=== PATIENT | female | born 1985 | race Caucasian/White ===

== ENCOUNTER 2017-08-25 08:27 | Inpatient (IN) | payer OTHER ==
[~2017-08-25] VITALS: Ht 165.1 cm; Wt 70.8 kg
[2017-08-25] MEDS ORDERED: FOLI1TAB7 PO (10:14)
[2017-08-25] MEDS ORDERED: PREN-63 (10:14)
[2017-08-25] MEDS ORDERED: BUPR8SUB19 SL (10:15)
[2017-08-25] MEDS ORDERED: LACTATED RINGER'S 1000ML 1,000 ML IV PRN (10:16)
[2017-08-25 10:18] VITALS: Ht 165.1 cm; Wt 70.8 kg
[2017-08-25 10:41] LABS: HEMATOCRIT 35.2 % (37-47); MEAN CELL VOLUME 90.7 fL (80-100); MEAN CORPUSCULAR HEMOGLOBIN 30.9 pg (25-34); MEAN CORPUSCULAR HGB CONC 34.1 g/dl (32-36); MEAN PLATELET VOLUME 10.7 fL (7.4-10.4); PLATELET COUNT 281 K/uL (130-400); RED BLOOD COUNT 3.88 M/uL (4.2-5.4); WHITE BLOOD COUNT 11.04 K/uL (4.8-10.8)
[2017-08-25] MEDS ORDERED: PENICILLIN G POTASSIUM IV 6 MU in DEXTROSE 5% 250ML 250 ML IV ONE (11:00)
[2017-08-25] MEDS ORDERED: MISOPROSTOLTAB 50 MCG TAB PO ONE ×2 (11:00→16:42)
[2017-08-25] MEDS ORDERED: TERBUTALINE SULFATE 1 MG/ML VIAL ONE (11:20)
[2017-08-25] MEDS ORDERED: TERBUTALINE SULFATE 1 MG/ML VIAL SQ SCH (11:45)
[2017-08-25] MEDS: LACTATED RINGER'S 1000ML 1,000 ML IV SCH ×2 (12:23→21:10)
--- NOTE | 2017-08-25 12:25 | HISTORY & PHYSICAL EXAMINATION ---
DATE OF ADMISSION: 08/25/2017 HISTORY OF PRESENT ILLNESS: The patient is a 31-year-old G1, P0, due date 08/20/2017, making her 40 weeks and 2 days today. The patient was originally scheduled for induction of labor on 08/26/2017 but came in this morning with irregular contractions. On arrival to labor and delivery, she had no shortness of breath, no chills, no fever, no rupture of membranes. No bloody show. heart rate strip is category 2. Decision is therefore made to keep the patient for induction of labor today. The patient's is complicated by history of drug use. The patient is on Subutex 8 mg 3 times a day. pt has declined MFM consult during her .her last scn was 4 weeks ago and EFW at that time was over 6lbs PAST MEDICAL HISTORY: 1. History of drug abuse. The patient is presently on Subutex. 2. History of bipolar disorder. 3. Attention deficit hyperactivity disorder. 4. Depression. 5. Anxiety. PAST SURGICAL HISTORY: None. ALLERGIES: THE PATIENT IS ALLERGIC TO NALOXONE. SOCIAL HISTORY: The patient denies alcohol. She however is a smoker and has history of drug use, presently on Subutex through . FAMILY HISTORY: Noncontributory. PHYSICAL EXAMINATION: GENERAL: Well-developed, well-nourished white female in no acute distress. HEART: S1, S2, regular rhythm and rate. LUNGS: Clear to auscultation bilaterally. ABDOMEN: Gravid. Bedside ultrasound shows cephalic presentation. PELVIC: Fingertip, thick and posterior. EXTREMITIES: No cyanosis, clubbing or edema. ASSESSMENT AND PLAN: A 31-year-old G1, P0 at 40 weeks and 2, complicated by history of drug use. The patient is presently on Subutex 8 mg 3 times a day. Positive GBS, patient will be receiving antibiotic prophylaxis. The patient was originally scheduled for induction tomorrow. She however presented to labor and delivery for rule out labor evaluation. Decision was therefore made to admit patient and start induction today instead. [facility]
[2017-08-25] MEDS: BUPRENORPHINE HCL 8 MG SUBL SL SCH ×2 (14:07→20:25)
[2017-08-25 14:49] LABS: BENZODIAZEPINE, URINE NEG (NEG); COCAINE,URINE NEG (NEG); PHENCYCLIDINE, URINE NEG (NEG)
[2017-08-25] MEDS ORDERED: OXYTOCIN 30 UNITS/500ML NSS IV PRN (22:00)
[2017-08-25] MEDS ORDERED: LACTATED RINGER'S 1000ML 500 ML IV PRN (22:00)
[2017-08-25] MEDS: PENICILLIN G POTASSIUM IV 3 MU in DEXTROSE 5% 100ML 100 ML IV PRN (23:06)
[2017-08-25] MEDS ORDERED: FENTANYL 2MCG/ML ROPIV 1.25MG/ML 100ML BAG EPI ONE (23:11)
[2017-08-25] MEDS ORDERED: BUPIVACAINE 0.25% 30 ML VIAL ONE (23:11)
[2017-08-25] MEDS ORDERED: EpHEDrine SULFATE INJ 50 MG/ML AMP ONE (23:11)
[2017-08-25] MEDS ORDERED: FENTANYL CITRATE INJ 50 MCG/1 ML 2 ML VIAL ONE (23:12)
[2017-08-26] VITALS (18 sets, daily range): BP systolic 102–121; BP diastolic 62–74; PULSE 78–97; TEMP 36.5–37.3; O2SAT 96–98
[2017-08-26] MEDS ORDERED: LACTATED RINGER'S 1000ML 500 ML IV PRN (00:08)
[2017-08-26] MEDS ORDERED: DiphenhydrAMINE HCL 50 MG/ML VIAL IV PRN (00:15)
[2017-08-26] MEDS ORDERED: ONDANSETRON INJ 2 MG/ML 2 ML VIAL IV PRN (00:15)
[2017-08-26] MEDS ORDERED: EpHEDrine SULFATE INJ 50 MG/ML AMP IV PRN (00:15)
[2017-08-26] MEDS ORDERED: FENTANYL 2MCG/ML ROPIV 1.25MG/ML 100ML BAG EPI PRN (00:15)
[2017-08-26] MEDS: PENICILLIN G POTASSIUM IV 3 MU in DEXTROSE 5% 100ML 100 ML IV PRN (03:26)
[2017-08-26] MEDS: LACTATED RINGER'S 1000ML 1,000 ML IV SCH (04:32)
[2017-08-26] MEDS ORDERED: LACTATED RINGER'S 1000ML 1,000 ML IV SCH ×2 (05:26→07:31)
[2017-08-26] MEDS ORDERED: CITRIC ACID/SODIUM CITRATE 15 ML UDC PO STA (05:29)
[2017-08-26] MEDS ORDERED: CEFOXITIN IV 2,000 MG in DEXTROSE 5% 50ML 50 ML IV SCH (06:00)
[2017-08-26] MEDS ORDERED: MIDAZOLAM HCL 1 MG/ML 2ML VIAL ONE ×2 (06:15→06:22)
[2017-08-26] MEDS ORDERED: MORPHINE SULFATE PF 2MG/2ML SYR ONE ×2 (06:17→07:02)
[2017-08-26] MEDS ORDERED: LIDOCAINE/EPINEPHRINE 2% 1:200,000 20 ML SDV ONE (06:37)
[2017-08-26] MEDS ORDERED: PHENYLEPHRINE HCL INJ 10 MG/ML VIAL ONE (06:37)
[2017-08-26] MEDS ORDERED: METHYLERGONOVINE MALEATE 0.2 MG/ML AMP ONE (06:38)
[2017-08-26] MEDS ORDERED: OXYTOCIN INJ 10 UNITS/ML VIAL ONE (06:42)
[2017-08-26] MEDS ORDERED: KETOROLAC TROMETHAMINE 30 MG/ML VIAL ONE (06:57)
[2017-08-26] MEDS ORDERED: ONDANSETRON INJ 2 MG/ML 2 ML VIAL ONE (07:07)
[2017-08-26] MEDS ORDERED: TERBUTALINE SULFATE 1 MG/ML VIAL ONE (07:18)
[2017-08-26] MEDS ORDERED: NO NARCOTICS OR SEDATIVES SCH (07:30)
[2017-08-26] MEDS ORDERED: CONTINUE MEDICATION ONE (07:30)
[2017-08-26] MEDS ORDERED: ACETAMINOPHEN 1000 MG/100 ML IV IV PRN (07:30)
[2017-08-26] MEDS ORDERED: MoRPHine SULFATE PF 1 MG/ML 10 ML AMP/VIAL EPI PRN (07:30)
[2017-08-26] MEDS ORDERED: OXYTOCIN INJ 20 UNITS in LACTATED RINGER'S 1000ML 1,000 ML IV SCH (07:31)
--- NOTE | 2017-08-26 07:31 | Anesthesia Procedure Note ---
Anesthesia Epidural Removal Nt Date & Time Aug 26, 2017 at 07:31 Notes Mental Status: alert / awake / arousable, participated in evaluation Nausea / Vomiting: adequately controlled Pain: adequately controlled Airway Patency, RR, SpO2: stable & adequate BP & HR: stable & adequate Hydration State: stable & adequate Neuraxial Anesthesia: was administered Anesthetic Complications: no major complications apparent, pt satisfied with anesthetic care Epidural: removed without complications, with tip intact
--- NOTE | 2017-08-26 07:34 | Anesthesiology Progress Note ---
Anesthesia Post Op Note Date & Time Aug 26, 2017 at 07:34 Notes Mental Status: alert / awake / arousable, participated in evaluation Pt Amnestic to Procedure: Yes Nausea / Vomiting: adequately controlled Pain: adequately controlled Airway Patency, RR, SpO2: stable & adequate BP & HR: stable & adequate Hydration State: stable & adequate Neuraxial Anesthesia: was administered, sensory block is resolving Anesthetic Complications: no major complications apparent
[2017-08-26] MEDS ORDERED: BENZOCAINE 20% AER SPR 82.5 GM CAN EXT PRN (07:45)
[2017-08-26] MEDS ORDERED: MAGNESIUM HYDROXIDE SUSP 30 ML UDC PO PRN (07:45)
[2017-08-26] MEDS ORDERED: SENNA 8.6 MG TAB PO PRN (07:45)
[2017-08-26] MEDS ORDERED: SUPERCREAM 0.870 % 15GM JAR EXT PRN (07:45)
[2017-08-26] MEDS ORDERED: HYDROCORTISONE ACETATE 25 MG SUPP PR PRN (07:45)
[2017-08-26] MEDS ORDERED: LANOLIN OINT EXT PRN ×2 (07:45)
[2017-08-26] MEDS: BUPRENORPHINE HCL 8 MG SUBL SL SCH (07:46)
[2017-08-26] MEDS: PRENATAL VITAMIN TAB PO SCH (08:00)
[2017-08-26] MEDS: DOCUSATE SODIUM 100 MG CAP PO SCH ×2 (08:00→19:36)
[2017-08-26] MEDS: FERROUS SULFATE 325 MG TAB PO SCH (08:00)
--- NOTE | 2017-08-26 08:27 | OPERATIVE REPORT ---
DATE OF OPERATION: 08/25/2017 INDICATION FOR SURGERY: This is a 31-year-old who presented to [facility] on 08/25/2017 for labor induction at 40 weeks and 5 days. The patient's is complicated by use of Subutex. Induction involved 2 doses of Cytotec and Pitocin. The patient progressed to 3 cm, 100% effaced and -2 station. The patient continued to experience deep variable decelerations. Amnioinfusion was performed with no success. Decision was, therefore, made to perform section. PREOPERATIVE DIAGNOSES: 1. Induction for postdates. 2. complicated by drug use, the patient is on Subutex. 3. intolerance to labor. 4. Recurrent variable decelerations. 5. Oligohydramnios. POSTOPERATIVE DIAGNOSES: Same. PROCEDURE: Primary section. SURGEON: Dr. Pollard. SECURITY OPERATIONS C[facility] OPERATOR: Martha Liriano RN. ANESTHESIA: Epidural. COMPLICATIONS: None. DRAINS: Stuart catheter. ESTIMATED BLOOD LOSS: 700 mL IV FLUIDS: 1600 mL URINE OUTPUT: 200 mL clear urine at end of the procedure. SPECIMEN: Cord gas and placenta. FINDINGS: Live infant female in occiput posterior presentation, thick particulate meconium. Uterus is grossly normal except for 2 cm anterior fibroid. Both adnexa appear grossly normal. Rest of the abdominal and pelvic exam is unremarkable. DESCRIPTION OF PROCEDURE: The patient was sent to the operating room where she was prepped and draped in normal sterile fashion. Timeout was called. A Pfannenstiel incision was made with a scalpel and carried down to the fascia. Fascia was incised in the midline and extended laterally on both sides. The rectus abdominus muscle was sharply dissected off the fascia superiorly and inferiorly. Peritoneum was identified and entered, grabbed and cut with Saldivar scissors. Once inside the abdomen, an Cheng retractor was placed for retraction. The vesicouterine peritoneum was sharply dissected off the lower uterine segment. A transverse incision was made and extended laterally on both sides. Infant was in occiput posterior presentation and was delivered using Victus retractor. Infant was delivered. There was no nuchal cord. Particulate meconium was identified. Cord was clamped and cut and handed over to the pediatric team. 's weight and details are in the pediatric record. Cord gases obtained. Placenta was manually removed. Uterus exteriorized and cleared of all clots and debris. Uterus was closed in 2 layers using 0 Vicryl. Fascial layer closure done in locking fashion. There was good hemostasis at the end of the closure. Copious amount of irrigation was used to irrigate the abdomen. The bladder flap was reapproximated using plain suture. Uterus was returned into the abdominal cavity where more irrigation was used to irrigate the abdomen. There was good hemostasis at this point. The Cheng retractor was removed and the peritoneum closed in a running fashion using plain suture. The rectus abdominis muscle was reapproximated in a [id number] fashion using plain suture. The fascia was closed in a running fashion using Vicryl stitch. Subcu space was reapproximated using plain suture and skin was closed with 4-0 Monocryl. All instruments were removed from the abdomen and accounted for x2 including retractors, needles and sponges. Mother is stable and sent to recovery in stable condition. I attest to the content of the Intraoperative Record and any orders documented therein. Any exception s are noted below.
[2017-08-26] MEDS: MoRPHine SULFATE 2 MG/ML CARP IV PRN ×2 (08:45→18:50)
[2017-08-26] MEDS ORDERED: OXYCODONE HCL IR 5 MG TAB (IMMEDIATE RELEASE) PO PRN ×2 (09:15→13:00)
[2017-08-26] MEDS: SIMETHICONE 80 MG CHEW PO SCH ×4 (10:15→19:36)
--- NOTE | 2017-08-26 12:56 | OB/GYN Progress Note ---
GUARD RANGE Progress Note Date of Service: Aug 26, 2017. Postop check Patient is seen and examined Feels well, no complaints other than being sore She desires her Subutex Pain is 7/10 No CP/ SOB/ Dizziness/ N&V/ VB/ Leg pain Not OOB yet Tolerating clears Flatus+ Breast feeding without problems Date Time Temp Pulse Resp B/P (MAP) Pulse Ox O2 Delivery O2 Flow Rate FiO2 08/26/17 10:20 37.3 97 16 121/71 (88) 96 Room Air Urine: 900 ml in bag, clear PE: General: Alert, orientedx3, NAD CVS: S1S2 RRR Lungs: CTAB Abd: soft, NT, ND, BS+, Dressing C/D/I, fundus firm below U Lochia minimal Ext: NT, no edema, SCD's on AP: 31 yo female s/p Primary Csection , pod#0 VSS Afebrile doing well Pain management per anesthesiology: start Subutex, stop other narcotics IV Toradol and Tylenol per plan Continue to routine postop care Encourage PO intake, dangle in the evening D/C vee in am
[2017-08-26] MEDS: KETOROLAC TROMETHAMINE 30 MG/ML VIAL IV. PRN ×2 (13:37→19:36)
[2017-08-26] MEDS ORDERED: BUPRENORPHINE HCL 2 MG SUBL SL SCH ×2 (14:00→16:00)
[2017-08-26] MEDS ORDERED: BUPRENORPHINE SL SCH ×2 (20:00)
[2017-08-27] VITALS (10 sets, daily range): BP systolic 96–117; BP diastolic 57–75; PULSE 70–76; TEMP 36.8–36.9; O2SAT 96–98
[2017-08-27] MEDS: KETOROLAC TROMETHAMINE 30 MG/ML VIAL IV. PRN (01:43)
[2017-08-27] MEDS: IBUPROFEN 600 MG TAB PO PRN ×4 (05:36→21:47)
[2017-08-27] MEDS ORDERED: DC INTRASPINAL MORPHINE SCH (06:00)
[2017-08-27] MEDS ORDERED: PROMETHAZINE HCL INJ 25 MG in SODIUM CHLORIDE 0.9% 50ML 50 ML IV PRN (06:01)
[2017-08-27] MEDS ORDERED: OXYCODONE/ACETAMINOPHEN 5-325 TAB PO PRN (06:01)
[2017-08-27] MEDS ORDERED: DiphenhydrAMINE HCL 50 MG/ML VIAL IV PRN (06:01)
[2017-08-27] MEDS ORDERED: ONDANSETRON INJ 2 MG/ML 2 ML VIAL IV PRN (06:01)
[2017-08-27 07:27] LABS: BASO % 0.2 %; BASO ABS # 0.03 K/uL (0-0.2); COMPLETE YES; HEMATOCRIT 31.9 % (37-47); IG% 0.5 %; LYMPH % 10.8 %; LYMPH ABS # 1.39 K/uL (1.2-3.4); MEAN CELL VOLUME 91.7 fL (80-100); MEAN CORPUSCULAR HEMOGLOBIN 30.2 pg (25-34); MEAN CORPUSCULAR HGB CONC 32.9 g/dl (32-36); MEAN PLATELET VOLUME 10.6 fL (7.4-10.4); MONO % 6.1 %; NEUT % 81.4 %; PLATELET COUNT 268 K/uL (130-400); RED BLOOD COUNT 3.48 M/uL (4.2-5.4); WHITE BLOOD COUNT 12.91 K/uL (4.8-10.8)
[2017-08-27] MEDS: DOCUSATE SODIUM 100 MG CAP PO SCH ×2 (08:45→20:27)
[2017-08-27] MEDS: SIMETHICONE 80 MG CHEW PO SCH ×4 (08:45→20:27)
[2017-08-27] MEDS: FERROUS SULFATE 325 MG TAB PO SCH (08:45)
[2017-08-27] MEDS: PRENATAL VITAMIN TAB PO SCH (08:46)
[2017-08-27] MEDS: BUPRENORPHINE HCL 2 MG SUBL SL SCH ×3 (08:46→20:27)
[2017-08-27] MEDS: BUPRENORPHINE HCL 8 MG SUBL SL SCH ×3 (08:46→20:27)
--- NOTE | 2017-08-27 10:48 | Surgery Progress Note ---
Surgery Progress Note Date of Service Aug 27, 2017. Subjective Post OP Day: 1 + feeling well, + ambulating, + flatus, + pain controlled, + diet Objective Vital Signs: Date Time Temp Pulse Resp B/P (MAP) Pulse Ox O2 Delivery O2 Flow Rate FiO2 08/27/17 08:00 36.8 71 16 105/65 (78) Room Air 08/27/17 05:30 18 98 08/27/17 04:30 16 98 08/27/17 03:30 16 98 08/27/17 03:15 36.8 76 18 103/60 (74) 96 Room Air 08/27/17 02:30 16 98 08/27/17 01:30 18 98 08/27/17 00:30 18 96 08/26/17 23:45 96 Room Air 08/26/17 23:45 37.2 80 18 102/74 (83) 96 Room Air 08/26/17 23:30 18 98 08/26/17 22:30 16 98 08/26/17 21:30 16 97 08/26/17 20:30 16 98 08/26/17 20:06 98 Room Air 08/26/17 20:02 36.5 86 16 119/71 (87) 98 Room Air 08/26/17 19:30 16 98 08/26/17 18:30 16 98 08/26/17 17:30 15 97 08/26/17 16:30 16 98 08/26/17 15:30 16 96 08/26/17 15:30 Room Air 08/26/17 15:30 36.8 78 16 110/62 (78) 96 Room Air 08/26/17 14:30 20 97 08/26/17 13:30 18 97 08/26/17 12:30 18 96 08/26/17 12:30 37.2 84 20 112/64 (80) 96 Room Air 08/26/17 11:30 20 98 General Appearance: no apparent distress Abdomen: non tender, non distended, soft Incision(s): clean, dry, intact Extremities: non-tender, normal inspection, no pedal edema, no calf tenderness Laboratory Results: Results Past 24 Hours Test 08/27/17 06:50 Range/Units White Blood Count 12.91 4.8-10.8 K/uL Red Blood Count 3.48 4.2-5.4 M/uL Hemoglobin 10.5 12.0-16.0 g/dL Hematocrit 31.9 37-47 % Mean Corpuscular Volume 91.7 80-100 fL Mean Corpuscular Hemoglobin 30.2 25-34 pg Mean Corpuscular Hemoglobin Concent 32.9 32-36 g/dl Platelet Count 268 130-400 K/uL Mean Platelet Volume 10.6 7.4-10.4 fL Neutrophils (%) (Auto) 81.4 % Lymphocytes (%) (Auto) 10.8 % Monocytes (%) (Auto) 6.1 % Eosinophils (%) (Auto) 1.0 % Basophils (%) (Auto) 0.2 % Neutrophils # (Auto) 10.51 1.4-6.5 K/uL Lymphocytes # (Auto) 1.39 1.2-3.4 K/uL Monocytes # (Auto) 0.79 0.11-0.59 K/uL Eosinophils # (Auto) 0.13 0-0.5 K/uL Basophils # (Auto) 0.03 0-0.2 K/uL RDW Standard Deviation 45.5 36.4-46.3 fL RDW Coefficient of Variation 13.7 11.5-14.5 % Immature Granulocyte % (Auto) 0.5 % Immature Granulocyte # (Auto) 0.06 0.00-0.02 K/uL Assessment & Plan regular diet POD#1 advance care and diet
[2017-08-27] MEDS: OXYCODONE/ACETAMINOPHEN 5-325 TAB PO PRN ×3 (12:46→21:48)
[2017-08-27] MEDS ORDERED: BISACODYL 5 MG TABEC PO ONE (22:00)
[2017-08-28] MEDS: IBUPROFEN 600 MG TAB PO PRN ×4 (01:35→13:28)
[2017-08-28] MEDS: OXYCODONE/ACETAMINOPHEN 5-325 TAB PO PRN ×4 (01:36→13:29)
[2017-08-28] MEDS ORDERED: BISACODYL 10 MG SUPP PR PRN (07:00)
--- NOTE | 2017-08-28 07:48 | OB/GYN Progress Note ---
EQUAL OPPORTUNITY ASSISTANT Progress Note Date of Service: Aug 28, 2017. Patient is seen and examined. She feels well, no complaints. Likes to go home Pain is under control with oral meds. Ambulating without dizziness Voiding without difficulty Tolerating regular diet with out N&V Flatus + BM + Bleeding is minimal No fever/ chills/ CP/ SOB/ N&V/ Leg pain Breast and bottle feeding without problems Date Time Temp Pulse Resp B/P (MAP) Pulse Ox O2 Delivery O2 Flow Rate FiO2 08/27/17 23:55 97 Room Air 08/27/17 23:55 36.9 70 18 117/75 (89) 97 Room Air 08/27/17 16:50 36.9 76 18 96/57 (70) 97 Room Air 08/27/17 16:50 Room Air 08/27/17 08:00 36.8 71 16 105/65 (78) Room Air Test 08/25/17 10:25 08/25/17 12:05 08/27/17 06:50 White Blood Count 11.04 H 12.91 H Red Blood Count 3.88 L 3.48 L Hemoglobin 12.0 10.5 L Hematocrit 35.2 L 31.9 L Mean Corpuscular Volume 90.7 91.7 Mean Corpuscular Hemoglobin 30.9 30.2 Mean Corpuscular Hemoglobin Concent 34.1 32.9 RDW Standard Deviation 43.5 45.5 RDW Coefficient of Variation 13.3 13.7 Platelet Count 281 268 Mean Platelet Volume 10.7 H 10.6 H Urine Opiates Screen NEG Urine Methadone, Qualitative NEG Urine Barbiturates NEG Urine Phencyclidine (PCP) Level NEG Ur Amphetamine/Methamphetamine NEG MDMA (Ecstasy) Screen NEG Urine Benzodiazepines Screen NEG Urine Cocaine Metabolite NEG Urine Marijuana (THC) NEG Neutrophils (%) (Auto) 81.4 Lymphocytes (%) (Auto) 10.8 Monocytes (%) (Auto) 6.1 Eosinophils (%) (Auto) 1.0 Basophils (%) (Auto) 0.2 Neutrophils # (Auto) 10.51 H Lymphocytes # (Auto) 1.39 Monocytes # (Auto) 0.79 H Eosinophils # (Auto) 0.13 Basophils # (Auto) 0.03 Immature Granulocyte % (Auto) 0.5 Immature Granulocyte # (Auto) 0.06 H PE: General: Alert, orientedx3, NAD CVS: S1S2 RRR Lungs; CTAB Abd: soft, NT, fundus firm, below Umbilicus Incision: Clean, dry, intact Perineum intact, Lochia rubra minimal Ext; NT, no edema AP: 31 yo s/p C Section, pod# 2 VSS Afebrile doing well Continue routine postop care Encourage ambulation, PO intake All questions were answered Desires to be discharged Instructions were given when to call D/C home if baby will be discharged
[2017-08-28] MEDS ORDERED: MTR600X PO (07:49)
[2017-08-28] MEDS ORDERED: OXYC-57 PO (07:49)
--- NOTE | 2017-08-28 07:50 | Discharge Instructions ---
Discharge Instructions Date of Service Aug 28, 2017. Admission Reason for Admission: Labor Check Discharge Discharge Diagnosis / Problem: Primary Csection Discharge Goals Goal(s): Routine recovery after Activity Recommendations Activity Limitations: as noted below Lifting Limitations: no more than 10 pounds Exercise/Sports Limitations: until after follow-up appointment May Resume Sexual Activity: after follow-up appointment Shower/Bathe: keep incision dry Driving or Machine Use: ACTIVITY RECOMMENDATIONS: * Gradual return to full activity over the next 2-3 weeks. * No lifting - nothing heavier than baby over the next 2-3 weeks. * Do not engage in vigorous exercise, sexual activity or sports until cleared by your physician. * Do not drive or operate any motorized equipment until cleared by your physician. * You may shower/bathe daily. BREAST CARE: If you are not breast feeding: * Wear a supportive bra 24 hours a day for one to two weeks. * Avoid stimulating your breasts and nipples as much as possible during the first few weeks after delivery. * When taking a shower, have the warm water hit your back, not breasts. * When your breasts feel full, apply ice packs. Usually three to four times a day helps ease the discomfort. * Take a mild pain medication (Tylenol/Motrin) when you are uncomfortable. If breast feeding: * Use breast milk to lubricate nipples. Lansinoh cream may be used for sore nipples. You do not need to remove cream prior to breast feeding. If using a different brand of cream, check the label for directions regarding removal of cream prior to nursing. * Wear a supportive bra. * If having problems with breasts or breast feeding, call a weight loss sales consultant or your health care provider. OVER THE COUNTER MEDICATION: * For discomfort or pain, you may use Acetaminophen (Tylenol), Ibuprofen (Advil ), or Naproxen (Aleve) following the package directions. * For constipation you may use Colace following the package directions. SPECIAL CARE INSTRUCTIONS: When you are discharged from the hospital, it is important for you to follow the instructions listed below: * During the first week at home, you should be able to care for yourself and your baby. In addition, the usual light household activities are encouraged. * Limit your activities to the way you feel. Do not try to clean the house or move furniture. Be sensible. * If you actively engage in sports and have done so up until the time of your delivery, you may resume these activities as soon as you feel able. This may take up to one month or even longer. Use good judgment. * Continue to take your vitamins for at least six weeks after the of your baby. * Your diet need not be limited unless you were on a special diet before your delivery. Breast-feeding mothers need around 2500 calories per day and at least 64-80 ounces of fluid per day (8 to 10 glasses). * You should eat foods from the four major food groups. Crash diets or fad diets are to be avoided. Eating lean meats, fresh fruits and vegetables, low-fat dairy products, high fiber foods and a regular exercise program, will help you get back to your pre- weight without putting your health at risk. * Constipation is sometimes a problem after delivery. Take a mild laxative as needed. If breast feeding, Milk of Magnesia is acceptable to use. You may use a suppository or Fleets enema if no episiotomy. * A daily shower or tub bath is suggested. Be sure to thoroughly and gently dry the perineum. * A bloody vaginal discharge will usually continue until around four weeks post . A small amount of bleeding may continue for as long as six weeks. Vaginal discharge changes from the bright red bleeding after delivery to pink then brownish and finally yellowish-pink before becoming white and disappearing. * Bleeding may increase with activity. Your first period may come in 4-8 weeks. If you are breast feeding, your period may be delayed even longer. * Longfellow (sex) can begin whenever both you and your partner feel comfortable and do not have any form of genital infection. It is recommended that you wait at least six weeks for internal and external healing to occur. If you have questions, please talk to your health care practitioner. A condom should be used to prevent infection and . * Foreplay, gentle intercourse and lubrication is very important the first several times to prevent pain. A water-based lubricant such as K-Y jelly or Astroglide may be used. * Tampons and/or Douching should be avoided until after six weeks check-up. * If you have RH negative blood and your baby is RH positive, you will receive RHOGAM by injection prior to discharge. The nurse will give you a card to keep with you that has the date and place that you received RHOGAM after delivery. * During your care, you had a Rubella screen done to check for the presence of rubella antibodies in your blood. If your test was negative, you will receive a Rubella vaccine prior to discharge. This vaccine may cause a fever, soreness at the injection site and flu-like symptoms. If these symptoms persist, notify your health care practitioner. is not advised for three months after a Rubella vaccine. * Verbalizes understanding of car seat law as reviewed with patient nursing. * Car Seat hand-out given and reviewed with patient by nursing. * Shaken baby information reviewed with patient by nursing. Call you doctor if: * Heavy bleeding (saturating several pads an hour) or passing clots the size of your fist. * A fever >101 degrees F (38.3 degrees C) on two occasions four hours apart and /or chills. * Unusual pain in the pelvic or vaginal areas. Pain should improve each day . * Call the doctor for any increased redness, drainage or swelling around the incision and any pain unrelieved by prescribed pain medication. * Any signs or symptoms of phlebitis (possible blood clots forming in the veins ): leg pain, warm, red or swollen area on leg. * "Baby Blues" lasting longer than two weeks. If you have any questions or concerns, call your health care practitioner at . FOLLOW-UP VISIT: * Incision check (staple removal) in 1 week. Please call doctor's office at to set up appointment. * Please call the office at to schedule a 6 week examination. It is important you keep this appointment. * It is important for you to make arrangements for either yearly or twice yearly check-ups thereafter. . Current Hospital Diet Patient's current hospital diet: Regular OB Diet Discharge Diet Recommended Diet: Regular Diet Procedures Procedures Performed: Primary Caesarean Section for the of a viable female child at [id number]. Pending Studies Studies pending at discharge: no Medical Emergencies . Who to Call and When: Medical Emergencies: If at any time you feel your situation is an emergency, please call 911 immediately. . Non-Emergent Contact Non-Emergency issues call your: Surgeon Call Non-Emergent contact if: temperature is above 100.5, your pain is not controlled, your pain is worsening, wound has increased drainage, wound has increased redness, wound has increased pain . . "Provider Documentation" section prepared by Nancy Saldivar. . VTE Core Measure Inpt VTE Proph given/why not?: Treatment not indicated
[2017-08-28] MEDS: FERROUS SULFATE 325 MG TAB PO SCH (08:21)
[2017-08-28] MEDS: DOCUSATE SODIUM 100 MG CAP PO SCH (08:21)
[2017-08-28] MEDS: PRENATAL VITAMIN TAB PO SCH (08:21)
[2017-08-28] MEDS: BUPRENORPHINE HCL 8 MG SUBL SL SCH ×2 (08:22→14:28)
[2017-08-28] MEDS: BUPRENORPHINE HCL 2 MG SUBL SL SCH ×2 (08:22→14:28)
[2017-08-28] MEDS: SIMETHICONE 80 MG CHEW PO SCH ×2 (08:22→12:17)
[2017-08-28 12:30] VITALS: BP 97/60; PULSE 78; TEMP 36.9
[2017-08-28 15:25] VITALS: BP 99/61; PULSE 77; TEMP 36.9
[2017-08-28 15:43] VITALS: BP_DIAS 61; PULSE 77; TEMP 36.9
== END 2017-08-28 15:47 | disposition home or self-care (01) | DRG 765 ==
LOC: C.OPB 08:27 → C.LD 08:27 → C.OPB 10:20 → C.LD 10:20 → C.OBG 08-26 10:16
PROVIDERS: ADMIT Obstetrics & Gynecology; ATTEND Obstetrics & Gynecology
PROC: 3E0P7GC Introduction of Other Therapeutic Substance into Female Reproductive, Via Natural or Artificial Opening (ICD-10-PCS; 2017-08-25)
PROC: 3E033VJ Introduction of Other Hormone into Peripheral Vein, Percutaneous Approach (ICD-10-PCS; 2017-08-25)
PROC: 10D00Z0 Extraction of Products of Conception, High, Open Approach (ICD-10-PCS; principal; 2017-08-26 05:33)
DX: O48.0 Post-term pregnancy (principal); O41.03X0 Oligohydramnios, third trimester, not applicable or unspecified; O99.324 Drug use complicating childbirth; O76 Abnormality in fetal heart rate and rhythm complicating labor and delivery; O99.334 Smoking (tobacco) complicating childbirth; F17.200 Nicotine dependence, unspecified, uncomplicated; Z22.330 Carrier of Group B streptococcus; Z87.898 Personal history of other specified conditions; Z79.899 Other long term (current) drug therapy; Z3A.40 40 weeks gestation of pregnancy; Z37.0 Single live birth

== ENCOUNTER 2024-12-13 12:40 | Inpatient (IN) ==
[2024-12-13 13:14] LABS: Basophils # (auto) 0.04 K/uL (0.00-0.20); Basophils % (auto) 0.2 %; Hematocrit (blood only) 36.9 % (37.0-47.0); Hemoglobin 12.4 g/dl (12.0-16.0); Immature Granulocytes # (auto) 0.31 K/uL (0.01-0.20); Immature Granulocytes % (auto) 1.5 %; Lymphocytes # (auto) 1.23 K/uL (1.20-3.40); Lymphocytes % (auto) 6.1 %; Mean Corpuscular Hemoglobin 28.8 pg (25.0-34.0); Mean Corpuscular Hgb Conc 33.6 g/dL (32.0-36.0); Mean Corpuscular Volume 85.6 fL (80.0-100.0); Mean Platelet Volume 10.6 fL (9.4-12.4); Monocytes # (auto) 1.12 K/uL (0.11-0.59); Monocytes % (auto) 5.5 %; Neutrophils # (auto) 17.57 K/uL (1.40-6.50); Neutrophils % (auto) 86.7 %; Platelet Count 382 K/uL (130-400); RDW Coefficient of Variation 11.9 % (11.5-14.5); RDW Standard Deviation 36.8 fL (36.4-46.3); Red Blood Count 4.31 M/uL (4.20-5.40); White Blood Count 20.27 K/ul (4.8-10.8)
[2024-12-13 13:39] LABS: Alanine Aminotransferase 9 U/L (7-52); Albumin Globulin Ratio 1.4 (0.9-2); Albumin Level 4.4 gm/dl (3.4-5.0); Alkaline Phosphatase 104 U/L (34-104); Anion Gap 7 (3-11); Aspartate Aminotransferase 24 U/L (13-39); BUN Creatinine Ratio 12.6 (10-20); Bilirubin,Total 0.6 mg/dl (0.2-1.0); Blood Urea Nitrogen 30 mg/dl (6-23); Calcium > 18.0 mg/dl (8.6-10.3); Carbon Dioxide 33 mmol/L (21-32); Chloride 96 mmol/L (98-107); Globulin 3.1 gm/dl (2.5-4.0); Glucose 109 mg/dl (70-99(Fasting)); Potassium 3.9 mmol/L (3.5-5.1); Sodium 136 mmol/L (136-145); Total Protein 7.5 gm/dl (6.0-8.3)
[2024-12-13] MEDS: ONDANSETRON INJ 2 MG/ML 2 ML VIAL IV STA (13:51)
[2024-12-13] MEDS: SODIUM CHLORIDE 0.9% 1,000 ML IV ONE ×2 (13:51→15:06)
[2024-12-13 14:02] LABS: Magnesium 1.8 mg/dl (1.7-2.4)
--- NOTE | 2024-12-13 14:06 | Emergency Department Note ---
Impression & Plan Hypercalcemia, MELISSA (acute kidney injury), Dehydration, Nausea & vomiting, Acute dehydration ED Provider Note NAME: MILADYS PENALOZA AGE: 39 SEX: F : 1985 ARRIVES VIA: Walk-In INFORMANT: Patient, relative at bedside ED PROVIDER(S): Gurinder Armstrong MD CHIEF COMPLAINT: Nausea vomiting, outpatient referral, abnormal outpatient blood work MEDICAL DECISION MAKING: Patient presents due to concern for abnormal outpatient blood work. IV was established and blood work was obtained. Patient was ordered IV fluids and antiemetics. Initial blood work shows a white count of 20,000. Empiric Zosyn initiated as a precaution although the patient does complain of nausea and vomiting. Hemoglobin normal with normal platelet count. Kidney function with MELISSA creatinine of 2.38 and calcium greater than 18. Given these concerns I did inform the patient the patient's relative at bedside. Patient does have crampy abdominal pain and the patient's pain certainly may be secondary to the patient's significant hypercalcemia. Patient also had complained of having blurry vision or changes unsure as whether the patient has been having hallucinations given the hypercalcemia. No monocular blindness. It is with the on-call hospital service Chelsey Wallace PA-C and the patient was admitted by Dr. Campos. Calcitonin deferred to the inpatient service after discussion. Discussion w/ other healthcare providers: Chelsey Wallace PA-C and Dr. Weston inpatient medicine service Prior /Outside records reviewed: None Differential diagnosis: Gastroenteritis, food borne illness, infection, appendicitis, diverticulitis, inflammatory bowel disease, obstruction among others were considered. Diagnostics, as interpreted by me: ECG: None Cardiac monitoring: An order was placed for continuous cardiac monitoring. The monitor shows a rate of 65 with sinus rhythm. Patient was placed on pulse oximetry Medical decision rules: None Imaging studies: I informally interpreted the patient's Chest x-ray does not show obvious pneumonia or pneumothorax with formal report to follow. HPI: Patient presents with aunt at bedside due to concerns for abnormal outpatient blood work. Patient reportedly is feeling generally unwell for the last several days not eating or drinking much with associated nausea and vomiting. Patient denies any chest pains or shortness of breath. Patient with a known history of breast cancer with bony metastases. Patient has been feeling generally unwell for the last 3 days. Patient not been able to tolerate her medications at home and still has nausea and vomiting. Reportedly the patient did have an elevated white blood cell count as well as an elevated calcium completed in the outpatient clinic. The patient does follow with Dr. Munoz with oncology. Patient reports that she has been having occasional almost blurry vision spells. Patient denies any blindness. PAST MEDICAL HISTORY: See Below PAST SURGICAL HISTORY: See Below SOCIAL HISTORY: See Below HOME MEDICATIONS: See Below ALLERGIES: See Below VITALS: See Below PHYSICAL EXAMINATION: GENERAL: Fatigable but nontoxic in appearance. EYE EXAM: Normal conjunctiva. PERRL, no anisocoria and EOM's grossly intact w/o pain. OROPHARYNX: Moist mucus membranes, grossly normal dentition. NECK: Trachea midline, no stridor. Supple, no nuchal rigidity, no adenopathy, non-tender. No signs of meningismus. FROM of the neck with good chin to chest and neck extension. LUNGS: Clear to auscultation. Normal chest wall mechanics. HEART: NSR, no MRG. ABDOMEN: Abdomen soft, mild diffuse discomfort, no specific focality, not peritonitic,, no masses, no rebound or guarding. BACK: No CVA TTP. SKIN: No rashes and no bruising. UPPER EXTREMITIES: Upper extremities are grossly normal. LOWER EXTREMITIES: Grossly normal, no edema. NEURO EXAM: A&O x3, cranial nerves II-XII grossly intact, normal speech, moves all 4 extremities. Past Med/Surg History Problem List (Updated 12/17/24 @ 17:44 by Gurinder Armstrong MD) Acute dehydration (Acute) Nausea & vomiting (Acute) Hyponatremia Intractable nausea Nephrocalcinosis Hypercalcemia of malignancy Hypercalcemia (Acute) Dehydration (Acute) MELISSA (acute kidney injury) (Acute) Medical History ADHD Hx of drug abuse Depression with anxiety Malignant neoplasm of right breast, stage 4 Surgical History Hx of breast biopsy Family History Mother Breast cancer Father Cancer Social History Smoking Status: Former smoker Tobacco Type: E-cigarettes / Vaping Cigarettes Per Day: used to smoke tobacco cigarettes, was vaping until the last few days; Second Hand Exposure: No; Do You Dip or Chew Tobacco: No; Hx Alcohol Use: No Hx Substance Use: Yes Last Used Substance Other:: 12 years Substance Use Type Other:: heroin Preferred Language: Salvadorean Communication Ability: Effective Screed Person Required: No Beliefs That Will Affect Care: Cultural Current Living Situation: Family Current Living Situation Comment: lives at home with boyfriend and children Feels Safe at Home: Yes Assistive Devices: None Allergies Allergies Allergy/AdvReac Type Severity Reaction Status Date / Time naloxone Allergy Severe ANAPHYLAXIS Verified 08/25/17 10:11 Home Meds Home Medications Medication Instructions Recorded Confirmed abemaciclib 150 mg tablet 150 mg PO AMHS 12/13/24 12/13/24 (Verzenio) alprazolam 0.25 mg tablet 0.25 mg PO TID PRN Anxiety 12/13/24 12/13/24 buprenorphine HCl 8 mg sublingual 1 mg sublingual TID 12/13/24 12/13/24 tablet bupropion HCl 300 mg 24 hr tablet, 300 mg PO DAILY 12/13/24 12/13/24 extended release gabapentin 300 mg capsule 300 mg PO TID 12/13/24 12/13/24 hydromorphone 4 mg tablet 4 mg PO Q4H PRN Severe Pain (Scale 12/13/24 12/13/24 Score 7-10) letrozole 2.5 mg tablet 2.5 mg PO DAILY 12/13/24 12/13/24 ondansetron HCl 8 mg tablet 8 mg PO Q8H PRN Nausea 12/13/24 12/13/24 prochlorperazine maleate 10 mg 10 mg PO Q6H PRN Nausea 12/13/24 12/13/24 tablet Results & Data (ED) Vital Signs Vital Signs - 24 hr 12/13/24 12:47 12/13/24 13:29 Temperature 36.7 C Temperature Source Temporal Artery Scan Pulse Rate 71 60 Respiratory Rate 17 Blood Pressure 129/80 Blood Pressure Mean 96 Pulse Oximetry 96 Oxygen Delivery Method Room Air Sepsis Recent Fever Within 48 Hours No Sepsis New/Unexplained Change in Mental Status N/A Sepsis Action Taken by Nursing No Action Required Home Medications Current Medication List: was personally reviewed by me Laboratory Data Attestation: I reviewed the patient's lab results. 12/17/24 03:55 12/17/24 03:55 Lab Results 12/13/24 Range/Units 12:59 WBC 20.27 H (4.8-10.8) K/ul RBC 4.31 (4.20-5.40) M/uL Hgb 12.4 (12.0-16.0) g/dl Hct 36.9 L (37.0-47.0) % MCV 85.6 (80.0-100.0) fL MCH 28.8 (25.0-34.0) pg MCHC 33.6 (32.0-36.0) g/dL RDW Std Deviation 36.8 (36.4-46.3) fL RDW Coeff of Real 11.9 (11.5-14.5) % Plt Count 382 (130-400) K/uL MPV 10.6 (9.4-12.4) fL Immature Gran % (Auto) 1.5 % Neut % (Auto) 86.7 % Lymph % (Auto) 6.1 % Fallon % (Auto) 5.5 % Eos % (Auto) 0.0 % Baso % (Auto) 0.2 % Neut # (Auto) 17.57 H (1.40-6.50) K/uL Lymph # (Auto) 1.23 (1.20-3.40) K/uL Fallon # (Auto) 1.12 H (0.11-0.59) K/uL Eos # (Auto) 0.00 (0.00-0.50) K/uL Baso # (Auto) 0.04 (0.00-0.20) K/uL Immature Gran # (Auto) 0.31 H (0.01-0.20) K/uL Sodium 136 (136-145) mmol/L Potassium 3.9 (3.5-5.1) mmol/L Chloride 96 L (98-107) mmol/L Carbon Dioxide 33 H (21-32) mmol/L Anion Gap 7 (3-11) BUN 30 H (6-23) mg/dl Creatinine 2.38 H (0.6-1.2) mg/dl Est Cr Clr Drug Dosing 30.0 ml/min eGFR 26.12 BUN/Creatinine Ratio 12.6 (10-20) Glucose 109 H (70-99(Fasting)) mg/dl Calcium > 18.0 H* (8.6-10.3) mg/dl Magnesium 1.8 (1.7-2.4) mg/dl Total Bilirubin 0.6 (0.2-1.0) mg/dl AST 24 (13-39) U/L ALT 9 (7-52) U/L Alkaline Phosphatase 104 (34-104) U/L Total Protein 7.5 (6.0-8.3) gm/dl Albumin 4.4 (3.4-5.0) gm/dl Globulin 3.1 (2.5-4.0) gm/dl Albumin/Globulin Ratio 1.4 (0.9-2) Administered Medications Alprazolam (Alprazolam 0.25 Mg Tablet) 0.25 mg PO TID PRN PRN Reason: Anxiety Stop: 01/12/25 17:49 Last Admin: 12/17/24 10:02 Dose: 0.25 mg Documented By: Admin: 12/16/24 18:12 Dose: 0.25 mg Documented By: Admin: 12/14/24 21:40 Dose: 0.25 mg Documented By: Admin: 12/14/24 08:27 Dose: 0.25 mg Documented By: Admin: 12/13/24 22:25 Dose: 0.25 mg Documented By: MATTY Buprenorphine HCl (Buprenorphine Hcl 2 Mg Subl) 4 mg SL TID [facility] Stop: 01/15/25 14:29 Last Admin: 12/17/24 15:56 Dose: 4 mg Documented By: Admin: 12/17/24 15:48 Dose: Not Given Documented By: [facility] [place] Admin: 12/16/24 21:38 Dose: Not Given Documented By: Admin: 12/16/24 14:52 Dose: 4 mg Documented By: FREDA Bupropion HCl (Bupropion Xl 300 Mg Tabcr) 300 mg PO DAILY [facility]ON Stop: 01/13/25 08:59 Last Admin: 12/17/24 09:52 Dose: 300 mg Documented By: Admin: 12/16/24 09:34 Dose: 300 mg Documented By: Admin: 12/15/24 08:14 Dose: 300 mg Documented By: Admin: 12/14/24 08:17 Dose: 300 mg Documented By: GOVIND Gabapentin (Gabapentin 300 Mg Cap) 300 mg PO TID [facility]ON Stop: 01/12/25 20:59 Last Admin: 12/17/24 15:48 Dose: 300 mg Documented By: Admin: 12/17/24 09:52 Dose: 300 mg Documented By: Admin: 12/16/24 21:34 Dose: 300 mg Documented By: Admin: 12/16/24 14:59 Dose: Not Given Documented By: Admin: 12/16/24 09:34 Dose: 300 mg Documented By: Admin: 12/15/24 21:25 Dose: 300 mg Documented By: Admin: 12/15/24 14:21 Dose: 300 mg Documented By: Admin: 12/15/24 08:14 Dose: 300 mg Documented By: Admin: 12/14/24 20:25 Dose: 300 mg Documented By: Admin: 12/14/24 14:30 Dose: 300 mg Documented By: Admin: 12/14/24 08:17 Dose: 300 mg Documented By: Admin: 12/13/24 20:54 Dose: 300 mg Documented By: ABELARDO Heparin Sodium (Porcine) (Heparin Sod 5,000 Unit/0.5 Ml Vial) 5,000 units SQ Q8 [facility] Stop: 01/12/25 21:59 Last Admin: 12/17/24 15:56 Dose: Not Given Documented By: Admin: 12/17/24 06:07 Dose: 5,000 units Documented By: Admin: 12/16/24 21:35 Dose: 5,000 units Documented By: Admin: 12/16/24 14:51 Dose: 5,000 units Documented By: Admin: 12/16/24 05:58 Dose: 5,000 units Documented By: Admin: 12/15/24 21:40 Dose: 5,000 units Documented By: Admin: 12/15/24 16:31 Dose: 5,000 units Documented By: Admin: 12/15/24 06:17 Dose: 5,000 units Documented By: Admin: 12/14/24 21:41 Dose: 5,000 units Documented By: Admin: 12/14/24 14:30 Dose: 5,000 units Documented By: Admin: 12/14/24 05:53 Dose: 5,000 units Documented By: Admin: 12/13/24 22:26 Dose: 5,000 units Documented By: MATTY Hydromorphone HCl (Hydromorphone Hcl 4 Mg Tab) 4 mg PO Q3H PRN PRN Reason: Pain Stop: 12/28/24 09:22 Last Admin: 12/17/24 13:15 Dose: 4 mg Documented By: ETHAN Hydromorphone HCl (Hydromorphone Inj 1 Mg/Ml Syringe) 1 mg IV Q6H PRN PRN Reason: Pain Stop: 12/28/24 11:53 Last Admin: 12/17/24 15:56 Dose: 1 mg Documented By: ETHAN Prochlorperazine 10 mg/ (Syringe) 10 mls @ 5 mls/min IV Q6H PRN PRN Reason: Nausea And Vomiting Stop: 01/13/25 11:55 Last Admin: 12/15/24 09:22 Dose: 5 mls/min Documented By: Admin: 12/14/24 21:40 Dose: 5 mls/min Documented By: Admin: 12/14/24 14:26 Dose: 5 mls/min Documented By: GOVIND Sodium Chloride (Nss) 1,000 mls @ 100 mls/hr IV .Q10H [facility]ON Stop: 12/18/24 00:59 Last Infusion: 12/17/24 11:24 Dose: 0 mls/hr Documented By: Admin: 12/17/24 11:19 Dose: 100 mls/hr Documented By: ETHAN Letrozole (Letrozole 2.5 Mg Tab) 2.5 mg PO DAILY [facility]ON Stop: 01/13/25 08:59 Last Admin: 12/17/24 09:52 Dose: 2.5 mg Documented By: ETHAN Co-signed By: Admin: 12/16/24 10:46 Dose: Not Given Documented By: Admin: 12/15/24 08:15 Dose: Not Given Documented By: Admin: 12/14/24 09:09 Dose: Not Given Documented By: GOVIND Senna/Docusate Sodium (Docusate Sodium/Senna 50/8.6mg Tab) 1 tab PO QAM ASTON Stop: 01/16/25 08:59 Last Admin: 12/17/24 10:45 Dose: Not Given Documented By: MES Discontinued Medications Buprenorphine HCl (Buprenorphine Hcl 8 Mg Subl) 1 mg SL TID [facility] Stop: 01/12/25 20:59 Last Admin: 12/13/24 21:41 Dose: Not Given Documented By: ABELARDO Buprenorphine HCl (Buprenorphine Hcl 8 Mg Subl) 8 mg SL TID [facility] Stop: 01/12/25 21:29 Last Admin: 12/14/24 08:50 Dose: 8 mg Documented By: Admin: 12/14/24 00:58 Dose: Not Given Documented By: MATTY Buprenorphine HCl (Buprenorphine Hcl 8 Mg Subl) 12 mg SL TID [facility] Stop: 01/13/25 13:59 Last Admin: 12/16/24 19:32 Dose: Not Given Documented By: Admin: 12/16/24 10:46 Dose: Not Given Documented By: Admin: 12/15/24 21:25 Dose: 4 mg Documented By: Admin: 12/15/24 16:25 Dose: Not Given Documented By: Admin: 12/15/24 08:16 Dose: Not Given Documented By: Admin: 12/14/24 22:07 Dose: Not Given Documented By: Admin: 12/14/24 14:31 Dose: Not Given Documented By: GOVIND Calcitonin Hooper (Calcitonin Hooper 400 Units/2 Ml) 250 units SQ ONE ONE Stop: 12/13/24 14:51 Last Admin: 12/13/24 15:48 Dose: 250 units Documented By: ABELARDO Calcitonin Hooper (Calcitonin Hooper 400 Units/2 Ml) 250 units SQ Q12 [facility] Stop: 12/15/24 09:01 Last Admin: 12/15/24 09:22 Dose: 250 units Documented By: Admin: 12/14/24 21:41 Dose: 250 units Documented By: Admin: 12/14/24 09:08 Dose: 250 units Documented By: GOVIND Furosemide (Furosemide 40 Mg/4 Ml Vial) 40 mg IV ONE ONE Stop: 12/13/24 19:48 Last Admin: 12/13/24 20:53 Dose: 40 mg Documented By: ABELARDO Furosemide (Furosemide 40 Mg/4 Ml Vial) 40 mg IV Q8H [facility] Stop: 12/15/24 12:00 Last Admin: 12/15/24 10:54 Dose: 40 mg Documented By: Admin: 12/15/24 01:48 Dose: 40 mg Documented By: Admin: 12/14/24 20:24 Dose: 40 mg Documented By: RAMÓN Furosemide (Furosemide 40 Mg/4 Ml Vial) 40 mg IV BID [facility]ON Stop: 01/15/25 08:59 Last Admin: 12/17/24 10:16 Dose: Not Given Documented By: Admin: 12/16/24 21:35 Dose: 40 mg Documented By: Admin: 12/16/24 10:17 Dose: 40 mg Documented By: FREDA Hydromorphone HCl (Hydromorphone Inj 0.5 Mg/0.5 Ml Syr) 0.5 mg IV Q4H PRN PRN Reason: Severe Pain (Scale 7, 8, 9,10) Stop: 12/27/24 15:03 Last Admin: 12/14/24 05:53 Dose: 0.5 mg Documented By: Admin: 12/13/24 22:26 Dose: 0.5 mg Documented By: MATTY Hydromorphone HCl (Hydromorphone Inj 1 Mg/Ml Syringe) 1 mg IV Q3H PRN PRN Reason: Pain Stop: 12/28/24 11:53 Last Admin: 12/17/24 09:59 Dose: 1 mg Documented By: Admin: 12/17/24 06:19 Dose: 1 mg Documented By: Admin: 12/16/24 21:56 Dose: 1 mg Documented By: Admin: 12/16/24 18:13 Dose: 1 mg Documented By: Admin: 12/16/24 06:05 Dose: 1 mg Documented By: Admin: 12/15/24 22:44 Dose: 1 mg Documented By: Admin: 12/15/24 19:35 Dose: 1 mg Documented By: [facility] Admin: 12/15/24 09:27 Dose: 1 mg Documented By: Admin: 12/14/24 21:40 Dose: 1 mg Documented By: [facility] Admin: 12/14/24 17:31 Dose: 1 mg Documented By: Admin: 12/14/24 13:54 Dose: 1 mg Documented By: GOVIND Sodium Chloride (Nss) 1,000 mls @ 999 mls/hr IV .Q1H1M ONE Stop: 12/13/24 14:43 Last Infusion: 12/13/24 16:40 Dose: Infused Documented By: Admin: 12/13/24 13:51 Dose: 999 mls/hr Documented By: SRLynette Sodium Chloride (Nss) 1,000 mls @ 999 mls/hr IV .Q1H1M ONE Stop: 12/13/24 14:43 Last Infusion: 12/13/24 16:40 Dose: Infused Documented By: Admin: 12/13/24 15:06 Dose: 999 mls/hr Documented By: ABELARDO Piperacillin Sod/Tazobactam Sod (Zosyn) 4.5 gm in 100 mls @ 200 mls/hr IV NOW ONE; Protocol Stop: 12/13/24 14:23 Last Infusion: 12/13/24 16:40 Dose: Infused Documented By: Admin: 12/13/24 15:47 Dose: 200 mls/hr Documented By: ABELARDO Sodium Chloride (Nss) 1,000 mls @ 150 mls/hr IV .Q6H40M [facility] Stop: 12/14/24 15:14 Last Infusion: 12/14/24 23:26 Dose: Infused Documented By: [facility] Admin: 12/14/24 14:25 Dose: 150 mls/hr Documented By: Infusion: 12/14/24 14:25 Dose: Infused Documented By: [facility] Admin: 12/14/24 08:50 Dose: Not Given Documented By: [facility] Admin: 12/14/24 08:15 Dose: 150 mls/hr Documented By: K Infusion: 12/14/24 07:06 Dose: Infused Documented By: K Admin: 12/14/24 00:25 Dose: 150 mls/hr Documented By: MMJenelle Infusion: 12/13/24 23:19 Dose: Infused Documented By: Admin: 12/13/24 16:38 Dose: 150 mls/hr Documented By: ABELARDO Promethazine HCl (Phenergan) 12.5 mg in 50.5 mls @ 202 mls/hr IV NOW STA Stop: 12/13/24 16:57 Last Infusion: 12/13/24 22:00 Dose: Infused Documented By: Admin: 12/13/24 16:50 Dose: 202 mls/hr Documented By: ABELARDO Promethazine HCl (Phenergan) 12.5 mg in 50.5 mls @ 202 mls/hr IV Q6H PRN PRN Reason: Nausea And Vomiting Stop: 01/12/25 17:22 Last Infusion: 12/14/24 17:38 Dose: Infused Documented By: Erendira Admin: 12/14/24 17:23 Dose: 202 mls/hr Documented By: Infusion: 12/14/24 08:31 Dose: Infused Documented By: Admin: 12/14/24 08:16 Dose: 202 mls/hr Documented By: Infusion: 12/14/24 00:40 Dose: Infused Documented By: Admin: 12/14/24 00:25 Dose: 202 mls/hr Documented By: MATTY Magnesium Sulfate/Dextrose (Magnesium Sulfate / D5w) 1 gm in 100 mls @ 50 mls/hr IV Q2H [facility] Stop: 12/14/24 10:44 Last Infusion: 12/14/24 10:31 Dose: Infused Documented By: Admin: 12/14/24 08:31 Dose: 50 mls/hr Documented By: Infusion: 12/14/24 08:31 Dose: Infused Documented By: Admin: 12/14/24 06:42 Dose: 50 mls/hr Documented By: MATTY Zoledronic Acid 3 mg/ Sodium (Chloride) 103.75 mls @ 410 mls/hr IV ONE ONE; Protocol Stop: 12/14/24 07:30 Last Infusion: 12/14/24 08:32 Dose: Infused Documented By: Admin: 12/14/24 08:16 Dose: 410 mls/hr Documented By: GOVIND Potassium Chloride (K Han / Wtr) 10 meq in 100 mls @ 100 mls/hr IV Q1H [facility] Stop: 12/14/24 22:29 Last Infusion: 12/15/24 01:43 Dose: Infused Documented By: [facility] Admin: 12/15/24 00:23 Dose: 100 mls/hr Documented By: Infusion: 12/15/24 00:18 Dose: Infused Documented By: Admin: 12/14/24 23:18 Dose: 100 mls/hr Documented By: Infusion: 12/14/24 22:40 Dose: Infused Documented By: Admin: 12/14/24 21:40 Dose: 100 mls/hr Documented By: Infusion: 12/14/24 21:25 Dose: Infused Documented By: Admin: 12/14/24 20:25 Dose: 100 mls/hr Documented By: RAMÓN Piperacillin Sod/Tazobactam Sod (Zosyn) 4.5 gm in 100 mls @ 25 mls/hr IV Q8H [facility]ON; Protocol Stop: 12/17/24 14:59 Last Infusion: 12/17/24 10:19 Dose: Infused Documented By: [facility] Admin: 12/17/24 06:07 Dose: 25 mls/hr Documented By: Infusion: 12/17/24 03:55 Dose: Infused Documented By: Admin: 12/16/24 23:51 Dose: 25 mls/hr Documented By: Infusion: 12/16/24 19:32 Dose: Infused Documented By: Admin: 12/16/24 14:46 Dose: 25 mls/hr Documented By: Infusion: 12/16/24 10:33 Dose: Infused Documented By: Admin: 12/16/24 06:04 Dose: 25 mls/hr Documented By: Infusion: 12/16/24 02:39 Dose: Infused Documented By: Admin: 12/15/24 22:30 Dose: 25 mls/hr Documented By: Infusion: 12/15/24 20:42 Dose: Infused Documented By: [facility] Admin: 12/15/24 16:32 Dose: 25 mls/hr Documented By: BT Piperacillin Sod/Tazobactam Sod (Zosyn) 4.5 gm in 100 mls @ 200 mls/hr IV NOW STA; Protocol Stop: 12/15/24 09:24 Last Infusion: 12/15/24 11:30 Dose: Infused Documented By: Infusion: 12/15/24 10:45 Dose: 200 mls/hr Documented By: Infusion: 12/15/24 10:11 Dose: 0 mls/hr Documented By: Admin: 12/15/24 10:03 Dose: 200 mls/hr Documented By: BT Magnesium Sulfate/Dextrose (Magnesium Sulfate / D5w) 1 gm in 100 mls @ 50 mls/hr IV Q2H [facility] Stop: 12/15/24 13:14 Last Infusion: 12/15/24 16:00 Dose: Infused Documented By: Admin: 12/15/24 13:48 Dose: 50 mls/hr Documented By: Infusion: 12/15/24 13:42 Dose: Infused Documented By: Infusion: 12/15/24 12:18 Dose: 50 mls/hr Documented By: Infusion: 12/15/24 11:50 Dose: 0 mls/hr Documented By: Infusion: 12/15/24 11:21 Dose: 50 mls/hr Documented By: Infusion: 12/15/24 10:10 Dose: 0 mls/hr Documented By: Admin: 12/15/24 10:03 Dose: 50 mls/hr Documented By: BT Sodium Chloride (Nss) 1,000 mls @ 150 mls/hr IV .Q6H40M [facility] Stop: 12/16/24 13:54 Last Infusion: 12/16/24 14:45 Dose: Infused Documented By: Admin: 12/16/24 08:01 Dose: 150 mls/hr Documented By: Infusion: 12/16/24 07:52 Dose: Infused Documented By: Admin: 12/16/24 01:11 Dose: 150 mls/hr Documented By: Infusion: 12/16/24 01:11 Dose: Infused Documented By: Admin: 12/15/24 18:35 Dose: 150 mls/hr Documented By: Infusion: 12/15/24 18:35 Dose: Infused Documented By: Infusion: 12/15/24 16:00 Dose: 150 mls/hr Documented By: Infusion: 12/15/24 14:30 Dose: 0 mls/hr Documented By: Admin: 12/15/24 11:26 Dose: 150 mls/hr Documented By: BT Promethazine HCl (Phenergan) 12.5 mg in 50.5 mls @ 202 mls/hr IV Q6H [facility] Stop: 01/14/25 16:59 Last Infusion: 12/17/24 06:22 Dose: Infused Documented By: Admin: 12/17/24 06:05 Dose: 202 mls/hr Documented By: Infusion: 12/17/24 00:37 Dose: Infused Documented By: Admin: 12/16/24 23:51 Dose: 202 mls/hr Documented By: Infusion: 12/16/24 17:20 Dose: Infused Documented By: Admin: 12/16/24 16:46 Dose: 202 mls/hr Documented By: Infusion: 12/16/24 12:30 Dose: Infused Documented By: Admin: 12/16/24 12:01 Dose: 202 mls/hr Documented By: Infusion: 12/16/24 06:14 Dose: Infused Documented By: Admin: 12/16/24 05:58 Dose: 202 mls/hr Documented By: Infusion: 12/15/24 22:47 Dose: Infused Documented By: Admin: 12/15/24 22:30 Dose: 202 mls/hr Documented By: [facility] Admin: 12/15/24 17:36 Dose: Not Given Documented By: FREDA Magnesium Sulfate/Dextrose (Magnesium Sulfate / D5w) 1 gm in 100 mls @ 50 mls/hr IV Q2H [facility] Stop: 12/16/24 12:44 Last Infusion: 12/16/24 14:45 Dose: Infused Documented By: Admin: 12/16/24 12:12 Dose: 50 mls/hr Documented By: Infusion: 12/16/24 11:40 Dose: Infused Documented By: Admin: 12/16/24 09:40 Dose: 50 mls/hr Documented By: FREDA Metoclopramide HCl (Metoclopramide Hcl Inj 5 Mg/Ml 2 Ml Vial) 10 mg IV NOW STA Stop: 12/13/24 14:19 Last Admin: 12/13/24 15:06 Dose: 10 mg Documented By: ABELARDO Ondansetron HCl (Ondansetron Inj 2 Mg/Ml 2 Ml Vial) 4 mg IV NOW STA Stop: 12/13/24 13:46 Last Admin: 12/13/24 13:51 Dose: 4 mg Documented By: SRL Ondansetron HCl (Ondansetron Inj 2 Mg/Ml 2 Ml Vial) 4 mg IV Q6H PRN PRN Reason: Nausea Stop: 01/12/25 17:49 Last Admin: 12/13/24 22:11 Dose: 4 mg Documented By: MMG Potassium Chloride (Potassium Chloride Crtab 20 Meq Tabcr) 20 meq PO TID [facility] Stop: 01/13/25 20:59 Last Admin: 12/17/24 10:19 Dose: Not Given Documented By: Admin: 12/16/24 21:34 Dose: 20 meq Documented By: Admin: 12/16/24 14:52 Dose: 20 meq Documented By: Admin: 12/16/24 09:44 Dose: 20 meq Documented By: Admin: 12/15/24 21:40 Dose: 20 meq Documented By: Admin: 12/15/24 16:30 Dose: 20 meq Documented By: Admin: 12/15/24 08:18 Dose: 20 meq Documented By: Admin: 12/14/24 20:25 Dose: 20 meq Documented By: RAMÓN Potassium Chloride (Potassium Chloride Crtab 20 Meq Tabcr) 20 meq PO NOW STA Stop: 12/17/24 07:48 Last Admin: 12/17/24 10:51 Dose: Not Given Documented By: ETHAN Potassium Chloride (Potassium Chloride Crtab 20 Meq Tabcr) 40 meq PO NOW STA Stop: 12/17/24 10:42 Last Admin: 12/17/24 10:48 Dose: 40 meq Documented By: ETHAN Imaging Data Radiologist's Impression: Chest X-Ray 12/13/24 13:54 XR chest 1V portable CLINICAL HISTORY: Hypercalcemia, high WBC COMPARISON STUDY: PET/CT November 30, 2024. FINDINGS: Lung volumes are normal. Lungs are clear. There is no pneumothorax or pleural effusion. Cardiac size is normal. Mediastinal contours are normal. There is no evidence for pulmonary edema. Lytic skeletal lesions within the thoracic spine and ribs on PET/CT of November 30, 2024 are not well-visualized by radiography. IMPRESSION: 1. No acute cardiopulmonary findings. 2. Lytic skeletal lesions on PET/CT of November 30, 2024 not well-visualized by radiography. ACT 112: Negative or not required by law. Electronically signed by: Cristian Camara M.D. 12/13/2024 3:26 PM Discharge Plan Visit Data Chief Complaint: Abnormal Labs/Diagnostic Testing Stated Complaint: VOMITING, CALCIUM LEVELS HIGH ED Provider: Gurinder Armstrong Discharge Problem: Hypercalcemia, MELISSA (acute kidney injury), Dehydration, Nausea & vomiting, Acute dehydration Patient Disposition: Admitted As Inpatient Discharge Instructions Interventions: ED Discharge Assessment Last Done: 12/13/24 21:50 Discharge Problem: Nausea & vomiting Qualifiers: Vomiting type: unspecified Qualified Code(s): R11.2 - Nausea with vomiting, unspecified
--- NOTE | 2024-12-13 14:29 | History & Physical Report ---
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 MELISSA Dehydration in setting of feeling ill for 3 days and no oral intake admit to PCU, monitor on tele given the hypercalcemia 2L of IVF in ED, will continue NSS 150ml/hr repeat bmp at 20:00 consult nephrology Hypercalcemia in setting of bone mets Hydration, 250units of SQ Calcitonin discussed with nephrology - holding on zolendronic acid until renal fxn improves Leucocytosis pt recently completed steroid course x 1 week will do infectious work up, she received IV zosyn in ED blood and urine cultures order, CXR, resp biofire no evidence of infection noted Stage 4 metastatic breast adenoca with mets to bone Cancer related pain she is following Dr Valdivia of palliative, Dr. Munoz with heme/onc per heme/onc and palliative a rad/onc consult was recommended so will consult Plan was for Letrozole, Abemacilcib and lupron and starting zometa pending dental clearance and insurance approval. Currently she has only started Lupron and letrozole she is on subutex and oral dilaudid but has been unable to take due to no intake will start prn IV dilaudid and resume oral meds as able continue gabapentin DVT ppx: SQ heparin FULL CODE PCP: Dr. Lange Dispo: admit to PCU Pt was seen and examined in collaboration with Dr. Campos, please see addendum I spent a total of 76 minutes coordinating, documenting and providing care for this patient excluding time spent in the performance of separately billed services or time spent by another provider/QHP. History of Present Illness Chief Complaint: Referred by oncology due to abnormal labs. 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 She reports feeling ill over the last 3 days. She has severe pain of shoulder, hip and back. She hasn't been able to tolerate any of her meds starting friday. She started with vomiting, headache and nausea. She denies any diarrhea or sick contacts. She denies chest pain. Patient follows with Dr. Contreras Munoz for oncology. Pt underwent Breast Mammogram in October that revealed a large R breast mass. She underwent biopsy which confirmed high grade her2/ER positive adenocarcinoma. She established with Dr. Munoz. Plan was for Letrozole, Abemacilcib and lupron and starting zometa pending dental clearance and insurance approval. She underwent a PET scan on 11/30 which revealed Diffuse FDG avid osteolytic disease is present. A quality assurance representative lesion in the right ilium has a max SUV of 12.02. Small lesion in the intertrochanteric region of the right femur has a max SUV of 5.28. Areas of cortical breakthrough are present within several of the lesions. This is most prominent along the T9 vertebral body 4 there is probable encroachment/invasion into the right neural foramen. She established with Palliative care through [facility] to assist with pain management and she is on chronic subutex due to prior addiction. She recently completed a steroid course for 1 week and was started on oral hydromorphone at the recommendation of [facility] medicine. Pt was seen at Heme/Onc today for IVF. She was found to have an MELISSA and a calcium > 20 and was referred to the ED. In ED pt remained hemodynamically stable. She had a leukcocytosis of 20k, bun 30, cr 2.38, Ca > 18. She was started on 2L of IVF. Pt reports she had 2 daughters ages 7 and 4. Her Mom was first diagnosed with breast Ca at 43 and thus far has beat it 3 times. She has several aunts with it as well. She reports none as advanced as hers. She was genetically tested. She reports vaping daily, but hasn't in several days due to ill feeling. She denies any alcohol use. Allergies Allergy/AdvReac Type Severity Reaction Status Date / Time naloxone Allergy Severe ANAPHYLAXIS Verified 08/25/17 10:11 Home Medications Medication Instructions Recorded Confirmed Type abemaciclib 150 mg tablet 150 mg PO AMHS 12/13/24 12/13/24 History (Jian) alprazolam 0.25 mg tablet 0.25 mg PO TID PRN Anxiety 12/13/24 12/13/24 History buprenorphine HCl 8 mg sublingual 1 mg sublingual TID 12/13/24 12/13/24 History tablet bupropion HCl 300 mg 24 hr tablet, 300 mg PO DAILY 12/13/24 12/13/24 History extended release gabapentin 300 mg capsule 300 mg PO TID 12/13/24 12/13/24 History hydromorphone 4 mg tablet 4 mg PO Q4H PRN Severe Pain (Scale 12/13/24 12/13/24 History Score 7-10) letrozole 2.5 mg tablet 2.5 mg PO DAILY 12/13/24 12/13/24 History ondansetron HCl 8 mg tablet 8 mg PO Q8H PRN Nausea 12/13/24 12/13/24 History prochlorperazine maleate 10 mg 10 mg PO Q6H PRN Nausea 12/13/24 12/13/24 History tablet Past Med/Surg History Problem List (Updated 12/13/24 @ 15:15 by Chelsey Wallace PA-C) Hypercalcemia Dehydration MELISSA (acute kidney injury) Medical History ADHD Hx of drug abuse Depression with anxiety Malignant neoplasm of right breast, stage 4 Surgical History Hx of breast biopsy Family History Mother Breast cancer Father Cancer Social History Smoking Status: Current every day smoker Tobacco Type: E-cigarettes / Vaping Hx Substance Use: Yes Preferred Language: Serbian Feels Safe at Home: Yes Review of Systems Review of Systems: All systems reviewed & are unremarkable except as noted in HPI & below Physical Exam Physical Exam: Constitutional: acute ill, vitals as above, NAD, sitting up in bed, pleasant, conversing easily Head: Normocephalic, Atraumatic Eyes: PERRL, conjunctivae normal, anicteric sclerae ENMT: external ear and nose normal, oropharynx normal Neck: trachea midline, no thyromegaly normal visual inspection Respiratory: normal respiratory effort, lungs clear to auscultation, no wheeze, rales, rhonchi. Normal insp/exp effort, no accessory muscle use Cardiovascular: RRR, no murmur, no edema Vessels: no JVD or carotid bruit Chest: Large R breast mass, normal inspection of chest Abdomen: normal bowel sounds, soft, nontender, no hepatosplenomegaly Musculoskeletal: no cyanosis or clubbing, arom x 4 Skin: no rashes, warm and dry normal turgor Neurologic: no face palsy, no dysarthria CN's II-XI intact bilaterally and moves all extremities Psychiatric: A+Ox3, euthymic affect Results & Data Results & Data Vital Signs (Past 12 Hours) Vital Signs Temp Pulse Resp BP Pulse Ox O2 Del Method 12/13/24 13:29 60 12/13/24 12:47 36.7 C 71 17 129/80 96 Room Air Laboratory Results I have independently reviewed and interpreted patient's admitting labs including CBC, CMP, mag. Medications Administered Medication List Sodium Chloride (Nss) 1,000 mls @ 999 mls/hr IV .Q1H1M ONE Stop: 12/13/24 14:43 Last Admin: 12/13/24 13:51 Dose: 999 mls/hr Documented By: SRL Discontinued Medications Ondansetron HCl (Ondansetron Inj 2 Mg/Ml 2 Ml Vial) 4 mg IV NOW STA Stop: 12/13/24 13:46 Last Admin: 12/13/24 13:51 Dose: 4 mg Documented By: SRL ECG Additional Comments: ordered and pending COVID-19 Results Results COVID-19 Adm Lab Results: RBC 4.31 M/uL (4.20-5.40) 12/13/24 WBC 20.27 K/ul (4.8-10.8) H 12/13/24 Hgb 12.4 g/dl (12.0-16.0) 12/13/24 Plt Count 382 K/uL (130-400) 12/13/24 Neutrophils (%) (Auto) 86.7 % 12/13/24 Lymphocytes (%) (Auto) 6.1 % 12/13/24 Monocytes # (Auto) 1.12 K/uL (0.11-0.59) H 12/13/24 Eosinophils # (Auto) 0.00 K/uL (0.00-0.50) 12/13/24 Immature Granulocyte % (Auto) 1.5 % 12/13/24 Neutrophils # (Auto) 17.57 K/uL (1.40-6.50) H 12/13/24 Lymphocytes # (Auto) 1.23 K/uL (1.20-3.40) 12/13/24 Monocytes # (Auto) 1.12 K/uL (0.11-0.59) H 12/13/24 Eosinophils # (Auto) 0.00 K/uL (0.00-0.50) 12/13/24 Basophils # (Auto) 0.04 K/uL (0.00-0.20) 12/13/24 Immature Granulocyte # (Auto) 0.31 K/uL (0.01-0.20) H 12/13 Na 136 mmol/L (136-145) 12/13/24 K 3.9 mmol/L (3.5-5.1) 12/13/24 Cl 96 mmol/L (98-107) L 12/13/24 CO2 33 mmol/L (21-32) H 12/13/24 Anion Gap 7 (3-11) 12/13/24 BUN 30 mg/dl (6-23) H 12/13/24 Creatinine 2.38 mg/dl (0.6-1.2) H 12/13/24 BUN/Creatinine Ratio 12.6 (10-20) 12/13/24 Glucose Level 109 mg/dl (70-99(Fasting)) H 12/13/24 Ca > 18.0 mg/dl (8.6-10.3) H* 12/13/24 Total Bilirubin 0.6 mg/dl (0.2-1.0) 12/13/24 AST/SGOT 24 U/L (13-39) 12/13/24 ALT/SGPT 9 U/L (7-52) 12/13/24 Alkaline Phosphatase 104 U/L (34-104) 12/13/24 Total Protein 7.5 gm/dl (6.0-8.3) 12/13/24 Albumin 4.4 gm/dl (3.4-5.0) 12/13/24 Globulin 3.1 gm/dl (2.5-4.0) 12/13/24 Albumin/Globulin Ratio 1.4 (0.9-2) 12/13/24 Adenovirus (PCR) Pending 12/13/24 B. parapertussis DNA (PCR) Pending 12/13/24 B. pertussis DNA (PCR) Pending 12/13/24 C. pneumoniae DNA (PCR) Pending 12/13/24 Coronavirus Type OC43 (PCR) Pending 12/13/24 Coronavirus Type HKU1 (PCR) Pending 12/13/24 Coronavirus Type 229E (PCR) Pending 12/13/24 COVID-19 PCR Pending 12/13/24 Coronavirus Type NL63 (PCR) Pending 12/13/24 Human Metapneumovirus (PCR) Pending 12/13/24 Influenza Virus Type B (PCR) Pending 12/13/24 M. pneumoniae (PCR) Pending 12/13/24 Parainfluenza Type 1 (PCR) Pending 12/13/24 Parainfluenza Type 2 (PCR) Pending 12/13/24 Parainfluenza Type 3 (PCR) Pending 12/13/24 Parainfluenza Type 4 (PCR) Pending 12/13/24 RSV (PCR) Pending 12/13/24 Enterovirus/Rhinovirus (PCR) Pending 12/13/24 Chest X-Ray 12/13/24 Code Status & VTE Plan Code Status FULL CODE Supervising Physician Co-Signing Physician Notes Pt seen and examined by me, care coordinated w/ Citlaly Wallace PA-C, pls refer to her note above for further detail. 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 Pt reports nausea/vomiting/feeling ill over the last 3 days. Pt was seen at Heme/Onc today for IVF. She was found to have an MELISSA and a calcium > 20 and was referred to the ED. In ED pt remained hemodynamically stable. She had a leukcocytosis of 20k, bun 30, cr 2.38, Ca > 18. She was started on 2L of IVF. Currently pt is laying in bed in NAD, awake, alert, able to answer appropriately. Lungs are CTAB. Heart sounds regular. Abdomen soft, nontender. No LE edema. Moves extremities. Skin is warm and dry. Will cont. w/ IVF, antiemetics. Give calcitonin. Discussed w/ nephrology. Will also consult w/ rad onc given her recent ca dg. MD Beth
[2024-12-13] MEDS: METOCLOPRAMIDE HCL INJ 5 MG/ML 2 ML VIAL IV STA (15:06)
--- NOTE | 2024-12-13 15:27 | XRay Report ---
XR chest 1V portable CLINICAL HISTORY: Hypercalcemia, high WBC COMPARISON STUDY: PET/CT November 30, 2024. FINDINGS: Lung volumes are normal. Lungs are clear. There is no pneumothorax or pleural effusion. Car diac size is normal. Mediastinal contours are normal. There is no evidence for pulmonary edema. Lytic skeletal lesions within the thoracic spine and ribs on PET/CT of November 30, 2024 are not well-visual ized by radiography. IMPRESSION: 1. No acute cardiopulmonary findings. 2. Lytic skeletal lesions on PET/CT of November 30, 2024 not well-visualized by radiography. ACT 112: Negative or not required by law. Electronically signed by: Cristian Camara M.D. 12/13/2024 3:26 PM
--- NOTE | 2024-12-13 15:42 | Radiation OncologyConsultation ---
Date of Consultation December 13, 2024 Assessment & Plan (1) Malignant neoplasm of right breast, stage 4: Plan ATTENDING ADDENDUM Assessment: Ms. Carr is a 39-year-old female with a history of drug abuse who was recently diagnosed with metastatic breast cancer. The patient recently presented with hypercalcemia and was told to come to the emergency room for further workup and evaluation. The patient has been plan to be admitted to the hospital. The patient was scheduled to be seen in the outpatient setting regarding palliative radiation therapy however she is being admitted to the hospital and we have been asked to evaluate her in the inpatient setting. Of no te, the patient is having some nausea and vomiting and a significant headache. Plan: 1. No plan for radiation therapy today. We will reevaluate the patient tomorrow to further discuss and consider palliative radiation therapy to painful areas. 2. Recommend MRI brain with contrast due to headaches and nausea and vomiting. 3. Recommend MRI thoracic spine to better characterize disease involvement in thoracic spine. 4. Continue pain management as per primary medical team. 5. The patient has been seen by palliative care in the outpatient setting. Inpatient palliative care could be warranted if patient needs help with pain control. 6. Medical team encouraged to call us with any questions or concerns. History of Present Illness Reason for Consultation: Breast cancer with bone metastasis. Requesting Physician: Chelsey Wallace PA-C Attending Physician: Dr. Armstrong History of Present Illness 05/12/2019. 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 02/05/2022. Surgical consultation (Dr. Scruggs). Positive family history of breast cancer. Mother with history of breast cancer x 3. Patient has LEONEL and CHEK2 mutations. Patient will start breast cancer screening now with mammography. Consider chemo preventative once completed with childbearing. 02/22/2022. Bilateral screening mammogram. No mammographic evidence of malignancy. BI-RADS Category 1. 04/01/2023. Surgical follow-up. Continue screening mammography. Supplemental breast MRI will be ordered. Continue yearly follow-up. 04/11/2023. Bilateral screening mammogram. No mammographic evidence of malignancy. BI-RADS Category 1. 12/08/2023. Genetic counseling follow-up. No additional orders at this visit. 11/04/2024. Surgical follow-up. Patient has discomfort of the right upper outer breast. She noticed a lump. She was a unable to do the MRI due to severe phobia of needles. MRI ordered. Stat bilateral mammogram and right breast ultrasound as well as axillary ultrasound were ordered. 11/05/2024. Bilateral diagnostic mammogram and right breast ultrasound. Impression Suspicious index mass right breast 10 o'clock with multiple adjacent possible satellite nodules andan additional posterior depth 10/11 o'clock 4 x 5 mm nodule. Findings are worrisome for multifocal disease. MRI suggested to further evaluate and help exclude multicentric disease if biopsy resultsare positive. 11/05/2024. Ultrasound-guided core needle biopsy of the right breast 10:00. Upper outer quadrant. Pathology report reveals: A. 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 Lymph Node, Right Axillary, Right AXILLA US guided core biopsy, core biopsy: High grade carcinoma. Estrogen Receptor (ER) protein expression is STRONGLY POSITIVE 100% nuclear positivity 3+ average intensity score (range 0 to 3+) Progesterone Receptor (MO) protein expression is STRONGLY POSITIVE 70% nuclear positivity 2+ average intensity score (range 0 to 3+) HER2 oncoprotein expression is NEGATIVE ( 0 average membranous intensity) 11/09/2024. Bilateral breast MRI. Biopsy-proven right breast invasive carcinoma en compensating the majority of the right upper outer quadrant. This mass extends into the right upper inner quadrant, constituting multi centric disease. Biopsy-proven carcinoma within right axillary lymph node. Additional right axillary lymphadenopathy noted, suspicious for additional sites of malignancy. BI-RADS Category: 6 - Known Biopsy-Proven Malignancy. Recommendation Resume annual screening mammography is recommended for the left breast. Screening breast MRI in 1 year is recommended for the left breast. Biopsy-proven right breast carcinoma with biopsy-proven carcinoma within a right axillary lymph node. Appropriate action is recommended. The patient is under the care of the [facility] breast surgical team with follow-up appointment scheduled for November 12, 2024. 11/12/2024. Surgical consultation (Dr. Mulugeta To). Stage IIIa locally advanced carcinoma of the right breast. Options of treatment were discussed. MRI demonstrated an 8 x 6 x 4 cm mass in the upper outer quadrant. Multiple enlarged lymph nodes on the MRI. Multiple options of treatment were discussed. Patient will meet with medical oncology to discuss possible neoadjuvant treatment. 11/23/2024. Medical oncology consultation (Dr. Lamar Munoz). Neoadjuvant chemotherapy was discussed. Hormonal therapy was discussed. She will undergo a PET/CT. She will return afterward for review. 11/30/2024. PET/CT. 1. FDG avid right breast mass consistent with the history of breast carcinoma. 2. FDG avid right axillary lymph nodes consistent with neoplasm. 3. Diffuse FDG avid osteolytic disease consistent with neoplasm. 12/01/2024. Medical oncology follow-up. Review of PET/CT. Planning to start letrozole. Plan to start abemaciclib 100 mg twice daily. Plan to start Lupron every 4 weeks. She will then be on Zometa every 4 weeks after dental clearance. Was seen at the palliative clinic and started on hydromorphone, Decadron and Xanax. She is on buprenorphine. 12/03/2024. Palliative care consultation (Dr. Kong). She has a lot of pain in her back, shoulder and hip. Will consider radiation oncology referral. She is on Dilaudid. She is on Xanax for anxiety. She has a history of drug abuse. She will have to sign a record release. 12/13/2024. Patient presents to the emergency room at the request of the medical oncologist. Laboratory studies today revealed an elevated calcium level. She had been scheduled to be seen in our office this week due to shoulder, back and hip pain. She did see Dr. Kong on 12/03/2024. She was prescribed Dilaudid. She does state that this medication is helpful. She unfortunately has been very nauseated. And has been vomiting. She has been unable to keep medication down. The shoulder and back pain began approximately 2 months before the diagnosis. Pain is in the left shoulder. The pain of her back is in the mid back. The pain of the hip is on the left. Currently while lying in the bed her pain is controlled. She is particularly complaining of a headache. She has associated nausea and vomiting. Allergies Allergy/AdvReac Type Severity Reaction Status Date / Time naloxone Allergy Severe ANAPHYLAXIS Verified 08/25/17 10:11 Home Medications Medication Instructions Recorded Confirmed Type abemaciclib 150 mg tablet 150 mg PO AMHS 12/13/24 12/13/24 History (Verzenio) alprazolam 0.25 mg tablet 0.25 mg PO TID PRN Anxiety 12/13/24 12/13/24 History buprenorphine HCl 8 mg sublingual 1 mg sublingual TID 12/13/24 12/13/24 History tablet bupropion HCl 300 mg 24 hr tablet, 300 mg PO DAILY 12/13/24 12/13/24 History extended release gabapentin 300 mg capsule 300 mg PO TID 12/13/24 12/13/24 History hydromorphone 4 mg tablet 4 mg PO Q4H PRN Severe Pain (Scale 12/13/24 12/13/24 History Score 7-10) letrozole 2.5 mg tablet 2.5 mg PO DAILY 12/13/24 12/13/24 History ondansetron HCl 8 mg tablet 8 mg PO Q8H PRN Nausea 12/13/24 12/13/24 History prochlorperazine maleate 10 mg 10 mg PO Q6H PRN Nausea 12/13/24 12/13/24 History tablet Patient History Medical History ADHD Hx of drug abuse Depression with anxiety Malignant neoplasm of right breast, stage 4 Surgical History Hx of breast biopsy Family History Mother Breast cancer Father Cancer Social History Smoking Status: Current every day smoker Tobacco Type: E-cigarettes / Vaping Hx Substance Use: Yes Preferred Language: Malay Feels Safe at Home: Yes Radiation History Diagnosis: Metastatic breast cancer. Treatment: None so far. Review of Systems Review of Systems: 13 point review of system completed. Ma in complaint being headache and nausea. Physical Exam Physical Exam: Appears uncomfortable due to headache. Has complaint of nausea. Constitutional: WD/WN, vitals as above Eyes: PERRL, conjunctivae normal, anicteric sclerae ENMT: Ears: no hearing impairment Neck: trachea midline, no thyromegaly Respiratory: normal respiratory effort, lungs clear to auscultation Cardiovascular: RRR, no murmur, no edema Chest (Breasts): Additional Comments: There is a palpable 6 cm mass in the right central lateral breast. This is firm. Gastrointestinal (Abdomen): normal bowel sounds, soft, nontender, no hepatosplenomegaly Musculoskeletal: Appears comfortable with movement of the shoulder. Complaint of pain of the mid back and left hip. Skin: no rashes, warm and dry Psychiatric: A+Ox3, euthymic affect Time Spent Midlevel I spent [20] minutes in preparation for this follow up evaluation including reviewing all the clinical records, reviewing laboratory studies, pathology reports and imaging results. I spent [20] minutes with direct face to face interaction with the patient and/or family including performing a physical exam and answering all questions. I spent [10] minutes documenting this patient's visit. PG Care Time/CCT Total # of Minutes Spent Total Time Spent with Patient: Total time spent is greater than 50% in coordination of care (as documented) at patient's floor/unit and/or counseling patient: [place] [address] IN/OBS CONSULT LVL 5,80M Patient Type New History Expanded Problem Focused Exam Expanded Problem Focused Medical Decision Making Moderate Complexity Diagnoses Malignant neoplasm of right breast, stage 4 C50.911
[2024-12-13] MEDS: PIPERACILLIN/TAZOBACTAM 4.5 GM/100 ML BAG IV ONE (15:47)
[2024-12-13] MEDS: CALCITONIN SALMON 400 UNITS/2 ML SQ ONE (15:48)
[2024-12-13 16:27] LABS: Appearance Urine Clear (Clear); Bilirubin Urine Negative (Negative); Blood Urine Negative (Negative); Color Urine Yellow; Glucose Urine UA Negative (Negative); Ketones Urine Negative (Negative); Leukocyte Esterase Urine Negative (Negative); Nitrite Urine Negative (Negative); Protein Urine Negative (Negative); Specific Gravity Urine 1.009 (1.000-1.030); Urobilinogen Urine Negative (Negative)
[2024-12-13] MEDS: SODIUM CHLORIDE 0.9% 1,000 ML IV SCH (16:38)
--- OUTSIDE RECORDS SUMMARY | 2024-12-13 16:38 | External Medical Summary | Summary of Care ---
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) Nausea and vomiting, unspecified vomiting type Dehydration Nonintractable headache, unspecified chronicity pattern, unspecified headache type Procedures MRI BRAIN W WO CONTRAST Contreras Munoz MD [address] [facility] [place] [address] Phone: tel: fax: Referral ID Status Reason Start Date Expiration Date V isits Requested Visits Authorized [id number] Pending Review 12/13/2024 999 999 Reason for Visit * Reason Onset Date Comments Vomiting 12/13/2024 Encounter Details Date Type Department Care Team (Late st Contact Info) Description 12/13/2024 Telephone Hematology/Oncology [facility] Fang [address] [place] [phone] Contreras Munoz MD [address] [place] [address] [address] Vomiting Allergies Active Allergy Reactions Criticality Noted Date Comments Naloxone Edema face/lips/tongue High 01/15/2017 documented as of this encounter (statuses as of 12/13/2024) Medications Acetaminophen (TYLENOL) 325 MG CAPS Take by mouth. Activ e folic acid 1 MG TabletIndicatio ns:Family history of spina bifida Take one tablet by mouth daily 90 Tab 1 7 Active Additional Information Patient not taking.Reported on 11/04/2024 ibuprofen (MOTRIN) 600 MG Tablet Take 1 Tab by mouth every 6 hours as needed for Pain. With food. 30 Tab 7 Active Additional Information Patient not taking.Reported on 11/04/2024 buPROPion HCl ER (XL) 300 MG Oral Tablet Extended Release 24 Hour (Wellbutrin XL) Take 1 Tablet by mouth in the morning. In the morning.. 4 Active Letrozole 2.5 MG Oral Tablet (Femara)Indicat ions:Malignant neoplasm of upper-outer quadrant of right breast in female, estrogen receptor positive (HCC),Metastasi s to bone (HCC) Take 1 Tablet by mouth in the morning. 30 Tablet 11 5 Active Ondansetron HCl 4 MG Oral TabletIndicatio ns:Nausea Use as needed for nausea 30 Tablet 1 5 Active Lidocaine-Prilo harrison 2.5-2.5 % External Cream (Emla)Indicatio ns:Malignant neoplasm of upper-outer quadrant of right breast in female, estrogen receptor positive (HCC) APPLY TO SKIN 1HR PRIOR TO INJECTION. 30 g 5 Active Abemaciclib 150 MG Oral Tablet (Verzenio)Indic ations:Malignan t neoplasm of upper-outer quadrant of right breast in female, estrogen receptor positive (HCC) Take 1 tablet by mouth in the morning and 1 tablet by mouth before bedtime. 60 Tablet 5 12/07/2024 1:47 PM EST 5 Active Ondansetron HCl 8 MG Oral Tablet (Zofran)Indicat ions:Malignant neoplasm of upper-outer quadrant of right breast in female, estrogen receptor positive (HCC),Metastasi s to bone (HCC) Take 1 Tablet by mouth every 8 hours as needed for Nausea. 30 Tablet 2 5 Active Prochlorperazin e Maleate 10 MG Oral Tablet (Compazine)Susan cations:Maligna nt neoplasm of upper-outer quadrant of right breast in female, estrogen receptor positive (HCC),Metastasi s to bone (HCC) Take 1 Tablet by mouth every 6 hours as needed for Nausea. 30 Tablet 2 5 Active Gabapentin 300 MG Oral Capsule (Neurontin)Susan cations:Cancer related pain Take 1 Capsule by mouth in the morning and 1 Capsule at noon and 1 Capsule before bedtime. 90 Capsule 5 Active Buprenorphine HCl 8 MG Sublingual Tablet Sublingual (Subutex)Indica tions:Cancer related pain Place 1 Tablet under the tongue in the morning and 1 Tablet at noon and 1 Tablet in the evening. 5 Active HYDROmorphone HCl 4 MG Oral Tablet (Dilaudid)Indic ations:Cancer related pain Take 1 Tablet by mouth every 4 hours as needed for Pain, Severe. 42 Tablet 5 Active ALPRAZolam 0.25 MG Oral Tablet (Xanax)Indicati ons:Cancer related pain Take 1 Tablet by mouth 3 times a day as needed for Anxiety. 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 Increased risk for breast cancer and pancreatic cancer. 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 Increased risk for breast cancer, colon cancer and thyroid cancer. Attention deficit hyperactiv ity disorder (ADHD), combined type 07/10/2016 Anxiety state 12/12/2011 Depression 12/12/2011 Rosacea 04/30/2006 RHINITIS DUE TO POLLEN documented as of this encounter (statuses as of 12/13/2024) Resolved Problems Problem Noted Date Diagnosed Date Resolved Date Carrier of group B Streptococcus 07/25/2017 08/26/2017 Overview (07/25/2017): + RV culture , normal first 01/15/2017 100 01/2017 Overview (08/20/2017): Problem Action Taken Date entered Entered by Date resolved Educational classes Encouraged pt attend [employer] classes 03/20/2017 Kadi Gold RN 03/20/2017 Problem Action Taken Date entered Entered by Date resolved Home nursing Lorene had been attempting to reach pt but no active phone #. Spoke with pt. Pt aware and tried to call her today. States that the number is now active again. 03/20/2017 Kadi Gold RN 03/20/2017 Problem Action Taken Date entered Entered by Date resolved First Seeing Home Nurse, enjoying the education. 04/16/2017 Shoshana Sharpe RN 04/16/17 Problem Action Taken Date entered Entered by Date resolved Baby supplies Getting things arranged. Has crib Baby shower planned 05/14/2017 Kadi Gold RN 05/14/2017 Problem Action Taken Date entered Entered by Date resolved education Enrolled in May [facility] 05/14/2017 Kadi Gold RN 05/14/2017 Problem Action Taken Date entered Entered by Date resolved Breast pump Form completed. 05/14/2017 Kadi Gold RN 05/14/2017 Problem Action Taken Date entered Entered by Date resolved Current needs or questions Patient denies having any current needs or questions 05/28/2017 Kadi Gold RN 05/28/2017 Problem Action Taken Date entered Entered by Date resolved Current needs or questions Patient denies having any current needs or questions 06/12/2017 Iona Cuevas RN 06/12/17 Problem Action Taken Date entered Entered by Date resolved education Attended [facility]. 06/21/2017 06/23/2017 Kadi Gold RN 06/23/2017 Problem Action Taken Date entered Entered by Date resolved Current needs or questions Patient denies having any current needs or questions 06/25/2017 Iona Cuevas RN 06/25/17 Problem Action Taken Date entered Entered by Date resolved Current needs or questions Patient denies having any current needs or questions 07/11/2017 Shoshana Sharpe RN 07/11/17 Problem Action Taken Date entered Entered by Date resolved Current needs or questions Patient denies having any current needs or questions 07/23/2017 Iona Cuevas RN 07/23/17 Problem Action Taken Date entered Entered by Date resolved gbs + Rationale discussed 07/30/2017 Kadi Gold RN 07/30/2017 06/25/2017 Tdap Vaccine administered per clinic protocol. Pt given VIS(vaccine information sheet) Iona Cuevas RN Problem Action Taken Date entered Entered by Date resolved Current needs or questions Patient denies having any current needs or questions 08/06/2017 Iona Cuevas RN 08/06/17 Problem Action Taken Date entered Entered by Date resolved Current needs or questions Patient denies having any current needs or questions 08/13/2017 Iona Cuevas RN 08/13/17 Problem Action Taken Date entered Entered by Date resolved Current needs or questions Patient denies having any current needs or questions 08/20/2017 Iona Cuevas RN 08/20/17 Patient received flu vaccine. 08/13/2017 Inge Ortega, AGUSTÍN Drug use affecting 01/15/2017 08/26/2017 Overview (01/15/2017): Taking Subutex, followed monthly in [place] @ [facility] 16mg daily Mental disorder in 01/15/2017 08/26/2017 Overview (02/12/2017): @ [facility] taking Klonopin - ADHD, depression, bipolar -going to counseling in [place] As of 13wks no longer taking Klonopin Family history of spina bifida 01/15/2017 08/26/2017 Overview (02/12/2017): Sister with spina bifida Took folic acid 4mg daily during first trimester Tobacco smoking complicating 01/15/2017 08/26/2017 Overview (05/14/2017): @ [facility] smoking 1ppd @26weeks has decreased to 1-2per day ADVANCE DIRECTIVE INFORMATION 07/03/2007 09/27/2024 Overview (07/03/2007): No, Advance Directive brochure offered , patient declined. General counseling for pres ription of oral contraceptives 01/15/2017 documented as of this encounter (statuses as of 12/13/2024) Immunizations Name Administration Dates Next Due DTP Vaccine 05/03/1992, 8,06/06/1987,02/22,1986 Hepatitis B, 0-19 yrs 01/17/1999,08/16/1998,06/25 MMR - Measles/Mumps/Rubella Vaccine 07/18/1998,0 01/09/1988 Meningococcal Polysaccharide Vaccine ([place]) 06/12/2005 OPV - Polio Virus Vaccine (Oral) 998,05/03/1992,03/07/1987,01/1987 Seasonal Influenza Vac., MDV , IM, 0.5 mL (Fluzone) 09/24/2013,12/12/2011,10/28/2003 10/28/2004 Seasonal Influenza, PF, 6 M & above, IM , (FluLaval or Fluzone) 11/01/2019,10/07/2018 Seasonal Influenza, Quadriva lent, No Preserve, IM 08/13/2017 Seasonal Influenza, Trivalen t, (IIV3), PF, (Fluzone) 12/01/2024 TB Mary Test 01/09/1988 TD - Tetanus/Diptheria (ADULT) 07/01/2003 TDAP (age 10 and older)(Boostrix) 06/25/2017, Varicella Vaccine (Chicken Pox) 12/05/1995 documented as of this encounter Social History Tobacco Use Types Packs/Day Years Used Date Smoking Tobacco: Every Day Cigarettes 0.2 12 Smokeless Tobacco: Never Alcohol Use Standard Drinks/Week Comments No 0 (1 standard drink = 0.6 oz pur e alcohol) PHQ-2 Answer Date Recorded PHQ Adult Total Score 11 12/08/2024 Hunger Vital Sign Answer Date Recorded Within the past 12 months, y ou worried that your food would run out before you got the money to buy more. Patient declined Within the past 12 months, t he food you bought just didn't last and you didn't have money to get more. Patient declined Childcare Answer Date Recorded Do you feel overwhelmed with taking care of a child, family member or friend? Yes 12/08/2024 Does your family need help f inding childcare? (Household - for ages 0-17 years) Not on file 12/08/2024 Clothing Answer Date Recorded Have you been unable to get clothing when it was really needed? No 12/08/2024 Is your family able to get c lothes or diapers when needed? (Household - for ages 0-17 years) Not on file 12/08/2024 Personal Safety Answer Date Recorded Do you feel unsafe or have concerns for your saf ety? No 12/08/2024 Do you have concerns for you r family's safety? (Household - for ages 0-17 years) Not on file 12/08/2024 Utilities Answer Date Recorded Do you have trouble paying y our heating, water, or electric bill? Yes 12/08/2024 Is your family able to pay t he heat, water, or electric bill? (Household - for ages 0-17 years) Not on file 12/08/2024 Does your family have access to good internet? (Household - for ages 0-17 years) Not on file 12/08/2024 Employment Status Answer Date Recorded Are you unemployed or without regular income? Ye s 12/08/2024 Does the household have a re gular source of income? (Household - for ages 0-17 years) Not on file 12/08/2024 Social Connections Answer Date Recorded How often do you feel lonely or isolated from th ose around you? Never 12/08/2024 Financial Resource Strain Answer Date R ecorded Do you have any trouble payi ng for your medications, or do you think you might in the future? No 12/08/2024 Does your family have troubl e paying for medicine? (Household - for ages 0-17 years) Not on file 12/08/2024 Transportation Needs Answer Date Record ed Do you have trouble getting a ride to medical visits or work? (Adult - for ages 18 years and over) Not on file 12/08/2024 Does your family have a hard time getting a ride to doctors visits? (Household - for ages 0-17 years) Not on file 12/08/2024 Has lack of transportation k ept you from medical appointments, meetings, work, or from getting things needed for daily living? Check all that apply. No 12/08/2024 Do you (or your family) have trouble finding or paying for a ride (transportation)? (Household - for ages 0-17 years) Not on file 12/08/2024 Housing Stability Answer Date Recorded Do you currently live in a s helter or have no steady place to sleep at night? Yes 12/08/2024 Do you think you are at risk of becoming homeless? (Adult - for ages 18 years and over) Not on file 12/08/2024 Does your family worry about paying for your home or becoming homeless? (Household - for ages 0-17 years) Not on file 0 12/08/2024 Are you homeless or worried that you might be in the future? No 12/08/2024 Are you (or your family) brian eless or worried that you might be in the future? (Household - for ages 0-17 years) Not on file Food Insecurity Answer Date Recorded Do you need food for this week? No 12/08/2024 Are you able to get enough f ood for your family? (Household - for ages 0-17 years) Not on file 12/08/2024 Does your family need food t his week? (Household - for ages 0-17 years) Not on file 12/08/2024 Do you always have enough fo od for your family? 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 [place] plan built. Called patient- she will come around 10:45. * Telephone Encounter - Contreras Munoz MD - 12/13/2024 6:46 AM EST She called service around 6:30 AM, she says that for the last 24 hours she is having increasing nausea and vomiting, no diarrhea, her previous bone pain is under control, she had a headache earlier but it has improved, no fever. She has not started taking Verzenio. She does something that she is significantly elevated and need to go to the ER. I would like to bring her to the clinic, have CBC, comprehensive metabolic panel, magnesium level checkup, IV hydration with 1 L of normal saline over 2 hours, IV Zofran 8 mg. Would like to proceed with brain MRI, documented in this encounter Plan of Treatment Upcoming Encounters Date Type Department Care Team (Late st Contact Info) Description 12/15/2024 8:30 AM EST Telemedicine Palliative Medicine [facility] [address] [facility] [place] [address] Amie Kong MD [address] [place] [phone] 12/16/2024 9:45 AM EST Pharmacy Pharmacy Hematology Oncology [facility] [place] [address] [place] [address] [facility] [place] Hem/Onc [address] [place] [address] 12/30/2024 9:30 AM EST Telemedicine Psychology, [facility] [address] [facility] [address] [place] [address] Irving Aguila MA [address] [place] [address] 01/03/2025 11:00 AM EST Office Visit Hematology/Oncology [facility] [address] [facility] [place] [id number] Deepa Roberts, MUSICAL ENGINEER [address] [place] [address] 01/03/2025 11:45 AM EST Immunization/Injection Hematology/Oncology Treatment, [place] [address] [place] [address] Alla, Chair 2 Hem Onc [address] [place] [address] Scheduled Orders Name Type Priority Associated Diagnoses Orde r Schedule MRI BRAIN W WO CONTRAST Medical Imaging Routine Malignant neoplasm of upper-outer quadrant of right breast in female, estrogen receptor positive (HCC) 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) Nausea and vomiting, unspecified vomiting type Dehydration Nonintractable headache, unspecified chronicity pattern, unspecified headache type Ordered: 12/13/2024 CBC WITH WBC DIFFERENTIAL Lab STAT Malignant neoplasm of upper-outer quadrant of right breast in female, estrogen receptor positive (HCC) 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) Nausea and vomiting, unspecified vomiting type Dehydration Nonintractable headache, unspecified chronicity pattern, unspecified headache type Expected: 12/13/2024 (Approximate), Expires: 12/13/2025 COMPREHENSIVE METABOLIC PANEL Lab STAT Malignant neoplasm of upper-outer quadrant of right breast in female, estrogen receptor positive (HCC) 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) Nausea and vomiting, unspecified vomiting type Dehydration Nonintractable headache, unspecified chronicity pattern, unspecified headache type Expected: 12/13/2024 (Approximate), Expires: 12/13/2025 MAGNESIUM Lab STAT Malignant neoplasm of upper-outer quadrant of right breast in female, estrogen receptor positive (HCC) 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) Nausea and vomiting, unspecified vomiting type Dehydration Nonintractable headache, unspecified chronicity pattern, unspecified headache type Expected: 12/13/2024 (Approximate), Expires: 12/13/2025 Health Maintenance Due Date Last Done Comments COVID-19 Vaccine (#1) 1991 Hepatitis C Screening 2004 Pneumococcal Vaccine: Pediatrics (0 to 5 Years) and At-Risk Patients (6 to 18 Years and 19+ Years) (1 of 2 - PCV) 2005 HPV/Co-Test 2016 Cervical Cancer Screening 01/15/2020 Pap Smear 01/15/2020 01/15/2017, 04/24 (Done elsewhere) Depression Monitoring 12/08/2025 12/08/2024 DTap/Tdap Vaccines (8 - Td or Tdap) 06/25/2027 06/25/2017, 12/08/2013, 07/01/2003, Additional history exists Hepatitis B Vaccine Completed 01/17/1999, 08/16/1998, 07/18/1998 MENINGOCOCCAL (MENACTRA/MENVEO) Aged Out 06/12/2005 No longer eligible based on patient's age to complete this topic Influenza Vaccine (FLU shot) Completed 06/2025, 11/01/2019, 10/07/2018, Additional history exists HPV (Gardasil) Vaccine Aged Out No lo nger eligible based on patient's age to complete this topic documented as of this encounter Medical Devices Not on filedocumented as of this encounter Visit Diagnoses Diagnosis Malignant neoplasm of upper-outer quadrant of right breast in female, estrogen receptor positive (HCC)- Primary 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
--- OUTSIDE RECORDS SUMMARY | 2024-12-13 16:38 | External Medical Summary ---
Author Name Unknown Address Unknown Organization [id number] [place] [address] Laboratory Report Ordering Provider Test Date Status STAN MCCORD 12/13/2024 11:30:00 Final Observation Date Value Abnormality Reference (Units ) Status BUN 12/13/2024 11:30:00 31 Above high normal 6-20 (mg/dL) Final Creatinine 12/13/2024 11:30:00 2.5 Above high normal 0.5-1.0 (mg/dL) Final Glomerular filtration rate/1.73 sq M.predicted [Volume Rate/Area] in Serum, Plasma or Blood by Creatinine-based formula (CKD-EPI) 12/13/2024 11:30:00 25 Below low normal >=60 (mL/min) Final eGFR is calculated based on the CKD-EPI 2020 equation. Sodium 12/13/2024 11:30:00 137 135-146 (m mol/L) Final Potassium 12/13/2024 11:30:00 4.6 3.5-5.1 (m mol/L) Final Cl 12/13/2024 11:30:00 96 Below low normal 98- 107 (mmol/L) Final CO2 12/13/2024 11:30:00 29 22-32 (mmo l/L) Final Anion gap 12/13/2024 11:30:00 12 7-15 (mmol /L) Final Glucose 12/13/2024 11:30:00 122 Above hi gh normal 70-120 (mg/dL) Final Albumin 12/13/2024 11:30:00 4.1 3.8-5.0 (g /dL) Final AST (Aspartate aminotransferase) 12/13/2024 11:30:00 42 Above high normal 10-35 (U/L) Final Alk Phos 12/13/2024 11:30:00 123 35-130 (U/ L) Final Bilirubin, Total 12/13/2024 11:30:00 0.5 <=1 .2 (mg/dL) Final Calcium 12/13/2024 11:30:00 >20.1 Above up per panic limits 8.4-10.2 (mg/dL) Final Results rechecked.

New sample drawn to confirm. Protein 12/13/2024 11:30:00 7.6 6.0-8.3 (g /dL) Final ALT (Alanine aminotransferase) 12/13/2024 11:30:00 <5 Below low normal 10-35 (U/L) Final Performing Location [facility] [address] [place] [address]
--- OUTSIDE RECORDS SUMMARY | 2024-12-13 16:38 | External Medical Summary | Summary of Care ---
Author Name Unknown Organization [facility] Address [address] [place] [address] Phone [phone] Care Team Providers Care Hand Embroiderer Name Role Phone Unavailable Primary Care Provider [...] W WO CONTRAST Contreras Munoz MD 200 [facility] [place] [address] Phone: tel: fax: Referral ID Status Reason Start Date Expiration Date V isits Requested Visits Authorized [id number] Pending Review 12/13/2024 999 999 Reason for Visit * Reason Onset Date Comments Vomiting 12/13/2024 Encounter Details Date Type Department Care Team (Late st Contact Info) Description 12/13/2024 Telephone Hematology/Oncology [facility] Fang [address] [place] [address] Contreras Munoz MD [address] [place] [address] Vomiting Allergies Active Allergy Reactions Criticality Noted [...] Active Problems Problem Noted Date Diagnosed Date Malignant neoplasm of upper- outer quadrant of right breast in female, estrogen receptor positive 12/01/2024 Metastasis to bone 12/01/2024 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 Increased risk for breast cancer and pancreatic cancer. Monoallelic mutation of CHEK2 gene in female pat ient 05/13/2019 Overview (05/13/2019): pathogenic CHEK2 gene variant (c.1100del, p.[id number]*15). Increased risk for breast cancer, colon cancer and thyroid cancer. Attention deficit hyperactiv ity disorder (ADHD), combined type 07/10/2016 Anxiety state 12/12/2011 Depression 12/12/2011 Rosacea 04/30/2006 RHINITIS DUE TO POLLEN documented as of this encounter (statuses as of 12/13/2024) Resolved Problems Problem Noted Date Diagnosed Date Resolved Date Carrier of group B Streptococcus 07/25/2017 08/26/2017 Overview (07/25/2017): + RV culture , normal first 01/15/20170 01/2017 Overview (08/20/2017): Problem Action Taken Date entered Entered by Date resolved Educational classes Encouraged pt attend [employer] classes 03/20/2017 Kadi Gold RN 03/20/2017 Problem [...] by Date resolved education Enrolled in May [place] 05/14/2017 Kadi Gold RN 05/14/2017 Problem Action [...] entered Entered by Date resolved education Attended [facility]. 06/21/2017 06/23/2017 Kadi Gold RN 06/23/2017 Problem [...] 08/20/17 Patient received flu vaccine. 08/13/2017 Inge Ortega RN Drug use affecting 01/15/2017 08/26/2017 Overview (01/15/2017): Taking Subutex, followed monthly in [place] [facility] 16mg daily Mental disorder in 01/15/2017 08/26/2017 Overview (02/12/2017): [facility] taking Klonopin - ADHD, depression, bipolar -going to counseling in [place] As of 13wks no longer taking Klonopin [...] 12/13/2024) Immunizations Name Administration Dates Next Due Seasonal Influenza Vac., MDV, IM, 0.5 mL (Fluzon e) 09/24/2013,12/12/2011 Seasonal Influenza, PF, 6 M & above, IM , (FluLaval or Fluzone) 11/01/2019,10/07/2018 Seasonal Influenza, Quadrivalent, No Preserve, I M 08/13/2017 Seasonal Influenza, Trivalent, (IIV3), PF, (Fluz one) 12/01/2024 TDAP (age 10 and older)(Boostrix) 06/25/2017, documented as of this encounter Social History [...] as of this encounter Miscellaneous Notes * Telephone Encounter - Contreras Munoz MD [...] 12/15/2024 8:30 AM EST Telemedicine Palliative Medicine [facility] [address] [place] [address] Amie Kong MD [address] [place] [address] [place] [address] 12/16/2024 9:45 AM EST Pharmacy Pharmacy Hematology Oncology [facility] [address] [place] [address] [facility], [facility] Hem/Onc [address] [place] [address] 12/30/2024 9:30 AM EST Telemedicine Psychology, Cancer Center [facility] [address] [place] [address] Irving Aguila MA [address] [place] [address] 01/03/2025 11:00 AM EST Office Visit Hematology/Oncology [facility] [address] [place] [address] Deepa Roberts CRNP [address] [facility] [place] [address] 01/03/2025 11:45 AM EST Immunization/Injection Hematology/Oncology [facility], [place] [address] [facility] [address] Alla, Chair 2 Hem Onc [address] [place] [address] Scheduled Orders Name Type Priority Associated Diagnoses Orde r Schedule MRI BRAIN W WO CONTRAST Medical Imaging Routine Malignant neoplasm of upper-outer quadrant of right breast in female, estrogen receptor positive (HCC) 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) Nausea and vomiting, unspecified vomiting type Dehydration Nonintractable headache, unspecified chronicity pattern, unspecified headache type Ordered: 12/13/2024 Health Maintenance Due Date Last Done Comments [...]
--- OUTSIDE RECORDS SUMMARY | 2024-12-13 16:38 | External Medical Summary ---
Author Name Unknown Address Unknown Organization K09:[facility] [place] [address] Laboratory Report Ordering Provider Test Date Status STAN MCCORD 12/13/2024 10:37:21 Final Observation Date Value Abnormality Reference (Units ) Status WBC, Total 12/13/2024 10:37:21 23.44 Above high normal 4 .00-10.80 (K/uL) Final RBC 12/13/2024 10:37:21 4.62 3.85-5.15 (M/uL) Final Hemoglobin 12/13/2024 10:37:21 13.5 12.0-15.3 (g/dL) Final HCT 12/13/2024 10:37:21 41.5 36.0-45.2 (%) Final MCV 12/13/2024 10:37:21 89.8 81.5-97.5 (fL) Final MCH 12/13/2024 10:37:21 29.2 27.0-34.0 (pg) Final MCHC 12/13/2024 10:37:21 32.5 32.0-36.0 (g/dL) Final RDW 12/13/2024 10:37:21 12.4 11.5-15.5 (%) Final Platelets 12/13/2024 10:37:21 458 Above high normal 14 0-400 (K/uL) Final MPV 12/13/2024 10:37:21 10.5 6.6-11.1 ( fL) Final Performing Location [facility] [place] [address]
--- OUTSIDE RECORDS SUMMARY | 2024-12-13 16:38 | External Medical Summary | Summary of Care ---
Author Name Unknown Organization [facility] Address [address] [place] [address] Phone [phone] Care Team Providers Care Sap Integration Architect Name Role Phone Unavailable Primary Care Provider Unavailabl e Reason for Visit * Reason Onset Date Comments Palliative Care Follow-up 12/10/2024 Encounter Details Date Type Department Care Team (Late st Contact Info) Description 12/10/2024 9:00 AM EST Scheduled Telephone Palliative Medicine, [address]th [place] [address] [place], Nurse Palliative Medicine [address] [address] Arrived Allergies Active Allergy Reactions Criticality Noted Date Comments Naloxone Edema face/lips/tongue High 01/15/2017 documented as of this encounter (statuses as of 12/10/2024) Medications Acetaminophen (TYLENOL) 325 MG CAPS Take [...] the morning. 30 Tablet 11 5 Active ALPRAZolam 0.25 MG Oral Tablet (Xanax)Indicati ons:Cancer related pain Take 1 Tablet by mouth 2 times a day as needed for Anxiety. 30 Tablet 5 Active Ondansetron HCl 4 MG Oral [...] for Pain, Severe. 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 Increased risk for breast cancer and pancreatic cancer. 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 Increased risk for breast cancer, colon cancer and thyroid cancer. Attention deficit hyperactiv ity disorder (ADHD), combined type 07/10/2016 Anxiety state 12/12/2011 Depression 12/12/2011 Rosacea 04/30/2006 RHINITIS DUE TO POLLEN documented as of this encounter (statuses as of 12/10/2024) Resolved Problems Problem Noted Date Diagnosed Date Resolved Date Carrier of group B Streptococcus 07/25/2017 08/26/2017 Overview (07/25/2017): + RV culture , normal first 01/15/20170 01/2017 Overview (08/20/2017): Problem Action Taken Date entered Entered by Date resolved Educational classes Encouraged pt attend [employer] classes 03/20/2017 Kadi Gold RN 03/20/2017 Problem [...] entered Entered by Date resolved education Attended [facility]. 06/21/2017 06/23/2017 Kadi Gold RN 06/23/2017 Problem [...] Overview (01/15/2017): Taking Subutex, followed monthly in [place] @ [facility] 16mg daily Mental disorder in 01/15/2017 08/26/2017 Overview (02/12/2017): @ [facility] taking Klonopin - ADHD, depression, bipolar -going to counseling in [place] As of 13wks no longer taking Klonopin Family history of spina bifida 01/15/2017 08/26/2017 Overview (02/12/2017): Sister with spina bifida Took folic acid 4mg daily during first trimester Tobacco smoking complicating 01/15/2017 08/26/2017 Overview (05/14/2017): @ [facility] smoking 1ppd @26weeks has decreased to 1-2per day ADVANCE DIRECTIVE INFORMATION 07/03/2007 09/27/2024 Overview (07/03/2007): No, Advance Directive brochure offered , patient declined. General counseling for presc ription of oral contraceptives 01/15/2017 documented as of this encounter (statuses as of 12/10/2024) Immunizations Name Administration Dates Next Due Seasonal [...] encounter Miscellaneous Notes * Telephone Encounter - Concha Pacheco LPN - 12/10/2024 8:03 AM EST See myg from today documented in this encounter Plan of Treatment Upcoming Encounters Date Type Department Care Team (Late st Contact Info) Description 12/15/2024 8:30 AM EST Telemedicine Palliative Medicine [address] [phone] Amie Kong MD 400 [facility] [place] [address] 12/16/2024 9:45 AM EST Pharmacy Pharmacy Hematology Oncology [facility] [address] [place] [address] [facility] Hem/Onc [address] [place] [address] 12/30/2024 9:30 AM EST Telemedicine Psychology, Cancer Center Khoi BARBER [address] [facility] [place] [address] Irving Aguila MA [address] [place] [address] 01/03/2025 11:00 AM EST Office Visit Hematology/Oncology [address] [address] Deepa Roberts CRNP 400 [place] [address] 01/03/2025 11:45 AM EST Immunization/Injection Hematology/Oncology [address], [address] [address] Alla, Chair 2 Hem Onc Scenery [address] [place] [address] Health Maintenance Due Date Last Done Comments [...]
--- OUTSIDE RECORDS SUMMARY | 2024-12-13 16:38 | External Medical Summary ---
Author Name Unknown Address Unknown Organization K09[facility] [place] [address] Laboratory Report Ordering Provider Test Date Status STAN MCCORD 12/13/2024 11:30:00 Final Observation Date Value Abnormality Reference (Units ) Status Magnesium 12/13/2024 11:30:00 2.4 1.5-2.6 (m g/dL) Final Performing Location [facility] [place] [place] [address]
--- OUTSIDE RECORDS SUMMARY | 2024-12-13 16:38 | External Medical Summary ---
Author Name Unknown Address Unknown Organization [facility] [place] [address] Laboratory Report Ordering Provider Test Date Status STAN MCCORD 12/13/2024 10:37:21 Final Observation Date Value Abnormality Reference (Units ) Status SYNC LEUKOCYTES IN BLOOD BY AUTOMATED COUNT 12/13/2024 10:37:21 23.44 Above high normal 4.00-10.80 (K/uL) Final Neutrophils/100 leukocytes in Blood by Manual count 12/13/2024 10:37:21 85.0 Above high normal 40.0-75.0 (%) Final Lymphocytes/100 leukocytes in Blood by Manual count 12/13/2024 10:37:21 6.0 Below low normal 18.0-42.0 (%) Final Monocytes/100 leukocytes in Blood by Manual count 12/13/2024 10:37:21 6.0 1.0-11.0 (%) Final Metamyelocytes/100 leukocytes in Blood by Manual count 12/13/2024 10:37:21 3.0 Above high normal <=0.0 (%) Final Neutrophils [#/volume] in Blood by Manual count 12/13/2024 10:37:21 19.92 Above high normal 1.80-7.70 (K/uL) Final Lymphocytes [#/volume] in Blood by Manual count 12/13/2024 10:37:21 1.41 1.00-4.80 (K/uL) Final Monocytes [#/volume] in Blood by Manual count 12/13/2024 10:37:21 1.41 Above high normal 0.00-1.10 (K/uL) Final Metamyelocytes [#/volume] in Blood by Manual count 12/13/2024 10:37:21 0.70 Above high normal <=0.00 (K/uL) Final Nucleated erythrocytes/100 leukocytes [Ratio] in Blood by Automated count 12/13/2024 10:37:21 Final Performing Location [facility] [place] [address]
--- OUTSIDE RECORDS SUMMARY | 2024-12-13 16:38 | External Medical Summary | Summary of Care ---
Author Name Unknown Organization [facility] Address [address] [place] [address] Phone [phone] Care Team Providers Care Environmental Air Specialist Name Role Phone Unavailable Primary Care Provider [...] W WO CONTRAST Contreras Munoz MD 200 [facility] [place] [address] Phone: tel: fax: Referral ID Status Reason Start Date Expiration Date V isits Requested Visits Authorized [id number] Pending Review 12/13/[phone] Reason for Visit * Reason Onset Date Comments Vomiting 12/13/2024 Encounter Details Date Type Department Care Team (Late st Contact Info) Description 12/13/2024 Telephone Hematology/Oncology State Akilah Fang [address] [place] [address] [address] Contreras Munoz MD [address] [place] [address] [address] Vomiting Allergies Active Allergy Reactions Criticality Noted [...] Overview (05/13/2019): pathogenic LEONEL gene variant (c.8482C>T, p.[id number]*). Increased risk for breast cancer and pancreatic cancer. 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 Increased risk for breast cancer, colon cancer [...] Date resolved Educational classes Encouraged pt attend [employer] classes 03/20/2017 Kadi Gold RN 03/20/2017 Problem [...] by Date resolved education Enrolled in May [facility] 05/14/2017 Kadi Gold RN 05/14/2017 [...] entered Entered by Date resolved education Attended [facility]. 06/21/2017 06/23/2017 Kadi Gold RN [...] Overview (01/15/2017): Taking Subutex, followed monthly in [place] [facility] 16mg daily Mental disorder in 01/15/2017 08/26/2017 Overview (02/12/2017): @ [facility] taking Klonopin - ADHD, depression, bipolar -going to counseling in [place] As of 13wks no longer taking Klonopin [...] encounter Miscellaneous Notes * Telephone Encounter - Darryl Rogers RN - 12/13/2024 9:16 AM EST MRI scheduled 12/20. * Addendum Note - Popeye Schaffer RN - 12/13/2024 7:36 AM ESTAddended by: POPEYE SCHAFFER on: 12/13/2024 07:36 AM Modules accepted: Orders * Telephone Encounter - Popeye Schaffer RN - 12/13/2024 7:30 AM EST Order received for hydration. [place] plan built. Called patient- she will come [...] Team (Late st Contact Info) Description 12/13/2024 10:40 AM EST Laboratory Laboratory [facility] [place] [address] [place] [phone] Alla, Lab Scenery [address] [facility] [place] [address] 12/13/2024 11:15 AM EST Hem/Onc Treatment Hematology/Oncology Treatment, [place] [address] [place] [phone] Alla, Chair 4 Hem Onc Scenery [address] [place] [address] 12/15/2024 8:30 AM EST Telemedicine Palliative Medicine [facility] [place] [facility] [address] Amie Kong MD [address] [facility] [place] [address] 12/16/2024 9:45 AM EST Pharmacy Pharmacy Hematology Oncology [facility] [address] [place] [address] [facility], [facility] Hem/Onc [address] [place] [address] 12/20/2024 3:15 PM EST Imaging Radiology [address] [place] [address] 12/30/2024 9:30 AM EST Telemedicine Psychology, Cancer Center Khoi BARBER [address] [facility] [place] [address] Irving AguilaROUSSEAU, [place] [address] [place] [address] 01/03/2025 11:00 AM EST Office Visit Hematology/Oncology [address] [place] [phone] Deepa Roberts CRNP [address] [facility] [place] [address] 01/03/2025 11:45 AM EST Immunization/Injection Hematology/Oncology Treatment, [address] [phone] Alla, Chair 2 Hem Onc [address] [place] [address] Scheduled Orders Name Type Priority Associated Diagnoses [...]
--- OUTSIDE RECORDS SUMMARY | 2024-12-13 16:39 | External Medical Summary | Summary of Care ---
Author Name Unknown Organization [facility] Address [address] [place] [address] Phone [phone] Care Team Providers Care Produce Sorter Name Role Phone Unavailable Primary Care Provider Unavailabl e Reason for Visit * Reason Comments Psychological Evaluation * - Authorized Specialty Diagnoses / Procedures Referred By Contlizzette t Referred To Contact Referral ID Status Reason Start Date Expiration Date V isits Requested Visits Authorized [id number] Authorized 11/24/2024 11/23/[phone] Encounter Details Date Type Department Care Team (Late st Contact Info) Description 12/08/2024 1:00 PM EST Telemedicine Psychology, Cancer Center Khoi BARBER [address] [facility] [place] [phone] Irving Aguila MA [address] [facility] [place] [phone] MOHSEN (generalized anxiety disorder)*; Adjustment disorder with depressed mood Allergies Active Allergy Reactions Criticality Noted Date Comments Naloxone Edema face/lips/tongue High 01/15/2017 documented as of this encounter (statuses as of 12/08/2024) Medications Acetaminophen (TYLENOL) 325 MG CAPS Take [...] as of this encounter (statuses as of 12/08/2024) Active Problems Problem Noted Date Diagnosed Date Malignant neoplasm of upper- outer quadrant of right breast in female, estrogen receptor positive 12/01/2024 Metastasis to bone 12/01/2024 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 Increased risk for breast cancer and pancreatic cancer. 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 Increased risk for breast cancer, colon cancer and thyroid cancer. Attention deficit hyperactiv ity disorder (ADHD), combined type 07/10/2016 Anxiety state 12/12/2011 Depression 12/12/2011 Rosacea 04/30/2006 RHINITIS DUE TO POLLEN documented as of this encounter (statuses as of 12/08/2024) Resolved Problems Problem Noted Date Diagnosed Date Resolved Date Carrier of group B Streptococcus 07/25/2017 08/26/2017 Overview (07/25/2017): + RV culture , normal first 01/15/201701/2017 Overview (08/20/2017): Problem Action Taken Date entered [...] by Date resolved education Enrolled in May [employer] 05/14/2017 Kadi Gold RN 05/14/2017 Problem Action [...] entered Entered by Date resolved education Attended [facility]. 06/21/2017 06/23/2017 Kadi Gold RN 06/23/2017 Problem [...] Overview (01/15/2017): Taking Subutex, followed monthly in [place] [facility] 16mg daily Mental disorder in 01/15/2017 08/26/2017 Overview (02/12/2017): [facility] taking Klonopin - ADHD, depression, bipolar -going to counseling in [place] As of 13wks no longer taking Klonopin [...] as of this encounter (statuses as of 12/08/2024) Immunizations Name Administration Dates Next Due Seasonal [...] on file documented as of this encounter Progress Notes * Irving Aguila MA - 12/08/2024 1:16 PM EST ONCOLOGY BEHAVIORAL HEALTH INITIAL EVALUATION This provider spent a total of 21 minutes with the patient. Services and confidentiality rights were introduced, and the evaluation began with the patient's consent. The patient reported feeling unwell and expressed that she was not ready to answer questions today. She also disclosed that the diagnosis and related experiences felt "all new" to her. The provider acknowledged and commended the patient for advocating for her well-being and validated her feelings about the overwhelming nature of the diagnosis and prognosis The provider provided psychoeducation on psycho-oncology and introduced additional services, including EMDR and hypnosis led by payroll supervisor Velma Espinoza Psy.D., as potential options to assist with chronic pain management that the patient disclosed during the session. A follow-up appointment was scheduled for 12/30/2024. documented in this encounter Plan of Treatment Upcoming Encounters Date Type Department Care Team (Late st Contact Info) Description 12/09/2024 9:45 AM EST Pharmacy Pharmacy Hematology Oncology [facility] [address] [place] [address] [facility], [facility] Hem/Onc [address] [place] [address] 12/10/2024 9:00 AM EST Scheduled Telephone Palliative Medicine, [address] 5th Floor [place] [address] [place], Nurse Palliative Medicine [facility] [address] [place], [place] [address] [address] 12/15/2024 8:30 AM EST Telemedicine Palliative Medicine [facility] [address] [place] [address] Amie Kong MD 400 [place], [place] [phone] 12/30/2024 9:30 AM EST Telemedicine Psychology, Cancer Center Khoi BARBER [address] [place] [address] Irving Aguila MA [address] [place] [phone] 01/03/2025 11:00 AM EST Office Visit Hematology/Oncology [address] [place] [address] Deepa Roberts CRNP 400 [place], [place] [phone] 01/03/2025 11:45 AM EST Immunization/Injectio n Hematology/Oncology Treatment, [address] [place] [address] Alla, Chair 2 Hem On[address] [place] [address] Scheduled Referrals Name Type Priority Associated Diagnoses Orde r Schedule ONCOLOGY BEHAVIORAL HEALTH REFERRAL OP Referral Within 10 days (routine) Secondary malignant neoplasm of bone (HCC) Ordered: 12/01/2024 Health Maintenance Due Date Last Done Comments [...] as of this encounter Visit Diagnoses Diagnosis MOHSEN (generalized anxiety disorder)- Primary Generalized anxiety disorder Adjustment disorder with depressed mood documented in this encounter
--- OUTSIDE RECORDS SUMMARY | 2024-12-13 16:39 | External Medical Summary | Summary of Care ---
Author Name Unknown Organization [facility] Address [address] [place] [address] Phone [phone] Care Team Providers Care Field Clerk Name Role Phone Unavailable Primary Care Provider Unavailabl e Encounter Details Date Type Department Care Team (Late st Contact Info) Description 12/08/2024 10:00 AM EST Telemedicine Palliative Medicine [facility] [address] [place] [address] Catrachita Kong MD [address] [place] [id number] Cancer related pain*; Palliative care encounter; Malignant neoplasm of upper-outer quadrant of right breast in female, estrogen receptor positive (HCC); Depression, unspecified depression type Allergies Active Allergy Reactions Criticality Noted Date Comments Naloxone Edema face/lips/tongue High 01/15/2017 documented as of this encounter (statuses as of 12/08/2024) Medications Acetaminophen (TYLENOL) 325 MG CAPS Take by mouth. Activ e folic acid 1 MG TabletIndicat ions:Family history of spina bifida Take one tablet by mouth daily 90 Tab 1 08/15/20 17 Active Additional Information Patient not taking.Reported on 11/04/2024 ibuprofen (MOTRIN) 600 MG Tablet Take 1 Tab by mouth every 6 hours as needed for Pain. With food. 30 Tab 09/04/20 17 Active Additional Information Patient not taking.Reported on 11/04/2024 buPROPion HCl ER (XL) 300 MG Oral Tablet Extended Release 24 Hour (Wellbutrin XL) Take 1 Tablet by mouth in the morning. In the morning.. 10/14/20 24 Active Letrozole 2.5 MG Oral Tablet (Femara)Indic ations:Malign ant neoplasm of upper-outer quadrant of right breast in female, estrogen receptor positive (HCC),Metasta sis to bone (HCC) Take 1 Tablet by mouth in the morning. 30 Tablet 11 12/01/19 25 Active ALPRAZolam 0.25 MG Oral Tablet (Xanax)Indica tions:Cancer related pain Take 1 Tablet by mouth 2 times a day as needed for Anxiety. 30 Tablet 12/01/19 25 Active Ondansetron HCl 4 MG Oral TabletIndicat ions:Nausea Use as needed for nausea 30 Tablet 1 12/01/19 25 Active Lidocaine-Cammy locaine 2.5-2.5 % External Cream (Emla)Indicat ions:Malignan t neoplasm of upper-outer quadrant of right breast in female, estrogen receptor positive (HCC) APPLY TO SKIN 1HR PRIOR TO INJECTION. 30 g 12/01/19 25 Active Abemaciclib 150 MG Oral Tablet (Verzenio)Ind ications:Antionette gnant neoplasm of upper-outer quadrant of right breast in female, estrogen receptor positive (HCC) Take 1 tablet by mouth in the morning and 1 tablet by mouth before bedtime. 60 Tablet 5 5 1:47 PM EST 12/06/19 25 Active Ondansetron HCl 8 MG Oral Tablet (Zofran)Indic ations:Malign ant neoplasm of upper-outer quadrant of right breast in female, estrogen receptor positive (HCC),Metasta sis to bone (HCC) Take 1 Tablet by mouth every 8 hours as needed for Nausea. 30 Tablet 2 12/06/19 25 Active Prochlorperaz ine Maleate 10 MG Oral Tablet (Compazine)In dications:Mal ignant neoplasm of upper-outer quadrant of right breast in female, estrogen receptor positive (HCC),Metasta sis to bone (HCC) Take 1 Tablet by mouth every 6 hours as needed for Nausea. 30 Tablet 2 12/06/19 25 Active Gabapentin 300 MG Oral Capsule (Neurontin)In dications:Can cer related pain Take 1 Capsule by mouth in the morning and 1 Capsule at noon and 1 Capsule before bedtime. 90 Capsule 12/08/19 25 Active Buprenorphine HCl 8 MG Sublingual Tablet Sublingual (Subutex)Susan cations:Cance r related pain Place 1 Tablet under the tongue in the morning and 1 Tablet at noon and 1 Tablet in the evening. 12/08/19 25 Active HYDROmorphone HCl 4 MG Oral Tablet (Dilaudid)Ind ications:Canc er related pain Take 1 Tablet by mouth every 4 hours as needed for Pain, Severe. 42 Tablet 12/08/19 25 Active buprenorphine HCl (SUBUTEX) [address] 1 Tablet under the tongue in the morning. 025 Discontinued(Re fill) LORazepam 1 MG Oral Tablet (Ativan)Indic ations:Needle phobia Take 1 tablet by mouth 30 minutes prior to breast imaging/biopsy appointment as needed for anxiety and phobia of needles. 1 Tablet 11/05/20 24 025 Discontinued LORazepam 1 MG Oral Tablet (Ativan)Indic ations:Needle phobia Take 1 tablet by mouth as needed for anxiety and needle phobia 30 minutes prior to breast imaging/biopsy . 1 Tablet 11/05/20 24 025 Discontinued dexAMETHasone 4 MG Oral Tablet (Decadron)Ind ications:Canc er related pain Take 1 Tablet by mouth daily with breakfast. 20 Tablet 12/01/19 25 025 Discontinued HYDROmorphone HCl 2 MG Oral Tablet (Dilaudid)Ind ications:Canc er related pain Take 1 Tablet by mouth every 3 hours as needed for Pain, Severe. 56 Tablet 12/06/19 25 025 Discontinued oxyCODONE HCl 10 MG Oral Tablet (Roxicodone)I ndications:Ca ncer related pain Take 1 Tablet by mouth every 4 hours as needed for Pain, Severe. 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 Increased risk for breast cancer and pancreatic cancer. 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 Increased risk for breast cancer, colon cancer [...] Encouraged pt attend [employer] classes 03/20/2017 Kadi Godl RN 03/20/2017 Problem Action Taken Date entered [...] by Date resolved education Enrolled in May [facility] 05/14/2017 Kadi Gold RN 05/14/2017 Problem Action [...] entered Entered by Date resolved education Attended [facility]. 06/21/2017 06/23/2017 Kadi Gold RN 06/23/2017 [...] Overview (01/15/2017): Taking Subutex, followed monthly in [place] [facility] 16mg daily Mental disorder in 01/15/2017 08/26/2017 Overview (02/12/2017): @ [facility] taking Klonopin - ADHD, depression, bipolar -going to counseling in [place] As of 13wks no longer taking Klonopin [...] 12/08/2024) Immunizations Name Administration Dates Next Due DTP [...] drink = 0.6 oz pur e alcohol) Comments Unknown Sex and Gender Information Value Date Recorded Sex Assigned at Not on file Legal Sex Female 5:53 AM EST Gender Identity Not on file Sexual Orientation Not on file 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 After connecting through televideo, patient was verified with two unique identifiers. Patient (or authorized legal international representative) was then informed that this was a Telemedicine visit and being conducted confidentially over secure lines. Methods to assure confidentiality were taken. Patient acknowledged consent and understanding of privacy and security of the Telemedicine visit. The patient agreed to participate. HPI: Velma Carr is a 39 year old female with primary diagnosis of stage IV breast CA, mets to bone seen in follow-up for goals of care and symptom management. She has completed steroids x 1 week but has found she has not been able to sleep. She got her firstLupron injection, started Femara, will be getting Verzenio in the mail. Future appts: - Will meet with [facility] Rad On[facility] next - is on cancellation list as well - Will schedule at [facility], they need to have records first Palliative symptoms: Pain: Located at: Shoulder / back Currently taking: Subutex 8mg TID, as well as Dilaudid 2mg q3h, does not find it is helping Quality:Deep / throbbing Severity: Severe in bones Associated sx: Anxiety Nausea/Vomiting: no Appetite: OK Constipation: no Confusion: no Sleep issues: Yes - goes to bed around 8pm, unsure when she actually sleeps, but then is having a lot of pain when cannot sleep Dyspnea: no Mood issues: Yes - stopped her Wellbutrin 300mg XL Falls: no Other: Examination: No vital signs as this is a telemedicine encounter Constitutional: no acute distress, chronically ill HENT: normocephalic, atraumatic. Eyes: anicteric, sclera and conjunctiva normal. Neck: no stridor Chest: normal respiratory effort Abdominal: nondistended Extremities: no edema Data Review: Lab / Imaging Results: Cr 0.8, normal Discussion with other team members: I discussed patient with [facility] recovery team, her PA Lelia not available until tomorrow ASSESSMENT/PLAN: Velma Carr is a 39 year old female seen in follow-up for goals of care and pain and symptom management. Stage IV Breast Ca, mets to bone Started Lupron, Zometa and plan is to start oral Verzenio Planning for a second opinion at [facility] Cancer related pain Finish steroids x 1 week total, so stop today She is on Subutex 8mg TID which I imagine is filling her opioid receptors entirely, unclear what else will be the best PRN agent for her Will talk to her addiction PA tomorrow Will rotate to Oxycodone 10mg q4h PRN and see if that helps ADDENDUM: Spoke to my colleagues at [facility] for advice, they explained Hydromorphone is usually most effective PRN with Subutex. Will try Dilaudid 4mg q4h PRN, if needed can try 8mg q4h PRN. Will have nursing call Fri to f/u Will add gabapentin 300mg TID to see if neuropathic component can help Needs a sense of prognosis from oncology Anxiety Booked therapy appt which will be 12/08 Increase Xanax to 0.25mg TID from BID will send in refill She asked for a sleeping pill which I am not comfortable prescribing or even clear about what she want, she says she is unsure I hope with stopping dexamethasone she can sleep better Continue Wellbutrin and advised to not stop meds on her own Hx of heroin abuse x 10+ years ago, hx of meth abuse 1 year ago Signed record release Goals of care Wants full tx Code status if admitted: FULL Follow up in 1 weeks They are able to do video visits. Next visit with me. I spent a total of 41 minutes on the date of service in preparation, delivery, and documentation ofthe care provided to Velma Carr excluding any time spent in the performance of separately billed services. MD Joss Hammer Palliative Medicine [phone] documented in this encounter Miscellaneous Notes * Addendum Note - Catrachita Kong MD - 12/08/2024 11:28 AM ESTAddended by: CATRACHITA KONG on: 12/08/2024 11:28 AM Modules accepted: Orders documented in this encounter Plan of Treatment Upcoming Encounters Date Type Department Care Team (Late st Contact Info) Description 12/08/2024 1:00 PM EST Telemedicine Psychology, Cancer Center Khoi BARBER [address] [facility] [place] [address] Irving Aguila MA [address] [facility] [place] [address] 12/09/2024 9:45 AM EST Pharmacy Pharmacy Hematology Oncology [facility] [address] [place] [address] [facility], [facility] Hem/Onc [address] [place] [address] 12/15/2024 8:30 AM EST Telemedicine Palliative Medicine [facility] [address] [place] [address] Catrachita Kong MD [address] [place], [place] [address] [address] 01/03/2025 11:00 AM EST Office Visit [facility]ematology/Oncology [facility] [address] [facility] [address] Deepa Roberts CRNP [address] [place] [address] 01/03/2025 11:45 AM EST Immunization/Injection Hematology/Oncology Treatment, [place] [address] [place] [address] Alla, Chair 2 Hem Onc Scenery [address] [place] [address] Health Maintenance Due Date Last Done Comments COVID-19 Vaccine (#1) 1991 Hepatitis C Screening 2004 Pneumococcal Vaccine: Pediatrics (0 to 5 Years) and At-Risk Patients (6 to 18 Years and 19+ Years) (1 of 2 - PCV) 2005 HPV/Co-Test 2016 Depression Monitoring 01/15/2018 01/15/2017 Cervical Cancer Screening 01/15/2020 Pap Smear 01/15/2020 01/15/2017, 04/24 (Done elsewhere) DTap/Tdap Vaccines (8 - Td or Tdap) [...] as of this encounter Visit Diagnoses Diagnosis Cancer related pain- Primary Neoplasm related pain (acute) (chronic) Palliative care encounter Encounter for palliative care Malignant neoplasm of upper-outer quadrant of right breast in female, estrogen receptor positive (HCC) Depression, unspecified depression type documented in this encounter
--- OUTSIDE RECORDS SUMMARY | 2024-12-13 16:39 | External Medical Summary | Summary of Care ---
Author Name Unknown Organization [facility] Address [address] [place] [address] Phone [phone] Care Team Providers Care Help Desk Consultant Name Role Phone Unavailable Primary Care Provider Unavailabl e Reason for Visit * Reason Comments Medication Management Encounter Details Date Type Department Care Team (Late st Contact Info) Description 12/09/2024 9:45 AM [facility] Pharmacy Pharmacy Hematology Oncology [facility] [address] [place] [address] [facility] Hem/Onc [address] [place] [address] Malignant neoplasm of upper-outer quadrant of right breast in female, estrogen receptor positive (HCC)* Allergies Active Allergy Reactions Criticality Noted Date [...] Overview (05/13/2019): pathogenic LEONEL gene variant (c.8482C>T, p.[id number]*). Increased risk for breast cancer and pancreatic cancer. 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 Increased risk for breast cancer, colon cancer [...] entered Entered by Date resolved education Attended [facility]. 06/21/2017 06/23/2017 Kadi Gold RN [...] Overview (01/15/2017): Taking Subutex, followed monthly in [place] @ [facility] 16mg daily Mental disorder in 01/15/2017 08/26/2017 Overview (02/12/2017): @ [facility] taking Klonopin - ADHD, depression, bipolar -going to counseling in [place] As of 13wks no longer taking Klonopin [...] as of this encounter Progress Notes * Genny Whitley, [facility] - 12/08/2024 2:00 PM EST MEDICATION THERAPY MANAGEMENT ABEMACICLIB TREATMENT EDUCATION NOTE Velma Carr [phone] Patient Phone Numbers Preferred Lab: [facility] Pharm[facility]: [facility] ([facility] copy below into specialty comments) Treatment consent complete: yes Date: 12/01/24 Precertification complete: yes Date: 12/02/24 Communication: Spoke to: Patient Treatment: Medication: Abemaciclib (Verzenio) Indication/Staging/Diagnosis Code: ER+/WY+/HER2- breast cancer / C50.411 Dose: 150mg BID Administration: +/- food Start Date: 12/13/24 (anticipated) Primary Statistical Engineer/Oncologist: Dr. Deion Munoz Supportive Care Meds: Xgeva Fulvestrant Letrozole 2.5mg daily Ondansetron Prophylactic Meds: None Treatment History: None Medication education: Confirmed pt has received information regarding goals and duration of therapy: yes Reviewed dosing and administration: yes Reviewed importance of medication compliance (document recommendations if barriers identified): yes Reviewed appropriate storage conditions: yes Reviewed handling precautions: yes Reviewed handling body fluids and waste: yes Reviewed side effects, monitoring, and supportive care measures: yes Nausea/Vomiting This medication may cause nausea or vomiting Low/Minimal emetic risk: Zofran/Compazine PRN, but if consistently nauseated, can administer [id number] minutes prior to chemotherapy Dietary modifications: avoid spicy, greasy, fatty foods If vomiting, increase water intake to avoid dehydration When to call clinic: N/V refractory to antiemetics or if unable to keep up with oral intake Diarrhea/Dehydration This medication can cause loose stools You can purchase OTC loperamide (Imodium A-D) to help manage this side effect (4 mg x 1, followed by 2 mg Q4H or after every loose stool, not to exceed 16 mg/day) Drink plenty of fluids to prevent dehydration, ideally 8-10 glasses per day (unless a healthcare provider has instructed you to limit your fluid intake due to other health conditions) Dietary modifications: eat bland, low fiber foods such as bananas, rice, applesauce, and toast (BRAT diet), avoid dairy, avoid spicy, greasy or fatty foods When to call clinic: If approaching maximum dose of loperamide and still having diarrhea or if you have any s/sx of dehydration; if there is a concern for infectious diarrhea (especially in setting of neutropenia) Fatigue You may be more tired than usual or have less energy Stay as active as possible, but know it is okay to rest as needed Try to do some activity every day Plan activities at a time of day when you feel more energetic Symptoms of DVT/PE This medication may increase your risk of developing a blood clot Contact clinic or seek emergency help immediately if you develop pain, swelling, or warmth in your calf or leg or new onset or worsening shortness of breath ILD/Pneumonitis This medication can rarely cause inflammation of the lung tissue. Monitor for and report any of the following symptoms: Shortness of breath Dry cough Fevers Chest pain that worsens with breathing Confirmed pt has received written information about drug therapy: yes Changes to medication list since last visit: yes, gabapentin and hydromorphone - no DDI with abemaciclib Drug interaction assessment: Treatment plan and current medication list evaluated for drug-drug interactions. No clinically significant drug interaction identified Does patient rely on caregiver for medication management? no Assessment and plan: Pt verbalized understanding to information provided. All questions answered to the patient's satisfaction Pt was educated about role of Oral Chemotherapy Clinic and pharmacist in medication management, andplan for follow up. Per OV 12/01/24, pt has h/o IV substance misuse and currently taking buprenorphine Per [facility] encounter 12/07/24, abemaciclib to ship 12/08/24. Advised pt to delay treatment start until office reopens 12/13/24 MTM to follow up in 1 week to confirm start date and assess tolerability Follow up: 1 week Genny Whitley, PharmD, BCOP Clinical Pharmacist, [facility] Oral Chemotherapy [facility] 12/08/2024, 2:18 PM Monitoring Parameters: Estimated CrCl Serum creatinine: 0.8 mg/dL 11/23/24 1308 Estimated creatinine clearance: 89.3 mL/min Hepatitis panel Latest Reference Range & Units 11/23/24 13:08 Hepatitis B Surface Antigen Negative Negative Hepatitis B Surface Antibody, Quantitative mIU/mL >1,000.0 HEPATITIS B SURFACE ANTIBODY Rpt Hepatitis B Surface Antibody, Interpretation Immune to Hepatitis B Virus Hepatitis B Surface Antibody, Qualitative Positive Hepatitis B Core Antibodies IgG and IgM Negative Negative test Latest Reference Range & Units 12/06/24 12:15 HCG Qualitative, Urine Negative Negative Suggested lab monitoring Suggested labs: CBC with differential and platelets (at baseline, every 2 weeks for the first 2 months, monthly for the next 2 months, then as clinically indicated); ALT, AST, and serum bilirubin (at baseline, every 2 weeks for the first 2 months, monthly for the next 2 months, then as clinically indicated); testing (prior to treatment in females of reproductivepotential). Treatment Parameters Per PI Pertinent labs: N/A Time Spent on Encounter: 16 - 20 minutes Encounter Group: Oncology Encounter Interventions Item Category: Oral Chemotherapy Abemaciclib Problem/Rationale: Indication: Needs additional medication therapy - Untreated condition Education: Initial education Pharmacist Intervention(s): Education provided Magnitude of Intervention: Monitoring with direction (Level 1) documented in this encounter Plan of Treatment Upcoming Encounters Date Type Department Care Team (Late st Contact Info) Description 12/10/2024 9:00 AM EST Scheduled Telephone Palliative Medicine, [address] [place] [address] Sc, Nurse Palliative Medicine [address] [address] 12/15/2024 8:30 AM EST Telemedicine Palliative Medicine [facility] [address] [place] [address] Amie Kong MD [address] [place] [address] 12/16/2024 9:45 AM EST Pharmacy Pharmacy Hematology Oncology [address] [address] [facility], [facility] Hem/Onc [address] [place] [address] 12/30/2024 9:30 AM EST Telemedicine Psychology, Cancer Center Khoi BARBER [address] [place] [address] Irving Aguila MA [address] [place] [phone] 01/03/2025 11:00 AM EST Office Visit Hematology/Oncology [facility] [place] [address] [facility] [place] [address] Deepa Roberts CRNP [address] [place] [address] 01/03/2025 11:45 AM EST Immunization/Injectio n Hematology/Oncology Treatment, [place] [address] [place] [id number] Alla, Chair 2 Hem Onc [facility] [address] [facility], [place] [address] Health Maintenance Due Date Last Done Comments [...] in female, estrogen receptor positive (HCC)- Primary documented in this encounter
--- OUTSIDE RECORDS SUMMARY | 2024-12-13 16:39 | External Medical Summary | Summary of Care ---
Author Name Unknown Organization [facility] Address [address] [place] [address] Phone [phone] Care Team Providers Care Glass Glazier Name Role Phone Unavailable Primary Care Provider Unavailabl e Reason for Visit * Reason Onset Date Comments Precert Future 12/01/2024 Verzenio/Lupron/ Zometa Encounter Details Date Type Department Care Team (Late st Contact Info) Description 12/01/2024 Telephone Hematology/Oncology [facility] [place] [address] [place] [address] Suri Munoz MD [address] [place] [address] Precert Future (Verzenio/Lupron/Zometa ) Allergies Active Allergy Reactions Criticality Noted Date Comments Naloxone Edema face/lips/tongue High 01/15/2017 documented as of this encounter (statuses as of 12/09/2024) Medications Acetaminophen (TYLENOL) 325 MG CAPS Take [...] nausea 30 Tablet 1 12/01/19 25 Active buprenorphine HCl (SUBUTEX) 8 MG [...] . 1 Tablet 11/05/20 24 025 Discontinued HYDROmorphone HCl 2 MG Oral Tablet (Dilaudid)Ind ications:Canc er related pain Take 1 Tablet by mouth every 3 hours as needed for Pain, Severe. 40 Tablet 12/01/19 25 025 Discontinued(Re fill) dexAMETHasone 4 MG Oral Tablet (Decadron)Ind ications:Canc er related pain Take 1 Tablet by mouth daily with breakfast. 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 Increased risk for breast cancer and pancreatic cancer. 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 Increased risk for breast cancer, colon cancer and thyroid cancer. Attention deficit hyperactiv ity disorder (ADHD), combined type 07/10/2016 Anxiety state 12/12/2011 Depression 12/12/2011 Rosacea 04/30/2006 RHINITIS DUE TO POLLEN documented as of this encounter (statuses as of 12/09/2024) Resolved Problems Problem Noted Date Diagnosed Date [...] by Date resolved education Enrolled in May [facility] 05/14/2017 Kadi Gold RN 05/14/2017 [...] entered Entered by Date resolved education Attended [facility]. 06/21/2017 06/23/2017 Kadi Gold RN [...] Overview (01/15/2017): Taking Subutex, followed monthly in [place] [facility] 16mg daily Mental disorder in 01/15/2017 08/26/2017 Overview (02/12/2017): [facility] Kl[facility] - ADHD, depression, bipolar -going to counseling in [place] As of 13wks no longer taking Klonopin [...] as of this encounter (statuses as of 12/09/2024) Immunizations Name Administration Dates Next Due DTP [...] encounter Miscellaneous Notes * Telephone Encounter - Najma Schaffer RN - 12/09/2024 7:22 AM EST Patient starting verzenio 12/13. Waiting for dental clearance. * Telephone Encounter - Najma Schaffer RN - 12/06/2024 1:34 PM EST Education complete - lupron today - patient still needs to schedule appt with dentist to start zometa - rx for verzenio sent to [facility] Patient will let us know when 2nd opinion appt at [facility] has been scheduled. * Telephone Encounter - Isabel Elder OSA - 12/03/2024 2:38 PM EST Amy from [facility] health plan called in asking to speak with Darryl regarding a prior auth. Wrm tsfr * Telephone Encounter - Najma Schaffer RN - 12/03/2024 10:34 AM EST Called patient- since she has questions for Dr Munoz, offered to move appts to Thursday 12/[address] Munoz will not be here on Friday. Patient declined, would like to keep appts Friday. * Telephone Encounter - Darryl Rogers RN - 12/03/2024 9:39 AM EST Auth form received from [facility] for outside consultation request. Completed form and faxed back to [phone] Melvin OV note. * Telephone Encounter - Darryl Rogers RN - 12/03/2024 9:03 AM EST Called patient back, answered all questions to the best of my ability. She recorded the conversation and made this RN aware of the recording. Discussed what her new medications are, how they are similar to the previously prescribed medications, talked about insurance preferring these medications over the others that were ordered. Discussed Verzenio and the process with specialty pharmacy/team. Advised we typically don't release this medication to the pharmacy until after education is completed which is scheduled on 12/06. Reassured patient that the medications she is receiving are very similarto each other they just work in different ways with the same end goal. Pt is requesting 2nd opinion through [facility] and advised that our office will need to sign aform for insurance regarding this. Dr. Munoz- patient would like to know "what are the percentages in how effective the treatment is and overall prognosis." Joao- Please advise when form is received from [facility], have Dr. Munoz sign, and fax back. Ptwould like to be notified when this is completed. * Telephone Encounter - Darryl Rogers RN - 12/02/2024 3:57 PM EST Referral entered for Zometa/Verzenio/Lupron Education scheduled 12/06 with first injection. MyG sent to patient informing her of treatment change. MTM- fyi, Verzenio can come from [facility]. * Telephone Encounter - Darryl Rogers RN - 12/01/2024 4:44 PM EST Referral entered for Zometa, no auth required. N:S- we will need to update the patient regarding change in medication and route it is given as shewas previously under the impression should would be receiving two injections (1 stomach, 1 arm) butwill now have IV placed for Zometa and receive injection in the dorsogluteal area. * Telephone Encounter - Darryl Rogers RN - 12/01/2024 1:26 PM EST New orders received, plan built and updated. Awaiting auth. Pt to receive Lupron when she comes for education. Scheduling- please change "Faslodex" in treatment note to "Lupron" thank you. * Addendum Note - Suri Munoz MD - 12/01/2024 12:53 PM ESTAddended by: SURI MUNOZ on: 12/01/2024 12:53 PM Modules accepted: Orders * Telephone Encounter - Suri Munoz MD - 12/01/2024 12:52 PM EST Ordered Lupron 3.75 mg intramuscularly every 4 weekly and Zometa 4 mg every 4 weekly. * Telephone Encounter - Darryl Rogers RN - 12/01/2024 12:[address] Munoz- per auth team: - Zoladex is non-preferred from Medicaid, is there an alternative to this medication you wish to proceed with. Preferred is Lupron,Firmagon, and Eligard. - Xgeva is also non-preferred, they prefer Zometa, if ok with changing please place alteration. Thank you. * Telephone Encounter - Darryl Rogers RN - 12/01/2024 11:25 AM EST Received orders, plans built and routed to provider. [facility] - fyi regarding Verzenio orders. Awaiting auth. Per Dr. Munoz- would like patient to receive Faslodex ALEXUS, Xgeva to be placed on hold after auth in regards to dental work (need to confirm with patient when she is seeing a dentist). -Chemo Consent: 12/01/24 -Chemo Education: 12/06/24 with Faslodex injection same day -Port Placement: N/A -Standing Lab orders placed: CBCD,CMP, Phos, Urine Preg -Medications Pended: EMLA Cream -Hep B Labs: Completed 11/23/24 Scheduling- please schedule patient for 15 min injection after chemo education on 12/06 "Faslodex" (Alexander). documented in this encounter Plan of Treatment Upcoming Encounters Date Type Department Care Team (Late st Contact Info) Description 12/09/2024 9:45 AM EST Pharmacy Pharmacy Hematology Oncology [facility] [address] [place] [address] [facility] Hem/Onc [address] [place] [address] Malignant neoplasm of upper-outer quadrant of right breast in female, estrogen receptor positive (HCC)* 12/10/2024 9:00 AM EST Scheduled Telephone Palliative Medicine, [address] 5th Floor [place], [place] [id number] [place], Nurse Palliative Medicine [address] [place] [address] 12/15/2024 8:30 AM EST Telemedicine Palliative Medicine [facility] [address] [place] [address] Amie Kong MD [address] [place], [place] [phone] 12/16/2024 9:45 AM EST Pharmacy Pharmacy Hematology Oncology [facility] [place] [address] [place] [address] [facility] Hem/Onc [address] [place] [address] 12/30/2024 9:30 AM EST Telemedicine Psychology, Cancer Center [facility] [address] [place] [address] Irving Aguila MA [address] [place] [address] 01/03/2025 11:00 AM EST Office Visit Hematology[facility]Oncolog [facility] [place] [address] [place] [address] Deepa Roberts CRNP [address] [place] [address] 01/03/2025 11:45 AM EST Immunization/Injecti on Hematology/Oncolog y Treatment, [place] [address] [place] [address] Alla, Chair 2 Hem Onc [facility] [address] [facility] [place], [place] [address] Scheduled Orders Name Type Priority Associated Diagnoses Orde r Schedule CBC WITH WBC DIFFERENTIAL Lab STAT Malignant neoplasm of upper-outer quadrant of right breast in female, estrogen receptor positive (HCC) 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) Every Month for 12 Occurrences starting 12/01/2024 until 12/01/2025 COMPREHENSIVE METABOLIC PANEL Lab STAT Malignant neoplasm of upper-outer quadrant of right breast in female, estrogen receptor positive (HCC) 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) Every Month for 12 Occurrences starting 12/01/2024 until 12/01/2025 PHOSPHORUS Lab STAT Malignant neoplasm of upper-outer quadrant of right breast in female, estrogen receptor positive (HCC) 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) Every Month for 12 Occurrences starting 12/01/2024 until 12/01/2025 HCG QUALITATIVE, URINE Lab STAT Malignant neoplasm of upper-outer quadrant of right breast in female, estrogen receptor positive (HCC) 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) Every Month for 12 Occurrences starting 12/01/2024 until 12/01/2025, 1 completed Health Maintenance Due Date Last Done Comments [...] Not on filedocumented as of this encounter Results * HCG QUALITATIVE, URINE (12/06/2024 12:15 PM EST) HCG Qualitative, Urine Negative Negative 12/06/2024 12:36 PM EST [facility] 56-02 Urine Urine specimen obtained by clean catch procedure / Unknown Non-blood Collection / Unknown 12/06/2024 12:15 PM EST 12/06/2024 12:15 PM EST us Suri Munoz MD LAB URINE ORDERABLES Final Res ult [facility] 56-[address] [place] [address] documented in this encounter Visit Diagnoses Diagnosis Malignant neoplasm of upper-outer quadrant of right breast in female, estrogen receptor positive (HCC)- Primary 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) Secondary malignant neoplasm of bone and bone marrow Malignant neoplasm of upper-outer quadrant of right breast in female, estrogen receptor positive (HCC)- Primary documented in this encounter
--- OUTSIDE RECORDS SUMMARY | 2024-12-13 16:39 | External Medical Summary | Summary of Care ---
Author Name Unknown Organization [facility] Address [address] [place] [address] Phone [phone] Care Team Providers Care Software Systems Engineer Name Role Phone Unavailable Primary Care Provider Unavailabl e Reason for Visit * Reason Comments Psychological Evaluation * - Authorized Specialty Diagnoses / Procedures Referred By Contlizzette t Referred To Contact Referral ID Status Reason Start Date Expiration Date V isits Requested Visits Authorized [id number] Authorized 11/24/2024 11/23/2025 [id number] Encounter Details Date Type Department Care Team (Late st Contact Info) Description 12/08/2024 1:00 PM EST Telemedicine Psychology, Cancer Center [facility] [address] [facility] [place] [phone] Irving Aguila MA [address] [facility] [place] [phone] MOHSEN (generalized anxiety disorder)*; Adjustment disorder with [...] Overview (05/13/2019): pathogenic LEONEL gene variant (c.8482C>T, p.[id number]*). Increased risk for breast cancer and pancreatic cancer. 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 Increased risk for breast cancer, colon cancer [...] entered Entered by Date resolved education Attended [facility]. 06/21/2017 06/23/2017 Kadi Gold RN [...] Overview (01/15/2017): Taking Subutex, followed monthly in [place] [facility] 16mg daily Mental disorder in 01/15/2017 08/26/2017 Overview (02/12/2017): [facility] taking Klonopin - ADHD, depression, bipolar -going to counseling in [place] As of 13wks no longer taking Klonopin [...] as of this encounter Progress Notes * Velma Espinoza PsyD - 12/09/2024 9:44 AM EST I have discussed the patient's management with the psychology trainee and agree with the note. I have reviewed the relevant history, assessment, diagnosis, and plan. Please refer to the documented findings and plan of care. This patient's visit today consisted of a service. I was readily available for immediate consultation and assistance. Velma Espinoza Psy.D. Licensed Clinical Psychologist #[id number] Behavioral Medicine Cancer [facility] * Irving Aguila MA - 12/08/2024 1:16 [...] services, including EMDR and hypnosis led by visual supervisor Velma Espinoza Psy.D., as potential options to assist with chronic pain management that the patient disclosed during the session. A follow-up appointment was scheduled for 12/30/2024. documented in this encounter Plan of Treatment Upcoming Encounters Date Type Department Care Team (Late st Contact Info) Description 12/09/2024 9:45 AM EST Pharmacy Pharmacy Hematology Oncology [address] [address] [facility] Hem/Onc [address] [place] [address] Malignant neoplasm of upper-outer quadrant of right breast in female, estrogen receptor positive (HCC)* 12/10/2024 9:00 AM EST Scheduled Telephone Palliative Medicine, [address] 5th [place] [address] [place], Nurse Palliative Medicine [address] [phone] 12/15/2024 8:30 AM EST Telemedicine Palliative Medicine [facility] [address] [place] [address] Amie Kong MD [address] [place] [phone] 12/16/2024 9:45 AM EST Pharmacy Pharmacy Hematology Oncology [address] [address] [facility] Hem/Onc [address] [place] [address] 12/30/2024 9:30 AM EST Telemedicine Psychology, Cancer Center [facility] BAR[facility] [address] [place] [address] [place] IrvingROSE [address] [place] [address] 01/03/2025 11:00 AM EST Office Visit Hematology/Oncolog y [facility] [address] [place] [address] Deepa Roberts CRNP [address] [facility] [place] [address] 01/03/2025 11:45 AM EST Immunization/Injecti on Hematology[facility]olog [facility] [place] [address] [facility] [address] Alla, Chair 2 Hem Onc [facility] [address] [facility], [place] [address] Scheduled Referrals Name Type Priority Associated Diagnoses [...] anxiety disorder Adjustment disorder with depressed mood Malignant neoplasm of upper-outer quadrant of right breast in female, estrogen receptor positive (HCC)- Primary documented in this encounter
--- OUTSIDE RECORDS SUMMARY | 2024-12-13 16:40 | External Medical Summary | Summary of Care ---
Author Name Unknown Organization [facility] Address [address] [place] [address] Phone [phone] Care Team Providers Care Nurse Licensed Practical Name Role Phone Unavailable Primary Care Provider Unavailabl e Reason for Visit * Reason Comments Outpatient Testing Encounter Details Date Type Department Care Team (Late st Contact Info) Description 12/06/2024 12:20 PM EST Laboratory Laboratory [facility] [address] [place] [phone] [facility] [address] [place] [address] Malignant neoplasm of upper-outer quadrant of right breast in female, estrogen receptor positive (HCC); 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) Allergies Active Allergy Reactions Criticality Noted Date Comments Naloxone Edema face/lips/tongue High 01/15/2017 documented as of this encounter (statuses as of 12/06/2024) Medications buprenorphine HCl (SUBUTEX) [address] 1 Tablet under the tongue in the morning. Active Acetaminophen (TYLENOL) 325 MG CAPS Take by [...] Additional Information Patient not taking.Reported on 11/04/2024 LORazepam 1 MG Oral Tablet (Ativan)Indicat ions:Needle phobia Take 1 tablet by mouth 30 minutes prior to breast imaging/biopsy appointment as needed for anxiety and phobia of needles. 1 Tablet 4 Active LORazepam 1 MG Oral Tablet (Ativan)Indicat ions:Needle phobia Take 1 tablet by mouth as needed for anxiety and needle phobia 30 minutes prior to breast imaging/biopsy. 1 Tablet 4 Active buPROPion HCl ER (XL) 300 MG Oral [...] for nausea 30 Tablet 1 5 Active dexAMETHasone 4 MG Oral Tablet (Decadron)Indic ations:Cancer related pain Take 1 Tablet by mouth daily with breakfast. 20 Tablet 5 Active Lidocaine-Prilo harrison 2.5-2.5 % External Cream (Emla)Indicatio ns:Malignant neoplasm of upper-outer quadrant of right breast in female, estrogen receptor positive (HCC) APPLY TO SKIN 1HR PRIOR TO INJECTION. 30 g 5 Active HYDROmorphone HCl 2 MG Oral Tablet (Dilaudid)Indic ations:Cancer related pain Take 1 Tablet by mouth every 3 hours as needed for Pain, Severe. 56 Tablet 5 Active Abemaciclib 150 MG Oral Tablet (Verzenio)Indic ations:Malignan t neoplasm of upper-outer quadrant of right breast in female, estrogen receptor positive (HCC) Take 1 tablet by mouth in the morning and 1 tablet by mouth before bedtime. 60 Tablet 5 5 Active Ondansetron HCl 8 MG Oral [...] for Nausea. 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 Increased risk for breast cancer and pancreatic cancer. 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 Increased risk for breast cancer, colon cancer and thyroid cancer. Attention deficit hyperactiv ity disorder (ADHD), combined type 07/10/2016 Anxiety state 12/12/2011 Depression 12/12/2011 Rosacea 04/30/2006 RHINITIS DUE TO POLLEN documented as of this encounter (statuses as of 12/06/2024) Resolved Problems Problem Noted Date Diagnosed Date [...] entered Entered by Date resolved education Attended [facility]. 06/21/2017 06/23/2017 Kadi Gold [...] Overview (01/15/2017): Taking Subutex, followed monthly in [place] [facility] 16mg daily Mental disorder in 01/15/2017 08/26/2017 Overview (02/12/2017): [facility] taking Klonopin - ADHD, depression, bipolar -going to counseling in [place] As of 13wks no longer taking Klonopin [...] as of this encounter (statuses as of 12/06/2024) Immunizations Name Administration Dates Next Due Seasonal [...] on file documented as of this encounter Plan of Treatment Upcoming Encounters Date Type Department Care Team (Latest Contact Info) Description 12/06/2024 1:30 PM EST Pharmacy Pharmacy Hematology Oncology [address] [address] [facility] Hem/Onc [address] [place] [address] Malignant neoplasm of upper-outer quadrant of right breast in female, estrogen receptor positive (HCC)* 12/08/2024 10:00 AM EST Telemedicine Palliative Medicine [facility] [address] [place] [address] Amie Kong MD [address] [place] [address] 12/08/2024 1:00 PM EST Telemedicine Psychology, Cancer Center [facility] BAR[facility] [address] [place] [phone] Irving Aguila MA [address] [place] [phone] 12/09/2024 9:45 AM EST Pharmacy Pharmacy Hematology Oncology [address] [address] [facility] Hem/Onc [address] [place] [address] 01/03/2025 11:00 AM EST Office Visit Hematology/Oncolog y [place] [place] [address] [place] [address] Deepa Roberts CRNP [address] [facility] [place] [address] 01/03/2025 11:45 AM EST Immunization/Injecti on Hematology/Oncolog y Treatment, [place] [address] [place], [place] [address] Alla, Chair 2 Hem Onc [place] [address] [place] [address] Pending Results Name Type Priority Associated Diagnoses Date /Time HCG QUALITATIVE, URINE Lab STAT Malignant neoplasm of upper-outer quadrant of right breast in female, estrogen receptor positive (HCC) 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) 12/06/2024 12:15 PM EST Health Maintenance Due Date Last Done Comments [...] in female, estrogen receptor positive (HCC)- Primary Malignant neoplasm of upper-outer quadrant of right breast in female, estrogen receptor positive (HCC) 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) Secondary malignant neoplasm of bone and bone marrow documented in this encounter
--- OUTSIDE RECORDS SUMMARY | 2024-12-13 16:40 | External Medical Summary | Summary of Care ---
Author Name Unknown Organization [facility] Address [address] [place] [address] Phone [phone] Care Team Providers Care Director Of Accounts Receivable Name Role Phone Unavailable Primary Care Provider Unavailabl e Reason for Visit * Reason Onset Date Comments Precert Future 12/01/2024 Verzenio/Lupron/ Zometa Encounter Details Date Type Department Care Team (Late st Contact Info) Description 12/01/2024 Telephone Hematology/Oncology Shelley Gold [place] [address] [place] [address] Suri Munoz MD [address] [place] [address] Precert Future (Verzenio/Lupron/Zometa ) Allergies Active Allergy Reactions Criticality Noted Date Comments Naloxone Edema face/lips/tongue High 01/15/2017 documented as of this encounter (statuses as of 12/06/2024) Medications buprenorphine HCl (SUBUTEX) [address] 1 Tablet under the tongue in the morning. Active Acetaminophen (TYLENOL) 325 MG CAPS Take by mouth. Activ e folic acid 1 MG TabletIndicati ons:Family history of spina bifida Take one tablet by mouth daily 90 Tab 1 7 Active Additional Information Patient not taking.Reported on 11/04/2024 ibuprofen (MOTRIN) 600 MG Tablet Take 1 Tab by mouth every 6 hours as needed for Pain. With food. 30 Tab 7 Active Additional Information Patient not taking.Reported on 11/04/2024 LORazepam 1 MG Oral Tablet (Ativan)Indica tions:Needle phobia Take 1 tablet by mouth 30 minutes prior to breast imaging/biopsy appointment as needed for anxiety and phobia of needles. 1 Tablet 4 Active LORazepam 1 MG Oral Tablet (Ativan)Indica tions:Needle phobia Take 1 tablet by mouth as needed for anxiety and needle phobia 30 minutes prior to breast imaging/biopsy. 1 Tablet 4 Active buPROPion HCl ER (XL) 300 MG Oral Tablet Extended Release 24 Hour (Wellbutrin XL) Take 1 Tablet by mouth in the morning. In the morning.. 4 Active Letrozole 2.5 MG Oral Tablet (Femara)Indica tions:Malignan t neoplasm of upper-outer quadrant of right breast in female, estrogen receptor positive (HCC),Metastas is to bone (HCC) Take 1 Tablet by mouth in the morning. 30 Tablet 11 5 Active ALPRAZolam 0.25 MG Oral Tablet (Xanax)Indicat ions:Cancer related pain Take 1 Tablet by mouth 2 times a day as needed for Anxiety. 30 Tablet 5 Active Ondansetron HCl 4 MG Oral TabletIndicati ons:Nausea Use as needed for nausea 30 Tablet 1 5 Active dexAMETHasone 4 MG Oral Tablet (Decadron)Susan cations:Cancer related pain Take 1 Tablet by mouth daily with breakfast. 20 Tablet 5 Active HYDROmorphone HCl 2 MG Oral Tablet (Dilaudid)Susan cations:Cancer related pain Take 1 Tablet by mouth every 3 hours as needed for Pain, Severe. 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 Increased risk for breast cancer and pancreatic cancer. 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 Increased risk for breast cancer, colon cancer [...] by Date resolved education Enrolled in May [facility] 05/14/2017 Kadi Gold RN 05/14/2017 Problem [...] entered Entered by Date resolved education Attended [facility]. 06/21/2017 06/23/2017 Kadi Gold RN 06/23/2017 [...] any current needs or questions 07/23/2017 Iona uCevas RN 07/23/17 Problem Action Taken Date entered [...] Overview (01/15/2017): Taking Subutex, followed monthly in [place] [facility] 16mg daily Mental disorder in 01/15/2017 08/26/2017 Overview (02/12/2017): [facility] Kl[facility] - ADHD, depression, bipolar -going to counseling in [place] As of 13wks no longer taking Klonopin [...] 12/06/2024) Immunizations Name Administration Dates Next Due DTP [...] zometa - rx for verzenio sent to [facility] Patient will let us know when 2nd opinion appt at [facility] has been scheduled. * Telephone Encounter - Isabel Elder OSA - 12/03/2024 2:38 PM EST Amy from [facility] health plan called in asking to speak [...] 9:39 AM EST Auth form received from [facility] for outside consultation request. Completed form and faxed back to [phone] Melvin OV note. * Telephone [...] goal. Pt is requesting 2nd opinion through [facility] and advised that our office will need to sign aform for insurance regarding this. Dr. Munoz- patient would like to know "what are the percentages in how effective the treatment is and overall prognosis." Joao- Please advise when form is received from [facility], have Dr. Munoz sign, and fax back. Ptwould like to be notified when this is completed. * Telephone Encounter - Darryl Rogers RN - 12/02/2024 3:57 PM EST Referral entered for Zometa/Verzenio/Lupron Education scheduled 12/06 with first injection. MyG sent to patient informing her of treatment change. MTM- fyi, Verzenio can come from [facility]. * Telephone Encounter - Darryl Rogers RN [...] orders, plans built and routed to provider. MTM - fyi regarding Verzenio orders. Awaiting auth. [...] 12/08/2024 10:00 AM EST Telemedicine Palliative Medicine [facility] [address] [place] [address] Amie Kong MD [address] [place] [address] 12/08/2024 1:00 PM EST Telemedicine Psychology, Cancer Center Khoi BARBER [address] [facility] [place] [address] Irving Aguila MS [address] [facility] [place] [address] 12/09/2024 9:45 AM EST Pharmacy Pharmacy Hematology Oncology [place] [address] [place] [address] [facility], [facility] Hem/Onc [address] [place] [address] 01/03/2025 11:00 AM EST Office Visit Hematology/Oncology [facility] [address] [facility] [place] [address] Deepa Roberts CRNP [address] [place] [address] 01/03/2025 11:45 AM EST Immunization/Injection Hematology/Oncology Treatment, [place] [address] [place] [address] Alla, Chair 2 Hem Onc [place] [address] [facility], [place] [address] Scheduled Orders Name Type Priority Associated Diagnoses [...] Urine Negative Negative 12/06/2024 12:36 PM EST [facility] 56-02 Urine Urine specimen obtained by clean catch procedure / Unknown Non-blood Collection / Unknown 12/06/2024 12:15 PM EST 12/06/2024 12:15 PM EST us Suri Munoz MD LAB URINE ORDERABLES Final Res ult [facility] 56-[address] [place], [place] [id number] documented in this encounter Visit Diagnoses Diagnosis Malignant neoplasm of upper-outer quadrant of right breast in female, estrogen receptor positive (HCC)- Primary 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) Secondary malignant neoplasm of bone and bone marrow documented in this encounter
--- OUTSIDE RECORDS SUMMARY | 2024-12-13 16:40 | External Medical Summary | Summary of Care ---
Author Name Unknown Organization [facility] Address [address] [place] [address] Phone [phone] Care Team Providers Care Activities Aide Name Role Phone Unavailable Primary Care Provider Unavailabl e Encounter Details Date Type Department Care Team (Late st Contact Info) Description 12/08/2024 10:00 AM EST Telemedicine Palliative Medicine [facility] [address] [place] [address] Catrachita Kong MD [address] [place] [address] Cancer related pain*; Palliative care encounter; [...] Overview (05/13/2019): pathogenic LEONEL gene variant (c.8482C>T, p.[id number]*). Increased risk for breast cancer and pancreatic cancer. 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 Increased risk for breast cancer, colon cancer [...] by Date resolved education Enrolled in May [facility] 05/14/2017 Kadi Gold RN 05/14/2017 [...] entered Entered by Date resolved education Attended [facility]. 06/21/2017 06/23/2017 Kadi Gold RN [...] Overview (01/15/2017): Taking Subutex, followed monthly in [place] [facility] 16mg daily Mental disorder in 01/15/2017 08/26/2017 Overview (02/12/2017): [facility] taking Klonopin - ADHD, depression, bipolar -going to counseling in [place] As of 13wks no longer taking Klonopin [...] Outpatient Progress Note IN HOME TELEMEDICINE VISIT [facility], [facility] [address] [place] [address] Name: Velma Carr Date: 12/08/2024 I was in a hospital or clinic location. After connecting through televideo, patient was verified with two unique identifiers. Patient (or authorized legal independent sales representative) was then informed that this was [...] mail. Future appts: - Will meet with [facility] Rad Onc next - is on cancellation list as well - Will schedule at [facility], they need to have records first [...] other team members: I discussed patient with [place] recovery team, her PA Lelia not available until tomorrow ASSESSMENT/PLAN: Velma Carr is a 39 year old female seen in follow-up for goals of care and pain and symptom management. Stage IV Breast Ca, mets to bone Started Lupron, Zometa and plan is to start oral Verzenio Planning for a second opinion at [facility] Cancer related pain Finish steroids x [...] helps ADDENDUM: Spoke to my colleagues at [facility] for advice, they explained Hydromorphone is usually most effective PRN with Subutex. Will try Dilaudid 4mg q4h PRN, if needed can try 8mg q4h PRN. Will have nursing call Fri to f/u and to call pharmacy to cancel oxycodone. Called Velma as well to explain this to her and she agrees Will add gabapentin 300mg TID to see [...] of separately billed services. MD Joss Hammer [place] Palliative [facility] [phone] documented in this encounter Miscellaneous Notes * Addendum Note - Catrachita Kong MD - 12/08/2024 11:28 AM ESTAddended by: CATRACHITA KONG on: 12/08/2024 11:28 AM Modules accepted: Orders documented in this encounter Plan of Treatment Upcoming Encounters Date Type Department Care Team (Late st Contact Info) Description 12/08/2024 1:00 PM EST Telemedicine Psychology, Cancer Center Khoi BARBER [address] [facility] [place] [address] Irving Aguila MA [address] [facility] [place] [address] 12/09/2024 9:45 AM EST Pharmacy Pharmacy Hematology Oncology [facility] [address] [place] [address] [facility] Hem/Onc [address] [place] [address] 12/15/2024 8:30 AM EST Telemedicine Palliative Medicine [facility] [address] [place] [address] Catrachita Kong MD [address] [place] [address] [place] [address] 01/03/2025 11:00 AM EST Office Visit Hematology/Oncology [facility] [place] [address] [place], [place] [address] Deepa Roberts CRNP [address] [place] [address] 01/03/2025 11:45 AM EST Immunization/Injection Hematology/Oncology Treatment, [place] [address] [place], [place] [id number] Alla, Chair 2 Hem Onc [facility] [address] [facility] [place], [place] [address] Health Maintenance Due Date Last Done Comments [...]
--- OUTSIDE RECORDS SUMMARY | 2024-12-13 16:40 | External Medical Summary | Summary of Care ---
Author Name Unknown Organization [facility] Address [address] [place] [address] Phone [phone] Care Team Providers Care Planer Setup Operator Name Role Phone Unavailable Primary Care Provider Unavailabl e Reason for Referral * Evaluate & Treat - Unlimited Visits (Within 10 days (routine)) - Pending Review Specialty Diagnoses / Procedures Referred By Rhonda metzger Referred To Contact Radiation Oncology Diagnoses Malignant neoplasm of upper-outer quadrant of right breast in female, estrogen receptor positive (HCC) 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) Contreras Munoz MD [address] [place] [address] [address] Phone: tel: fax: Referral ID Status Reason Start Date Expiration Date Visits Requested Visits Authorized [id number] Pending Review Specialty Services Required 12/07/2024 1 1 Question Answer Referral Priority Within 10 days (routine) Where should this appointment be scheduled? External - [facility] What is the preferred location to have this test performed? Non-S Site - [facility] Comments 39-year-old female, a case of hormonal positive metastatic breast cancer, multiple bone metastatic disease, complains of shoulder pain and back pain. Would like to Radiation Oncology consult, to consider for palliative radiation treatment. Thanks. Dr. Contreras Munoz Hem/Onc Encounter Details Date Type Department Care Team (Late st Contact Info) Description 12/07/2024 Orders Only Hematology/[place] [address] [address] Contreras Munoz MD [address] [place] [address] [address] Malignant neoplasm of upper-outer quadrant of right breast in female, estrogen receptor positive (HCC)*; 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) Allergies Active Allergy Reactions Criticality Noted Date Comments Naloxone Edema face/lips/tongue High 01/15/2017 documented as of this encounter (statuses as of 12/07/2024) Medications buprenorphine HCl (SUBUTEX) 8 MG Sublingual [...] as of this encounter (statuses as of 12/07/2024) Active Problems Problem Noted Date Diagnosed Date Malignant neoplasm of upper- outer quadrant of right breast in female, estrogen receptor positive 12/01/2024 Metastasis to bone 12/01/2024 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 Increased risk for breast cancer and pancreatic cancer. 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 Increased risk for breast cancer, colon cancer and thyroid cancer. Attention deficit hyperactiv ity disorder (ADHD), combined type 07/10/2016 Anxiety state 12/12/2011 Depression 12/12/2011 Rosacea 04/30/2006 RHINITIS DUE TO POLLEN documented as of this encounter (statuses as of 12/07/2024) Resolved Problems Problem Noted Date Diagnosed Date [...] by Date resolved education Enrolled in May [facility] 05/14/2017 Kadi Gold RN 05/14/2017 [...] entered Entered by Date resolved education Attended [facility]. 06/21/2017 06/23/2017 Kadi Gold RN [...] Overview (01/15/2017): Taking Subutex, followed monthly in [place] [facility] 16mg daily Mental disorder in 01/15/2017 08/26/2017 Overview (02/12/2017): [facility] taking Klonopin - ADHD, depression, bipolar -going to counseling in [place] As of 13wks no longer taking Klonopin [...] as of this encounter (statuses as of 12/07/2024) Immunizations Name Administration Dates Next Due Seasonal [...] as of this encounter Progress Notes * Contreras Munoz MD - 12/07/2024 7:38 AM EST She complains of increasing shoulder pain and back pain, she has a case of metastatic breast cancerwith the multiple bone metastatic disease Would like to have Radiation Oncology consultation at [facility]. documented in this encounter Plan of Treatment Upcoming Encounters Date Type Department Care Team (Late st Contact Info) Description 12/08/2024 10:00 AM EST Telemedicine Palliative Medicine [address] [place] [address] Amie Kong MD [address] [facility] [place] [address] 12/08/2024 1:00 PM EST [facility]medicine [facility] [place] [address] [place] [id number] Irving Aguila [place] [address] [place] [id number] 12/09/2024 9:45 AM EST Pharmacy Pharmacy Hematology Oncology [place] [address] [place] [address] [facility], [facility] Hem/Onc [facility] [place] [address] 01/03/2025 11:00 AM EST Office Visit Hematology/Oncology [address] [place] [address] Deepa Roberts CRNP [address] [facility] [place] [address] 01/03/2025 11:45 AM EST Immunization/Injection Hematology/Oncology [address], [address] [address] Alla, Chair 2 Hem Onc [address] [place] [address] Scheduled Referrals Name Type Priority Associated Diagnoses Orde r Schedule RADIATION/ONCOLOGY REFERRAL OP Referral Within 10 days (routine) Malignant neoplasm of upper-outer quadrant of right breast in female, estrogen receptor positive (HCC) 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) Ordered: 12/07/2024 Health Maintenance Due Date Last Done Comments [...]
--- OUTSIDE RECORDS SUMMARY | 2024-12-13 16:40 | External Medical Summary | Summary of Care ---
Author Name Unknown Organization [facility] Address [address] [place] [address] Phone [phone] Care Team Providers Care Basic Combatant Swimmer Name Role Phone Unavailable Primary Care Provider Unavailabl e Reason for Visit * Reason Onset Date Comments Advice 12/03/2024 2nd opinion Encounter Details Date Type Department Care Team (Late st Contact Info) Description 12/03/2024 Telephone Hematology/Oncology [facility] [place] [address] [place] [address] Contreras Munoz MD [address] [place] [address] Advice (2nd opinion) Allergies Active Allergy Reactions Criticality Noted Date Comments Naloxone Edema face/lips/tongue High 01/15/2017 documented as of this encounter (statuses as of 12/08/2024) Medications buprenorphine HCl (SUBUTEX) 8 MG Sublingual [...] daily with breakfast. 20 Tablet 5 Active Lidocaine-Pril ocaine 2.5-2.5 % External Cream (Emla)Indicati ons:Malignant neoplasm of upper-outer quadrant of right breast [...] Overview (05/13/2019): pathogenic LEONEL gene variant (c.8482C>T, p.[id number]*). Increased risk for breast cancer and pancreatic cancer. 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 Increased risk for breast cancer, colon cancer [...] by Date resolved education Enrolled in May [facility] 05/14/2017 Kadi Gold RN 05/14/2017 Problem [...] entered Entered by Date resolved education Attended [facility]. 06/21/2017 06/23/2017 Kadi Gold RN 06/23/2017 [...] Overview (01/15/2017): Taking Subutex, followed monthly in [place] [facility] 16mg daily Mental disorder in 01/15/2017 08/26/2017 Overview (02/12/2017): [facility] taking Kl[facility]opin - ADHD, depression, bipolar -going to counseling in [place] As of 13wks no longer taking Klonopin [...] Telephone Encounter - Darryl Rogers RN - 12/08/2024 9:53 AM EST Scheduling- please fax records to # provided by patient as well as the referral. Please notify patient via MyG once sent. Thank you! * Telephone Encounter - Darryl Rogers RN - 12/03/2024 3:01 PM EST Spoke with [facility] who denied request for coverage of 2nd opinion through [facility]. This can be appealed by calling Tracking #: [id number] Pt can choose covered 2nd opinion through the following: - [facility] documented in this encounter Plan of Treatment Upcoming Encounters Date Type Department Care Team (Late st Contact Info) Description 12/08/2024 10:00 AM EST Telemedicine Palliative Medicine [facility] [address] [facility], [place] [address] Amie Kong MD [address] [place] [address] [place] [address] Arrived 12/08/2024 1:00 PM EST Telemedicine Psychology, Cancer Center Khoi BARBER [address] [place] [address] Irving Aguila MA [address] [place] [address] 12/09/2024 9:45 AM EST Pharmacy Pharmacy Hematology Oncology [facility] [address] [place] [address] [facility], [facility] Hem/Onc [address] [place] [address] 01/03/2025 11:00 AM EST Office Visit Hematology/Oncology [facility] 200 [facility] [place] [address] Deepa Roberts CRNP [address] [place] [address] 01/03/2025 11:45 AM EST Immunization/Injection Hematology/Oncology Treatment, [place] 200 [place] [address] Alla, Chair 2 Hem Onc [address] [address] Health Maintenance Due Date Last Done Comments [...]
--- OUTSIDE RECORDS SUMMARY | 2024-12-13 16:40 | External Medical Summary | Summary of Care ---
Author Name Unknown Organization [facility] Address [address] [place] [address] Phone [phone] Care Team Providers Care Inspector Welded Parts Name Role Phone Unavailable Primary Care Provider Unavailabl e Reason for Visit * Reason Comments Medication Administration Lupron 3.75mg * Episode Based Medications (Routine) - Authorized Specialty Diagnoses / Procedures Referred By Contac t Referred To Contact Diagnoses Malignant neoplasm of upper-outer quadrant of right breast in female, estrogen receptor positive (HCC) Procedures OR LEUPROLIDE ACETATE /3.75 MG Contreras Munoz MD [address] [place], [place] [address] [address] Phone: tel: fax: Hematology/Oncology Treatment, [address] [address] Phone: tel: fax: Referral ID Status Reason Start Date Expiration Date V isits Requested Visits Authorized [id number] Authorized 12/02/2024 12/02/[phone] Encounter Details Date Type Department Care Team (Late st Contact Info) Description 12/06/2024 12:00 PM EST Immunization/I njection Hematology/Oncology Treatment, [address] [address] Alla, Chair 2 Hem Onc [address] [place] [address] Malignant neoplasm of upper-outer quadrant of right [...] Overview (05/13/2019): pathogenic LEONEL gene variant (c.8482C>T, p.[id number]*). Increased risk for breast cancer and pancreatic cancer. 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 Increased risk for breast cancer, colon cancer [...] Date resolved Educational classes Encouraged pt attend [employer] classes 03/20/2017 Kadi Gold RN 03/20/2017 Problem Action Taken Date entered Entered by Date resolved Home nursing Lroene had been attempting to reach pt but [...] Date resolved education Enrolled in May [facility] 05/14/2017 Kadi Gold RN 05/14/2017 Problem [...] Entered by Date resolved education Attended [facility]. 06/21/2017 06/23/2017 Kadi Gold RN 06/23/2017 [...] Overview (01/15/2017): Taking Subutex, followed monthly in [place] [facility] 16mg daily Mental disorder in 01/15/2017 08/26/2017 Overview (02/12/2017): [facility] taking Kl[facility]opin - ADHD, depression, bipolar -going to counseling in [place] As of 13wks no longer taking Klonopin [...] on file documented as of this encounter Nursing Notes * Kadi Dillard LPN - 12/06/2024 1:38 PM EST 1230: Pt arrived for Lupron 3.75mg injection. Administered in R dorsogluteal. Pt tolerated well. Toreturn in 4 weeks. Discharged in stable condition. documented in this encounter Plan of Treatment Upcoming Encounters Date Type Department Care Team (Late st Contact Info) Description 12/08/2024 10:00 AM EST Telemedicine Palliative Medicine [place], [place] [address] [place] [address] Amie Kong MD 400 [facility] [place], [place] [id number] 12/08/2024 1:00 PM EST Telemedicine Psychology, Cancer Center Khoi BARBER [address] [facility] [place] [address] Irving Aguila MA [address] [place] [address] 12/09/2024 9:45 AM EST Pharmacy Pharmacy Hematology Oncology [facility] [address] [place] [address] [facility], [facility] Hem/Onc [address] [place] [address] 01/03/2025 11:00 AM EST Office Visit Hematology/Oncology [address] [place], [place] [phone] Deepa Roberts CRNP [address] [place] [address] 01/03/2025 11:45 AM EST Immunization/Injection Hematology/Oncology Treatment, [address], [place] [address] Alla, Chair 2 Hem On[address] [place], [place] [address] Health Maintenance Due Date Last Done Comments [...] positive (HCC)- Primary documented in this encounter Administered Medications Inactive Administered Medications - up to 3 most recent administrations Medication Order MAR Action Action Date Dose Rate Site Leuprolide Acetate (Lupron) inj 3.75 mg 3.75 mg, Intramuscular, ONCE, On 12/06/24 at 1230, For 1 doseIndications:Maligna nt neoplasm of upper-outer quadrant of right breast in female, estrogen receptor positive (HCC) Given 12/06/2024 12:38 PM EST 3.75 mg Dorsogluteal Right documented in this encounter
--- OUTSIDE RECORDS SUMMARY | 2024-12-13 16:40 | External Medical Summary | Summary of Care ---
Author Name Unknown Organization [facility] Address [address] [place] [address] Phone [phone] Care Team Providers Care Retort Setter Name Role Phone Unavailable Primary Care Provider Unavailabl e Reason for Referral * Social Care (Within 10 days (routine)) - Pending Review Specialty Diagnoses / Procedures Referred By Rhonda metzger Referred To Contact Sample Grinder Diagnoses Malignant neoplasm of upper-outer quadrant of right breast in female, estrogen receptor positive (HCC) 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) Contreras Munoz MD [address] [place] [address] [address] Phone: tel: fax: Referral ID Status Reason Start Date Expiration Date Visits Requested Visits Authorized [id number] Pending Review Specialty Services Required 12/06/[phone] Question Answer Referral Priority Within 10 days (routine) Where should this appointment be scheduled? [facility] Role C[facility]D. Biller Referring Reason: Coordinate Cancer Resources, Financial assistance Comments Is patient being transitioned from [facility] to Complex Case Management? 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 Increased risk for breast cancer and pancreatic cancer. 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 Increased risk for breast cancer, colon cancer [...] by Date resolved education Enrolled in May [facility] 05/14/2017 Kadi Gold RN 05/14/2017 Problem [...] entered Entered by Date resolved education Attended [facility]. 06/21/2017 06/23/2017 Kadi Gold RN 06/23/2017 Problem [...] Overview (01/15/2017): Taking Subutex, followed monthly in [place] [facility] 16[facility] daily Mental disorder in 01/15/2017 08/26/2017 Overview (02/12/2017): @ [facility] taking Klonopin - ADHD, depression, bipolar -going to counseling in [place] As of 13wks no longer taking [...] as of this encounter Nursing Notes * Popeye Schaffer RN - 12/06/2024 12:40 PM EST Education complete for verzenio, zometa, lupron, letrozole. documented in this encounter Miscellaneous Notes * Addendum Note - Popeye Schaffer RN - 12/06/2024 12:47 PM ESTAddended by: POPEYE SCHAFFER on: 12/06/2024 12:47 PM Modules accepted: Orders documented in this encounter Plan of Treatment Upcoming Encounters Date Type Department Care Team (Latest Contact Info) Description 12/06/2024 1:30 PM EST Pharmacy Pharmacy Hematology Oncology [facility] [address] [place] [address] [facility] Hem/Onc [address] [place] [address] Malignant neoplasm of upper-outer quadrant of right breast in female, estrogen receptor positive (HCC)* 12/08/2024 10:00 AM EST Telemedicine Palliative Medicine [facility] [address] [place] [address] Amie Kong MD [address] [place] [address] [place] [address] 12/08/2024 1:00 PM EST Telemedicine Psychology, Cancer Center Khoi BARBER [address] [facility] [place] [address] Irving Aguila MA [address] [facility] [place] [address] 12/09/2024 9:45 AM EST Pharmacy Pharmacy Hematology Oncology [facility] [place] [address] [place] [address] [facility] Hem[facility]Onc [address] [place] [address] 01/03/2025 11:00 AM EST Office [facility] 200 [place] [address] Deepa Roberts CRNP [address] [place], [place] [phone] 01/03/2025 11:45 AM EST Immunization/Injecti on Hematology/Oncolog y Treatment, [place] 200 [place] [address] Alla, Chair 2 Hem Onc [facility] 200 [facility], [place] [address] Scheduled Referrals Name Type Priority Associated Diagnoses Orde r Schedule POPULATION HEALTH REFERRAL OP Referral Within 10 days (routine) Malignant neoplasm of upper-outer quadrant of right breast in female, estrogen receptor positive (HCC) 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) Ordered: 12/06/2024 Health Maintenance Due Date Last Done Comments [...] malignant neoplasm of bone and bone marrow Drug-related hair loss Other alopecia Malignant neoplasm of upper-outer quadrant of right breast in female, estrogen receptor positive (HCC)- Primary documented in this encounter
--- OUTSIDE RECORDS SUMMARY | 2024-12-13 16:40 | External Medical Summary | Summary of Care ---
Author Name Unknown Organization [facility] Address [address] [place] [address] Phone [phone] Care Team Providers Care Supervisor Pipeline Name Role Phone Unavailable Primary Care Provider Unavailabl e Reason for Visit * Reason Onset Date Comments Referral 12/07/2024 Encounter Details Date Type Department Care Team ([facility] st Contact Info) Description 12/07/2024 Telephone Hematology/Oncology Treatment, [place] [address] [place] [address] Contreras Munoz MD [address] [place] [address] Referral Allergies Active Allergy Reactions Criticality Noted Date [...] Overview (05/13/2019): 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 Increased risk for breast cancer and pancreatic cancer. 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 Increased risk for breast cancer, colon cancer [...] entered Entered by Date resolved education Attended [facility]. 06/21/2017 06/23/2017 Kadi Gold RN 06/23/2017 Problem [...] Overview (01/15/2017): Taking Subutex, followed monthly in [place] [facility] 16mg daily Mental disorder in 01/15/2017 08/26/2017 Overview (02/12/2017): @ [facility] taking Klonopin - ADHD, depression, bipolar -going to counseling in [place] As of 13wks no longer taking Klonopin [...] 12/07/2024) Immunizations Name Administration Dates Next Due DTP [...] encounter Miscellaneous Notes * Telephone Encounter - Velma Interiano OSA - 12/07/2024 8:13 AM EST Already called them this morning around 730 They are aware of this referral and will call pt to schedule this appt with them * Telephone Encounter - Najma Schaffer RN - 12/07/2024 8:[address] Munoz: "She complains of increasing shoulder pain and back pain, she has a case of metastatic breast cancer with the multiple bone metastatic disease Would like to have Radiation Oncology consultation at [facility]." MyG sent to patient- she had been aware this was being discussed. Scheduling: please fax referral to [facility] rad/onc. Radiology: please push images from 11/30/24 PET to [facility]. Thanks! documented in this encounter Plan of Treatment Upcoming Encounters Date Type Department Care Team (Late st Contact Info) Description 12/08/2024 10:00 AM EST Telemedicine Palliative Medicine [address] [address] Amie Kong MD [address] [place] [id number] 12/08/2024 1:00 PM EST Telemedicine [facility], Cancer Center Khoi BARBER [address] [facility] [place] [address] Irving Aguila [place] [address] [place] [address] 12/09/2024 9:45 AM EST Pharmacy Pharmacy Hematology Oncology [facility] [address] [place] [address] [facility], [facility] Hem/Onc [address] [place] [address] 01/03/2025 11:00 AM EST Office Visit Hematology/Oncology [address] [place] [phone] Deepa Roberts CRNP 400 [facility] [place] [address] 01/03/2025 11:45 AM EST Immunization/Injection Hematology/Oncology Treatment, [address] [phone] Alla, Chair 2 Hem Onc [address] [place] [address] Health Maintenance Due Date Last Done Comments [...]
--- OUTSIDE RECORDS SUMMARY | 2024-12-13 16:40 | External Medical Summary | Summary of Care ---
Author Name Unknown Organization [facility] Address [address] [place] [address] Phone [phone] Care Team Providers Care Customer Service Engineer Name Role Phone Unavailable Primary Care Provider Unavailabl e Encounter Details Date Type Department Care Team (Late st Contact Info) Description 12/08/2024 10:00 AM EST Telemedicine Palliative Medicine [facility] [address] [place] [address] Amie Kong MD [address] [place] [address] Cancer related pain*; Palliative care encounter; [...] Tablet in the evening. 12/08/19 25 Active oxyCODONE HCl 10 MG Oral Tablet (Roxicodone)I [...] Severe. 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 Increased risk for breast cancer and pancreatic cancer. 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 Increased risk for breast cancer, colon cancer [...] Date resolved Educational classes Encouraged pt attend [employer] classes 03/20/2017 Kadi Gold RN 03/20/2017 Problem [...] by Date resolved education Enrolled in May [facility] 05/14/2017 Kadi Gold RN 05/14/2017 [...] entered Entered by Date resolved education Attended [facility]. 06/21/2017 06/23/2017 Kadi Gold RN [...] Overview (01/15/2017): Taking Subutex, followed monthly in [place] [facility] 16mg daily Mental disorder in 01/15/2017 08/26/2017 Overview (02/12/2017): @ [facility] taking Klonopin - ADHD, depression, bipolar -going to counseling in [place] As of 13wks no longer taking Klonopin [...] as of this encounter Progress Notes * Amie Kong MD - 12/08/2024 9:57 AM EST Palliative Medicine Outpatient Progress Note IN HOME TELEMEDICINE VISIT [facility] [address] [place] [address] Name: Velma Carr Date: 12/08/2024 I was in a hospital or clinic location. After connecting through televideo, patient was verified with two unique identifiers. Patient (or authorized legal premium service representative) was then informed that this was [...] mail. Future appts: - Will meet with [facility] Rad Onc next - is on cancellation list as well - Will schedule at [facility], they need to have records first [...] other team members: I discussed patient with [facility] recovery team, her PA Lelia not available until tomorrow ASSESSMENT/PLAN: Velma Carr is a 39 year old female seen in follow-up for goals of care and pain and symptom management. Stage IV Breast Ca, mets to bone Started Lupron, Zometa and plan is to start oral Verzenio Planning for a second opinion at [facility] Cancer related pain Finish steroids x 1 week total, so stop today She is on Subutex 8mg TID which I imagine is filling her opioid receptors entirely, unclear what else will be the best PRN agent for her Will talk to her addiction PA tomorrow Will rotate to Oxycodone 10mg q4h PRN and see if that helps Will add gabapentin 300mg TID to see [...] in the performance of separately billed services. Amie Kong MD [facility] Palliative Medicine [phone] documented in this encounter Plan of Treatment Upcoming Encounters Date Type Department Care Team (Late st Contact Info) Description 12/08/2024 1:00 PM EST Telemedicine Psychology, Cancer Center Khoi BARBER [address] [facility] [place] [address] Irving Aguila MA [address] [place] [address] 12/09/2024 9:45 AM EST Pharmacy Pharmacy Hematology Oncology [facility] [address] [place] [address] [facility] Hem/Onc [address] [place] [address] 12/15/2024 8:30 AM EST Telemedicine Palliative Medicine [facility] [address] [place] [address] Amie Kong MD [address] [facility] [place] [address] 01/03/2025 11:00 AM EST Office Visit Hematology/Oncology [facility] 200 [facility] [place] [phone] Deepa Roberts CRNP [address] [facility] [facility] [place] [address] 01/03/2025 11:45 AM EST Immunization/Injection Hematology/Oncology Treatment, [place] 200 [place] [address] Alla, Chair 2 Hem Onc [facility] 200 [facility] [place], [place] [address] Health Maintenance Due Date Last Done Comments [...]
--- OUTSIDE RECORDS SUMMARY | 2024-12-13 16:40 | External Medical Summary | Summary of Care ---
Author Name Unknown Organization [facility] Address [address] [place] [address] Phone [phone] Care Team Providers Care Spacecraft Systems Engineer Name Role Phone Unavailable Primary Care Provider Unavailabl e Reason for Visit * Reason Onset Date Comments Imaging Records Request 12/07/2024 Breast Imaging Records Request 12/07/2024 Encounter Details Date Type Department Care Team ([facility] st Contact Info) Description 12/07/2024 Telephone Radiology Film File [address] [place] [address] Support, Imaging Radiology [address] [place] [address] Imaging Records Request; Breast Imaging Re... 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 Increased risk for breast cancer and pancreatic cancer. 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 Increased risk for breast cancer, colon cancer [...] entered Entered by Date resolved education Attended [facility]. 06/21/2017 06/23/2017 Kadi Gold RN 06/23/2017 [...] Overview (01/15/2017): Taking Subutex, followed monthly in [place] @ [facility] 16mg daily Mental disorder in 01/15/2017 08/26/2017 Overview (02/12/2017): [facility] taking Klonopin - ADHD, depression, bipolar -going to counseling in [place] As of 13wks no longer taking Klonopin [...] encounter Miscellaneous Notes * Telephone Encounter - Leah Silva, System Support - 12/07/2024 10:52 AM EST [facility] requesting PET CT 11/30/24, MRI breast 11/09/24, US brst&Mamm 11/05/24, Mamm 04/11/23 images be pushed through PACS. [place] Authorization to Release on file. Images pushed to [employer] PACS external connection. documented in this encounter Plan of Treatment Upcoming Encounters Date Type Department Care Team (Late st Contact Info) Description 12/08/2024 10:00 AM EST Telemedicine Palliative Medicine [facility] [address] [facility] [place] [address] Amie Kong MD [address] [place] [address] [place] [address] 12/08/2024 1:00 PM EST Telemedicine Psychology, Cancer Center Khoi BARBER [address] [facility] [place] [phone] Irving Aguila MA [address] [place] [address] 12/09/2024 9:45 AM EST Pharmacy Pharmacy Hematology Oncology [address] [place] [address] [facility] Hem/Onc [address] [place] [facility] [place] [address] 01/03/2025 11:00 AM EST Office Visit Hematology/Oncology [facility] 200 [facility] [place] [address] Deepa Roberts CRNP 400 [facility] [place] [address] 01/03/2025 11:45 AM EST Immunization/Injection Hematology/Oncology Treatment, [place] 200 [facility] [place] [address] Alla, Chair 2 Hem Onc [facility] 200 [facility] [place] [address] Health Maintenance Due Date Last Done Comments [...]
--- OUTSIDE RECORDS SUMMARY | 2024-12-13 16:40 | External Medical Summary | Summary of Care ---
Author Name Unknown Organization [facility] Address [address] [place] [address] Phone [phone] Care Team Providers Care E Business Consultant Name Role Phone Unavailable Primary Care Provider Unavailabl e Reason for Visit * Reason Onset Date Comments Referral 12/07/2024 Encounter Details Date Type Department Care Team ([facility] st Contact Info) Description 12/07/2024 Telephone Hematology/Oncology Treatment, [place] [address] [place] [address] Contreras Munoz MD 200 [place] [address] Referral Allergies Active Allergy Reactions Criticality Noted [...] Overview (05/13/2019): 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 Increased risk for breast cancer and pancreatic cancer. 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 Increased risk for breast cancer, colon cancer [...] entered Entered by Date resolved education Attended [facility]. 06/21/2017 06/23/2017 Kadi Gold RN 06/23/2017 [...] Overview (01/15/2017): Taking Subutex, followed monthly in [place] [facility] 16mg daily Mental disorder in 01/15/2017 08/26/2017 Overview (02/12/2017): [facility] taking Klonopin - ADHD, depression, bipolar -going to counseling in [place] As of 13wks no longer taking Klonopin [...] encounter Miscellaneous Notes * Telephone Encounter - Dimitris Diaz OSA - 12/07/2024 9:10 AM EST 11.30.[address] images pushed to [facility] as requested. * Telephone Encounter - Velma Interiano OSA [...] like to have Radiation Oncology consultation at [facility]." MyG sent to patient- she had been aware this was being discussed. Scheduling: please fax referral to [facility] rad/onc. Radiology: please push images from 11/30/24 PET to [facility]. Thanks! documented in this encounter Plan of Treatment Upcoming Encounters Date Type Department Care Team (Late st Contact Info) Description 12/08/2024 10:00 AM EST Telemedicine Palliative Medicine [facility] 200 [place] [address] Amie Kong MD 400 [facility] [place] [address] 12/08/2024 1:00 PM EST Telemedicine Psychology, Cancer Center Khoi BARBER [address] [facility] [place] [address] Irving Aguila [place] [address] [place] [id number] 12/09/2024 9:45 AM EST Pharmacy Pharmacy Hematology Oncology [place] [address] [place] [address] [facility] Hem/Onc [address] [place] [address] 01/03/2025 11:00 AM EST Office Visit Hematology/Oncology [facility] [address] [facility] [place] [address] Deepa Roberts CRNP 400 [facility] [place] [address] 01/03/2025 11:45 AM EST Immunization/Injection Hematology/Oncology Treatment, [place] [address] [place] [address] Alla, Chair 2 Hem Onc [place] [address] [place] [address] Health Maintenance Due Date Last Done Comments [...]
--- OUTSIDE RECORDS SUMMARY | 2024-12-13 16:40 | External Medical Summary | Summary of Care ---
Author Name Unknown Organization [facility] Address [address] [place] [address] Phone [phone] Care Team Providers Care Concrete Block Molder Name Role Phone Unavailable Primary Care Provider Unavailabl e Reason for Visit * Reason Onset Date Comments Referral 12/07/2024 Encounter Details Date Type Department Care Team ([facility] st Contact Info) Description 12/07/2024 Telephone Hematology/Oncology Treatment, [place] [address] [place] [address] Contreras uMnoz MD [address] [place] [address] Referral Allergies Active Allergy Reactions Criticality Noted [...] Overview (05/13/2019): 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 Increased risk for breast cancer and pancreatic cancer. 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 Increased risk for breast cancer, colon cancer [...] entered Entered by Date resolved education Attended [facility]. 06/21/2017 06/23/2017 Kadi Gold RN 06/23/2017 [...] Overview (01/15/2017): Taking Subutex, followed monthly in [place] [facility] 16mg daily Mental disorder in 01/15/2017 08/26/2017 Overview (02/12/2017): @ [facility] taking Klonopin - ADHD, depression, bipolar -going to counseling in [place] As of 13wks no longer taking Klonopin [...] like to have Radiation Oncology consultation at [facility]." MyG sent to patient- she had been aware this was being discussed. Scheduling: please fax referral to [facility] rad/onc. Radiology: please push images from 11/30/24 PET to [facility]. Thanks! documented in this encounter Plan of Treatment Upcoming Encounters Date Type Department Care Team (Late st Contact Info) Description 12/08/2024 10:00 AM EST Telemedicine Palliative Medicine [address] [address] Amie Kong MD [address] [place] [id number] 12/08/2024 1:00 PM EST Telemedicine [facility] Khoi BARBER [address] [facility] [place] [address] [place] [address] [place] [address] 12/09/2024 9:45 AM EST Pharmacy Pharmacy Hematology Oncology [facility] [address] [place] [address] [facility] [place] [facility] Hem[facility]Onc [address] [place] [address] 01/03/2025 11:00 AM EST Office Visit Hematology/Oncology [address] [place] [phone] Deepa Roberts CRNP [address] [facility] [place] [address] 01/03/2025 11:45 AM EST Immunization/Injection Hematology/Oncology Treatment, [address] [phone] Alla, Chair 2 Hem Onc [address] [place] [address] Health Maintenance Due Date Last Done Comments [...]
--- OUTSIDE RECORDS SUMMARY | 2024-12-13 16:40 | External Medical Summary | Summary of Care ---
Author Name Unknown Organization [facility] Address [address] [place] [address] Phone [phone] Care Team Providers Care Hide Buffer Name Role Phone Unavailable Primary Care Provider Unavailabl e Reason for Visit * Reason Onset Date Comments Advice 12/03/2024 2nd opinion Encounter Details Date Type Department Care Team (Late st Contact Info) Description 12/03/2024 Telephone Hematology/Oncology [facility] Alla [place] [address] [place] [address] Contreras Munoz MD [address] [place] [address] Advice (2nd opinion) Allergies Active Allergy Reactions [...] TO INJECTION. 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 Increased risk for breast cancer and pancreatic cancer. 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 Increased risk for breast cancer, colon cancer [...] by Date resolved education Enrolled in May [facility] 05/14/2017 Kadi Gold RN 05/14/2017 Problem Action [...] entered Entered by Date resolved education Attended [facility]. 06/21/2017 06/23/2017 Kadi Gold RN 06/23/2017 Problem [...] Overview (01/15/2017): Taking Subutex, followed monthly in [place] [facility] 16mg daily Mental disorder in 01/15/2017 08/26/2017 Overview (02/12/2017): @ [facility] taking Klonopin - ADHD, depression, bipolar -going to counseling in [place] As of 13wks no longer taking Klonopin [...] encounter Miscellaneous Notes * Telephone Encounter - Andres Carpenter OSA - 12/08/2024 10:30 AM EST Faxed and confirmation received. MyG sent to patient in regards * Telephone Encounter - Darryl Rogers RN - 12/08/2024 9:53 AM EST Scheduling- please fax records to # provided by patient as well as the referral. Please notify patient via MyG once sent. Thank you! * Telephone Encounter - Darryl Rogers RN - 12/03/2024 3:01 PM EST Spoke with [facility] who denied request for coverage of 2nd opinion through [facility]. This can be appealed by calling Tracking #: [id number] Pt can choose covered 2nd opinion through the following: - [facility] - Armando Schwarz documented in this encounter Plan of Treatment Upcoming Encounters Date Type Department Care Team (Late st Contact Info) Description 12/08/2024 1:00 PM EST Telemedicine Psychology, Cancer Center Khoi BARBER [address] [facility] [place] [address] [place] Agu[place] [address] [place] [address] 12/09/2024 9:45 AM EST Pharmacy Pharmacy Hematology Oncology [facility] [address] [place] [address] [facility] [place] Hem/Onc [address] [place] [address] 01/03/2025 11:00 AM EST Office Visit Hematology/Oncology [address] [place] [address] Deepa Roberts CRNP [address] [place] [address] 01/03/2025 11:45 AM EST Immunization/Injection Hematology/Oncology Treatment, [place] 200 [place] [address] Alla, Chair 2 Hem Onc [address] [place] [address] Health Maintenance Due Date Last Done Comments [...]
--- OUTSIDE RECORDS SUMMARY | 2024-12-13 16:40 | External Medical Summary | Summary of Care ---
Author Name Unknown Organization [facility] Address [address] [place] [address] Phone [phone] Care Team Providers Care Gas Well Drilling Manager Name Role Phone Unavailable Primary Care Provider Unavailabl e Reason for Referral * Social Care (Within 10 days (routine)) - Pending Review Specialty Diagnoses / Procedures Referred By Rhonda metzger Referred To Contact Image Editor Diagnoses Malignant neoplasm of upper-outer quadrant of right breast in female, estrogen receptor positive (HCC) 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) Contreras Munoz MD [address] [address] Phone: tel: fax: Referral ID Status Reason Start Date Expiration Date Visits Requested Visits Authorized [id number] Pending Review Specialty Services Required 12/06/2024 [id number] Question Answer Referral Priority Within 10 days (routine) Where should this appointment be scheduled? [facility] Role Sugar Reprocess Operator Head Referring Reason: Coordinate Cancer Resources, Financial assistance Comments Is patient being transitioned from [facility] to Complex Case Management? 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 Increased risk for breast cancer and pancreatic cancer. Monoallelic mutation of CHEK2 gene in female pat ient 05/13/2019 Overview (05/13/2019): pathogenic CHEK2 gene variant (c.1100del, p.[id number]*15). Increased risk for breast cancer, colon cancer [...] entered Entered by Date resolved Home nursing Loreen had been attempting to reach pt but [...] by Date resolved education Enrolled in May [facility] 05/14/2017 Kadi Gold RN 05/14/2017 [...] Overview (01/15/2017): Taking Subutex, followed monthly in [place] @ [facility] 16mg daily Mental disorder in 01/15/2017 08/26/2017 Overview (02/12/2017): [facility] taking Klonopin - ADHD, depression, bipolar -going to counseling in [place] As of 13wks no longer taking Klonopin [...] 1:30 PM EST Pharmacy Pharmacy Hematology Oncology [facility] [address] [place] [address] [facility] [place] Hem/Onc [address] [place] [address] Malignant neoplasm of upper-outer quadrant of right breast in female, estrogen receptor positive (HCC)* 12/08/2024 10:00 AM EST Telemedicine Palliative Medicine [facility] [address] [place] [address] Amie Kong MD [address] [place] [address] [place] [address] 12/08/2024 1:00 PM EST Telemedicine Psychology, Cancer Center Khoi BARBER [address] [facility] [place] [address] [place] Aguila [place] [address] [facility] [place] [address] 12/09/2024 9:45 AM EST Pharmacy Pharmacy Hematology Oncology [facility] [place] [address] [place] [address] [facility] Hem[facility]Onc [address] [place] [address] 01/03/2025 11:00 AM EST Office Visit Hematology/Oncolog y [facility] 200 [place] [address] Deepa Roberts CRNP [address] [place], [place] [phone] 01/03/2025 11:45 AM EST Immunization/Injecti on Hematology/Oncolog y Treatment, [place] 200 [place] [address] Alla, Chair 2 Hem Onc [facility] 200 [facility], [place] [address] Scheduled Referrals Name Type Priority Associated Diagnoses [...]
--- OUTSIDE RECORDS SUMMARY | 2024-12-13 16:41 | External Medical Summary | Summary of Care ---
Author Name Unknown Organization [facility] Address [address] [place] [address] Phone [phone] Care Team Providers Care Clinical Account Specialist Name Role Phone Unavailable Primary Care Provider Unavailabl e Reason for Visit * Evaluate & Treat - Unlimited Visits (Within 3 days (urgent)) - Pending Review Specialty Diagnoses / Procedures Referred By Contac t Referred To Contact Hospice and Palliative Medicine / Palliative Medicine Diagnoses Malignant neoplasm of upper-outer quadrant of right breast in female, estrogen receptor positive (HCC) Contreras Munoz MD [address] [place] [address] Phone: tel: fax: Referral ID Status Reason Start Date Expiration Date Visits Requested Visits Authorized [id number] Pending Review Specialty Services Required 11/30/[phone] Encounter Details Date Type Department Care Team (Late st Contact Info) Description 12/03/2024 8:30 AM EST Telemedicine Palliative Medicine, [address] 5[address] [place], [place] [phone] Amie Kong MD [address] [place] [address] Cancer related pain*; Palliative care encounter; Malignant neoplasm of upper-outer quadrant of right breast in female, estrogen receptor positive (HCC) Allergies Active Allergy Reactions Criticality Noted Date Comments Naloxone Edema face/lips/tongue High 01/15/2017 documented as of this encounter (statuses as of 12/03/2024) Medications buprenorphine HCl (SUBUTEX) 8 MG Sublingual [...] the morning. 30 Tablet 11 5 Active HYDROmorphone HCl 2 MG Oral Tablet (Dilaudid)Indic ations:Cancer related pain Take 1 Tablet by mouth every 3 hours as needed for Pain, Severe. 40 Tablet 5 Active ALPRAZolam 0.25 MG Oral [...] PRIOR TO INJECTION. 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 Increased risk for breast cancer and pancreatic cancer. 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 Increased risk for breast cancer, colon cancer and thyroid cancer. Attention deficit hyperactiv ity disorder (ADHD), combined type 07/10/2016 Anxiety state 12/12/2011 Depression 12/12/2011 Rosacea 04/30/2006 RHINITIS DUE TO POLLEN documented as of this encounter (statuses as of 12/03/2024) Resolved Problems Problem Noted Date Diagnosed Date [...] by Date resolved education Enrolled in May [facility] 05/14/2017 Kadi Gold RN 05/14/2017 [...] entered Entered by Date resolved education Attended [facility]. 06/21/2017 06/23/2017 Kadi Gold RN [...] Overview (01/15/2017): Taking Subutex, followed monthly in [place] [facility] 16mg daily Mental disorder in 01/15/2017 08/26/2017 Overview (02/12/2017): @ [facility] taking Klonopin - ADHD, depression, bipolar -going to counseling in [place] As of 13wks no longer taking Klonopin [...] as of this encounter (statuses as of 12/03/2024) Immunizations Name Administration Dates Next Due Seasonal [...] Progress Notes * Amie Kong MD - 12/03/2024 8:25 AM EST Palliative Medicine Outpatient Progress Note IN HOME TELEMEDICINE VISIT [facility], [facility] [address] [place] [id number] Name: Velma Carr Date: 12/03/2024 I was in a hospital or clinic location. After connecting through televideo, patient was verified with two unique identifiers. Patient (or authorized legal field representative) was then informed that this was [...] for goals of care and symptom management. At last visit on Fri, we started steroids, adjusted her anxiety medications, added Zofran as well. Today she seemed calmer initially. Symptoms as below. 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 Palliative symptoms: Pain: Taking Dilaudid 2mg every 3 hours apart from at nighttime. Steroids have helped as well. Nausea/Vomiting: Took one Zofran but no vomiting. Appetite: OK, took steroids with food. Constipation: Ok Confusion: no Sleep issues: no Dyspnea: no Mood issues: Very anxious / tearful - did book a therapy appt Falls: no Other: Examination: No vital signs as this is a telemedicine encounter Constitutional: no acute distress, chronically ill HENT: normocephalic, atraumatic. Eyes: anicteric, sclera and conjunctiva normal. Neck: no stridor Chest: normal respiratory effort Abdominal: nondistended Extremities: no edema Data Review: External notes reviewed: - Reviewed notes from Dr Munoz, 12/11/24, insurance denied Zoladex and Zgeva so she will be on Lupron and Zometa. - Reviewed notes from [facility] pharmacy, they reviewed the oral Verzenio that she will be taking with hre Discussion with other team members: I discussed patient with hem onc nursing about pts concerns Decision-making Capacity: Does Patient have Decisional Capacity? y Does Patient have a Healthcare Agent? deferred Advanced Care Planning (see ACP Tab): Deferred ASSESSMENT/PLAN: Velma Carr is a 39 year old female seen in follow-up for goals of care and pain and symptom management. Stage IV Breast Ca, mets to bone Plan to start Lupron, Zometa and oral Verzenio She may get a 2nd opionion Cancer related pain Finish steroids x 1 week total, so stop next Fri Continue Dilaudid 2mg q3h (taking about 7-8/day, so I had sent in 40 tab which is a 5 day supply, will run out on Fri/Fri). 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 They are able to do video visits. Next visit with me. I spent a total of 31 minutes on the date of service in preparation, delivery, and documentation ofthe care provided to Velma Carr excluding any time spent in the performance of separately billed services. Amie Kong MD [facility] Palliative Medicine [phone] documented in this encounter Plan of Treatment Upcoming Encounters Date Type Department Care Team (Late st Contact Info) Description 12/06/2024 11:00 AM EST Pt Ed by Nurse Hematology/Oncology Scenery Alla [place] [address] [place] [phone] Alla, Nurse Hem Onc Scenery [address] [place] [address] 12/06/2024 12:00 PM EST Immunization/Injection Hematology/Oncology Treatment, [place] [address] [place] [phone] Alla, Chair 2 Hem Onc [facility] [address] [place] [address] 12/06/2024 1:30 PM EST Pharmacy Pharmacy Hematology Oncology [facility] [address] [place] [address] [facility] [place] Hem/Onc [address] [place] [address] 12/08/2024 1:00 PM EST Telemedicine Psychology, Cancer Center Khoi BARBER [address] [facility] [place] [address] [place] Aguila [place] [address] [facility] [place] [address] Scheduled Referrals Name Type Priority Associated Diagnoses Orde r Schedule PALLIATIVE CARE REFERRAL OP Referral Within 3 days (urgent) Malignant neoplasm of upper-outer quadrant of right breast in female, estrogen receptor positive (HCC) Ordered: 11/30/2024 Health Maintenance Due Date Last Done Comments [...] breast in female, estrogen receptor positive (HCC) documented in this encounter
--- OUTSIDE RECORDS SUMMARY | 2024-12-13 16:41 | External Medical Summary | Summary of Care ---
Author Name Unknown Organization [facility] Address [address] [place] [address] Phone [phone] Care Team Providers Care Property Developer Name Role Phone Unavailable Primary Care Provider Unavailabl e Reason for Visit * Reason Onset Date Comments Advice 12/03/2024 2nd opinion Encounter Details Date Type Department Care Team (Late st Contact Info) Description 12/03/2024 Telephone Hematology/Oncology [facility] Alla [place] [address] [place] [address] Contreras Munoz MD [address] [place] [address] Advice (2nd opinion) Allergies Active Allergy Reactions Criticality Noted Date Comments Naloxone Edema face/lips/tongue High 01/15/2017 documented as of this encounter (statuses as of 12/03/2024) Medications buprenorphine HCl (SUBUTEX) [address] 1 Tablet under the tongue in the morning. Active Acetaminophen (TYLENOL) 325 MG CAPS Take by mouth. 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 Increased risk for breast cancer and pancreatic cancer. Monoallelic mutation of CHEK2 gene in female pat ient 05/13/2019 Overview (05/13/2019): pathogenic CHEK2 gene variant (c.1100del, p.[id number]*15). Increased risk for breast cancer, colon cancer [...] Overview (01/15/2017): Taking Subutex, followed monthly in [place] [facility] 16mg daily Mental disorder in 01/15/2017 08/26/2017 Overview (02/12/2017): [facility] taking Klonopin - ADHD, depression, bipolar -going to counseling in [place] As of 13wks no longer taking Klonopin [...] - 12/03/2024 3:01 PM EST Spoke with [facility] who denied request for coverage of 2nd opinion through [facility]. This can be appealed by calling Tracking #: [id number] Pt can choose covered 2nd opinion through the following: - [facility] - Armando Schwarz documented in this encounter Plan of Treatment Upcoming Encounters Date Type Department Care Team (Late st Contact Info) Description 12/06/2024 11:00 AM EST Pt Ed by Nurse Hematology/Oncology [address] [place] [phone] Alla Nurse Hem Onc [address] [place] [address] 12/06/2024 12:00 PM EST Immunization/Injection Hematology/Oncology Treatment, [address] [phone] Alla, Chair 2 Hem Onc [address] [place] [address] 12/06/2024 1:30 PM EST Pharmacy Pharmacy Hematology Oncology [facility] [address] [place] [address] [facility] [place] [facility] Hem/Onc [address] [place] [address] 12/08/2024 10:00 AM EST Telemedicine Palliative Medicine [address], [place] [phone] Amie Kong MD [address] [place] [address] [place] [address] 12/08/2024 1:00 PM EST Telemedicine Psychology, Cancer Center Khoi BARBER [address] [place] [address] [place] Agu[place] [address] [place] [address] 01/03/2025 11:45 AM EST Immunization/Injection Hematology/Oncology Treatment, [place] [address] [place], [place] [address] Alla, Chair 2 Hem Onc Scenery [address] [place], [place] [address] Health Maintenance Due Date Last Done Comments [...]
--- OUTSIDE RECORDS SUMMARY | 2024-12-13 16:41 | External Medical Summary | Summary of Care ---
Author Name Unknown Organization [facility] Address [address] [place] [address] Phone [phone] Care Team Providers Care High School Professional Name Role Phone Unavailable Primary Care Provider Unavailabl e Reason for Referral * Evaluate & Treat - Unlimited Visits (Within 10 days (routine)) - Pending Review Specialty Diagnoses / Procedures Referred By Contlizzette t Referred To Contact Hematology/Oncology / Hematology Oncology Diagnoses Malignant neoplasm of upper-outer quadrant of right breast in female, estrogen receptor positive (HCC) 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) Contreras Munoz MD [address] [facility] [place] [address] Phone: tel: fax: Referral ID Status Reason Start Date Expiration Date Visits Requested Visits Authorized [id number] Pending Review Specialty Services Required 12/03/[phone] Question Answer Referral Priority Within 10 days (routine) Where should this appointment be scheduled? 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 Requesting 2nd opinion for treatment options at [facility]. Reason for Visit * Reason Onset Date Comments Other 12/03/2024 Encounter Details Date Type Department Care Team (Late st Contact Info) Description 12/03/2024 Telephone Hematology/Oncology Shelley Gold [place] [address] [facility] [place] [phone] Contreras Mnuoz MD [address] [facility] [place] [address] Other Allergies Active Allergy Reactions Criticality Noted Date [...] Overview (05/13/2019): pathogenic LEONEL gene variant (c.8482C>T, p.[id number]*). Increased risk for breast cancer and pancreatic cancer. 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 Increased risk for breast cancer, colon cancer [...] Home Nurse, enjoying the education. 04/16/2017 Shoshana Sharpe, AGUSTÍN 04/16/17 Problem Action Taken Date entered Entered [...] entered Entered by Date resolved education Attended [facility]. 06/21/2017 06/23/2017 Kadi Gold RN 06/23/2017 Problem Action Taken Date entered Entered by Date resolved Current needs or questions Patient denies having any current needs or questions 06/25/2017 Iona Cuevas RN 06/25/17 Problem Action Taken Date entered Entered by Date resolved Current needs or questions Patient denies having any current needs or questions 07/11/2017 Shoshana Sharpe, AGUSTÍN 07/11/17 Problem Action Taken Date entered Entered [...] Overview (01/15/2017): Taking Subutex, followed monthly in [place] [facility] 16mg daily Mental disorder in 01/15/2017 08/26/2017 Overview (02/12/2017): @ [facility] taking Klonopin - ADHD, depression, bipolar -going to counseling in [place] As of 13wks no longer taking Klonopin [...] Telephone Encounter - Contreras Munoz MD - 12/06/2024 8:02 AM EST For whatever reason, if she does not come for Lupron injection today, she should stop taking aromatase inhibitor and will write tamoxifen prescription. * Telephone Encounter - IrwintonNajma fraser RN - 12/06/2024 7:23 AM EST She's on the schedule for lupron today. * Telephone Encounter - Contreras Munoz MD - 12/05/2024 6:11 PM EST When is she starting Lupron injection? I started her on aromatase inhibitor so she should receive Lupron for aromatase inhibitor to work. Otherwise we have to start her on tamoxifen. * Telephone Encounter - Andres Carpenter OSA - 12/03/2024 4:23 PM EST Referral has been faxed * Telephone Encounter - Dimitris Diaz OSA - 12/03/2024 3:39 PM EST PET 11/30/24 and MRI 11/09/24 pushed to [facility] as requested. * Telephone Encounter - Najma Schaffer RN - 12/03/2024 3:32 PM EST Called patient- advised her that even if is approved, they would need an approval for everythingthat they did. Reviewed other options, patient agreeable to going to [facility]. Referral placed. Scheduling: please fax referral/ records. Please also give patient phone number [facility] Radiology: please fax images from PET 11/30/24 and MRI 11/09/24 to [facility] Thanks! * Telephone Encounter - Hyacinth Anaya OSA - 12/03/2024 2:56 PM EST Patient calling to speak with Dr. Munoz about getting a referral sent to [facility]. She is stating it is urgent and her insurance contacted her. She is stating that this needs to be sent in by Friday and talks to the healthcare director to discuss the denial to try to get it approved. Please advise thank you documented in this encounter Plan of Treatment Upcoming Encounters Date Type Department Care Team (Late st Contact Info) Description 12/06/2024 11:00 AM EST Pt Ed by Nurse Hematology/Oncology [address] [place] [phone] Alla Nurse Hem Onc [address] [place] [address] 12/06/2024 12:00 PM EST Immunization/Injection Hematology/Oncology [address], [address] [address] Alla, Chair 2 Hem Onc [address] [place] [address] 12/06/2024 1:30 PM EST Pharmacy Pharmacy Hematology Oncology [facility] [address] [place] [address] [facility], [facility] Hem/Onc [address] [place] [address] 12/08/2024 10:00 AM EST Telemedicine Palliative Medicine [facility] [address] [phone] Amie Kong MD [address] [place] [address] [place] [address] 12/08/2024 1:00 PM EST Telemedicine Psychology, Cancer Center Khoi BARBER [address] [place] [phone] Irving Aguila [place] [address] [place] [address] 01/03/2025 11:45 AM EST Immunization/Injection Hematology/Oncology Treatment, [place] [address] [place] [address] Alla, Chair 2 Hem Onc Scenery [address] [place] [address] Scheduled Referrals Name Type Priority Associated Diagnoses Orde r Schedule HEMATOLOGY/ONCOLOGY REFERRAL OP Referral Within 10 days (routine) Malignant neoplasm of upper-outer quadrant of right breast in female, estrogen receptor positive (HCC) 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) Ordered: 12/03/2024 Health Maintenance Due Date Last Done Comments [...]
--- OUTSIDE RECORDS SUMMARY | 2024-12-13 16:41 | External Medical Summary | Summary of Care ---
Author Name Unknown Organization [facility] Address [address] [place] [address] Phone [phone] Care Team Providers Care Pre Assembly Wirer Name Role Phone Unavailable Primary Care Provider Unavailabl e Reason for Visit * Reason Onset Date Comments Other 12/06/2024 Encounter Details Date Type Department Care Team ([facility] st Contact Info) Description 12/06/2024 Telephone Palliative Medicine, [facility] [address] [facility] 5th Floor [place], [place] [phone] Amie Kong MD [address] [place], [place] [phone] Other Allergies Active Allergy Reactions Criticality Noted [...] Overview (05/13/2019): pathogenic LEONEL gene variant (c.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 Increased risk for breast cancer and pancreatic cancer. 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 Increased risk for breast cancer, colon cancer [...] entered Entered by Date resolved education Attended [facility]. 06/21/2017 06/23/2017 Kadi Gold RN [...] any current needs or questions 08/06/2017 Iona Cueavs RN 08/06/17 Problem Action Taken Date entered [...] Overview (01/15/2017): Taking Subutex, followed monthly in [place] @ [facility] 16mg daily Mental disorder in 01/15/2017 08/26/2017 Overview (02/12/2017): @ [facility] taking Klonopin - ADHD, depression, bipolar -going to counseling in [place] As of 13wks no longer taking Klonopin [...] Telephone Encounter - Andres Carpenter OSA - 12/06/2024 11:19 AM EST Patient presented in office and stated that Dr. Kong requested that a release be signed so that she may speak with another provider regarding patient care. A release was obtained from the patient authorizing them to speak and her [place] Authorization was updated as it was last signed in 2005. The release was also faxed to the other office using the information provided by the patient on theRelease so that that office may be aware as well. Confirmation that this fax was sent has been received. Both the Release and the fax confirmation were FIMSed to patient's chart. documented in this encounter Plan of Treatment Upcoming Encounters Date Type Department Care Team (Latest Contact Info) Description 12/06/2024 12:00 PM EST Immunization/Injecti on Hematology/Oncolog y Treatment, [place] [address] [place] [address] Alla, Chair 2 Hem Onc [facility] [place] [address] Malignant neoplasm of upper-outer quadrant of right breast in female, estrogen receptor positive (HCC)* 12/06/2024 1:30 PM EST Pharmacy Pharmacy Hematology Oncology [address] [place] [address] [facility], [facility] Hem/Onc [address] [place] [address] Malignant neoplasm of upper-outer quadrant of right breast in female, estrogen receptor positive (HCC)* 12/08/2024 10:00 AM EST Telemedicine Palliative Medicine [facility] [address] [phone] Amie Kong MD [address] [place] [address] 12/08/2024 1:00 PM EST Telemedicine Psychology, Cancer Center Khoi BARBER [address] [place] [phone] Irving Aguila [place] [address] [place] [address] 12/09/2024 9:45 AM EST Pharmacy Pharmacy Hematology Oncology [facility] [place] [address] [place] [address] [facility], [facility] Hem/Onc [facility] [place] [address] 01/03/2025 11:45 AM EST Immunization/Injecti on Hematology/Oncolog y Treatment, [address] [phone] Alla, Chair [address] Hem On[address], [place] [address] Health Maintenance Due Date Last Done Comments [...]
--- OUTSIDE RECORDS SUMMARY | 2024-12-13 16:41 | External Medical Summary ---
Author Name Unknown Address Unknown Organization K[facility] [place] [address] Laboratory Report Ordering Provider Test Date Status STAN MCCORD 12/06/2024 12:15:42 Final Observation Date Value Abnormality Reference (Units ) Status Screen, Urine 12/06/2024 12:15:42 Negative Negative Final Performing Location [facility] [place] [address]
--- OUTSIDE RECORDS SUMMARY | 2024-12-13 16:41 | External Medical Summary | Summary of Care ---
Author Name Unknown Organization [facility] Address [address] [place] [address] Phone [phone] Care Team Providers Care Hog Stomach Preparer Name Role Phone Unavailable Primary Care Provider Unavailabl e Reason for Visit * Reason Onset Date Comments Medication Refill 12/06/2024 Encounter Details Date Type Department Care Team (Late st Contact Info) Description 12/06/2024 Refill Hematology/Oncology Treatment, [place] [address] [place] [address] Contreras Munoz MD [address] [place] [address] Malignant neoplasm of upper-outer quadrant of right [...] needed for Pain. With food. 30 Tab 10/12/201 7 Active Additional Information Patient not taking.Reported [...] female, estrogen receptor positive (HCC) Take 1 Tablet by mouth in the morning and 1 Tablet before bedtime. 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 Increased risk for breast cancer and pancreatic cancer. 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 Increased risk for breast cancer, colon cancer [...] by Date resolved education Enrolled in May [facility] 05/14/2017 Kadi Gold RN 05/14/2017 Problem [...] entered Entered by Date resolved education Attended [facility]. 06/21/2017 06/23/2017 Kadi Gold RN 06/23/2017 [...] Overview (01/15/2017): Taking Subutex, followed monthly in [place] [facility] 16mg daily Mental disorder in 01/15/2017 08/26/2017 Overview (02/12/2017): [facility] taking Klonopin - ADHD, depression, bipolar -going to counseling in [place] As of 13wks no longer taking Klonopin [...] Encounter - Contreras Munoz MD - 12/06/2024 10:08 AM EST E-prescribed Zofran and Compazine for the symptomatic treatment of nausea and vomiting. * Telephone Encounter - Najma Schaffer RN - 12/06/2024 9:24 AM EST Pended zofran and compazine documented in this encounter Plan of Treatment Upcoming Encounters Date Type Department Care Team (Latest Contact Info) Description 12/06/2024 11:00 AM EST Pt Ed by Nurse Hematology/Oncolog y [facility] Alla [place] [address] [place] [phone] Alla, Nurse Hem Onc Scenery [address] [place] [address] 12/06/2024 12:00 PM EST Immunization/Injecti on Hematology/Oncolog y Treatment, [place] [address] [place] [address] Alla, Chair 2 Hem Onc [place] [address] [place] [address] 12/06/2024 1:30 PM EST Pharmacy Pharmacy Hematology Oncology [facility] [address] [place] [address] [facility], [facility] Hem/Onc [address] [place] [address] Malignant neoplasm of upper-outer quadrant of right breast in female, estrogen receptor positive (HCC)* 12/08/2024 10:00 AM EST Telemedicine Palliative Medicine [facility] [place] [address] [facility] [address] Amie Kong MD [address] [place] [phone] 12/08/2024 1:00 PM EST Telemedicine Psychology, Cancer Center Khoi BARBER [address] [facility] [place] [address] Irving Aguila [place] [address] [facility] [place] [address] 12/09/2024 9:45 AM EST Pharmacy Pharmacy Hematology Oncology [facility] [address] [place] [address] [facility], [facility] Hem/Onc [address] [place] [address] 01/03/2025 11:45 AM EST Immunization/Injecti on Hematology/Oncolog y Treatment, [place] [address] [facility] [address] Alla, Chair 2 Hem Onc [address] [place] [address] Health Maintenance Due Date Last Done Comments [...]
--- OUTSIDE RECORDS SUMMARY | 2024-12-13 16:41 | External Medical Summary | Summary of Care ---
Author Name Unknown Organization [facility] Address [address] [place] [address] Phone [phone] Care Team Providers Care Java Golden Gate Developer Name Role Phone Unavailable Primary Care [...] to bone (HCC) Contreras Munoz MD [address] [place] [address] Phone: tel: fax: Referral ID Status Reason Start Date Expiration Date Visits Requested Visits Authorized [id number] Pending Review Specialty Services Required 12/03/[phone] Question Answer Referral Priority Within 10 days (routine) Where should this appointment be scheduled? 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 Requesting 2nd opinion for treatment options at [facility]. Reason for Visit * Reason Onset Date Comments Other 12/03/2024 Encounter Details Date Type Department Care Team (Late st Contact Info) Description 12/03/2024 Telephone Hematology/Oncology Shelley Gold [place] [facility] [place] [phone] Contreras Munoz MD [address] [place] [address] Other Allergies Active Allergy Reactions Criticality Noted Date Comments Naloxone Edema face/lips/tongue High 01/15/2017 documented as of this encounter (statuses as of 12/05/2024) Medications buprenorphine HCl (SUBUTEX) 8 MG Sublingual [...] as of this encounter (statuses as of 12/05/2024) Active Problems Problem Noted Date Diagnosed Date Malignant neoplasm of upper- outer quadrant of right breast in female, estrogen receptor positive 12/01/2024 Metastasis to bone 12/01/2024 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 Increased risk for breast cancer and pancreatic cancer. 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 Increased risk for breast cancer, colon cancer and thyroid cancer. Attention deficit hyperactiv ity disorder (ADHD), combined type 07/10/2016 Anxiety state 12/12/2011 Depression 12/12/2011 Rosacea 04/30/2006 RHINITIS DUE TO POLLEN documented as of this encounter (statuses as of 12/05/2024) Resolved Problems Problem Noted Date Diagnosed Date [...] Entered by Date resolved education Attended [facility]. 06/21/2017 06/23/2017 Kadi Gold RN [...] Overview (01/15/2017): Taking Subutex, followed monthly in [place] [facility] 16mg daily Mental disorder in 01/15/2017 08/26/2017 Overview (02/12/2017): [facility] taking Klonopin - ADHD, depression, bipolar -going to counseling in [place] As of 13wks no longer taking Klonopin [...] as of this encounter (statuses as of 12/05/2024) Immunizations Name Administration Dates Next Due DTP [...] been faxed * Telephone Encounter - Dimitris Diaz, LEONOR - 12/03/2024 3:39 PM EST PET 11/30/24 and MRI 11/09/24 pushed to [facility] as requested. * Telephone Encounter - Najma Schaffer RN - 12/03/2024 3:32 PM EST Called patient- advised her that even if [facility] is approved, they would need an approval for everythingthat they did. Reviewed other options, patient agreeable to going to [facility]. Referral placed. Scheduling: please fax referral/ records. Please also give patient phone number to call to scheduleappt when she comes in Friday Radiology: please fax images from PET 11/30/24 and MRI 11/09/24 to [facility] Thanks! * Telephone Encounter - Hyacinth Anaya OSA - 12/03/2024 2:56 PM EST Patient calling to speak with Dr. Munoz about getting a referral sent to [facility]. She is stating it is urgent and [...] Ed by Nurse Hematology/Oncology [place] [address] [place] [address] [place], Nurse Hem Onc [address] [place], [place] [address] 12/06/2024 12:00 PM EST Immunization/Injection Hematology/Oncology Treatment, [address], [place] [phone] Alla, Chair 2 Hem Onc [address] [place] [address] 12/06/2024 1:30 PM EST Pharmacy Pharmacy Hematology Oncology [facility] [address] [place] [address] [facility], [facility] Hem/Onc [address] [place] [address] 12/08/2024 10:00 AM EST Telemedicine Palliative Medicine [facility] [address], [place] [address] Amie Kong MD [address] [place] [address] 12/08/2024 1:00 PM EST Telemedicine Psychology, Cancer Center Khoi BARBER [address] [facility] [place] [phone] Irving Aguila [place] [address] [place] [phone] 01/03/2025 11:45 AM EST Immunization/Injection Hematology/Oncology Treatment, [address], [place] [phone] Alla, Chair 2 Hem Onc [address] [place], [place] [address] Scheduled Referrals Name Type Priority Associated Diagnoses [...]
--- OUTSIDE RECORDS SUMMARY | 2024-12-13 16:41 | External Medical Summary | Summary of Care ---
Author Name Unknown Organization [facility] Address [address] [place] [address] Phone [phone] Care Team Providers Care Safety Deposit Boxes Custodian Name Role Phone Unavailable Primary Care Provider [...] to bone (HCC) Contreras Munoz MD [address] [facility] [place] [address] Phone: tel: fax: Referral ID Status Reason Start Date Expiration Date Visits Requested Visits Authorized [id number] Pending Review Specialty Services Required 12/03/[phone] Question Answer Referral Priority Within 10 days (routine) Where should this appointment be scheduled? 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 Requesting 2nd opinion for treatment options at [facility]. 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 Increased risk for breast cancer and pancreatic cancer. 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 Increased risk for breast cancer, colon cancer [...] entered Entered by Date resolved education Attended [facility]. 06/21/2017 06/23/2017 Kadi Gold RN [...] Overview (01/15/2017): Taking Subutex, followed monthly in [place] [facility] 16mg daily Mental disorder in 01/15/2017 08/26/2017 Overview (02/12/2017): @ [facility] taking Klonopin - ADHD, depression, bipolar -going to counseling in [place] As of 13wks no longer taking Klonopin [...] Encounter - Najma Schaffer RN - 12/06/2024 7:23 AM EST She's [...] PET 11/30/24 and MRI 11/09/24 pushed to [facility] as requested. * Telephone Encounter - Najma Schaffer RN - 12/03/2024 3:32 PM EST Called patient- advised her that even if [facility] is approved, they would need an approval for everythingthat they did. Reviewed other options, patient agreeable to going to [facility]. Referral placed. Scheduling: please fax referral/ records. Please also give patient phone number to call to scheduleappt when she comes in Friday Radiology: please fax images from PET 11/30/24 and MRI 11/09/24 to [facility] Thanks! * Telephone Encounter - Hyacinth Anaya OSA - 12/03/2024 2:56 PM EST Patient calling to speak with Dr. Munoz about getting a referral sent to [facility]. She is stating it is [...] AM EST Pt Ed by Nurse Hematology/Oncology [facility] [address] [place] [phone] Alla, Nurse Hem Onc [address] [place] [address] 12/06/2024 12:00 PM EST Immunization/Injection Hematology/[address]cology [address], [address] [phone] Alla, Chair 2 Hem Onc [address] [place] [address] 12/06/2024 1:30 PM EST Pharmacy Pharmacy Hematology Oncology [place] [address] [place] [address] [facility] Hem/Onc [address] [place] [address] 12/08/2024 10:00 AM EST Telemedicine Palliative Medicine [facility] Alla [address], [place] [phone] Amie Kong MD [address] [place] [address] 12/08/2024 1:00 PM EST Telemedicine Psychology, Cancer Center Khoi BARBER [address] [place] [phone] Irving Aguila MA [address] [place] [id number] 01/03/2025 11:45 AM EST Immunization/Injection Hematology/Oncology Treatment, [address], [place] [phone] Alla, Chair 2 Hem Onc [address] [place] [address] (work) Scheduled Referrals Name Type Priority Associated Diagnoses [...]
--- OUTSIDE RECORDS SUMMARY | 2024-12-13 16:41 | External Medical Summary | Summary of Care ---
Author Name Unknown Organization [facility] Address [address] [place] [address] Phone [phone] Care Team Providers Care Energy Consultant Name Role Phone Unavailable Primary Care Provider Unavailabl e Reason for Visit * Reason Comments Medication Management Encounter Details Date Type Department Care Team (Late st Contact Info) Description 12/06/2024 1:30 PM [facility] Pharmacy Pharmacy Hematology Oncology [facility] [address] [place] [address] [facility] Hem/Onc [address] [place] [address] Malignant neoplasm of upper-outer quadrant of right [...] before bedtime. 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 Increased risk for breast cancer and pancreatic cancer. 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 Increased risk for breast cancer, colon cancer [...] Patient received flu vaccine. 08/13/2017 Inge Ortega, RN Drug use affecting 01/15/2017 08/26/2017 Overview (01/15/2017): Taking Subutex, followed monthly in [place] @ [facility] 16mg daily Mental disorder in 01/15/2017 08/26/2017 Overview (02/12/2017): @ [facility] taking Klonopin - ADHD, depression, bipolar -going to counseling in [place] As of 13wks no longer taking Klonopin [...] of this encounter Progress Notes * Genny Whitley RP - 12/06/2024 8:57 AM EST Abemaciclib RX sent to [facility] to follow up in 3 days for medication education Genny Whitley, PharmD, BCOP Clinical Pharmacist, [facility] Oral Chemotherapy [facility] 12/06/2024, 8:58 AM Time Spent on Encounter: 6 - 10 minutes Encounter Group: Oncology Encounter Interventions Item Category: Oral Chemotherapy Abemaciclib Problem/Rationale: Coyle Plan Review: Clinical Review Pharmacist Intervention(s): Medication prescribed Magnitude of Intervention: Modification of medication for asymtomatic patients (Level 2) * Nohemy Cueto CPhT - 12/03/2024 3:45 PM EST MEDICATION THERAPY MANAGEMENT ABEMACICLIB INITIAL INTAKE NOTE Velma Rosenthal [place] [phone] Patient Phone Numbers Communication: Chart review Treatment: Medication: Abemaciclib (Verzenio) Indication/Staging/Diagnosis Code: ER+/WY+/HER2- breast cancer / C50.411 Dose: 150mg BID Administration: +/- food Start Date: Primary Supervisor Microwave/Oncologist: Dr. Deion Munoz Supportive Care Meds: Xgeva Fulvestrant Letrozole 2.5mg daily Ondansetron Prophylactic Meds: None The Hematology/Oncology Oral Chemotherapy Clinic will assess medication compliance at each patient encounter Assessment and Plan: Yes/no Date Action Taken Coyle plan entered? yes 12/01/24 Consent completed? yes 12/01/24 Intro/med rec completed? yes 12/02/24 Precert completed? yes 12/02/24 Test claim completed? yes 12/02/24 [facility]- $0 Financial assistance needed? Physician signature? yes 12/01/24 Rx released? Education completed? [facility] will contact patient once med shipped/received to complete medication education Please refer to initial intake note for detailed review of regimen and patient- specific education points Nohemy Cueto Alterations Workroom Clerk III Hematology Oncology Oral Chemotherapy Clinic Medication Therapy Disease Management [facility] 12/03/2024 3:47 PM Time Spent on Encounter: < 5 minutes documented in this encounter Plan of Treatment Upcoming Encounters Date Type Department Care Team (Late st Contact Info) Description 12/06/2024 11:00 AM EST Pt Ed by Nurse Hematology/Oncology [facility] [address] [place] [phone] Alla, Nurse Hem Onc [address] [place] [address] 12/06/2024 12:00 PM EST Immunization/Injection Hematology/Oncology Treatment, [address] [place] [phone] Alla, Chair 2 Hem Onc [address] [place] [address] 12/08/2024 10:00 AM EST Telemedicine Palliative Medicine [facility] [address] [phone] Amie Kong MD [address] [place] [address] 12/08/2024 1:00 PM EST Telemedicine Psychology, Cancer Center Khoi BARBER [address] [facility] [place] [address] Irving Aguila MA [address] [facility] [place] [address] 12/09/2024 9:45 AM EST Pharmacy Pharmacy Hematology Oncology [facility] [address] [place] [address] [facility] [place] [facility] Hem/Onc [address] [place] [address] 01/03/2025 11:45 AM EST Immunization/Injection Hematology/Oncology Treatment, [place] [address] [place], [place] [address] Alla, Chair 2 Hem Onc [facility] [address] [place], [place] [address] Health Maintenance Due Date Last Done Comments [...]
--- OUTSIDE RECORDS SUMMARY | 2024-12-13 16:41 | External Medical Summary | Summary of Care ---
Author Name Unknown Organization [facility] Address [address] [place] [address] Phone [phone] Care Team Providers Care Rn Sane Name Role Phone Unavailable Primary Care Provider Unavailabl e Reason for Referral * Evaluate & Treat - Unlimited Visits (Within 10 days (routine)) - Pending Review Specialty Diagnoses / Procedures Referred By Rhonda metzger Referred To Contact Pharmacist / Pharmacy Diagnoses Malignant neoplasm of upper-outer quadrant of right breast in female, estrogen receptor positive (HCC) Genny Whitley, [facility] [address] [place] [address] Phone: tel: fax: Referral ID Status Reason Start Date Expiration Date Visits Requested Visits Authorized [id number] Pending Review Specialty Services Required 12/06/2024 99 [phone] Question Answer Referral Priority Within 10 days (routine) Where should this appointment be scheduled? [facility] Referring Provider Role: Specialist Specialty: Heme/Onc Reason for Referral: Oral Chemo Has consent been obtained for new oral chemo agent(s)? Yes Comments ORAL CHEMOTHERAPY [facility] MONITORING REFERRAL This patient is being referred to the Oral Chemotherapy Clinic for medication co-management. The planned duration of treatment is: Until disease progression/toxicity Please start oral chemotherapy: Once therapy has arrived from specialty pharmacy Oral Chemotherapy Monitoring will continue until one of the following discharge criteria has been met. The provider will be informed if any of these occur. 1. Disease progression. 2. Patient non-compliance 3. Compliance and tolerating treatment well without major toxicities with routine provider follow up. 4. Completion of therapy. Additional Comments: N/A By my signature, I understand that my patient will have their medication therapy managed by the [facility] Medication Therapy Disease Management Clinic (MTDM) per established policies, procedures, and protocols. I also certify that this referral may serve as an initiation of service for the management of drug therapy in the above noted patient. [facility] providers will be responsible for scheduling patient visits, obtaining appropriate laboratory studies, and adjusting medication management therapy per patient's need, in addition to those roles spelled out in the clinic policy, procedures, and drug management protocols. I understand that the service provided by the [facility] Clinic is voluntary and have informed patient that they can refuse the service at their discretion. I am aware that the [facility] Clinic will provide me with a copy of the patient encounter via my Blue Tornado. I authorize the [facility] to carry out these activities on my behalf. I consider this program to be a necessary part of the patient's medical care. 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 Increased risk for breast cancer and pancreatic cancer. 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 Increased risk for breast cancer, colon cancer [...] by Date resolved education Enrolled in May [facility] 05/14/2017 Kadi Gold RN 05/14/2017 Problem [...] entered Entered by Date resolved education Attended [facility]. 06/21/2017 06/23/2017 Kadi Gold RN 06/23/2017 [...] Overview (01/15/2017): Taking Subutex, followed monthly in [place] @ [facility] 16mg daily Mental disorder in 01/15/2017 08/26/2017 Overview (02/12/2017): @ [facility] taking Klonopin - ADHD, depression, bipolar -going to counseling in [place] As of 13wks no longer taking Klonopin [...] EST Pt Ed by Nurse Hematology/Oncolog y [address] [place] [phone] Alla, Nurse Hem Onc [address] [place] [address] 12/06/2024 12:00 PM EST Immunization/Injecti on Hematology/Oncolog y Treatment, [place] [address] [place] [address] Alla, Chair 2 Hem Onc [address] [place] [address] 12/06/2024 1:30 PM EST Pharmacy Pharmacy Hematology Oncology [address] [address] [facility] [place] Hem/Onc [facility] [place] [address] Malignant neoplasm of upper-outer quadrant of right breast in female, estrogen receptor positive (HCC)* 12/08/2024 10:00 AM EST Telemedicine Palliative Medicine [facility] [address] [place] [address] Amie Kong MD [address] [place] [address] [place] [address] 12/08/2024 1:00 PM EST Telemedicine Psychology, Cancer Center [facility] [address] [facility] [place] [phone] Irving Aguila MA [address] [place] [phone] 12/09/2024 9:45 AM EST Pharmacy Pharmacy Hematology Oncology [place] [address] [place] [address] [facility] Hem/Onc [address] [place] [address] 01/03/2025 11:45 AM EST Immunization/Injecti on Hematology/Oncolog y Treatment, [place] [address] [place] [address] Alla, Chair 2 Hem Onc [address] [place] [place] [address] Scheduled Orders Name Type Priority Associated Diagnoses Orde r Schedule CBC WITH WBC DIFFERENTIAL Lab STAT Malignant neoplasm of upper-outer quadrant of right breast in female, estrogen receptor positive (HCC) Other, Please specify in Comments field for 8 Occurrences starting 12/06/2024 until 12/06/2025 COMPREHENSIVE METABOLIC PANEL Lab STAT Malignant neoplasm of upper-outer quadrant of right breast in female, estrogen receptor positive (HCC) Other, Please specify in Comments field for 8 Occurrences starting 12/06/2024 until 12/06/2025 Scheduled Referrals Name Type Priority Associated Diagnoses Orde r Schedule PHARMACIST MEDS THERAPY MGMT REFERRAL OP Referral Within 10 days (routine) Malignant neoplasm of upper-outer quadrant of right breast in female, estrogen receptor positive (HCC) Ordered: 12/06/2024 Health Maintenance Due Date [...]
--- OUTSIDE RECORDS SUMMARY | 2024-12-13 16:41 | External Medical Summary | Summary of Care ---
Author Name Unknown Organization [facility] Address [address] [place] [address] Phone [phone] Care Team Providers Care Pre Planning Advisor Name Role Phone Unavailable Primary Care Provider [...] to bone (HCC) Contreras Munoz MD 200 [facility] [place] [address] Phone: tel: fax: Referral ID Status Reason Start Date Expiration Date Visits Requested Visits Authorized [id number] Pending Review Specialty Services Required 12/03/[phone] Question Answer Referral Priority Within 10 days (routine) Where should this appointment be scheduled? 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 Requesting 2nd opinion for treatment options at [facility]. 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 Increased risk for breast cancer and pancreatic cancer. 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 Increased risk for breast cancer, colon cancer [...] entered Entered by Date resolved education Attended [facility]. 06/21/2017 06/23/2017 Kadi Gold RN 06/23/2017 [...] Overview (01/15/2017): Taking Subutex, followed monthly in [place] [facility] 16mg daily Mental disorder in 01/15/2017 08/26/2017 Overview (02/12/2017): [facility] taking Klonopin - ADHD, depression, bipolar -going to counseling in [place] As of 13wks no longer taking Klonopin [...] Encounter - Andres Carpenter OSA - 12/06/2024 12:05 PM EST Patient does need to [facility] and [facility]. She was informed of this at her appointment today and was given the phone number. She was advised the referral has been sent * Telephone Encounter - Contreras Munoz MD - 12/06/2024 8:02 AM EST For whatever reason, if she does not come for Lupron injection today, she should stop taking aromatase inhibitor and will write tamoxifen prescription. * Telephone Encounter - Najma Schaffer RN [...] PET 11/30/24 and MRI 11/09/24 pushed to [facility] as requested. * Telephone Encounter - Najma Schaffer RN - 12/03/2024 3:32 PM EST Called patient- advised her that even if is approved, they would need an approval for everythingthat they did. Reviewed other options, patient agreeable to going to [facility]. Referral placed. Scheduling: please fax referral/ records. Please also give patient phone number to call to scheduleappt when she comes in Friday Radiology: please fax images from PET 11/30/24 and MRI 11/09/24 to [facility] Thanks! * Telephone Encounter - Hyacinth Anaya OSA - 12/03/2024 2:56 PM EST Patient calling to speak with Dr. Munoz about getting a referral sent to [facility]. She is stating it is urgent and [...] 1:30 PM EST Pharmacy Pharmacy Hematology Oncology [facility] [address] [place] [address] [facility] [place] Hem/Onc [address] [place] [address] Malignant neoplasm of upper-outer quadrant of right breast in female, estrogen receptor positive (HCC)* 12/08/2024 10:00 AM EST Telemedicine Palliative Medicine [facility] [address] [facility] [place] [address] Amie Kong MD [address] [place] [address] 12/08/2024 1:00 PM EST Telemedicine Psychology, Cancer Center Khoi BARBER [address] [facility] [place] [phone] Irving Aguila MA [address] [place] [address] 12/09/2024 9:45 AM EST Pharmacy Pharmacy Hematology Oncology [facility] [address] [place] [address] [facility] Hem/Onc [address] [place] [address] 01/03/2025 11:45 AM EST Immunization/Injecti on Hematology/Oncolog y Treatment, [place] [address] [place] [address] Alla, Chair 2 Hem Onc [address] [address] [place] [address] Scheduled Referrals Name Type Priority Associated Diagnoses [...]
--- OUTSIDE RECORDS SUMMARY | 2024-12-13 16:41 | External Medical Summary ---
Author Name Unknown Address Unknown Organization K01:[facility] [address] [address] Laboratory Report Ordering Provider Test Date Status STAN MCCORD 12/06/2024 08:40:18 Final Observation Date Value Abnormality Reference (Units ) Status COMMENT 12/06/2024 08:40:18 Testing to be performed in house Final Performing Location [facility] [address] [place] [address]
--- OUTSIDE RECORDS SUMMARY | 2024-12-13 16:41 | External Medical Summary | Summary of Care ---
Author Name Unknown Organization [facility] Address [address] [place] [address] Phone [phone] Care Team Providers Care Hammer Adjuster Name Role Phone Unavailable Primary Care Provider Unavailabl e Reason for Visit * Reason Onset Date Comments Precert Future 12/01/2024 Verzenio/Lupron/ Zometa Encounter Details Date Type Department Care Team (Late st Contact Info) Description 12/01/2024 Telephone Hematology/Oncology Shelley Gold [place] [address] [place] [address] Suri Munoz MD [address] [place] [address] Precert Future (Verzenio/Lupron/Zometa ) Allergies Active Allergy [...] daily with breakfast. 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 Increased risk for breast cancer and pancreatic cancer. 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 Increased risk for breast cancer, colon cancer [...] by Date resolved education Enrolled in May [facility] 05/14/2017 Kadi Gold RN 05/14/2017 Problem [...] Overview (01/15/2017): Taking Subutex, followed monthly in [place] [facility] 16mg daily Mental disorder in 01/15/2017 08/26/2017 Overview (02/12/2017): [facility] taking Kl[facility] - ADHD, depression, bipolar -going to counseling in [place] As of 13wks no longer taking Klonopin [...] 12/03/2024) Immunizations Name Administration Dates Next Due DTP [...] encounter Miscellaneous Notes * Telephone Encounter - Isabel Elder OSA - 12/03/2024 2:38 PM EST Amy from [facility] health plan called in asking to speak with Darryl regarding a prior auth. Wr tsfr * Telephone Encounter - Najma Schaffer RN - 12/03/2024 10:34 AM EST Called patient- since she has questions for Dr Munoz, offered to move appts to Thursday 12/[address] Munoz will not be here on Friday. Patient declined, would like to keep appts Friday. * Telephone Encounter - Darryl Rogers RN - 12/03/2024 9:39 AM EST Auth form received from [facility] for outside consultation request. Completed form and faxed back to [phone] Melvin OV note. * Telephone [...] goal. Pt is requesting 2nd opinion through [facility] and advised that our office will need to sign aform for insurance regarding this. Dr. Munoz- patient would like to know "what are the percentages in how effective the treatment is and overall prognosis." Joao- Please advise when form is received from [facility], have Dr. Munoz sign, and fax back. Ptwould like to be notified when this is completed. * Telephone Encounter - Darryl Rogers RN - 12/02/2024 3:57 PM EST Referral entered for Zometa/Verzenio/Lupron Education scheduled 12/06 with first injection. MyG sent to patient informing her of treatment change. MTM- fyi, Verzenio can come from [facility]. * Telephone Encounter - Darryl [...] orders, plans built and routed to provider. [facility] - fyi regarding Verzenio orders. Awaiting [...] AM EST Pt Ed by Nurse Hematology/Oncology [address] [place] [address] Alla Nurse Hem Onc [address] [place] [address] 12/06/2024 12:00 PM EST Immunization/Injection Hematology/Oncology Treatment, [address] [place] [phone] Alla, Chair 2 Hem Onc [address] [place] [address] 12/06/2024 1:30 PM EST Pharmacy Pharmacy Hematology Oncology [place] [address] [place] [address] [facility] [place] Hem/Onc [address] [place] [address] 12/08/2024 10:00 AM EST Telemedicine Palliative Medicine [address] [address] Amie Kong MD [address] [place] [address] [place] [address] 12/08/2024 1:00 PM EST Telemedicine Psychology, Cancer Center Khoi BARBER [address] [facility] [place] [address] Irving Aguila MA [address] [facility] [place] [address] Scheduled Orders Name Type Priority Associated Diagnoses [...] for 12 Occurrences starting 12/01/2024 until 12/01/2025 Health Maintenance Due Date Last Done Comments [...]
--- OUTSIDE RECORDS SUMMARY | 2024-12-13 16:41 | External Medical Summary | Summary of Care ---
Author Name Unknown Organization [facility] Address [address] [place] [address] Phone [phone] Care Team Providers Care Go Cart Mechanic Name Role Phone Unavailable Primary Care Provider [...] (HCC) Contreras Munoz MD 200 [facility] [place] [address] Phone: tel: fax: Referral ID Status Reason Start Date Expiration Date Visits Requested Visits Authorized [id number] Pending Review Specialty Services Required 12/03/[phone] Question Answer Referral Priority Within 10 days (routine) Where should this appointment be scheduled? 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 Requesting 2nd opinion for treatment options at [facility]. 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 Increased risk for breast cancer and pancreatic cancer. 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 Increased risk for breast cancer, colon cancer [...] entered Entered by Date resolved education Attended [facility]. 06/21/2017 06/23/2017 Kadi Gold RN 06/23/2017 Problem [...] Overview (01/15/2017): Taking Subutex, followed monthly in [place] [facility] 16mg daily Mental disorder in 01/15/2017 08/26/2017 Overview (02/12/2017): [facility] taking Kl[facility] - ADHD, depression, bipolar -going to counseling in [place] As of 13wks no longer taking Klonopin [...] PET 11/30/24 and MRI 11/09/24 pushed to [facility] as requested. * Telephone Encounter - Najma Schaffer RN - 12/03/2024 3:32 PM EST Called patient- advised her that even if is approved, they would need an approval for everythingthat they did. Reviewed other options, patient agreeable to going to [facility]. Referral placed. Scheduling: please fax referral/ records. Please also give patient phone number to call to scheduleappt when she comes in Friday Radiology: please fax images from PET 11/30/24 and MRI 11/09/24 to [facility] Thanks! * Telephone Encounter - Hyacinth Anaya OSA - 12/03/2024 2:56 PM EST Patient calling to speak with Dr. Munoz about getting a referral sent to [facility]. She is stating it is [...] AM EST Pt Ed by Nurse Hematology/Oncology [facility] [place] [address] [place] [phone] Alla Nurse Hem Onc [address] [place] [address] 12/06/2024 12:00 PM EST Immunization/Injection Hematology/Oncology Treatment, [address] [phone] Alla, Chair 2 Hem Onc [address] [place] [address] 12/06/2024 1:30 PM EST Pharmacy Pharmacy Hematology Oncology [facility] [address] [place] [address] [facility] [place] Hem/Onc [address] [place] [address] 12/08/2024 10:00 AM EST Telemedicine Palliative Medicine [facility] [place] [address] [phone] Amie Kong MD [address] [place] [phone] 12/08/2024 1:00 PM EST Telemedicine Psychology, Cancer Center Khoi BARBER [address] [place] [address] Irving Aguila [place] [address] [place] [address] 01/03/2025 11:45 AM EST Immunization/Injection Hematology/Oncology Treatment, [place] [address] [place] [address] Alla, Chair 2 Hem Onc [place] [address] [place] [address] Scheduled Referrals Name Type Priority Associated Diagnoses [...]
--- OUTSIDE RECORDS SUMMARY | 2024-12-13 16:41 | External Medical Summary | Summary of Care ---
Author Name Unknown Organization [facility] Address [address] [place] [address] Phone [phone] Care Team Providers Care Retail Sales Advisor Name Role Phone Unavailable Primary Care Provider Unavailabl e Reason for Visit * Reason Onset Date Comments Outpatient Testing 12/06/2024 MyGenvar Encounter Details Date Type Department Care Team (Late st Contact Info) Description 12/06/2024 Telephone Hematology/Oncology Treatment, [place] [address] [place] [address] Contreras Munoz MD [address] [place] [address] Outpatient Testing (MyGen[facility]) Allergies Active Allergy Reactions Criticality Noted Date [...] Overview (05/13/2019): 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 Increased risk for breast cancer and pancreatic cancer. 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 Increased risk for breast cancer, colon cancer [...] by Date resolved education Enrolled in May [facility] 05/14/2017 Kadi Gold RN 05/14/2017 Problem Action Taken Date entered Entered by Date resolved Breast pump Form completed. 05/14/2017 Kadi Gold RN 05/14/2017 Problem Action Taken Date entered Entered by Date resolved Current needs or questions Patient denies having any current needs or questions 05/28/2017 Kadi oGld RN 05/28/2017 Problem Action Taken Date entered Entered by Date resolved Current needs or questions Patient denies having any current needs or questions 06/12/2017 Iona Cuevas RN 06/12/17 Problem Action Taken Date entered Entered by Date resolved education Attended [facility]. 06/21/2017 06/23/2017 Kadi Gold RN [...] Overview (01/15/2017): Taking Subutex, followed monthly in [place] [facility] 16mg daily Mental disorder in 01/15/2017 08/26/2017 Overview (02/12/2017): [facility] taking Klonopin - ADHD, depression, bipolar -going to counseling in [place] As of 13wks no longer taking Klonopin [...] Encounter - Najma Schaffer RN - 12/06/2024 8:[address] Munoz, would like NGS added to pathology. Order placed, staff message sent to pathology. documented in this encounter Plan of Treatment Upcoming Encounters Date Type Department Care Team (Late st Contact Info) Description 12/06/2024 11:00 AM EST Pt Ed by Nurse Hematology/Oncology [facility] [address] [place] [phone] Alla Nurse Hem Onc [address] [place] [address] 12/06/2024 12:00 PM EST Immunization/Injection Hematology/Oncology Treatment, [address] [phone] Alla, Chair 2 Hem Onc [address] [place] [address] 12/06/2024 1:30 PM EST Pharmacy Pharmacy Hematology Oncology [facility] [place] [address] [place] [address] [facility] Hem/Onc [address] [place] [address] 12/08/2024 10:00 AM EST Telemedicine Palliative Medicine [address], [place] [phone] Amie Kong MD [address] [place], [place] [address] [address] 12/08/2024 1:00 PM EST Telemedicine Psychology, Cancer Center Khoi BARBER [address] [facility] [place] [phone] Irving Aguila MA [address] [place] [phone] 01/03/2025 11:45 AM EST Immunization/Injection Hematology/Oncology Treatment, [place] [address] [place] [address] Alla, Chair 2 Hem Onc [place] [address] [place], [place] [address] Pending Results Name Type Priority Associated Diagnoses Date /Time ANATOMIC PATHOLOGY (BM/SURGICAL/CYTOLOGY) ADD ON REQUEST Lab Routine Malignant neoplasm of upper-outer quadrant of right breast in female, estrogen receptor positive (HCC) 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) 12/06/2024 8:40 AM EST Health Maintenance Due Date Last Done [...]
--- OUTSIDE RECORDS SUMMARY | 2024-12-13 16:42 | External Medical Summary | Summary of Care ---
Author Name Unknown Organization [facility] Address [address] [place] [address] Phone [phone] Care Team Providers Care Booth Manager Name Role Phone Unavailable Primary Care Provider Unavailabl e Reason for Visit * Reason Onset Date Comments Precert In Process 12/02/2024 09 Meme Let rozole Encounter Details Date Type Department Care Team (Late st Contact Info) Description 12/01/2024 Telephone Hematology/Oncology Shelley Gold [place] [address] [facility] [place] [address] Contreras Munoz MD [address] [facility] [place] [address] Precert In Process ( Meme Letrozole) Allergies Active Allergy Reactions Criticality Noted Date Comments Naloxone Edema face/lips/tongue High 01/15/2017 documented as of this encounter (statuses as of 12/02/2024) Medications buprenorphine HCl (SUBUTEX) 8 MG Sublingual [...] as of this encounter (statuses as of 12/02/2024) Active Problems Problem Noted Date Diagnosed Date Malignant neoplasm of upper- outer quadrant of right breast in female, estrogen receptor positive 12/01/2024 Metastasis to bone 12/01/2024 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 Increased risk for breast cancer and pancreatic cancer. 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 Increased risk for breast cancer, colon cancer and thyroid cancer. Attention deficit hyperactiv ity disorder (ADHD), combined type 07/10/2016 Anxiety state 12/12/2011 Depression 12/12/2011 Rosacea 04/30/2006 RHINITIS DUE TO POLLEN documented as of this encounter (statuses as of 12/02/2024) Resolved Problems Problem Noted Date Diagnosed Date [...] by Date resolved education Enrolled in May [facility] 05/14/2017 Kadi Gold RN 05/14/2017 [...] entered Entered by Date resolved education Attended [facility]. 06/21/2017 06/23/2017 Kadi Gold RN [...] Overview (01/15/2017): Taking Subutex, followed monthly in [place] [facility] 16mg daily Mental disorder in 01/15/2017 08/26/2017 Overview (02/12/2017): [facility] taking Klonopin - ADHD, depression, bipolar -going to counseling in [place] As of 13wks no longer taking Klonopin [...] as of this encounter (statuses as of 12/02/2024) Immunizations Name Administration Dates Next Due DTP [...] encounter Miscellaneous Notes * Telephone Encounter - Meme Villa OSA - 12/02/2024 11:02 AM EST [facility] Authorization Submission Submission Information: Medication: LETROZOLE 2.5 MG TABLET Portal used: [facility] Insurance: [facility] Family Authorization #/[place]: [id number] * Telephone Encounter - Melissa Ramirez OSA - 12/02/2024 9:42 AM EST Routed to oral pool [id number] * Telephone Encounter - Annetta Cool LPN - 12/01/2024 3:24 PM EST ICD-10: C50.411, Z17.0, C79.51 Start date: 12/01/2024 Drugs: Letrozole 2.5 mg Multidisciplinary Clinic note: yes Physician: Dr. Contreras Munoz Comments: Cover My Meds [place]: [id number] Concurrent Therapy: yes documented in this encounter Plan of Treatment Upcoming Encounters Date Type Department Care Team (Late st Contact Info) Description 12/02/2024 1:15 PM EST Pharmacy Pharmacy Hematology Oncology [address] [facility] Hem/Onc [address] [place] [address] 12/03/2024 8:30 AM EST Telemedicine Palliative Medicine, [facility] [address] [facility] 5th [place] [address] Amie Kong MD [address] [place] [address] 12/06/2024 11:00 AM EST Pt Ed by Nurse Hematology/Oncology [place] [facility] [place] [address] [place] [phone] Alla, Nurse Hem Onc [place] [address] [place] [address] 12/06/2024 12:00 PM EST Immunization/Injection Hematology/Oncology Treatment, [place] [address] [place] [phone] Alla, Chair 2 Hem Onc [place] [place] [address] 12/06/2024 1:30 PM EST Pharmacy Pharmacy Hematology Oncology [place] [address] [place] [address] [facility] Hem/Onc [address] [place] [address] 01/12/2025 10:00 AM EST Telemedicine Psychology, Cancer Center Khoi BARBER [address] [facility] [place] [address] Velma Espinoza PsyD [address] [place] [address] Health Maintenance Due Date Last Done Comments [...]
--- OUTSIDE RECORDS SUMMARY | 2024-12-13 16:42 | External Medical Summary | Summary of Care ---
Author Name Unknown Organization [facility] Address [address] [place] [address] Phone [phone] Care Team Providers Care Assistant Strength Coach Name Role Phone Unavailable Primary Care Provider Unavailabl e Encounter Details Date Type Department Care Team (Late st Contact Info) Description 12/01/2024 Orders Only Hematology/Oncology [employer] [address] [facility] [place] [address] Contreras Munoz MD [address] [facility] [place] [address] Allergies Active Allergy Reactions Criticality Noted Date Comments Naloxone Edema face/lips/tongue High 01/15/2017 documented as of this encounter (statuses as of 12/01/2024) Medications buprenorphine HCl (SUBUTEX) 8 MG Sublingual [...] as of this encounter (statuses as of 12/01/2024) Active Problems Problem Noted Date Diagnosed Date Malignant neoplasm of upper- outer quadrant of right breast in female, estrogen receptor positive 12/01/2024 Metastasis to bone 12/01/2024 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 Increased risk for breast cancer and pancreatic cancer. 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 Increased risk for breast cancer, colon cancer and thyroid cancer. Attention deficit hyperactiv ity disorder (ADHD), combined type 07/10/2016 Anxiety state 12/12/2011 Depression 12/12/2011 Rosacea 04/30/2006 RHINITIS DUE TO POLLEN documented as of this encounter (statuses as of 12/01/2024) Resolved Problems Problem Noted Date Diagnosed Date [...] by Date resolved education Enrolled in May [facility] 05/14/2017 Kadi Gold RN 05/14/2017 [...] entered Entered by Date resolved education Attended [facility]. 06/21/2017 06/23/2017 Kadi Gold RN [...] Overview (01/15/2017): Taking Subutex, followed monthly in [place] [facility] 16mg daily Mental disorder in 01/15/2017 08/26/2017 Overview (02/12/2017): [facility] taking Klonopin - ADHD, depression, bipolar -going to counseling in [place] As of 13wks no longer taking Klonopin [...] as of this encounter (statuses as of 12/01/2024) Immunizations Name Administration Dates Next Due Seasonal [...] PM EST Pharmacy Pharmacy Hematology Oncology [address] [address] [facility] [place] Hem/Onc [address] [place] [address] 12/03/2024 8:30 AM EST Telemedicine Palliative Medicine, [facility] [address] [facility] 5th Floor [place] [address] Amie Kong MD [address] [place] [address] 12/06/2024 11:00 AM EST Pt Ed by Nurse Hematology/Oncology [place] [place] [place] [address] [place] [phone] Alla Nurse Hem Onc [place] [address] [place] [address] 12/06/2024 12:00 PM EST Immunization/Injection Hematology/Oncology Treatment, [place] [address] [place], [place] [phone] Alla, Chair 2 Hem Onc [address] [place] [address] 12/06/2024 1:30 PM EST Pharmacy Pharmacy Hematology Oncology [place] [address] [place] [address] [facility] Hem/Onc [address] [place] [address] Health Maintenance Due Date Last Done Comments [...]
--- OUTSIDE RECORDS SUMMARY | 2024-12-13 16:42 | External Medical Summary | Summary of Care ---
Author Name Unknown Organization [facility] Address [address] [place] [address] Phone [phone] Care Team Providers Care Saute Chef Name Role Phone Unavailable Primary Care Provider Unavailabl e Reason for Visit * Reason Onset Date Comments Precert Approved 12/02/2024 09 Meme Letro zole Encounter Details Date Type Department Care Team (Late st Contact Info) Description 12/01/2024 Telephone Hematology/Oncology Shelley Gold [place] [address] [place] [address] Contreras Munoz MD [address] 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 Increased risk for breast cancer and pancreatic cancer. Monoallelic mutation of CHEK2 gene in female pat ient 05/13/2019 Overview (05/13/2019): pathogenic CHEK2 gene variant (c.1100del, p.[id number]*15). Increased risk for breast cancer, colon cancer [...] by Date resolved education Enrolled in May [facility] 05/14/2017 Kadi Gold RN 05/14/2017 Problem Action [...] entered Entered by Date resolved education Attended [facility]. 06/21/2017 06/23/2017 Kadi Gold RN 06/23/2017 Problem [...] Overview (01/15/2017): Taking Subutex, followed monthly in [place] @ [facility] 16mg daily Mental disorder in 01/15/2017 08/26/2017 Overview (02/12/2017): @ [facility] taking Klonopin - ADHD, depression, bipolar -going to counseling in [place] As of 13wks no longer taking Klonopin [...] Villa OSA - 12/02/2024 11:02 AM EST [facility] Authorization Submission Submission Information: Medication: LETROZOLE 2.5 MG TABLET [facility] Family Authorization #/[place]: [id number] * Telephone Encounter - Melissa Ramirez OSA - 12/02/2024 9:42 AM EST Routed to oral pool [id number] * Telephone Encounter - Annetta Cool LPN - 12/01/2024 3:24 PM EST ICD-10: C50.411, Z17.0, C79.51 Start date: 12/01/2024 Drugs: Letrozole 2.5 mg Multidisciplinary Clinic note: yes Physician: Dr. Contreras Munoz Comments: Cover My Meds [place]: [id number] Concurrent Therapy: yes documented in this encounter Plan of Treatment Upcoming Encounters Date Type Department Care Team (Late st Contact Info) Description 12/03/2024 8:30 AM EST Telemedicine Palliative Medicine, [address] 5th Floor [place] [address] Amie Kong MD [address] [facility] [place] [address] Arrived 12/06/2024 11:00 AM EST Pt Ed by Nurse Hematology/Oncology Scenery [place]a [place] [address] [place] [address] Alla, Nurse Hem Onc Scenery [address] [place] [address] 12/06/2024 12:00 PM EST Immunization/Injection Hematology/Oncology Treatment, [place] [address] [place] [phone] Alla, Chair 2 Hem Onc Scenery [address] [place] [address] 12/06/2024 1:30 PM EST Pharmacy Pharmacy Hematology Oncology [facility] [address] [place] [address] [facility] Hem/Onc [address] [place] [address] 12/08/2024 1:00 PM EST Telemedicine Psychology, Cancer Center [facility] [address] [place] [address] Irving Aguila [place] [address] [place] [address] Health Maintenance Due Date Last Done Comments [...]
--- OUTSIDE RECORDS SUMMARY | 2024-12-13 16:42 | External Medical Summary | Summary of Care ---
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 Increased risk for breast cancer and pancreatic cancer. Monoallelic mutation of CHEK2 gene in female pat ient 05/13/2019 Overview (05/13/2019): pathogenic CHEK2 gene variant (c.1100del, p.[id number]*15). Increased risk for breast cancer, colon cancer [...] Date resolved Educational classes Encouraged pt attend [employer] classes 03/20/2017 Kadi Gold RN 03/20/2017 Problem [...] by Date resolved education Enrolled in May [facility] 05/14/2017 Kadi Gold RN 05/14/2017 Problem [...] entered Entered by Date resolved education Attended [facility]. 06/21/2017 06/23/2017 Kadi Gold RN 06/23/2017 [...] Overview (01/15/2017): Taking Subutex, followed monthly in [place] @ [facility] 16mg daily Mental disorder in 01/15/2017 08/26/2017 Overview (02/12/2017): @ [facility] taking Klonopin - ADHD, depression, bipolar -going to counseling in [place] As of 13wks no longer taking Klonopin [...] 12/03/2024 8:30 AM EST Telemedicine Palliative Medicine, [address] 5[address] Floor [place] [address] Amie Kong MD [address] [facility] [place] [id number] 12/06/2024 11:00 AM EST Pt Ed by Nurse Hematology/Oncology Shelley Gold, [place] [address] [place], [place] [phone] Alla, Nurse Hem Onc Scenery [address] [place] [address] 12/06/2024 12:00 PM EST Immunization/Injection Hematology/Oncology Treatment, [place] [address] [place] [phone] Alla, Chair 2 Hem Onc Scenery [address] [place] [address] 12/06/2024 1:30 PM EST Pharmacy Pharmacy Hematology Oncology [place] [address] [place] [address] [facility] [place] Hem/Onc [facility] [place] [address] 12/08/2024 1:00 PM EST Telemedicine Psychology, Cancer [facility] [address] [facility] [place] [address] Irving Aguila [place] [address] [place] [address] Health Maintenance Due Date Last Done Comments [...]
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
--- OUTSIDE RECORDS SUMMARY | 2024-12-13 16:42 | External Medical Summary | Summary of Care ---
Author Name Unknown Organization [facility] Address [address] [place] [address] Phone [phone] Care Team Providers Care Oracle Engineer Name Role Phone Unavailable Primary Care Provider Unavailabl e Reason for Visit * Reason Onset Date Comments Precert Future 12/01/2024 Verzenio/Lupron/ Zometa Encounter Details Date Type Department Care Team (Late st Contact Info) Description 12/01/2024 Telephone Hematology/Oncology Shelley [facility] [place] [address] [place] [phone] Suri Munoz MD [address] [place] [address] Precert Future (Verzenio/Lupron/Zometa ) Allergies Active Allergy [...] Overview (05/13/2019): 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 Increased risk for breast cancer and pancreatic cancer. 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 Increased risk for breast cancer, colon cancer [...] by Date resolved education Enrolled in May [facility] 05/14/2017 Kadi Gold RN 05/14/2017 Problem [...] having any current needs or questions 06/25/2017 oIna Cuevas RN 06/25/17 Problem Action Taken Date [...] Overview (01/15/2017): Taking Subutex, followed monthly in [place] [facility] 16mg daily Mental disorder in 01/15/2017 08/26/2017 Overview (02/12/2017): [facility] taking Klonopin - ADHD, depression, bipolar -going to counseling in [place] As of 13wks no longer taking Klonopin [...] goal. Pt is requesting 2nd opinion through [facility] and advised that our office will need to sign aform for insurance regarding this. Dr. Munoz- patient would like to know "what are the percentages in how effective the treatment is and overall prognosis." Joao- Please advise when form is received from [facility], have Dr. Munoz sign, and fax back. Ptwould like to be notified when this is completed. * Telephone Encounter - Darryl Rogers RN - 12/02/2024 3:57 PM EST Referral entered for Zometa/Verzenio/Lupron Education scheduled 12/06 with first injection. MyG sent to patient informing her of treatment change. MTM- fyi, Verzenio can come from [facility]. * Telephone Encounter - Darryl Rogers [...] orders, plans built and routed to provider. [facility] - fyi regarding Verzenio orders. Awaiting auth. [...] AM EST Pt Ed by Nurse Hematology/Oncology [place] [address] [place] [phone] Alla Nurse Hem Onc [facility] [place] [address] [facility] [place] [address] 12/06/2024 12:00 PM EST Immunization/Injection Hematology/Oncology Treatment, [place] [address] [place] [phone] Alla, Chair 2 Hem Onc [address] [place] [address] 12/06/2024 1:30 PM EST Pharmacy Pharmacy Hematology Oncology [place] [address] [place] [address] [facility] [place], [facility] Hem/Onc [address] [place] [address] 12/08/2024 1:00 PM EST Telemedicine Psychology, Cancer Center Khoi BARBER [address] [place] [phone] [place], [place] [address] [place] [id number] Scheduled Orders Name Type Priority Associated Diagnoses [...]
--- OUTSIDE RECORDS SUMMARY | 2024-12-13 16:42 | External Medical Summary | Summary of Care ---
Author Name Unknown Organization [facility] Address [address] [place] [address] Phone [phone] Care Team Providers Care Roving Tester Laboratory Name Role Phone Unavailable Primary Care Provider Unavailabl e Reason for Visit * Reason Onset Date Comments Precert Future 12/01/2024 Verzenio/Lupron/ Zometa Encounter Details Date Type Department Care Team (Late st Contact Info) Description 12/01/2024 Telephone Hematology/Oncology Shelley Gold [place] [address] [place] [address] Suri Munoz MD [address] [place] [address] Precert Future (Verzenio/Lupron/Zometa ) Allergies Active Allergy [...] Overview (05/13/2019): 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 Increased risk for breast cancer and pancreatic cancer. 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 Increased risk for breast cancer, colon cancer [...] the number is now active again. 03/20/2017 Kaid Gold RN 03/20/2017 Problem Action Taken Date entered Entered by Date resolved First Seeing Home Nurse, enjoying the education. 04/16/2017 Shoshana Sharpe RN 04/16/17 Problem Action Taken Date entered Entered by Date resolved Baby supplies Getting things arranged. Has crib Baby shower planned 05/14/2017 Kadi Gold RN 05/14/2017 Problem Action Taken Date entered Entered by Date resolved education Enrolled in May [facility] 05/14/2017 Kadi Gold RN 05/14/2017 Problem Action [...] Overview (01/15/2017): Taking Subutex, followed monthly in [place] [facility] 16mg daily Mental disorder in 01/15/2017 08/26/2017 Overview (02/12/2017): @ [facility] taking Klonopin - ADHD, depression, bipolar -going to counseling in [place] As of 13wks no longer taking Klonopin [...] patient informing her of treatment change. MTM- Ana antoniozenio can come from [facility]. * Telephone Encounter - Darryl [...] orders, plans built and routed to provider. [place] - fyi regarding Verzenio orders. Awaiting auth. [...] 12/03/2024 8:30 AM EST Telemedicine Palliative Medicine, [facility] [address] [facility] 5th [place] [address] Amie Kong MD [address] [facility] [place] [address] 12/06/2024 11:00 AM EST Pt Ed by Nurse Hematology/Oncology Scenery Alla [place] [address] [place] [phone] Alla Nurse Hem Onc [place] [address] [place] [address] 12/06/2024 12:00 PM EST Immunization/Injection Hematology/Oncology Treatment, [place] [address] [place] [address] Alla, Chair 2 Hem Onc Scenery [address] [place] [address] 12/06/2024 1:30 PM EST Pharmacy Pharmacy Hematology Oncology [facility] [address] [place] [address] [facility] Hem/Onc [address] [place] [address] 12/08/2024 1:00 PM EST Telemedicine Psychology, Cancer Center Khoi BARBER [address] [facility] [place] [address] [place] [address] [place] [address] Scheduled Orders Name Type Priority Associated Diagnoses [...]
--- OUTSIDE RECORDS SUMMARY | 2024-12-13 16:42 | External Medical Summary | Summary of Care ---
Author Name Unknown Organization [facility] Address [address] [place] [address] Phone [phone] Care Team Providers Care Incident Response Lead Name Role Phone Unavailable Primary Care Provider Unavailabl e Reason for Visit * Reason Onset Date Comments Precert Future 12/01/2024 Verzenio/Lupron/ Zometa Encounter Details Date Type Department Care Team (Late st Contact Info) Description 12/01/2024 Telephone Hematology/Oncology Shelley Gold [place] [address] [place] [address] Suri Munoz MD [address] [place] [address] Precert Future (Verzenio/Lupron/Zometa ) Allergies Active Allergy [...] Overview (05/13/2019): 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 Increased risk for breast cancer and pancreatic cancer. 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 Increased risk for breast cancer, colon cancer [...] by Date resolved education Enrolled in May [facility] 05/14/2017 Kadi Gold RN 05/14/2017 [...] Overview (01/15/2017): Taking Subutex, followed monthly in [place] [facility] 16mg daily Mental disorder in 01/15/2017 08/26/2017 Overview (02/12/2017): @ [facility] taking Klonopin - ADHD, depression, bipolar -going to counseling in [place] As of 13wks no longer taking Klonopin [...] 12/01/2024) Immunizations Name Administration Dates Next Due DTP [...] orders, plans built and routed to provider. [facility] - fyi regarding Verzenio orders. Awaiting [...] 1:15 PM EST Pharmacy Pharmacy Hematology Oncology [facility] [address] [place] [address] [facility], [facility] Hem/Onc [address] [place] [address] 12/03/2024 8:30 AM EST Telemedicine Palliative Medicine, [address] 5th [place] [address] Amie Kong MD [address] [place] [address] 12/06/2024 11:00 AM EST Pt Ed by Nurse Hematology/Oncology Scenery Alla [place] [address] [place] [address] Alla, Nurse Hem Onc Scenery [address] [place] [address] 12/06/2024 12:00 PM EST Immunization/Injection Hematology/Oncology Treatment, [place] [address] [place] [address] Alla, Chair 2 Hem Onc Scenery [address] [place] [address] 12/06/2024 1:30 PM EST Pharmacy Pharmacy Hematology Oncology [place] [address] [place] [address] [facility], [facility] Hem/Onc [address] [place] [address] Scheduled Orders Name Type Priority Associated Diagnoses [...]
--- OUTSIDE RECORDS SUMMARY | 2024-12-13 16:42 | External Medical Summary | Summary of Care ---
Author Name Unknown Organization [facility] Address [address] [place] [address] Phone [phone] Care Team Providers Care Soda Fountain Manager Name Role Phone Unavailable Primary Care Provider Unavailabl e Reason for Visit * Reason Onset Date Comments Precert Future 12/01/2024 Verzenio/Lupron/ Zometa Encounter Details Date Type Department Care Team (Late st Contact Info) Description 12/01/2024 Telephone Hematology/Oncology Shelley Gold [place] [address] [place] [address] Suri Munoz MD [address] [place] [address] Precert Future (Verzenio/Lupron/Zometa ) Allergies Active Allergy [...] Overview (05/13/2019): 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 Increased risk for breast cancer and pancreatic cancer. 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 Increased risk for breast cancer, colon cancer [...] by Date resolved education Enrolled in May [facility] 05/14/2017 Kadi Gold RN 05/14/2017 Problem Action [...] Overview (01/15/2017): Taking Subutex, followed monthly in [place] [facility] 16mg daily Mental disorder in 01/15/2017 08/26/2017 Overview (02/12/2017): [facility] taking Klonopin - ADHD, depression, bipolar -going to counseling in [place] As of 13wks no longer taking [...] 9:39 AM EST Auth form received from [facility] for outside consultation request. Completed form and faxed back to [phone] Melvin OV note. * Telephone [...] goal. Pt is requesting 2nd opinion through [facility] and advised that our office will need to sign aform for insurance regarding this. Dr. Munoz- patient would like to know "what are the percentages in how effective the treatment is and overall prognosis." Joao- Please advise when form is received from [facility], have Dr. Munoz sign, and fax back. Ptwould like to be notified when this is completed. * Telephone Encounter - Darryl Rogers RN - 12/02/2024 3:57 PM EST Referral entered for Zometa/Verzenio/Lupron Education scheduled 12/06 with first injection. MyG sent to patient informing her of treatment change. MTM- Jian antonio can come from [facility]. * Telephone Encounter - Darryl Rogers RN [...] built and routed to provider. [place] - i regarding Verzenio orders. Awaiting auth. Per Dr. [...] Nurse Hematology/Oncology [place] [address] [place] [address] Nurse Alla Hem Onc [facility] [address] [place] [address] 12/06/2024 12:00 PM EST Immunization/Injection Hematology/Oncology Treatment, [place] [address] [place] [address] Alla, Chair 2 Hem Onc Scenery [address] [place] [address] 12/06/2024 1:30 PM EST Pharmacy Pharmacy Hematology Oncology [facility] [address] [place] [address] [facility], [facility] Hem/Onc [address] [place] [address] 12/08/2024 1:00 PM EST Telemedicine Psychology, Cancer Center Khoi BARBER [address] [place] [address] [place] [address] [place] [address] Scheduled Orders Name Type Priority Associated Diagnoses [...]
--- OUTSIDE RECORDS SUMMARY | 2024-12-13 16:42 | External Medical Summary | Summary of Care ---
Author Name Unknown Organization [facility] Address [address] [place] [address] Phone [phone] Care Team Providers Care Electronic Sales And Service Technician Name Role Phone Unavailable Primary Care Provider Unavailabl e Reason for Visit * Reason Onset Date Comments Precert Approved 12/02/2024 09 Meme Letro zole Encounter Details Date Type Department Care Team (Late st Contact Info) Description 12/01/2024 Telephone Hematology/Oncology Shelley Gold [place] [address] [facility] [place] [address] Contreras Munoz MD 200 [facility] [place] [address] Precert Approved ( Meme Letrozole) Allergies Active [...] Overview (05/13/2019): 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 Increased risk for breast cancer and pancreatic cancer. 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 Increased risk for breast cancer, colon cancer [...] by Date resolved education Enrolled in May [facility] 05/14/2017 Kadi Gold RN 05/14/2017 Problem [...] any current needs or questions 06/12/2017 Iona Cueavs RN 06/12/17 Problem Action Taken Date entered Entered by Date resolved education Attended [facility]. 06/21/2017 06/23/2017 Kadi Gold RN 06/23/2017 [...] Overview (01/15/2017): Taking Subutex, followed monthly in [place] @ [facility] 16mg daily Mental disorder in 01/15/2017 08/26/2017 Overview (02/12/2017): [facility] taking Klonopin - ADHD, depression, bipolar -going to counseling in [place] As of 13wks no longer taking Klonopin [...] Encounter - Najma Schaffer RN - 12/03/2024 9:09 AM EST Referral entered. * Telephone Encounter - Meme Villa OSA - 12/02/2024 11:02 AM EST [facility] Authorization Submission Submission Information: Medication: LETROZOLE 2.5 MG TABLET Portal used: [facility] Insurance: [facility] Family Authorization #/[place]: [id number] * Telephone Encounter - Melissa Ramirez OSA - 12/02/2024 9:42 AM EST Routed to [facility] [address] * Telephone Encounter - Annetta Cool LPN - 12/01/2024 3:24 PM EST ICD-10: C50.411, Z17.0, C79.51 Start date: 12/01/2024 Drugs: Letrozole 2.5 mg Multidisciplinary Clinic note: yes Physician: Dr. Contreras Munoz Comments: Cover My Meds Acstorena: [id number] Concurrent Therapy: yes documented in this encounter Plan of Treatment Upcoming Encounters Date Type Department Care Team (Late st Contact Info) Description 12/06/2024 11:00 AM EST Pt Ed by Nurse Hematology/Oncology Scenery Alla [place] [address] [place] [phone] Alla, Nurse Hem Onc Scenery [address] [place] [address] 12/06/2024 12:00 PM EST Immunization/Injection Hematology/Oncology Treatment, [place] [address] [place] [phone] Alla, Chair 2 Hem Onc Scenery [address] [place] [address] 12/06/2024 1:30 PM EST Pharmacy Pharmacy Hematology Oncology [facility] [address] [place] [address] [facility] Hem/Onc [address] [place] [address] 12/08/2024 1:00 PM EST Telemedicine Psychology, Cancer Center Khoi BARBER [address] [place] [phone] [place] [address] [place] [id number] Health Maintenance Due Date Last Done Comments [...]
--- OUTSIDE RECORDS SUMMARY | 2024-12-13 16:42 | External Medical Summary | Summary of Care ---
Author Name Unknown Organization [facility] Address [address] [place] [address] Phone [phone] Care Team Providers Care Kindergarten Paraprofessional Name Role Phone Unavailable Primary Care Provider Unavailabl e Reason for Visit * Reason Comments Medication Management Encounter Details Date Type Department Care Team (Late st Contact Info) Description 12/02/2024 1:15 PM [facility] Pharmacy Pharmacy Hematology Oncology [facility] [address] [place] [address] [facility] Hem/Onc [address] [place] [address] Malignant neoplasm of upper-outer quadrant of right [...] Overview (05/13/2019): 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 Increased risk for breast cancer and pancreatic cancer. 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 Increased risk for breast cancer, colon cancer [...] by Date resolved education Enrolled in May [facility] 05/14/2017 Kadi Gold RN 05/14/2017 Problem [...] entered Entered by Date resolved education Attended [facility]. 06/21/2017 06/23/2017 Kadi Gold RN 06/23/2017 [...] Overview (01/15/2017): Taking Subutex, followed monthly in [place] [facility] 16mg daily Mental disorder in 01/15/2017 08/26/2017 Overview (02/12/2017): [facility] taking Klonopin - ADHD, depression, bipolar -going to counseling in [place] As of 13wks no longer taking Klonopin [...] 12/02/2024) Immunizations Name Administration Dates Next Due Seasonal [...] as of this encounter Progress Notes * Nika Stewart, zinc plating machine operator - 12/02/2024 3:36 PM EST NEW REFERRAL TO ORAL CHEMO CLINIC/MEDICATION RECONCILIATION NOTE Velma Carr [id number] Patient Phone Numbers Communication: Spoke to: Patient Treatment: Medication: Abemaciclib (Verzenio) Indication/Staging/Diagnosis Code: ER+/NJ+/HER2- breast cancer / C50.411 Dose: 150mg BID Administration: +/- food Start Date: TB Primary Pig Machine Operator Helper/Oncologist: Dr. Deion Munoz Provider has consented patient: Yes Patient was introduced to Oral Chemotherapy Clinic: OCC is a free service for patients receiving oral chemo therapy. We are Pharmacists & Pharmacy Technicians, who are a part of hematology & oncology care across the [employer] system offering telephone based appointments from the comfort of your own home. Pharmacists are available Friday-Friday from 8am - 4:30pm. After 4:30pm, non- urgent messages can be left on the pharmacist voicemail, and urgent calls/questions/concerns should be directed to their oncologist office directly . In case of an emergency, patient is aware to call 911 or travel to nearest emergency department. Communicated to patient: Pharmacists will provide education about your medication, manage oral chemotherapy side effects & review labs. All information will be shared & available to your oncologist. Explained to patient: once they decide on a treatment with their Oncologist, a Pharmacist will review the treatment plan to ensure correct dosing, review labs & medications to prevent any interactions. Medication authorization is submitted to your insurance. Once approved, your Rx will be sent to the Pharmacy determined by your insurance plan. Specialty Pharmacy will contact you to arrange delivery & discuss co-payment and any assistance options, if required. A Pharmacist will contact you to provide medication education, follow up periodically to review lab results & to assess/manage side effects. Patient was reassured the process to obtain medication can take several days-weeks. Patient was informed that hepatitis B screening must be completed prior to initiation of treatment.Completed Patient has given verbal consent that staff from the Oral Chemotherapy Clinic can speak to Other: Candace Carr, regarding their treatment. Patient has given verbal consent that staff from the Oral Chemotherapy Clinic can leave a voicemailwith treatment-related information: Yes This information can be left on Cell - My Chart is preferred Performed medication reconciliation with patient; pharmacist will be in touch if there are any druginteractions with oral chemo. Patient voiced understanding on all accounts. CAITY Sánchez Pediatric Audiologist Hematology Oncology Oral Chemotherapy Clinic Medication Therapy Disease Management [facility] 12/02/24,3:48 PM Time Spent on Encounter: 16 - 20 minutes Encounter Group: Oncology Encounter Interventions Item Category: Oral Chemotherapy Abemaciclib Problem/Rationale: Safety: Needs additional monitoring - Medication Requires monitoring Pharmacist Intervention(s): Medication reconciliation Magnitude of Intervention: Monitoring with no interventions (Level 0) documented in this encounter Plan of Treatment Upcoming Encounters Date Type Department Care Team (Late st Contact Info) Description 12/03/2024 8:30 AM EST Telemedicine Palliative Medicine, [address] 5th [place] [address] Amie Kong MD [address] [place] [address] 12/06/2024 11:00 AM EST Pt Ed by Nurse Hematology/Oncology Scenery Alla [place] [address] [facility] [place] [phone] Alla, Nurse Hem Onc [facility] [address] [facility] [place] [address] 12/06/2024 12:00 PM EST Immunization/Injection Hematology/Oncology Treatment, [place] [address] [place] [phone] Alla, Chair 2 Hem Onc Scenery [address] [place] [address] 12/06/2024 1:30 PM EST Pharmacy Pharmacy Hematology Oncology [place] [address] [place] [address] [facility], [facility] Hem/Onc [facility] [place] [address] 12/08/2024 1:00 PM EST Telemedicine Psychology, Cancer Center Khoi BARBER [address] [place] [address] [place] Aguila, [place] [address] [place] [address] Health Maintenance Due Date Last Done Comments [...]
--- OUTSIDE RECORDS SUMMARY | 2024-12-13 16:42 | External Medical Summary | Summary of Care ---
Author Name Unknown Organization [facility] Address [address] [place] [address] Phone [phone] Care Team Providers Care System Auditor Name Role Phone Unavailable Primary Care Provider Unavailabl e Reason for Visit * Reason Onset Date Comments Precert Future 12/01/2024 Verzenio/Lupron/ Zometa Encounter Details Date Type Department Care Team (Late st Contact Info) Description 12/01/2024 Telephone Hematology/Oncology Shelley Gold [place] [address] [place] [address] Suri Munoz MD [address] [place] [address] Precert Future (Verzenio/Lupron/Zometa ) Allergies Active Allergy [...] Overview (05/13/2019): 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 Increased risk for breast cancer and pancreatic cancer. 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 Increased risk for breast cancer, colon cancer [...] by Date resolved education Enrolled in May [facility] 05/14/2017 aKdi Gold RN 05/14/2017 Problem Action Taken Date [...] Overview (01/15/2017): Taking Subutex, followed monthly in [place] [facility] 16mg daily Mental disorder in 01/15/2017 08/26/2017 Overview (02/12/2017): [facility] taking Klonopin - ADHD, depression, bipolar -going to counseling in [place] As of 13wks no longer taking Klonopin [...] encounter Miscellaneous Notes * Telephone Encounter - Najam Schaffer RN - 12/03/2024 10:34 AM EST Called patient- since she has questions for Dr Munoz, offered to move appts to Thursday 12/[address] Munoz will not be here on Friday. Patient declined, would like to keep appts Friday. * Telephone Encounter - Darryl Rogers RN - 12/03/2024 9:39 AM EST Auth form received from [facility] for outside consultation request. Completed form and faxed back to [phone] Melvin OV note. * Telephone [...] goal. Pt is requesting 2nd opinion through [facility] and advised that our office will need to sign aform for insurance regarding this. Dr. Munoz- patient would like to know "what are the percentages in how effective the treatment is and overall prognosis." Joao- Please advise when form is received from [facility], have Dr. Munoz sign, and fax back. Ptwould like to be notified when this is completed. * Telephone Encounter - Darryl Rogers RN - 12/02/2024 3:57 PM EST Referral entered for Zometa/Verzenio/Lupron Education scheduled 12/06 with first injection. MyG sent to patient informing her of treatment change. MTM- fyi, Verzenio can come from [facility]. * Telephone Encounter - Darryl [...] AM EST Pt Ed by Nurse Hematology/Oncology [address] [place], [place] [phone] Alla, Nurse Hem Onc Scenery [address] [place] [address] 12/06/2024 12:00 PM EST Immunization/Injection Hematology/Oncology Treatment, [place] [address] [place], [place] [phone] Alla, Chair 2 Hem Onc Scenery [address] [place] [address] 12/06/2024 1:30 PM EST Pharmacy Pharmacy Hematology Oncology [place] [address] [place] [address] [facility], [facility] Hem/Onc [address] [place] [address] 12/08/2024 1:00 PM EST Telemedicine Psychology, Cancer Center Khoi BARBER [address] [place] [address] [place] [address] [place] [id number] Scheduled Orders Name Type Priority Associated Diagnoses [...]
--- OUTSIDE RECORDS SUMMARY | 2024-12-13 16:42 | External Medical Summary | Summary of Care ---
Author Name Unknown Organization [facility] Address [address] [place] [address] Phone [phone] Care Team Providers Care Drying And Winding Supervisor Name Role Phone Unavailable Primary Care Provider Unavailabl e Reason for Visit * Reason Onset Date Comments Medication Pre-auth 12/01/2024 Letrozole Encounter Details Date Type Department Care Team (Late st Contact Info) Description 12/01/2024 Telephone Hematology/Oncology Shelley Gold [place] [address] [place] [address] Contreras Munoz MD [address] [place] [address] Medication Pre-auth (Letrozole) Allergies Active Allergy Reactions Criticality Noted Date [...] Overview (05/13/2019): 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 Increased risk for breast cancer and pancreatic cancer. 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 Increased risk for breast cancer, colon cancer [...] by Date resolved education Enrolled in May [facility] 05/14/2017 Kadi Gold RN 05/14/2017 [...] entered Entered by Date resolved education Attended [facility]. 06/21/2017 06/23/2017 Kadi Gold RN [...] Overview (01/15/2017): Taking Subutex, followed monthly in [place] [facility] 16mg daily Mental disorder in 01/15/2017 08/26/2017 Overview (02/12/2017): [facility] taking Klonopin - ADHD, depression, bipolar -going to counseling in [place] As of 13wks no longer taking Klonopin [...] encounter Miscellaneous Notes * Telephone Encounter - Melissa Ramirez OSA - 12/02/2024 9:42 AM EST Routed to oral pool [id number] * Telephone Encounter - Annetta Cool LPN - 12/01/2024 3:24 PM EST ICD-10: C50.411, Z17.0, C79.51 Start date: 12/01/2024 Drugs: Letrozole 2.5 mg Multidisciplinary Clinic note: yes Physician: Dr. Contreras Munoz Comments: Cover My Meds [place]: [id number] Concurrent Therapy: yes documented in this encounter Plan of Treatment Upcoming Encounters Date Type Department Care Team (Late st Contact Info) Description 12/02/2024 1:15 PM EST Pharmacy Pharmacy Hematology Oncology [address] [address] [facility], [facility] Hem/Onc [address] [place] [address] 12/03/2024 8:30 AM EST Telemedicine Palliative Medicine, [facility] [address] [facility] 5th [place] [address] Amie Kong MD [address] [place] [address] 12/06/2024 11:00 AM EST Pt Ed by Nurse Hematology/Oncology Scenejeronimo Gold [place] [address] [place] [address] Alla, Nurse Hem Onc [address] [place] [address] 12/06/2024 12:00 PM EST Immunization/Injection Hematology/Oncology Treatment, [place] [address] [place] [phone] Alla, Chair 2 Hem Onc [address] [place] [address] 12/06/2024 1:30 PM EST Pharmacy Pharmacy Hematology Oncology [facility] [address] [place] [address] [facility], [facility] Hem/Onc [address] [place] [address] 01/12/2025 10:00 AM EST Telemedicine Psychology, [facility] [address] [place] [id number] Velma Espinoza, Fl[place] [address] [place] [phone] Health Maintenance Due Date Last Done Comments [...]
--- OUTSIDE RECORDS SUMMARY | 2024-12-13 16:42 | External Medical Summary | Summary of Care ---
Author Name Unknown Organization [facility] Address [address] [place] [address] Phone [phone] Care Team Providers Care Sample Builder Name Role Phone Unavailable Primary Care Provider Unavailabl e Reason for Visit * Reason Onset Date Comments Precert Approved 12/01/2024 HYDROMORPHONE Encounter Details Date Type Department Care Team (Late st Contact Info) Description 12/01/2024 Telephone Palliative Medicine, [address] 5th [place] [address] Amie Kong MD [address] [place], [place] [id number] Precert Approved (HYDROMORPHONE) Allergies Active Allergy Reactions Criticality Noted Date [...] Overview (05/13/2019): 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 Increased risk for breast cancer and pancreatic cancer. 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 Increased risk for breast cancer, colon cancer [...] Date resolved education Enrolled in May [facility] 05/14/2017 Kadi Gold RN 05/14/2017 Problem [...] entered Entered by Date resolved education Attended [facility]. 06/21/2017 06/23/2017 Kadi Gold RN 06/23/2017 [...] Overview (01/15/2017): Taking Subutex, followed monthly in [place] [facility] 16mg daily Mental disorder in 01/15/2017 08/26/2017 Overview (02/12/2017): @ [facility] taking Klonopin - ADHD, depression, bipolar -going to counseling in [place] As of 13wks no longer taking Klonopin [...] Telephone Encounter - Concha Pacheco LPN - 12/01/2024 1:18 PM EST PRIOR AUTHORIZATION Medication Name and Strength: HYDROmorphone HCl 2 MG Oral Tablet (Dilaudid) Qty & Days Supply: #40 tabs/13 days supply ICD 10 Code(s): Cancer related pain [G89.3] Is there medical record documentation that the prescriber or the prescriber's delegate conducted a search of the [place] Prescription Drug Monitoring Program (PDMP) for the beneficiary's controlled substance prescription history? YES Therapeutic failure, intolerance or contraindication to alternative medications? (If yes, please list the medications): NO Is there medical record documentation of a diagnosis of active cancer? YES Is there medical record documentation of a diagnosis of sickle cell disease with crisis? NO Is there medical record documentation that the member is receiving hospice services? NO Is there medical record documentation that the member is receiving palliative care? YES (Answering YES to this question may populate automatic approval) Additional supportive documentation if needed: HPI: Velma Carr is a 39 year old female with a primary diagnosis of stage IV breast CA, mets tobone. She has a genetic mutation and had a lump on the R breast develop in the last month, and thenon PET scan was found to have spread in the lymph nodes and bone. 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 Referred to palliative care for symptom management. 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 Continue buprenorphine 8mg TID as prescribed by her Addiction team For severe pain, I have added Dilaudid 2mg tab q3h PRN pain Stop Tylenol Can use Advil 200mg x 3 tab q6h PRN pain Controlled substance agreement reviewed and completed, signed by myself and patient. Copy given to patient and kept in office records. I have reviewed the patients controlled substance dispensing history in the Prescription Drug Monitoring Program in compliance with the [facility] regulations before prescribing a controlled substance. For bowels, use Miralax daily and/or Senna For nausea, added Zofran For anxiety, gave a small Rx of Xanax, will talk to her addiction team about decreasing her Wellbutrin and adding Remeron if possible Behavioral health referral. In future may benefit from SW referral Follow up in 2 days. Pt is able to do video visits. Next visit with me. documented in this encounter Plan of Treatment Upcoming Encounters Date Type Department Care Team (Late st Contact Info) Description 12/02/2024 1:15 PM EST Pharmacy Pharmacy Hematology Oncology [address] [address] [facility] Hem/Onc [address] [place] [address] 12/03/2024 8:30 AM EST Telemedicine Palliative Medicine, [address] 5th [place] [address] Amie Kong MD [address] [place] [address] 12/06/2024 11:00 AM EST Pt Ed by Nurse Hematology/Oncology Shelley Gold [place] [address] [place] [phone] Alla, Nurse Hem Onc [facility] [address] [facility] [place] [address] 12/06/2024 12:00 PM EST Immunization/Injection Hematology/Oncology Treatment, [place] [address] [place] [phone] Alla, Chair 2 Hem Onc [address] [address] [place] [address] 12/06/2024 1:30 PM [facility] Pharmacy Pharmacy Hematology Oncology [facility] [place] [address] [place] [address] [facility], [facility] Hem/Onc [address] [place] [address] Health Maintenance Due Date Last Done Comments [...]
--- OUTSIDE RECORDS SUMMARY | 2024-12-13 16:43 | External Medical Summary | Summary of Care ---
Author Name Unknown Organization [facility] Address [address] [place] [address] Phone [phone] Care Team Providers Care Stem Cleaning Machine Feeder Name Role Phone Unavailable Primary Care Provider Unavailabl e Reason for Visit * Reason Onset Date Comments Medication Refill 12/01/2024 Encounter Details Date Type Department Care Team (Late st Contact Info) Description 12/01/2024 Refill Hematology/Oncology [facility] [address] [place] [address] Contreras Munoz MD [address] [place] [address] Malignant neoplasm of upper-outer quadrant of right [...] Overview (05/13/2019): 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 Increased risk for breast cancer and pancreatic cancer. 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 Increased risk for breast cancer, colon cancer [...] by Date resolved education Enrolled in May [facility] 05/14/2017 Kadi Gold RN 05/14/2017 Problem [...] entered Entered by Date resolved education Attended [facility]. 06/21/2017 06/23/2017 Kadi Glod RN 06/23/2017 Problem Action Taken Date entered [...] Overview (01/15/2017): Taking Subutex, followed monthly in [place] [facility] 16mg daily Mental disorder in 01/15/2017 08/26/2017 Overview (02/12/2017): [facility] taking Klonopin - ADHD, depression, bipolar -going to counseling in [place] As of 13wks no longer taking Klonopin [...] Telephone Encounter - Contreras Munoz MD - 12/01/2024 12:49 PM EST E-prescribed EMLA cream. * Telephone Encounter - Darryl Rogers RN - 12/01/2024 11:39 AM EST Pt requesting EMLA cream prior to her injections. Pended script. documented in this encounter Plan of Treatment Upcoming Encounters Date Type Department Care Team (Late st Contact Info) Description 12/02/2024 1:15 PM EST Pharmacy Pharmacy Hematology Oncology [address] [address] [facility], [facility] Hem/Onc [address] [place] [address] 12/03/2024 8:30 AM EST Telemedicine Palliative Medicine, [facility] [address] [facility] 5th [place] [address] Amie Kong MD [address] [place] [address] 12/06/2024 11:00 AM EST Pt Ed by Nurse Hematology/Oncology Shelley Gold [place] [address] [facility] [place] [address] Alla, Nurse Hem Onc [address] [place], [place] [address] 12/06/2024 12:00 PM EST Immunization/Injection Hematology/Oncology Treatment, [place] [address] [place], [place] [address] Alla, Chair 2 Hem Onc [facility] [address] [facility] [place] [address] 12/06/2024 1:30 PM EST Pharmacy Pharmacy Hematology Oncology [address] [address] [facility], [facility] Hem/Onc [address] [place] [address] Health Maintenance Due Date Last Done Comments [...]
--- OUTSIDE RECORDS SUMMARY | 2024-12-13 16:43 | External Medical Summary | Summary of Care ---
Author Name Unknown Organization [facility] Address [address] [place] [address] Phone [phone] Care Team Providers Care Bailer Operators Supervisor Name Role Phone Unavailable Primary Care Provider Unavailabl e Reason for Visit * Reason Onset Date Comments Precert Future 12/01/2024 Verzenio/Faslode x/Xgeva Encounter Details Date Type Department Care Team (Late st Contact Info) Description 12/01/2024 Telephone Hematology/Oncology Shelley Gold [place] [address] [place] [address] Suri Munoz MD [address] [place] [address] Precert Future (Verzenio/Faslodex/Xgev a) Allergies Active Allergy Reactions Criticality Noted Date [...] Overview (05/13/2019): 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 Increased risk for breast cancer and pancreatic cancer. 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 Increased risk for breast cancer, colon cancer [...] by Date resolved education Enrolled in May [facility] 05/14/2017 Kadi Gold RN 05/14/2017 Problem [...] Overview (01/15/2017): Taking Subutex, followed monthly in [place] [facility] 16mg daily Mental disorder in 01/15/2017 08/26/2017 Overview (02/12/2017): [facility] taking Klonopin - ADHD, depression, bipolar -going to counseling in [place] As of 13wks no longer taking Klonopin [...] orders, plans built and routed to provider. [facility] - fy regarding Verzenio orders. Awaiting auth. Per Dr. [...] 1:15 PM EST Pharmacy Pharmacy Hematology Oncology [address] [address] [facility], [facility] Hem/Onc [address] [place] [address] 12/03/2024 8:30 AM EST Telemedicine Palliative Medicine, [address] 5th [place] [address] Amie Kong MD [address] [place] [address] 12/06/2024 11:00 AM EST Pt Ed by Nurse Hematology/Oncology [place] [address] [place] [phone] Nurse Alla Hem Onc [address] [address] [place] [address] 12/06/2024 12:00 PM EST Immunization/Injection Hematology/Oncology Treatment, [place] [address] [place] [address] Alla, Chair 2 Hem Onc [place] [address] [place] [address] 12/06/2024 1:30 PM EST Pharmacy Pharmacy Hematology Oncology [facility] [address] [place] [address] [facility], [facility] Hem/Onc [address] [place] [address] Scheduled Orders Name Type Priority Associated Diagnoses [...]
--- OUTSIDE RECORDS SUMMARY | 2024-12-13 16:43 | External Medical Summary | Summary of Care ---
Author Name Unknown Organization [facility] Address [address] [place] [address] Phone [phone] Care Team Providers Care Cloth Packer Name Role Phone Unavailable Primary Care Provider Unavailabl e Reason for Referral * Evaluate & Treat - Unlimited Visits (Within 10 days (routine)) - Authorized Specialty Diagnoses / Procedures Referred By Rhonda metzger Referred To Contact Psychology Diagnoses Secondary malignant neoplasm of bone (HCC) Amie Kong MD [address] [place] [address] Phone: tel: fax: Referral ID Status Reason Start Date Expiration Date Visits Requested Visits Authorized [id number] Authorized Specialty Services Required 12/01/2024 999 999 Question Answer Referral Priority Within 10 days (routine) Where should this appointment be scheduled? Joss Comments VIDEO OK Encounter Details Date Type Department Care Team (Late st Contact Info) Description 12/01/2024 11:00 AM EST Office Visit Palliative Medicine [facility] [address] [place] [phone] Amie [facility] MD [address] [facility] [place] [address] Cancer related pain*; Secondary malignant neoplasm of bone (HCC); Nausea/vomiting in ; Nausea Allergies Active Allergy Reactions Criticality Noted Date [...] morning. 30 Tablet 11 12/01/19 25 Active HYDROmorphone HCl 2 MG Oral Tablet (Dilaudid)Ind ications:Canc er related pain Take 1 Tablet by mouth every 3 hours as needed for Pain, Severe. 40 Tablet 12/01/19 25 Active ALPRAZolam 0.25 MG Oral Tablet (Xanax)Indica tions:Cancer related pain Take 1 Tablet by mouth 2 times a day as needed for Anxiety. 30 Tablet 12/01/19 25 Active Ondansetron HCl 4 MG Oral TabletIndicat ions:Nausea Use as needed for nausea 30 Tablet 1 12/01/19 25 Active dexAMETHasone 4 MG Oral Tablet (Decadron)Ind ications:Canc er related pain Take 1 Tablet by mouth daily with breakfast. 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 Increased risk for breast cancer and pancreatic cancer. 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 Increased risk for breast cancer, colon cancer [...] Entered by Date resolved education Attended [facility]. 06/21/2017 06/23/2017 Kadi Gold RN [...] Overview (01/15/2017): Taking Subutex, followed monthly in [place] @ [facility] 16mg daily Mental disorder in 01/15/2017 08/26/2017 Overview (02/12/2017): [facility] taking Klonopin - ADHD, depression, bipolar -going to counseling in [place] As of 13wks no longer taking Klonopin [...] on file documented as of this encounter Patient Instructions * Patient Instructions* Amie Kong MD - 12/01/2024 10:25 AM EST Our Palliative Medicine Clinic is available Friday through Friday during business hours, so we are unavailable on weekends and holidays. Please ensure that you request refills early in the week as itmay take 1-2 days for them to be addressed and filled, for authorizations to be approved, or for the pharmacy to order them if needed. You can contact our office at [phone], which is our clinic in [place], or you can message us on [employer]. If you have an emergency outside of these hours, we recommend calling your primary care clinic, Oncology office, or going to the ER if you have a medical emergency. FOR PAIN - Take DILAUDID 2mg EVERY 3 hours as needed for pain - Stop Tylenol - You can take Advil as needed - usually it is a 200mg tablet - Take 3 tablets every SIX hours withfood FOR ANXIETY - Take Xanax two times a day as needed Make the therapist appointment when they call you documented in this encounter Progress Notes * Amie Kong MD - 12/01/2024 10:08 AM EST Images from the original note were not included. Palliative Medicine Outpatient Consult Note [facility] Palliative Medicine Outreach [address] [place] [address] Name: Velma Carr Date: 12/01/2024 Referring Provider: Reason for Consult: Goals of care; Pain and symptom management Patient accompanied by friend Dori and mother, history obtained from all 3. 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 Eyes: anicteric, sclera and conjunctiva normal. Neck: no stridor Chest: normal respiratory effort Abdominal: nondistended Extremities: no edema Neuro: alert, oriented to person, place, and time Psych: normal mood and affect Data Review: External notes reviewed: - Reviewed notes from Dr Munoz, Oncology, plan is to do non-chemo tx and medications for bone protection Lab / Imaging Results: Cr 0.8, normal, LFTs normal, labs all on 11/23 Information obtained from friend and mother for collateral history Discussion with other team members: I discussed patient with Erica Johnson about pts plan of care Decision-making Capacity: Does Patient have Decisional Capacity? y Does Patient have a Healthcare Agent? Y, family Discussion with Patient & Family: Met with patient and family Introduced role of Outpatient Palliative Medicine team and reviewed symptoms as above. Reviewed patient's/family's understanding of current medical situation. She is very anxious, in severe pain, and cannot sleep/eat. Discussed ACP as below Advanced Care Planning: Deferred due to pain ASSESSMENT/PLAN: Velma Carr is a/an 39 year [...] Drug Monitoring Program in compliance with the [facility] regulations before prescribing a controlled substance. For [...] do video visits. Next visit with me. Thank you for this consult. We appreciate the opportunity to take part in the care of your patient. Note routed back to referring provider and PCP No primary care provider on file. I spent a total of 61 minutes on the date of service in preparation, delivery, and documentation ofthe care provided to Velma Carr excluding any time spent in the performance of separately billed services. Amie Kong MD [facility] Palliative Medicine [phone] documented in this encounter Plan of Treatment Upcoming Encounters Date Type Department Care Team (Late st Contact Info) Description 12/02/2024 1:15 PM EST Pharmacy Pharmacy Hematology Oncology [address] [address] [facility], [facility] Hem/Onc [address] [place] [address] 12/03/2024 8:30 AM EST Telemedicine Palliative Medicine, [facility] [address] [facility] 5th [place] [address] Amie Kong MD [address] [place] [address] 12/06/2024 11:00 AM EST Pt Ed by Nurse Hematology/Oncology Shelley Gold [place] [address] [place] [address] Alla, Nurse Hem Onc [facility] [address] [facility] [place], [place] [address] 12/06/2024 12:00 PM EST Immunization/Injection Hematology/Oncology Treatment, [place] [address] [place], [place] [phone] Alla, Chair 2 Hem Onc [facility] [address] [place] [address] 12/06/2024 1:30 PM EST Pharmacy Pharmacy Hematology Oncology [address] [address] [facility], [facility] Hem/Onc [address] [place] [address] Scheduled Referrals Name Type Priority Associated Diagnoses [...] pain- Primary Neoplasm related pain (acute) (chronic) 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
--- OUTSIDE RECORDS SUMMARY | 2024-12-13 16:43 | External Medical Summary | Summary of Care ---
Author Name Unknown Organization [facility] Address [address] [place] [address] Phone [phone] Care Team Providers Care Clinical Nurse Reviewer Name Role Phone Unavailable Primary Care Provider Unavailabl e Reason for Visit * Reason Onset Date Comments Precert Future 12/01/2024 Verzenio/Faslode x/Xgeva Encounter Details Date Type Department Care Team (Late st Contact Info) Description 12/01/2024 Telephone Hematology/Oncology Shelley Gold [place] [address] [place] [phone] Contreras Munoz MD [address] [place] [id number] Precert Future (Verzenio/Faslodex/Xgev a) Allergies Active Allergy [...] Overview (05/13/2019): 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 Increased risk for breast cancer and pancreatic cancer. Monoallelic mutation of CHEK2 gene in female pat ient 05/13/2019 Overview (05/13/2019): pathogenic CHEK2 gene variant (c.1100del, p.[id number]*15). Increased risk for breast cancer, colon cancer [...] any current needs or questions 06/12/2017 Iona Cuveas RN 06/12/17 Problem Action Taken Date entered [...] Overview (01/15/2017): Taking Subutex, followed monthly in [place] [facility] 16mg daily Mental disorder in 01/15/2017 08/26/2017 Overview (02/12/2017): @ [facility] taking Klonopin - ADHD, depression, bipolar -going to counseling in [place] As of 13wks no longer taking Klonopin [...] orders, plans built and routed to provider. [facility] - [facility] regarding Verzenio orders. Awaiting auth. Per Dr. [...] Department Care Team (Latest Contact Info) Description 12/01/2024 1:00 PM EST Pharmacy Pharmacy Hematology Oncology [facility], [address] [address] [facility] [place] Hem/Onc [address] [place] [address] Malignant neoplasm of upper-outer quadrant of right breast in female, estrogen receptor positive (HCC)* 12/02/2024 1:15 PM EST Pharmacy Pharmacy Hematology Oncology [facility], [address] [address] [facility] [place] Hem/Onc [address] [place] [address] 12/03/2024 8:30 AM EST Telemedicine Palliative Medicine, [address] 5th [place] [address] Amie Kong MD [address] [place] [address] 12/06/2024 11:00 AM EST Pt Ed by Nurse Hematology/Oncolog y Scenery Alla [place] [address] [place] [address] Alla, Nurse Hem Onc Scenery [address] [place] [address] 12/06/2024 12:00 PM EST Immunization/Injecti on Hematology/Oncolog y Treatment, [place] [address] [place] [address] Alla, Chair 2 Hem Onc Scenery [address] [place] [address] 12/06/2024 1:30 PM EST Pharmacy Pharmacy Hematology Oncology [address] [address] [facility] [place] Hem/Onc [address] [place] [address] Scheduled Orders Name Type Priority Associated Diagnoses [...]
--- OUTSIDE RECORDS SUMMARY | 2024-12-13 16:43 | External Medical Summary | Summary of Care ---
Author Name Unknown Organization [facility] Address [address] [place] [address] Phone [phone] Care Team Providers Care Mechanical Facilities Technician Name Role Phone Unavailable Primary Care Provider Unavailabl e Reason for Visit * Reason Comments Medication Management Encounter Details Date Type Department Care Team (Late st Contact Info) Description 12/01/2024 1:00 PM [facility] Pharmacy Pharmacy Hematology Oncology [facility] [address] [place] [address] [facility] Hem/Onc [address] [place] [address] Malignant neoplasm of upper-outer quadrant of right [...] Overview (05/13/2019): 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 Increased risk for breast cancer and pancreatic cancer. Monoallelic mutation of CHEK2 gene in female pat ient 05/13/2019 Overview (05/13/2019): pathogenic CHEK2 gene variant (c.1100del, p.[id number]*15). Increased risk for breast cancer, colon cancer [...] by Date resolved education Enrolled in May [facility] 05/14/2017 Kadi Gold RN 05/14/2017 Problem [...] entered Entered by Date resolved education Attended [employer]. 06/21/2017 06/23/2017 Kadi Gold RN 06/23/2017 Problem [...] Overview (01/15/2017): Taking Subutex, followed monthly in [place] [facility] 16mg daily Mental disorder in 01/15/2017 08/26/2017 Overview (02/12/2017): @ [facility] taking Klonopin - ADHD, depression, bipolar -going to counseling in [place] As of 13wks no longer taking Klonopin [...] this encounter Progress Notes * Genny Whitley, [facility] - 12/01/2024 11:36 AM EST MEDICATION THERAPY MANAGEMENT ABEMACICLIB INITIAL INTAKE NOTE Velma Carr [phone] Patient Phone Numbers Communication: Chart review Treatment: Medication: Abemaciclib (Verzenio) Indication/Staging/Diagnosis Code: ER+/NM+/HER2- breast cancer / C50.411 Dose: 150mg BID Administration: +/- food Start Date: Primary Instantizer Operator/Oncologist: Dr. Deion Munoz Supportive Care Meds: Xgeva Fulvestrant Letrozole 2.5mg daily Ondansetron Prophylactic Meds: None Review of therapy: Line of therapy: first Previous therapy: none Reviewed dosage prescribed for appropriateness (based on indication, hepatic function,renal function, etc): no changes Are appropriate supportive care medications prescribed? Yes Are appropriate prophylactic medications prescribed? No, none needed Have baseline labs/tests been obtained? Yes Has hepatitis B screening been completed? Yes Potential drug-drug drug-herbal, drug-food, drug-disease interactions: No The Hematology/Oncology Oral Chemotherapy Clinic will assess medication compliance at each patient encounter Assessment and Plan: Per OV 12/01/24, pt has h/o IV substance misuse and currently taking buprenorphine [place] plan uploaded and sent to Dr. Munoz for signature MTM to follow up in 1 day for intro/med rec and 3 days to assess beacon plan signature and auth status Yes/no Date Action Taken [place] plan entered? yes 12/01/24 Consent completed? yes 12/01/24 Intro/med rec completed? Precert completed? Test claim completed? Financial assistance needed? Physician signature? Rx released? Education completed? Follow up: 1 and 3 days Genny Whitley, PharmD, BCOP Clinical Pharmacist, [facility] Oral Chemotherapy [facility] 12/01/2024, 12:17 PM Monitoring Parameters: Estimated CrCl Serum creatinine: [...] Antibodies IgG and IgM Negative Negative test Hcg ordered and to be obtained 12/06/24 Suggested lab monitoring Suggested labs: CBC with [...] reproductivepotential). Treatment Parameters Per PI Pertinent labs: Latest Reference Range & Units 11/23/24 13:08 WBC 4.00 - 10.80 K/uL 6.02 RBC 3.85 - 5.15 M/uL 4.27 HGB 12.0 - 15.3 g/dL 12.6 HCT 36.0 - 45.2 % 38.8 MCV 81.5 - 97.5 fL 90.9 MCH 27.0 - 34.0 pg 29.5 MCHC 32.0 - 36.0 g/dL 32.5 RDW 11.5 - 15.5 % 12.7 PLT 140 - 400 K/uL 279 MPV 6.6 - 11.1 fL 11.2 CBC WITH WBC DIFFERENTIAL Rpt Absolute Neutrophils 1.80 - 7.70 K/uL 4.14 Latest Reference Range & Units 11/23/24 13:08 Albumin 3.8 - 5.0 g/dL 4.7 AST 10 - 35 U/L 14 ALT 10 - 35 U/L 5 (L) Alkaline Phosphatase 35 - 130 U/L 95 Bilirubin, Total <=1.2 mg/dL 0.2 Time Spent on Encounter: 16 - 20 minutes Encounter Group: Oncology Encounter Interventions Item Category: Oral Chemotherapy Abemaciclib Problem/Rationale: Indication: Needs additional medication therapy - Untreated condition [place] Plan Review: Initial Plan/upload Pharmacist Intervention(s): Drug Interaction Screen, Lab monitoring, and Referral review Magnitude of Intervention: Monitoring with direction (Level 1) documented in this encounter Plan of Treatment Upcoming Encounters Date Type Department Care Team (Late st Contact Info) Description 12/02/2024 1:15 PM EST Pharmacy Pharmacy Hematology Oncology [facility] [address] [place] [address] [facility] [place] [facility] Hem/Onc [address] [place] [address] 12/03/2024 8:30 AM EST Telemedicine Palliative Medicine, [address] 5th [place] [address] Amie Kong MD [address] [facility] [place] [address] 12/06/2024 11:00 AM EST Pt Ed by Nurse Hematology/Oncology Scenery Alla [place] [address] [place] [id number] Alla, Nurse Hem Onc Scenery [address] [place] [address] 12/06/2024 12:00 PM EST Immunization/Injection Hematology/Oncology Treatment, [place] [address] [place] [phone] Alla, Chair 2 Hem Onc Scenery [address] [place] [address] 12/06/2024 1:30 PM EST Pharmacy Pharmacy Hematology Oncology [facility] [address] [place] [address] [facility] [place] Hem/Onc [address] [place] [address] Health Maintenance Due Date Last Done Comments [...]
--- OUTSIDE RECORDS SUMMARY | 2024-12-13 16:43 | External Medical Summary | Summary of Care ---
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 Increased risk for breast cancer and pancreatic cancer. 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 Increased risk for breast cancer, colon cancer [...] Date resolved Educational classes Encouraged pt attend [employer] classes 03/20/2017 Kadi Gold RN 03/20/2017 Problem [...] by Date resolved education Enrolled in May [facility] 05/14/2017 Kadi Gold RN 05/14/2017 [...] entered Entered by Date resolved education Attended [facility]. 06/21/2017 06/23/2017 Kadi Gold [...] Overview (01/15/2017): Taking Subutex, followed monthly in [place] [facility] 16mg daily Mental disorder in 01/15/2017 08/26/2017 Overview (02/12/2017): @ [facility] taking Klonopin - ADHD, depression, bipolar -going to counseling in [place] As of 13wks no longer taking Klonopin [...] 1:00 PM EST Pharmacy Pharmacy Hematology Oncology [facility] [address] [place] [address] [facility] [place] Hem/Onc [address] [place] [address] Malignant neoplasm of upper-outer quadrant of right breast in female, estrogen receptor positive (HCC)* 12/02/2024 1:15 PM EST Pharmacy Pharmacy Hematology Oncology [facility] [address] [place] [address] [facility] [place] Hem/Onc [address] [place] [address] 12/03/2024 8:30 AM EST Telemedicine Palliative Medicine, [facility] [address] [facility] 5th [place] [address] Amie Kong MD [address] [place] [address] 12/06/2024 11:00 AM EST Pt Ed by Nurse Hematology/Oncolog y Scenery Alla [place] [address] [place] [address] Alla, Nurse Hem Onc Scenery [address] [place] [address] 12/06/2024 12:00 PM EST Immunization/Injecti on Hematology/Oncolog y Treatment, [place] [address] [place] [phone] Alla, Chair 2 Hem Onc Scenery [address] [place] [address] 12/06/2024 1:30 PM EST Pharmacy Pharmacy Hematology Oncology [facility] [address] [place] [address] [facility] [place] Hem/Onc [address] [place] [facility] [place] [address] Health Maintenance Due Date Last Done Comments [...]
--- OUTSIDE RECORDS SUMMARY | 2024-12-13 16:43 | External Medical Summary | Summary of Care ---
Author Name Unknown Organization [facility] Address [address] [place] [address] Phone [phone] Care Team Providers Care Tableau Administrator Name Role Phone Unavailable Primary Care Provider Unavailabl e Reason for Visit * Reason Onset Date Comments Precert Future 12/01/2024 Verzenio/Faslode x/Xgeva Encounter Details Date Type Department Care Team (Late st Contact Info) Description 12/01/2024 Telephone Hematology/Oncology Shelley Gold [place] [address] [place] [address] Suri Munoz MD [address] [place] [address] Precert Future (Verzenio/Faslodex/Xgev a) Allergies Active Allergy [...] Overview (05/13/2019): 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 Increased risk for breast cancer and pancreatic cancer. 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 Increased risk for breast cancer, colon cancer [...] by Date resolved education Enrolled in May [facility] 05/14/2017 Kadi Gold RN 05/14/2017 Problem Action [...] Overview (01/15/2017): Taking Subutex, followed monthly in [place] @ [facility] 16mg daily Mental disorder in 01/15/2017 08/26/2017 Overview (02/12/2017): @ [facility] taking Klonopin - ADHD, depression, bipolar -going to counseling in [place] As of 13wks no longer taking Klonopin [...] encounter Miscellaneous Notes * Addendum Note - Suri Munoz MD [...] 1:00 PM EST Pharmacy Pharmacy Hematology Oncology [address] [address] [facility] [place], [facility] Hem/Onc [address] [place] [address] Malignant neoplasm of upper-outer quadrant of right breast in female, estrogen receptor positive (HCC)* 12/02/2024 1:15 PM EST Pharmacy Pharmacy Hematology Oncology [address] [address] [facility] [place], [facility] Hem/Onc [address] [place] [address] 12/03/2024 8:30 AM EST Telemedicine Palliative Medicine, [address] 5th Floor [place], [place] [phone] Amie Kong MD [address] [place] [phone] 12/06/2024 11:00 AM EST Pt Ed by Nurse Hematology/Oncolog y [place] [place] [address] [place] [phone] Alla Nurse Hem Onc Scenery [address] [place] [address] 12/06/2024 12:00 PM EST Immunization/Injecti on Hematology/Oncolog y Treatment, [place] [address] [place] [address] Alla, Chair 2 Hem Onc Scenery [address] [place] [address] 12/06/2024 1:30 PM EST Pharmacy Pharmacy Hematology Oncology [facility] [address] [place] [address] [facility] [place], [facility] Hem/Onc [address] [place] [address] Scheduled Orders Name Type Priority Associated Diagnoses [...]
--- OUTSIDE RECORDS SUMMARY | 2024-12-13 16:44 | External Medical Summary | Summary of Care ---
Author Name Unknown Organization [facility] Address [address] [place] [address] Phone [phone] Care Team Providers Care Buffing Machine Operator Semiautomatic Name Role Phone Unavailable Primary Care Provider Unavailabl e Reason for Visit * Reason Onset Date Comments Precert Future 12/01/2024 Verzenio/Faslode x/Xgeva Encounter Details Date Type Department Care Team (Late st Contact Info) Description 12/01/2024 Telephone Hematology/Oncology Shelley Gold [place] [address] [place] [address] Contreras Munoz MD [address] [place] [address] Precert Future (Verzenio/Faslodex/Xgev a) Allergies Active Allergy [...] Overview (05/13/2019): 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 Increased risk for breast cancer and pancreatic cancer. 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 Increased risk for breast cancer, colon cancer [...] by Date resolved education Enrolled in May [facility] 05/14/2017 Kadi Gold RN 05/14/2017 Problem Action Taken Date entered Entered by Date resolved Breast pump Form completed. 05/14/2017 aKdi Gold RN 05/14/2017 Problem Action [...] Overview (01/15/2017): Taking Subutex, followed monthly in [place] [facility] 16mg daily Mental disorder in 01/15/2017 08/26/2017 Overview (02/12/2017): @ [facility] taking Klonopin - ADHD, depression, bipolar -going to counseling in [place] As of 13wks no longer taking Klonopin [...] this medication you wish to proceed with. - Xgeva is also non-preferred, they prefer [...] 1:00 PM EST Pharmacy Pharmacy Hematology Oncology [address] [address] [facility] [place] [facility] Hem/Onc [address] [place] [address] Malignant neoplasm of upper-outer quadrant of right breast in female, estrogen receptor positive (HCC)* 12/02/2024 1:15 PM EST Pharmacy Pharmacy Hematology Oncology [address] [address] [facility] [place] Hem/Onc [address] [place] [address] 12/03/2024 8:30 AM EST Telemedicine Palliative Medicine, [facility] 400 [facility] 5th [place] [address] Amie Kong MD [address] [place] [address] 12/06/2024 11:00 AM EST Pt Ed by Nurse Hematology/Oncolog y Scenery Alla [place] [address] [place] [address] Alla, Nurse Hem Onc Scenery [address] [place] [address] 12/06/2024 12:00 PM EST Immunization/Injecti on Hematology/Oncolog y Treatment, [place] [address] [place] [address] Alla, Chair 2 Hem Onc Scenery [address] [place] [address] 12/06/2024 1:30 PM EST Pharmacy Pharmacy Hematology Oncology [address] [address] [facility] [place] Hem/Onc [address] [place] [address] Scheduled Orders Name Type Priority Associated Diagnoses [...]
--- OUTSIDE RECORDS SUMMARY | 2024-12-13 16:44 | External Medical Summary | Summary of Care ---
Author Name Unknown Organization [facility] Address [address] [place] [address] Phone [phone] Care Team Providers Care Desizing Machine Operator Name Role Phone Unavailable Primary Care Provider Unavailabl e Reason for Referral * Evaluate & Treat - Unlimited Visits (Within 3 days (urgent)) - Authorized Specialty Diagnoses / Procedures Referred By Contlizzette t Referred To Contact Hospice and Palliative Medicine / Palliative Medicine Diagnoses Malignant neoplasm of upper-outer quadrant of right breast in female, estrogen receptor positive (HCC) Contreras Munoz MD [address] [place] [address] Phone: tel: fax: Referral ID Status Reason Start Date Expiration Date Visits Requested Visits Authorized [id number] Authorized Specialty Services Required 11/30/[phone] Question Answer Referral Priority Within 3 days (urgent) Where should this appointment be scheduled? Joss Reason for Referral: Cancer Palliative Medicine To Address: Pain & Symptom Management Referral Location Office Reason for Visit * Reason Onset Date Comments Advice 11/29/2024 Red flag pain Encounter Details Date Type Department Care Team (Late st Contact Info) Description 11/29/2024 Telephone Hematology/Oncology [facility] [address] [place] [address] Services, Scheduling [address] [place] [address] Advice (Red flag pain ) Allergies Active Allergy Reactions Criticality Noted Date Comments Naloxone Edema face/lips/tongue High 01/15/2017 documented as of this encounter (statuses as of 11/30/2024) Medications buprenorphine HCl (SUBUTEX) [address] 1 Tablet under the tongue in the morning. Active 28-0.8 MG TABS Take by mouth. Activ e Acetaminophen (TYLENOL) 325 MG CAPS Take by mouth. Activ e ondansetron (ZOFRAN) 4 MG TabletIndicatio ns:Nausea/vomit ing in Use as needed for nausea 30 Tab 1 7 Active Additional Information Patient not taking.Reported on 11/04/2024 folic acid 1 MG TabletIndicatio ns:Family history [...] the morning. In the morning.. 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 Increased risk for breast cancer and pancreatic cancer. 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 Increased risk for breast cancer, colon cancer and thyroid cancer. Attention deficit hyperactiv ity disorder (ADHD), combined type 07/10/2016 Anxiety state 12/12/2011 Depression 12/12/2011 Rosacea 04/30/2006 RHINITIS DUE TO POLLEN documented as of this encounter (statuses as of 11/30/2024) Resolved Problems Problem Noted Date Diagnosed Date Resolved Date Carrier of group B Streptococcus 07/25/2017 08/26/2017 Overview (07/25/2017): + RV culture , normal first 01/15/201701/2017 Overview (08/20/2017): Problem Action Taken Date entered Entered by Date resolved Educational classes Encouraged pt attend [employer] classes 03/20/2017 Kadi Gold RN 03/20/2017 Problem [...] by Date resolved education Enrolled in May [facility] 05/14/2017 Kadi Gold RN 05/14/2017 [...] entered Entered by Date resolved education Attended [facility]. 06/21/2017 06/23/2017 Kadi Gold RN [...] Date resolved gbs + Rationale discussed 07/30/2017 Kdai Gold RN 07/30/2017 06/25/2017 Tdap Vaccine administered [...] Overview (01/15/2017): Taking Subutex, followed monthly in [place] [facility] 16mg daily Mental disorder in 01/15/2017 08/26/2017 Overview (02/12/2017): @ [facility] taking Klonopin - ADHD, depression, bipolar -going to counseling in [place] As of 13wks no longer taking Klonopin [...] as of this encounter (statuses as of 11/30/2024) Immunizations Name Administration Dates Next Due Seasonal Influenza Vac., MDV, IM, 0.5 mL (Fluzon e) 09/24/2013,12/12/2011 Seasonal Influenza, PF, 6 M & above, IM , (FluLaval or Fluzone) 11/01/2019,10/07/2018 Seasonal Influenza, Quadrivalent, No Preserve, I M 08/13/2017 TDAP (age 10 and older)(Boostrix) 06/25/2017, documented [...] Telephone Encounter - Najma Schaffer RN - 11/30/2024 2:[address] Munoz reviewed PET- he will discuss results with patient at office visit tomorrow, but would like palliative referral placed. Discussed with palliative care, appt added for 11am to save the spot when patient comes tomorrow. * Telephone Encounter - Najma Schaffer RN - 11/29/2024 2:59 PM EST Called patient. She states that she is in bed, unable to get up due to severe pain. States that pain is in her hips, down her legs, and into her ankles. Has been having full body aches for a month now, seems to be getting more severe. Advised patient that due to severity of pain, should go to ER for acute evaluation. Patient states that she does not feel she needs to go to the ER because she knows that her pain is from her cancer being metastatic throughout her body. No imaging for this in chart- advised her that Dr Munoz is offtoday, but we will need imaging to confirm why she is having pain before prescribing anything. PET is tomorrow, but advised patient that due to severity of pain should go to ER prior. Patient states that she discussed this with Dr Munoz already and he said he would prescribe her something. Advised her that I would be making Dr Munoz aware of pain as well, but if pain continues to be severe should go to ER prior to talking to him. She verbalized understanding. * Telephone Encounter - Rona Pritchard OSA - 11/29/2024 2:45 PM EST Patient alling states she is having really bad pain asking to speak to someone documented in this encounter Plan of Treatment Upcoming Encounters Date Type Department Care Team (Late st Contact Info) Description 12/01/2024 9:00 AM EST Office Visit Hematology/Oncology [address] [place] [phone] Contreras Munoz MD [address] [facility] [place] [address] 12/01/2024 11:00 AM EST Office Visit Palliative Medicine [facility] [place] [address] [facility] [place] [phone] Amie Kong MD [address] [place] [address] [place] [address] Scheduled Referrals Name Type Priority Associated Diagnoses Orde r Schedule PALLIATIVE CARE REFERRAL OP Referral Within 3 days (urgent) Malignant neoplasm of upper-outer quadrant of right breast in female, estrogen receptor positive (HCC) Ordered: 11/30/2024 Health Maintenance Due Date Last Done Comments Hepatitis C Screening 2004 Pneumococcal Vaccine: Pediatrics (0 to 5 Years) and At-Risk Patients (6 to 18 Years and 19+ Years) (1 of 2 - PCV) 2005 HPV/Co-Test 2016 Depression Monitoring 01/15/2018 01/15/2017 Cervical Cancer Screening 01/15/2020 Pap Smear 01/15/2020 01/15/2017, 04/24 (Done elsewhere) COVID-19 Vaccine ( season) 2024 Influenza Vaccine (FLU shot) (#1) 2024 11/01/2019, 10/07/2018, 08/13/2017, Additional history exists DTap/Tdap Vaccines (8 - Td or Tdap) 06/25/2027 06/25/2017, 12/08/2013, 07/01/2003, Additional history exists Hepatitis B Vaccine Completed 01/17/1999, 08/16/1998, 07/18/1998 MENINGOCOCCAL (MENACTRA/MENVEO) Aged Out 06/12/2005 No longer eligible based on patient's age to complete this topic HPV (Gardasil) Vaccine Aged Out No lo nger eligible based on patient's age to complete this topic documented as of this encounter Medical Devices Not on filedocumented as of this encounter Visit Diagnoses Diagnosis Malignant neoplasm of upper-outer quadrant of right breast in female, estrogen receptor positive (HCC)- Primary documented in this encounter
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
--- OUTSIDE RECORDS SUMMARY | 2024-12-13 16:44 | External Medical Summary | Summary of Care ---
Author Name Unknown Organization [facility] Address [address] [place] [address] Phone [phone] Care Team Providers Care Senior Technical Trainer Name Role Phone Unavailable Primary Care Provider Unavailabl e Reason for Referral * Evaluate & Treat - Unlimited Visits (Within 24 hrs (call dept; emergent)) - Authorized Specialty Diagnoses / Procedures Referred By Contac t Referred To Contact Hematology/Oncology / Hematology Oncology Diagnoses Infiltrating ductal carcinoma of breast, stage 3, right (HCC) Mulugeta To MD [address] [place] [address] Phone: tel: fax: Referral ID Status Reason Start Date Expiration Date Visits Requested Visits Authorized [id number] Authorized Specialty Services Required 11/29/2024 999 [id number] Question Answer Referral Priority Within 24 hrs (call dept; emergent) Where should this appointment be scheduled? [facility] Reason for Referral Other - Please Comment Comments Breast Cancer. Stat Reason for Visit * Precert (Within 10 days (routine)) - Authorized Specialty Diagnoses / Procedures Referred By Contac t Referred To Contact Radiology Diagnoses Abnormal mammogram Genetic predisposition to breast cancer Mass of multiple sites of right breast Axillary mass, right Procedures MRI BREAST BILATERAL W WO CONTRAST Kadi Watters PA-C [address] [place] [address] Phone: tel: fax: Referral ID Status Reason Start Date Expiration Date V isits Requested Visits Authorized [id number] Authorized 11/08/2024 999 [id number] Encounter Details Date Type Department Care Team (Late st Contact Info) Description 11/09/2024 2:30 PM EST Imaging Radiology [facility], [address] [place] [address] Infiltrating ductal carcinoma of breast, stage 3, right (HCC)* Allergies Active Allergy Reactions Criticality Noted Date Comments Naloxone Edema face/lips/tongue High 01/15/2017 documented as of this encounter (statuses as of 11/29/2024) Medications buprenorphine HCl (SUBUTEX) 8 MG Sublingual [...] to breast imaging/biopsy. 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 Increased risk for breast cancer and pancreatic cancer. Monoallelic mutation of CHEK2 gene in female pat ient 05/13/2019 Overview (05/13/2019): pathogenic CHEK2 gene variant (c.1100del, p.[id number]*15). Increased risk for breast cancer, colon cancer and thyroid cancer. Attention deficit hyperactiv ity disorder (ADHD), combined type 07/10/2016 Anxiety state 12/12/2011 Depression 12/12/2011 Rosacea 04/30/2006 RHINITIS DUE TO POLLEN documented as of this encounter (statuses as of 11/29/2024) Resolved Problems Problem Noted Date Diagnosed Date [...] Overview (01/15/2017): Taking Subutex, followed monthly in [place] [facility] 16mg daily Mental disorder in 01/15/2017 08/26/2017 Overview (02/12/2017): @ [facility] taking Klonopin - ADHD, depression, bipolar -going to counseling in [place] As of 13wks no longer taking Klonopin [...] as of this encounter (statuses as of 11/29/2024) Immunizations Name Administration Dates Next Due Seasonal [...] Description 11/30/2024 11:45 AM EST Imaging Radiology [facility] [address] [place] [address] 12/01/2024 9:30 AM EST Office [facility] [place] [address] [facility] [place] [address] Contreras Munoz MD [address] [facility] [place] [address] Scheduled Referrals Name Type Priority Associated Diagnoses Orde r Schedule HEMATOLOGY/ONCOLOGY REFERRAL OP Referral Within 24 hrs (call dept; emergent) Infiltrating ductal carcinoma of breast, stage 3, right (HCC) Ordered: 11/29/2024 Health Maintenance Due Date Last Done Comments [...] Procedure Name Priority Date/Time Associated Diagnosis Comments MRI BREAST BILATERAL W WO CONTRAST Routine 11/09/2024 3:25 PM EST Abnormal mammogram Genetic predisposition to breast cancer Mass of multiple sites of right breast Axillary mass, right documented in this encounter Visit Diagnoses Diagnosis Infiltrating ductal carcinoma of breast, stage 3, right (HCC)- Primary documented in this encounter Administered Medications Inactive Administered Medications - up to 3 most recent administrations Medication Order MAR Action Action Date Dose Rate Site gadobutrol (Gadavist) inj 7 mL 7 mL, Intravenous, ONCE, On Fri11/09/24 at 1429, For 1 dose Given 11/09/2024 2:56 PM EST 7 mL Antecubital Right sodium chloride 0.9 % flush/inj 50 mL 50 mL, IV Push, ONCE, On Fri11/09/24 at 1429, For 1 dose, Do not flush if lock, PICC, or central line not in place; IV infusing or unable to flush. Given 11/09/2024 2:56 PM EST 50 mL Antecubital Right documented in this encounter
--- OUTSIDE RECORDS SUMMARY | 2024-12-13 16:44 | External Medical Summary | Summary of Care ---
Author Name Unknown Organization [facility] Address [address] [place] [address] Phone [phone] Care Team Providers Care Hris Analyst Name Role Phone Unavailable Primary Care Provider Unavailabl e Reason for Referral * Precert (Within 24 hrs (call dept; emergent)) - Authorized Specialty Diagnoses / Procedures Referred By Contac t Referred To Contact Radiology Diagnoses Status post right breast biopsy Monoallelic mutation of LEONEL gene Procedures PET CT WHOLE BODY FDG Mulugeta To MD [address] [facility] [place] [address] Phone: tel: fax: Referral ID Status Reason Start Date Expiration Date V isits Requested Visits Authorized [id number] Authorized 11/30/2024 999 [id number] Encounter Details Date Type Department Care Team (Late st Contact Info) Description 11/05/2024 2:30 PM EST Imaging Radiology [address] [facility] [place] [address] Monoallelic mutation of LEONEL gene*; Status post right breast biopsy Allergies Active Allergy Reactions Criticality Noted Date [...] to breast imaging/biopsy. 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 Increased risk for breast cancer and pancreatic cancer. Monoallelic mutation of CHEK2 gene in female pat ient 05/13/2019 Overview (05/13/2019): pathogenic CHEK2 gene variant (c.1100del, p.[id number]*15). Increased risk for breast cancer, colon cancer [...] Date resolved Educational classes Encouraged pt attend [employer] classes 03/20/2017 Kadi Gold RN 03/20/2017 Problem [...] Overview (01/15/2017): Taking Subutex, followed monthly in [place] @ [facility] 16mg daily Mental disorder in 01/15/2017 08/26/2017 Overview (02/12/2017): @ [facility] taking Klonopin - ADHD, depression, bipolar -going to counseling in [place] As of 13wks no longer taking Klonopin [...] Description 11/30/2024 11:45 AM EST Imaging Radiology [address] 132 [facility] [place] [address] 12/01/2024 9:30 AM EST Office Visit Hematology/Oncology [facility] [address] [place] [id number] Contreras Munoz MD [address] [facility] [place] [address] Scheduled Orders Name Type Priority Associated Diagnoses Orde r Schedule PET CT WHOLE BODY FDG Medical Imaging STAT Status post right breast biopsy Monoallelic mutation of LEONEL gene Expected: 11/30/2024, Expires: 12/30/2025 Health Maintenance Due Date Last Done Comments [...] Procedure Name Priority Date/Time Associated Diagnosis Comments MAMMOGRAM POST BIOPSY CLIP PLACEMENT Routine 11/05/2024 2:38 PM EST Status post right breast biopsy documented in this encounter Results * MAMMOGRAM POST BIOPSY CLIP PLACEMENT (11/05/2024 2:38 PM EST) Anatomical Region Laterality Modality Breast Mammography 11/05/2024 4:28 PM EST Addenda Addendum by Inge Verma MD on 11/16/2024 10:14 AM EST ADDENDUM: Pathology: A. 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 Lymph Node, Right Axillary, Right AXILLA US guided core biopsy, core biopsy: High grade carcinoma The imaging and pathologic findings are concordant. Surgical and oncology consultation are recommended. The results were discussed with the patient at the time of appointment with the breast surgeon, 11/12/2024. Impressions 11/05/2024 4:25 PM EST IMPRESSION Ultrasound-guided core biopsy of right breast index lesion 10 o'clock, posterior depth upper-outer quadrant 10/11 o'clock nodule, and right axillary lymphadenopathy performed with placement of biopsy markers in good position. Narrative 11/05/2024 4:25 PM EST EXAM US GUIDED BREAST BIOPSY RIGHT; MAMMOGRAM POST BIOPSY CLIP PLACEMENT- 11/05/2024 2:08 pm; 11/05/2024 2:38 pm-3 sites HISTORY right breast and axillary mass; clip placement COMPARISON No Comparison. TECHNIQUE See below FINDINGS A timeout procedure was performed Inge Verma M.D. in the presence of Mitzy Ag. The patient's identification was verified. After discussion of the risks, benefits, and alternatives to the procedure as well as a detailed explanation of the procedure, the patient was given the opportunity to ask questions. After her questions were answered to her satisfaction, informed consent with agreement of procedure, site, and position was obtained. The procedure matches the verbalized consent. All necessary equipment was available prior to procedure. The side of the intended procedure was marked on the skin. Patient has allergy to naloxone. She has no known blood dyscrasias and is not taking anticoagulant medication. Preliminary ultrasound redemonstrates the index mass right breast 10 o'clock 3 cm from the nipple 27 x 29 x 20 mm Site A, a 10/11 o'clock 6 cm from the nipple hypoechoic 6 x 9 x 5 mm nodule located 3 cm from the index lesion margin labeled site B, and right axillary lymphadenopathy measuring 16 x 17 x 13. Note was made that there was a vessel adjacent to the deep 10/11 o'clock 6 x 9 x 5 mm nodule. Note was made that the pathologic lymph node and surrounding soft tissues was very vascular. Site A 10 o'clock 3 cm from the nipple: Using aseptic technique, local anesthesia with buffered 1% lidocaine, and ultrasound guidance, core biopsy was performed via a lateral to medial approach parallel to the chest wall. Three passes through the target were documented yielding good cores. A heart shaped biopsy marker was placed in the nodule. No was made that despite the patient not taking anticoagulants medications, she easily bruised. She later indicated that she bruises easily. Site B 10/11 o'clock 6 cm from the nipple:Using aseptic technique, local anesthesia with buffered 1% lidocaine superficially and 1% lidocaine mixed with 2% epinephrine more deeply, and ultrasound guidance, core biopsy was performed using an Inrad 14 gauge device via a lateral to medial approach parallel to the chest wall. Three passes through the target were documented yielding good cores. A ribbon shaped biopsy marker was placed in the nodule. Right axillary lymphadenopathy:Using aseptic technique, local anesthesia with buffered 1% lidocaine superficially and 1% lidocaine mixed with 2% epinephrine more deeply, and ultrasound guidance, core biopsy was performed using an Inrad 14 gauge device via a lateral to medial approach parallel to the chest wall. Three passes through the target were documented yielding good cores. A Tumark biopsy marker was placed in the lymph node. Post biopsy mammogram demonstrates the heart shaped biopsy marker in the index lesion at 10 o'clock, the ribbon shaped biopsy marker adjacent to a 5 mm nodule at posterior depth upper-outer quadrant, and Tumark biopsy marker within the pathologically enlarged axillary lymph node. The patient tolerated the procedure well, and there were no complications. Specimens were sent to surgical pathology and results are pending. Written discharge instructions were given to the patient and also the reviewed verbally with her. The patient expressed understanding of the instructions and was discharged from the department in stable condition. Procedure Note Inge Verma MD - 11/05/2024 EXAM US GUIDED BREAST BIOPSY RIGHT; MAMMOGRAM POST BIOPSY CLIP PLACEMENT-11/05/2024 2:08 pm; 11/05/2024 2:38 pm-3 sites HISTORY right breast and axillary mass; clip placement COMPARISON No Comparison. TECHNIQUE See below FINDINGS A timeout procedure was performed Inge Verma M.D. in the presenceof Mitzy Ag. The patient's identification was verified. Afterdiscussion of the risks, benefits, and alternatives to the procedure aswell as a detailed explanation of the procedure, the patient was given theopportunity to ask questions. After her questions were answered to hersatisfaction, informed consent with agreement of procedure, site, andposition was obtained. The procedure matches the verbalized consent. Allnecessary equipment was available prior to procedure. The side of theintended procedure was marked on the skin. Patient has allergy tonaloxone. She has no known blood dyscrasias and is not takinganticoagulant medication. Preliminary ultrasound redemonstrates the index mass right breast 10o'clock 3 cm from the nipple 27 x 29 x 20 mm Site A, a 10/11 o'clock 6 cmfrom the nipple hypoechoic 6 x 9 x 5 mm nodule located 3 cm from the indexlesion margin labeled site B, and right axillary lymphadenopathy [id number] x 17 x 13. Note was made that there was a vessel adjacent to the deep10/11 o'clock 6 x 9 x 5 mm nodule. Note was made that the pathologiclymph node and surrounding soft tissues was very vascular. Site A 10 o'clock 3 cm from the nipple: Using aseptic technique, localanesthesia with buffered 1% lidocaine, and ultrasound guidance, corebiopsy was performed via a lateral to medial approach parallel to thechest wall. Three passes through the target were documented yielding goodcores. A heart shaped biopsy marker was placed in the nodule. No wasmade that despite the patient not taking anticoagulants medications, sheeasily bruised. She later indicated that she bruises easily. Site B 10/11 o'clock 6 cm from the nipple:Using aseptic technique, localanesthesia with buffered 1% lidocaine superficially and 1% lidocaine mixedwith 2% epinephrine more deeply, and ultrasound guidance, core biopsy wasperformed using an Inrad 14 gauge device via a lateral to medial approachparallel to the chest wall. Three passes through the target weredocumented yielding good cores. A ribbon shaped biopsy marker was placedin the nodule. Right axillary lymphadenopathy:Using aseptic technique, local anesthesiawith buffered 1% lidocaine superficially and 1% lidocaine mixed with 2%epinephrine more deeply, and ultrasound guidance, core biopsy wasperformed using an Inrad 14 gauge device via a lateral to medial approachparallel to the chest wall. Three passes through the target weredocumented yielding good cores. A Tumark biopsy marker was placed in thelymph node. Post biopsy mammogram demonstrates the heart shaped biopsy marker in theindex lesion at 10 o'clock, the ribbon shaped biopsy marker adjacent to a5 mm nodule at posterior depth upper-outer quadrant, and Tumark biopsymarker within the pathologically enlarged axillary lymph node. The patient tolerated the procedure well, and there were no complications.Specimens were sent to surgical pathology and results are pending.Written discharge instructions were given to the patient and also thereviewed verbally with her. The patient expressed understanding of theinstructions and was discharged from the department in stable condition. IMPRESSION IMPRESSION Ultrasound-guided core biopsy of right breast index lesion 10 o'clock,posterior depth upper-outer quadrant 10/11 o'clock nodule, and rightaxillary lymphadenopathy performed with placement of biopsy markers ingood position. us Kadi Watters PA-C RAD MAMMOGRAPHY Edited R esult - Final documented in this encounter Visit Diagnoses Diagnosis Monoallelic mutation of LEONEL gene- Primary Status post right breast biopsy Other postprocedural status documented in this encounter
--- OUTSIDE RECORDS SUMMARY | 2024-12-13 16:44 | External Medical Summary | Summary of Care ---
Author Name Unknown Organization [facility] Address [address] [place] [address] Phone [phone] Care Team Providers Care Embosser Operator Name Role Phone Unavailable Primary Care Provider Unavailabl e Encounter Details Date Type Department Care Team (Late st Contact Info) Description 12/01/2024 Orders Only Hematology/Oncology [employer] [address] [facility] [place] [address] Contreras Munoz MD 200 [facility] [place] [address] Allergies Active Allergy Reactions Criticality Noted Date [...] for nausea 30 Tablet 1 5 Active documented as of this encounter (statuses as of 12/01/2024) Active Problems Problem Noted Date Diagnosed Date Malignant neoplasm of upper- outer quadrant of right breast in female, estrogen receptor positive 12/01/2024 Metastasis to bone 12/01/2024 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 Increased risk for breast cancer and pancreatic cancer. Monoallelic mutation of CHEK2 gene in female pat ient 05/13/2019 Overview (05/13/2019): pathogenic CHEK2 gene variant (c.1100del, p.[id number]*15). Increased risk for breast cancer, colon cancer [...] Date resolved Educational classes Encouraged pt attend [employer] classes 03/20/2017 Kadi Gold RN 03/20/2017 Problem [...] by Date resolved education Enrolled in May [facility] 05/14/2017 Kadi Gold RN 05/14/2017 Problem [...] entered Entered by Date resolved education Attended [facility]. 06/21/2017 06/23/2017 Kadi Gold RN 06/23/2017 [...] Overview (01/15/2017): Taking Subutex, followed monthly in [place] [facility] 16mg daily Mental disorder in 01/15/2017 08/26/2017 Overview (02/12/2017): @ [facility] taking Klonopin - ADHD, depression, bipolar -going to counseling in [place] As of 13wks no longer taking Klonopin [...] st Contact Info) Description 12/01/2024 1:00 PM EST Pharmacy Pharmacy Hematology Oncology [facility] [address] [place] [address] [facility], [facility] Hem/Onc [address] [place] [address] 12/03/2024 8:30 AM EST Telemedicine Palliative Medicine, [address] 5th [address] [place], [place] [id number] Amie Kong MD [address] [place] [address] 12/06/2024 11:00 AM EST Pt Ed by Nurse Hematology/Oncology [place] [place] [address] [place] [address] Alla Nurse Hem Onc [facility] [address] [place] [address] Health Maintenance Due Date Last Done Comments [...]
--- OUTSIDE RECORDS SUMMARY | 2024-12-13 16:44 | External Medical Summary | Summary of Care ---
Author Name Unknown Organization [facility] Address [address] [place] [address] Phone [phone] Care Team Providers Care Snagger Name Role Phone Unavailable Primary Care Provider Unavailabl e Reason for Visit * Reason Onset Date Comments Precert Future 12/01/2024 Verzenio/Faslode x/Xgeva Encounter Details Date Type Department Care Team (Late st Contact Info) Description 12/01/2024 Telephone Hematology/Oncology [facility] [place] [address] [place] [address] Contreras Munoz MD [address] [place] [address] Precert Future (Verzenio/Faslodex/Xgev a) Allergies Active Allergy [...] Overview (05/13/2019): pathogenic LEONEL gene variant (c.8482C>T, p.[id number]*). Increased risk for breast cancer and pancreatic cancer. Monoallelic mutation of CHEK2 gene in female pat ient 05/13/2019 Overview (05/13/2019): pathogenic CHEK2 gene variant (c.1100del, p.[id number]*15). Increased risk for breast cancer, colon cancer [...] Date resolved education Enrolled in May [facility] 05/14/2017 Kadi Gold RN 05/14/2017 Problem [...] Overview (01/15/2017): Taking Subutex, followed monthly in [place] [facility] 16mg daily Mental disorder in 01/15/2017 08/26/2017 Overview (02/12/2017): @ [facility] taking Klonopin - ADHD, depression, bipolar -going to counseling in [place] As of 13wks no longer taking Klonopin [...] 1:00 PM EST Pharmacy Pharmacy Hematology Oncology [address] [address] [facility], [facility] Hem/Onc [address] [place] [address] 12/03/2024 8:30 AM EST Telemedicine Palliative Medicine, [facility] [address] [facility] 5th [place] [address] Amie Kong MD [address] [place] [address] 12/06/2024 11:00 AM EST Pt Ed by Nurse Hematology/Oncology [place] [address] [place] [address] Alla Nurse Hem Onc [place] [address] [place] [address] 12/06/2024 12:00 PM EST Immunization/Injection Hematology/Oncology Treatment, [place] [address] [place] [address] Alla, Chair 2 Hem Onc [place] [address] [place] [address] Scheduled Orders Name Type Priority Associated Diagnoses [...]
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
--- OUTSIDE RECORDS SUMMARY | 2024-12-13 16:45 | External Medical Summary ---
Author Name Unknown Address Unknown Organization [id number]:[facility] [place] [address] [place] [address] Laboratory Report Ordering Provider Test Date Status STAN MCCORD 11/23/2024 13:08:26 Final Observation Date Value Abnormality Reference (Units ) Status Hep B surface Ag 11/23/2024 13:08:26 Negative Neg ative Final Performing Location [facility] - [address] [place] [address]
--- OUTSIDE RECORDS SUMMARY | 2024-12-13 16:45 | External Medical Summary ---
Author Name Unknown Address Unknown Organization K01:[facility] [address] [place] [address] Laboratory Report Ordering Provider Test Date Status STAN MCCORD 11/23/2024 13:08:26 Final Observation Date Value Abnormality Reference (Units) Status Hepatitis B virus surface Ab [Units/volume] in Serum or Plasma by Immunoassay 11/23/2024 13:08:26 >1000.0 (mIU/mL) Final Hepatitis B virus surface Ab [Presence] in Serum by Immunoassay 11/23/2024 13:08:26 Positive Final HEPATITIS B SURFACE ANTIBODY, INTERPRETATION 11/23/2024 13:08:26 Immune to Hepatitis B Virus Final POSITIVE: >=11.5 mIU/mL
INDETERMINATE: 8.5-<11.5 mIU/mL
NEGATIVE: <8.5 mIU/mL Performing Location LABORATORY [place] [address] [place] [place] [address]
--- OUTSIDE RECORDS SUMMARY | 2024-12-13 16:45 | External Medical Summary | Summary of Care ---
Author Name Unknown Organization [facility] Address [address] [place] [address] Phone [phone] Care Team Providers Care Toll Lineman Name Role Phone Unavailable Primary Care Provider Unavailabl e Reason for Referral * Precert (Within 10 days (routine)) - Authorized Specialty Diagnoses / Procedures Referred By Contac t Referred To Contact Radiology Diagnoses Abnormal mammogram Monoallelic mutation of LEONEL gene Axillary mass, right Procedures PET CT WHOLE BODY FDG Mulugeta Bejarano MD [address] [place] [address] Phone: tel: fax: Referral ID Status Reason Start Date Expiration Date V isits Requested Visits Authorized [id number] Authorized 11/15/2024 999 999 * Precert (Within 10 days (routine)) - Authorized Specialty Diagnoses / Procedures Referred By Contac t Referred To Contact Radiology Diagnoses Abnormal mammogram Genetic predisposition to breast cancer Mass of multiple sites of right breast Axillary mass, right Procedures MRI BREAST BILATERAL W WO CONTRAST Kadi Watters PA-C [address] [place] [address] Phone: tel: fax: Referral ID Status Reason Start Date Expiration Date V isits Requested Visits Authorized [id number] Authorized 11/08/2024 999 999 Reason for Visit * Reason Onset Date Comments Information 11/05/2024 FYI 11/05/2024 Encounter Details Date Type Department Care Team (Late st Contact Info) Description 11/05/2024 Telephone Radiology [facility] [address] [place] [address] Kadi Watters PA-C [address] [place] [address] Information; FYI Allergies Active Allergy Reactions Criticality Noted Date Comments Naloxone Edema face/lips/tongue High 01/15/2017 documented as of this encounter (statuses as of 11/15/2024) Medications buprenorphine HCl (SUBUTEX) 8 MG Sublingual [...] as of this encounter (statuses as of 11/15/2024) Active Problems Problem Noted Date Diagnosed Date 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 Increased risk for breast cancer and pancreatic cancer. Monoallelic mutation of CHEK2 gene in female pat ient 05/13/2019 Overview (05/13/2019): pathogenic CHEK2 gene variant (c.1100del, p.[id number]*15). Increased risk for breast cancer, colon cancer and thyroid cancer. Attention deficit hyperactiv ity disorder (ADHD), combined type 07/10/2016 Anxiety state 12/12/2011 Depression 12/12/2011 Rosacea 04/30/2006 RHINITIS DUE TO POLLEN documented as of this encounter (statuses as of 11/15/2024) Resolved Problems Problem Noted Date Diagnosed Date [...] by Date resolved education Enrolled in May [facility] 05/14/2017 Kadi Gold RN 05/14/2017 Problem [...] entered Entered by Date resolved education Attended [facility]. 06/21/2017 06/23/2017 Kadi Gold RN 06/23/2017 [...] Overview (01/15/2017): Taking Subutex, followed monthly in [place] [facility] 16mg daily Mental disorder in 01/15/2017 08/26/2017 Overview (02/12/2017): @ [facility] taking Klonopin - ADHD, depression, bipolar -going to counseling in [place] As of 13wks no longer taking Klonopin [...] as of this encounter (statuses as of 11/15/2024) Immunizations Name Administration Dates Next Due DTP [...] encounter Miscellaneous Notes * Telephone Encounter - Jenna Browning OSA - 11/15/2024 11:24 AM EST Scheduled on 11/30/2024. * Telephone Encounter - Donna Arnold LPN - 11/15/2024 11:[address] Bejarano ordered a pet scan, could you please get her scheduled. * Addendum Note - Mulugeta Bejarano MD - 11/15/2024 11:07 AM ESTAddended by: MULUGETA BEJARANO on: 11/15/2024 11:07 AM Modules accepted: Orders * Telephone Encounter - Donna Arnold LPN - 11/15/2024 9:23 AM EST She is going to go to see oncology on the . Could you also order her a pet scan as well. * Telephone Encounter - Donna Arnold LPN - 11/15/2024 8:56 AM EST Called and I said that I had Talked to Dr Bejarano and he can order her a pet scan which will show more. We did get her an appt with Oncology Nov 23 at 12. She will go there and see what they say and if she wants it ordered she will give us a call. * Telephone Encounter - Donna Arnold LPN - 11/15/2024 8:43 AM EST Nader texted Dr Bejarano and asked that he call patient. * Telephone Encounter - Donna Arnold LPN - 11/11/2024 10:19 AM EST Her biopsy results are back she just wanted them looked at even though she has appt tomorrow. FYI * Telephone Encounter - Peter Boland OSA - 11/08/2024 1:10 PM EST Pt is scheduled for 11/09 * Telephone Encounter - Donna Arnold LPN - 11/08/2024 11:37 AM EST She would like mri scheduled. * Telephone Encounter - Ade Rodriguez OSA - 11/08/2024 10:04 AM EST Pt called - she remember that she had a TB test on 10/28 - she wanted to make doctor aware of this. * Telephone Encounter - Kadi Watters PA-C - 11/08/2024 9:27 AM EST Patient was called on Friday11/05/2024 4:15 pm. Unable to document telephone encounter. Call patient to review diagnostic breast imaging (mammogram and ultrasound) for the palpable large right breast mass and right axillary mass. Imaging showing 6 masses in the right breast with enlarged axillary mass. Biopsy x 3 (breast x 2 and right axilla). Discussed with patient that we need to await for pathology results however does look concerning for malignancy given multifocal masses and enlarged axillary lymph node. Will recommend breast MRI to further evaluate for multicentric disease and oncology consultation for discussion of neoadjuvant chemotherapy again pending biopsy results. Scheduled patient with Dr. Bejarano On Friday11/12/24 to discuss path results and further work-up. All questions answered to my ability. Kadi Watters PA-C 11/08/2024 9:30 AM * Telephone Encounter - Mitzy Ag RDMS - 11/05/2024 2:26 PM EST Following completion of right breast ultrasound guided core biopsies x 3, discharge instructions were provided and patient expressed understanding. Specimens were delivered to Abelardo in the lab at 2:25pm. documented in this encounter Plan of Treatment Upcoming Encounters Date Type Department Care Team (Late st Contact Info) Description 11/23/2024 12:15 PM EST Office Visit Hematology/Oncology [facility] [address] [place] [address] Contreras uMnoz MD 200 [facility] [place] [address] 11/30/2024 11:45 AM EST Imaging Radiology [address] 132 [facility] [place] [id number] Scheduled Orders Name Type Priority Associated Diagnoses Orde r Schedule PET CT WHOLE BODY FDG Medical Imaging Routine Abnormal mammogram Monoallelic mutation of LEONEL gene Axillary mass, right Expected: 11/15/2024, Expires: 12/16/2025 Health Maintenance Due Date Last Done Comments Hepatitis C Screening 2004 Pneumococcal Vaccine: Pediatrics (0 to 5 Years) and At-Risk Patients (6 to 64 Years) (1 of 2 - PCV) 2005 HPV/Co-Test 2016 Depression Monitoring 01/15/2018 01/15/2017 Cervical Cancer Screening 01/15/2020 Pap Smear 01/15/2020 01/15/2017, 04/24 (Done elsewhere) COVID-19 Vaccine (1 - 2023- season) 2024 Influenza Vaccine (FLU shot) (#1) [...] Axillary mass, right documented in this encounter Results * (ABNORMAL) MRI BREAST BILATERAL W WO CONTRAST (11/09/2024 3:25 PM EST) Anatomical Region Laterality Modality Breast Bilateral Magnetic Resonan ce Narrative 11/11/2024 11:53 AM EST Result MRI BREAST BILATERAL W WO CONTRAST History Abnormal mammogram Genetic predisposition to breast cancer Mass of multiple sites of right breast Axillary mass, right Family medical history includes breast cancer in mother (comments: Mother had Breast Ca 3x). Technique MR (magnetic resonance) imaging was performed utilizing multiple sequences. Following the intravenous administration of gadolinium, dynamic scanning was performed. Kinetic analysis was evaluated with the Ribbon software. Films Compared 11/05/2024 MAMMOGRAM DIAGNOSTIC NISA BILATERAL, 11/05/2024 US BREAST LIMITED RIGHT, 11/05/2024 US GUIDED BREAST BIOPSY RIGHT, 11/05/2024 MAMMOGRAM POST BIOPSY CLIP PLACEMENT, 04/11/2023 MAMMOGRAM SCREENING NISA BILATERAL, and 02/22/2022 MAMMOGRAM SCREENING NISA BILATERAL Findings Left. The left breast has heterogeneous fibroglandular tissue. There is mild background parenchymal enhancement. No suspicious mass or nonmass enhancement is seen. There is no axillary or internal mammary lymphadenopathy. Right. The right breast has heterogeneous fibroglandular tissue. There is moderate background parenchymal enhancement. There is extensive abnormal enhancement throughout the right upper outer quadrant compatible with biopsy-proven invasive carcinoma. The poorly defined mass encompasses the majority of the right upper outer quadrant measuring approximately 8.1 cm in craniocaudal dimension, 6.6 cm in AP dimension and 3.5 cm in transverse dimension. There is extension of this mass into the left upper inner quadrant constituting multi centric disease, for example abnormal enhancement on image 117 sagittal series 1096. No nipple or chest wall [...] right axillary enlarged hyperenhancing lymph nodes suspicious for additional sites of metastatic disease. No internal mammary lymphadenopathy. Other: None Impression Biopsy-proven right breast invasive carcinoma encompensating the majority of the right upper outer quadrant. This mass extends into the right upper inner quadrant, constituting multi centric disease. Biopsy-proven carcinoma within right axillary lymph node. Additional right axillary lymphadenopathy noted, suspicious for additional sites of malignancy. BI-RADS Category: 6 - Known Biopsy-Proven Malignancy. Recommendation Resume annual screening mammography is recommended for the left breast. Screening breast MRI in 1 year is recommended for the left breast. Biopsy-proven right breast carcinoma with biopsy-proven carcinoma within a right axillary lymph node. Appropriate action is recommended. The patient is under the care of the [facility] breast surgical team with follow-up appointment scheduled for November 12, 2024. This examination was performed at Radiology [facility] 1st Floor, [place], [address] [facility] [place] [address]. [phone] us Kadi Watters PA-C RAD MRI-MRA Final Re sult documented in this encounter Visit Diagnoses Diagnosis Abnormal mammogram- Primary Abnormal mammogram, unspecified Monoallelic mutation of LEONEL gene Genetic predisposition to breast cancer Genetic susceptibility to malignant neoplasm of breast Mass of multiple sites of right breast Lump or mass in breast Axillary mass, right Infiltrating ductal carcinoma of breast, stage 3, right (HCC) documented in this encounter
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
--- OUTSIDE RECORDS SUMMARY | 2024-12-13 16:45 | External Medical Summary ---
Author Name Unknown Address Unknown Organization K09:[facility] [place] [address] Laboratory Report Ordering Provider Test Date Status STAN MCCORD 11/23/2024 13:08:26 Final Observation Date Value Abnormality Reference (Units ) Status SYNC LEUKOCYTES IN BLOOD BY AUTOMATED COUNT 11/23/2024 13:08:26 6.02 4.00-10.80 (K/uL) Final Segs 11/23/2024 13:08:26 68.8 40.0-75.0 (%) Final Lymphs % 11/23/2024 13:08:26 23.9 18.0-42.0 (%) Final Monos 11/23/2024 13:08:26 5.3 1.0-11.0 (%) Final Eosinophils 11/23/2024 13:08:26 1.5 0.0-6.0 (%) Final Basos 11/23/2024 13:08:26 0.5 0.0-2.0 (%) Final Absolute Segs 11/23/2024 13:08:26 4.14 1.80-7.70 (K/uL) Final Lymphs, absolute 11/23/2024 13:08:26 1.44 1.00-4.80 (K/ul) Final Monos, Abs 11/23/2024 13:08:26 0.32 0.00-1.10 (K/uL) Final Eos, Abs 11/23/2024 13:08:26 0.09 0.00-0.70 (K/uL) Final Basos, Abs 11/23/2024 13:08:26 0.03 0.00-0.20 (K/uL) Final Performing Location [facility] [place] [address]
--- OUTSIDE RECORDS SUMMARY | 2024-12-13 16:45 | External Medical Summary | Summary of Care ---
Author Name Unknown Organization [facility] Address [address] [place] [address] Phone [phone] Care Team Providers Care Oxidized Finish Plater Name Role Phone Unavailable Primary Care Provider Unavailabl e Reason for Referral * Precert (Within 10 days (routine)) - Authorized Specialty Diagnoses / Procedures Referred By Contac t Referred To Contact Radiology Diagnoses Abnormal mammogram Monoallelic mutation of LEONEL gene Axillary mass, right Procedures PET CT WHOLE BODY FDG Mulugeta Bejarano MD [address] [place] [address] Phone: tel: fax: Referral ID Status Reason Start Date Expiration Date V isits Requested Visits Authorized [id number] Authorized 11/15/2024 999 999 * Precert (Within 10 days (routine)) - Authorized Specialty Diagnoses / Procedures Referred By Contac t Referred To Contact Radiology Diagnoses Abnormal mammogram Genetic predisposition to breast cancer Mass of multiple sites of right breast Axillary mass, right Procedures MRI BREAST BILATERAL W WO CONTRAST Kadi Watters PA-C [address] [place] [address] Phone: tel: fax: Referral ID Status Reason Start Date Expiration Date V isits Requested Visits Authorized [id number] Authorized 11/08/2024 999 999 Reason for Visit * Reason Onset Date Comments Information 11/05/2024 FYI 11/05/2024 Encounter Details Date Type Department Care Team (Late st Contact Info) Description 11/05/2024 Telephone Radiology [facility] [address] [place] [address] Kadi Watters PA-C [address] [place] [address] Information; FYI Allergies Active Allergy Reactions Criticality [...] Overview (05/13/2019): pathogenic LEONEL gene variant (c.8482C>T, p.[id number]*). Increased risk for breast cancer and pancreatic cancer. 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 Increased risk for breast cancer, colon cancer [...] Date resolved education Enrolled in May [facility] 05/14/2017 Kadi Gold RN 05/14/2017 [...] Entered by Date resolved education Attended [facility]. 06/21/2017 06/23/2017 Kadi Gold RN [...] Overview (01/15/2017): Taking Subutex, followed monthly in [place] [facility] 16mg daily Mental disorder in 01/15/2017 08/26/2017 Overview (02/12/2017): [facility] taking Klonopin - ADHD, depression, bipolar -going to counseling in [place] As of 13wks no longer taking Klonopin [...] encounter Miscellaneous Notes * Telephone Encounter - Donna Arnold LPN [...] 11/23/2024 12:15 PM EST Office Visit Hematology/Oncology [facility] [address] [facility] [place] [id number] Contreras Munoz MD 200 [facility] [place] [address] Scheduled Orders Name Type Priority Associated Diagnoses [...] performed. Kinetic analysis was evaluated with the Joturl software. Films Compared 11/05/2024 MAMMOGRAM DIAGNOSTIC NISA [...] patient is under the care of the [facility] breast surgical team with follow-up appointment scheduled for November 12, 2024. This examination was performed at Radiology [facility] 1st [facility], [address] [place] [address] [place] [address]. [phone] Kadi Watters PA-C RAD MRI-MRA Final Re [...]
--- OUTSIDE RECORDS SUMMARY | 2024-12-13 16:45 | External Medical Summary ---
Author Name Unknown Address Unknown Organization K01:[facility] [place] [address] [place] [address] Laboratory Report Ordering Provider Test Date Status STAN MCCORD 11/23/2024 13:08:26 Final Observation Date Value Abnormality Reference (Units ) Status Hepatitis B virus core Ab [Presence] in Serum 11/23/2024 13:08:26 Negative Negative Final Performing Location [facility] [place] [address] [place] [address]
--- OUTSIDE RECORDS SUMMARY | 2024-12-13 16:45 | External Medical Summary | Summary of Care ---
Author Name Unknown Organization [facility] Address [address] [place] [address] Phone [phone] Care Team Providers Care Groover And Striper Operator Name Role Phone Unavailable Primary Care Provider Unavailabl e Reason for Visit * Reason Comments Outpatient Testing Encounter Details Date Type Department Care Team (Late st Contact Info) Description 11/23/2024 1:20 PM EST Laboratory Laboratory [facility] [address] [place] [phone] [facility] [address] [place] [address] Arrived Allergies Active Allergy Reactions Criticality Noted [...] Overview (05/13/2019): 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 Increased risk for breast cancer and pancreatic cancer. 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 Increased risk for breast cancer, colon cancer [...] + RV culture , normal first 01/15/2017 10/0 01/2017 Overview (08/20/2017): Problem Action Taken Date [...] Date resolved education Enrolled in May [facility] 05/14/2017 Kadi Gold RN 05/14/2017 Problem Action [...] Entered by Date resolved education Attended [facility]. 06/21/2017 06/23/2017 Kadi Gold RN 06/23/2017 Problem Action Taken Date entered Entered by Date resolved Current needs or questions Patient denies having any current needs or questions 06/25/2017 Iona Cuevas RN 06/25/17 Problem Action Taken Date entered Entered by Date resolved Current needs or questions Patient denies having any current needs or questions 07/11/2017 Shoshana Sahrpe RN 07/11/17 Problem Action Taken Date entered [...] (01/15/2017): Taking Subutex, followed monthly in [place] [facility] 16mg daily Mental disorder in 01/15/2017 08/26/2017 Overview (02/12/2017): @ [facility] taking Klonopin - ADHD, depression, bipolar -going to counseling in [place] As of 13wks no longer taking Klonopin [...] Description 11/30/2024 11:45 AM EST Imaging Radiology [address] 132 [facility] [place] [address] 12/01/2024 9:30 AM EST Office Visit Hematology/Oncology [facility] 200 [facility] [place] [phone] Contreras Munoz MD 200 [facility] [place] [address] Health Maintenance Due Date Last Done Comments [...]
--- OUTSIDE RECORDS SUMMARY | 2024-12-13 16:45 | External Medical Summary | Summary of Care ---
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 Mass of multiple sites of right breast Axillary mass, right Procedures MRI BREAST BILATERAL W WO CONTRAST Kadi Watters PA-C [address] [employer] [place] [address] Phone: tel: fax: Referral ID Status Reason Start Date Expiration Date V isits Requested Visits Authorized [id number] Authorized 11/08/2024 999 999 Reason for Visit * Reason Onset Date Comments Information 11/05/2024 FYI 11/05/2024 Encounter Details Date Type Department Care Team (Late st Contact Info) Description 11/05/2024 Telephone Radiology [facility] [address] [place] [address] Kadi Watters PA-C [address] [place] [address] Information; Allergies Active Allergy Reactions Criticality Noted Date [...] Overview (05/13/2019): 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 Increased risk for breast cancer and pancreatic cancer. 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 Increased risk for breast cancer, colon cancer [...] Date resolved Educational classes Encouraged pt attend [employer] classes 03/20/2017 Kadi Gold RN 03/20/2017 Problem [...] Entered by Date resolved education Attended [facility]. 06/21/2017 06/23/2017 Kadi Gold RN 06/23/2017 [...] Overview (01/15/2017): Taking Subutex, followed monthly in [place] @ [facility] 16mg daily Mental disorder in 01/15/2017 08/26/2017 Overview (02/12/2017): @ [facility] taking Klonopin - ADHD, depression, bipolar -going to counseling in [place] As of 13wks no longer taking Klonopin [...] 11/15/2024 8:43 AM EST Nader texted Dr To and asked that he call patient. * [...] pending biopsy results. Scheduled patient with Dr. To On Friday11/12/24 to discuss path results and [...] PM EST Office Visit Hematology/Oncology [facility] [place] [address] [place] [phone] Contreras Munoz MD [address] [place] [address] Health Maintenance Due Date Last Done Comments [...] performed. Kinetic analysis was evaluated with the [employer] software. Films Compared 11/05/2024 MAMMOGRAM DIAGNOSTIC NISA [...] patient is under the care of the [facility] breast surgical team with follow-up appointment scheduled for November 12, 2024. This examination was performed at Radiology [facility] 1st [facility], [address] [place] [address] [place] [address]. 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
--- OUTSIDE RECORDS SUMMARY | 2024-12-13 16:45 | External Medical Summary | Summary of Care ---
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 Mass of multiple sites of right breast Axillary mass, right Procedures MRI BREAST BILATERAL W WO CONTRAST Kadi Watters PA-C [address] [employer] [place] [address] Phone: tel: fax: Referral ID Status Reason Start Date Expiration Date V isits Requested Visits Authorized [id number] Authorized 11/08/2024 999 999 Reason for Visit * Reason Onset Date Comments Information 11/05/2024 FYI 11/05/2024 Encounter Details Date Type Department Care Team (Late st Contact Info) Description 11/05/2024 Telephone Radiology [facility] [address] [place] [address] Kadi Watters PA-C [address] [place] [address] Information; Allergies Active Allergy Reactions Criticality Noted [...] Overview (05/13/2019): 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 Increased risk for breast cancer and pancreatic cancer. 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 Increased risk for breast cancer, colon cancer [...] Date resolved Educational classes Encouraged pt attend [employer] classes 03/20/2017 Kadi Gold RN 03/20/2017 Problem [...] Date resolved education Enrolled in May [facility] 05/14/2017 Kadi Gold RN 05/14/2017 Problem [...] Entered by Date resolved education Attended [facility]. 06/21/2017 06/23/2017 Kadi Gold RN 06/23/2017 Problem Action Taken Date entered Entered by Date resolved Current needs or questions Patient denies having any current needs or questions 06/25/2017 Iona Cuevsa RN 06/25/17 Problem Action Taken Date entered [...] Overview (01/15/2017): Taking Subutex, followed monthly in [place] @ [facility] 16mg daily Mental disorder in 01/15/2017 08/26/2017 Overview (02/12/2017): @ [facility] taking Kl[facility]opin - ADHD, depression, bipolar -going to counseling in [place] As of 13wks no longer taking Klonopin [...] said that I had Talked to Dr To and he can order her a pet [...] call patient. * Telephone Encounter - Donna Aronld LPN - 11/11/2024 10:19 AM EST Her [...] Office Visit Hematology/Oncology [facility] [address] [place] [phone] Contreras Munoz MD [address] [place] [address] Health Maintenance Due Date Last Done Comments [...] performed. Kinetic analysis was evaluated with the [employer] software. Films Compared 11/05/2024 MAMMOGRAM DIAGNOSTIC NISA [...] patient is under the care of the [facility] breast surgical team with follow-up appointment scheduled for November 12, 2024. This examination was performed at [address], [address] [place] [address]. [phone] us Kadi Watters PA-C RAD MRI-MRA Final [...]
--- OUTSIDE RECORDS SUMMARY | 2024-12-13 16:45 | External Medical Summary | Summary of Care ---
Author Name Unknown Organization [facility] Address [address] [place] [address] Phone [phone] Care Team Providers Care Narcotics Agent Name Role Phone Unavailable Primary Care Provider Unavailabl e Reason for Referral * Precert (Within 10 days (routine)) - Authorized Specialty Diagnoses / Procedures Referred By Contac t Referred To Contact Radiology Diagnoses Abnormal mammogram Monoallelic mutation of LEONEL gene Axillary mass, right Procedures PET CT WHOLE BODY FDG Mulugeta Bejarano MD [address] [place] [address] Phone: tel: fax: Referral ID Status Reason Start Date Expiration Date V isits Requested Visits Authorized [id number] Authorized 11/15/2024 999 999 * Precert (Within 10 days (routine)) - Authorized Specialty Diagnoses / Procedures Referred By Contac t Referred To Contact Radiology Diagnoses Abnormal mammogram 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 Increased risk for breast cancer and pancreatic cancer. 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 Increased risk for breast cancer, colon cancer [...] by Date resolved education Enrolled in May [facility] 05/14/2017 Kadi Gold RN 05/14/2017 [...] entered Entered by Date resolved education Attended [facility]. 06/21/2017 06/23/2017 Kadi Gold RN [...] Overview (01/15/2017): Taking Subutex, followed monthly in [place] @ [facility] 16mg daily Mental disorder in 01/15/2017 08/26/2017 Overview (02/12/2017): [facility] taking Klonopin - ADHD, depression, bipolar -going to counseling in [place] As of 13wks no longer taking Klonopin [...] encounter Miscellaneous Notes * Addendum Note - Mulugeta Bejarano MD [...] 11/23/2024 12:15 PM EST Office Visit Hematology/Oncology [facility] 200 [facility] [place] [phone] Contreras Munoz MD 200 [facility] [address] Scheduled Orders Name Type Priority Associated Diagnoses [...] performed. Kinetic analysis was evaluated with the [employer] software. Films Compared 11/05/2024 MAMMOGRAM DIAGNOSTIC NISA [...] patient is under the care of the [facility] breast surgical team with follow-up appointment scheduled for November 12, 2024. This examination was performed at [facility] 1st [facility], [address] [place] [address]. [phone] Kadi Watters PA-C RAD MRI-MRA Final Re [...]
--- OUTSIDE RECORDS SUMMARY | 2024-12-13 16:45 | External Medical Summary ---
Author Name Unknown Address Unknown Organization K09:[facility] [place] [address] Laboratory Report Ordering Provider Test Date Status STAN MCCORD 11/23/2024 13:08:26 Final Observation Date Value Abnormality Reference (Units ) Status WBC, Total 11/23/2024 13:08:26 6.02 4.00-10.8 0 (K/uL) Final RBC 11/23/2024 13:08:26 4.27 3.85-5.15 (M/uL) Final Hemoglobin 11/23/2024 13:08:26 12.6 12.0-15.3 (g/dL) Final HCT 11/23/2024 13:08:26 38.8 36.0-45.2 (%) Final MCV 11/23/2024 13:08:26 90.9 81.5-97.5 (fL) Final MCH 11/23/2024 13:08:26 29.5 27.0-34.0 (pg) Final MCHC 11/23/2024 13:08:26 32.5 32.0-36.0 (g/dL) Final RDW 11/23/2024 13:08:26 12.7 11.5-15.5 (%) Final Platelets 11/23/2024 13:08:26 279 140-400 (K /uL) Final MPV 11/23/2024 13:08:26 11.2 6.6-11.1 ( fL) Final Performing Location [facility] [address]
--- OUTSIDE RECORDS SUMMARY | 2024-12-13 16:45 | External Medical Summary | Summary of Care ---
Author Name Unknown Organization [facility] Address [address] [place] [address] Phone [phone] Care Team Providers Care Car Mover Name Role Phone Unavailable Primary Care Provider Unavailabl e Reason for Visit * Reason Comments Outpatient Testing Encounter Details Date Type Department Care Team (Late st Contact Info) Description 11/23/2024 1:20 PM EST Laboratory Laboratory 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 Increased risk for breast cancer and pancreatic cancer. 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 Increased risk for breast cancer, colon cancer [...] Date resolved education Enrolled in May [facility] 05/14/2017 Kadi Gold RN 05/14/2017 [...] Entered by Date resolved education Attended [facility]. 06/21/2017 06/23/2017 Kadi Gold RN [...] (01/15/2017): Taking Subutex, followed monthly in [place] @ [facility] 16mg daily Mental disorder in 01/15/2017 08/26/2017 Overview (02/12/2017): [facility] taking Klonopin - ADHD, depression, bipolar -going to counseling in [place] As of 13wks no longer taking Klonopin [...] Description 11/30/2024 11:45 AM EST Imaging Radiology [address] 132 [facility] [place] [address] 12/01/2024 9:30 AM EST Office Visit Hematology/Oncology [facility] 200 [facility] [place] [phone] Contreras Munoz MD 200 [facility] [place] [address] Health Maintenance Due Date Last Done Comments [...]
--- OUTSIDE RECORDS SUMMARY | 2024-12-13 16:45 | External Medical Summary | Summary of Care ---
Author Name Unknown Organization [facility] Address [address] [place] [address] Phone [phone] Care Team Providers Care Dental Amalgam Processor Name Role Phone Unavailable Primary Care Provider Unavailabl e Reason for Referral * Precert (Within 10 days (routine)) - Authorized Specialty Diagnoses / Procedures Referred By Rhonda t Referred To Contact Radiology Diagnoses Abnormal mammogram Genetic predisposition to breast cancer Mass of multiple sites of right breast Axillary mass, right Procedures MRI BREAST BILATERAL W WO CONTRAST Kadi Watters PA-C [address] [place] [address] Phone: tel: fax: Referral ID Status Reason Start Date Expiration Date V isits Requested Visits Authorized [id number] Authorized 11/08/2024 999 999 Reason for Visit * Reason Onset Date Comments Information 11/05/2024 FYI 11/05/2024 Encounter Details Date Type Department Care Team (Late st Contact Info) Description 11/05/2024 Telephone Radiology [facility] [address] [place] [address] Kadi Watters PA-C [address] [place] [address] Information; Allergies Active Allergy Reactions Criticality Noted [...] Overview (05/13/2019): 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 Increased risk for breast cancer and pancreatic cancer. 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 Increased risk for breast cancer, colon cancer [...] Date resolved Educational classes Encouraged pt attend [employer] classes 03/20/2017 Kadi Gold RN 03/20/2017 Problem [...] by Date resolved education Enrolled in May [facility] 05/14/2017 Kadi Gold RN 05/14/2017 [...] Overview (01/15/2017): Taking Subutex, followed monthly in [place] [facility] 16mg daily Mental disorder in 01/15/2017 08/26/2017 Overview (02/12/2017): [facility] taking Klonopin - ADHD, depression, bipolar -going to counseling in [place] As of 13wks no longer taking Klonopin [...] PM EST Office Visit Hematology/Oncology [facility] [place] 200 [facility] [place] [phone] Contreras Munoz MD [address] [place], [place] [address] Health Maintenance Due Date Last Done Comments [...] performed. Kinetic analysis was evaluated with the [employer] software. Films Compared 11/05/2024 MAMMOGRAM DIAGNOSTIC NISA [...] patient is under the care of the [facility] breast surgical team with follow-up appointment scheduled for November 12, 2024. This examination was performed at Radiology [facility] 1st [facility], [address] [place] [address]. [phone] us Kadi Watters PA-C RAD MRI-MRA Final [...]
--- OUTSIDE RECORDS SUMMARY | 2024-12-13 16:45 | External Medical Summary ---
Author Name Unknown Address Unknown Organization K09:[facility] - [address] [place] [address] Laboratory Report Ordering Provider Test Date Status STAN MCCORD 11/23/2024 13:08:26 Final Observation Date Value Abnormality Reference (Units ) Status BUN 11/23/2024 13:08:26 14 6-20 (mg/dL) Final Creatinine 11/23/2024 13:08:26 0.8 0.5-1.0 (mg/dL) Final Glomerular filtration rate/1.73 sq M.predicted [Volume Rate/Area] in Serum, Plasma or Blood by Creatinine-based formula (CKD-EPI) 11/23/2024 13:08:26 >90 >=60 (mL/min) Final eGFR is calculated based on the CKD-EPI 2020 equation. Sodium 11/23/2024 13:08:26 143 135-146 (m mol/L) Final Potassium 11/23/2024 13:08:26 4.4 3.5-5.1 (m mol/L) Final Cl 11/23/2024 13:08:26 104 98-107 (mm ol/L) Final CO2 11/23/2024 13:08:26 25 22-32 (mmo l/L) Final Anion gap 11/23/2024 13:08:26 14 7-15 (mmol /L) Final Glucose 11/23/2024 13:08:26 107 70-120 (mg /dL) Final Albumin 11/23/2024 13:08:26 4.7 3.8-5.0 (g /dL) Final AST (Aspartate aminotransferase) 11/23/2024 13:08:26 14 10-35 (U/L) Fin al Alk Phos 11/23/2024 13:08:26 95 35-130 (U/ L) Final Bilirubin, Total 11/23/2024 13:08:26 0.2 <=1 .2 (mg/dL) Final Calcium 11/23/2024 13:08:26 10.1 8.4-10.2 ( mg/dL) Final Protein 11/23/2024 13:08:26 7.7 6.0-8.3 (g /dL) Final ALT (Alanine aminotransferase) 11/23/2024 13:08:26 5 Below low normal 10-35 (U/L) Final Performing Location [facility] - [address] [place] [address]
--- OUTSIDE RECORDS SUMMARY | 2024-12-13 16:45 | External Medical Summary | Summary of Care ---
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 Mass of multiple sites of right breast Axillary mass, right Procedures MRI BREAST BILATERAL W WO CONTRAST Kadi Watters PA-C [address] [employer] [place] [address] Phone: tel: fax: Referral ID Status Reason Start Date Expiration Date V isits Requested Visits Authorized [id number] Authorized 11/08/2024 999 999 Reason for Visit * Reason Onset Date Comments Information 11/05/2024 FYI 11/05/2024 Encounter Details Date Type Department Care Team (Late st Contact Info) Description 11/05/2024 Telephone Radiology [facility] [address] [place] [address] Kadi Watters PA-C [address] [place] [address] Information; Allergies Active Allergy Reactions Criticality Noted [...] Overview (05/13/2019): 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 Increased risk for breast cancer and pancreatic cancer. 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 Increased risk for breast cancer, colon cancer [...] Date resolved Educational classes Encouraged pt attend [employer] classes 03/20/2017 Kadi Gold RN 03/20/2017 Problem [...] Overview (01/15/2017): Taking Subutex, followed monthly in [place] [facility] 16[facility] daily Mental disorder in 01/15/2017 08/26/2017 Overview (02/12/2017): [facility] taking Klonopin - ADHD, depression, bipolar -going to counseling in [place] As of 13wks no longer taking Klonopin [...] State Akilah Fang [address] [place] [phone] Contreras Munoz MD [address] [place] [address] Health Maintenance Due Date Last Done Comments [...] performed. Kinetic analysis was evaluated with the [employer] software. Films Compared 11/05/2024 MAMMOGRAM DIAGNOSTIC NISA [...] patient is under the care of the [facility] breast surgical team with follow-up appointment scheduled for November 12, 2024. This examination was performed at [address], [address] [place] [address]. [phone] us Kadi Watters PA-C RAD MRI-MRA Final [...]
--- OUTSIDE RECORDS SUMMARY | 2024-12-13 16:45 | External Medical Summary | Summary of Care ---
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 Mass of multiple sites of right breast Axillary mass, right Procedures MRI BREAST BILATERAL W WO CONTRAST Kadi Watters PA-C [address] [place] [address] Phone: tel: fax: Referral ID Status Reason Start Date Expiration Date V isits Requested Visits Authorized [id number] Authorized 11/08/2024 999 999 Reason for Visit * Reason Onset Date Comments Information 11/05/2024 FYI 11/05/2024 Encounter Details Date Type Department Care Team (Late st Contact Info) Description 11/05/2024 Telephone Radiology [facility] [address] [place] [address] Kadi Watters PA-C [address] [place] [address] Information; Allergies Active Allergy Reactions Criticality Noted [...] Overview (05/13/2019): 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 Increased risk for breast cancer and pancreatic cancer. 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 Increased risk for breast cancer, colon cancer [...] Date resolved Educational classes Encouraged pt attend [employer] classes 03/20/2017 Kadi Gold RN 03/20/2017 Problem [...] Date resolved education Enrolled in May [facility] 05/14/2017 Kadi Gold RN 05/14/2017 [...] Entered by Date resolved education Attended [facility]. 06/21/2017 06/23/2017 Kadi Gold RN [...] Overview (01/15/2017): Taking Subutex, followed monthly in [place] [facility] 16mg daily Mental disorder in 01/15/2017 08/26/2017 Overview (02/12/2017): @ [facility] taking Klonopin - ADHD, depression, bipolar -going to counseling in [place] As of 13wks no longer taking Klonopin [...] PM EST Office Visit Hematology/Oncology Shelley Gold [place] [address] [place] [phone] Contreras Munoz MD [address] [place] [address] Health Maintenance Due Date Last Done Comments [...] performed. Kinetic analysis was evaluated with the [employer] software. Films Compared 11/05/2024 MAMMOGRAM DIAGNOSTIC NISA [...] patient is under the care of the [facility] [address] breast surgical team with follow-up appointment scheduled for November 12, 2024. This examination was performed at Radiology [facility] [address] [facility], [address] [place] [address] [place] [address]. [phone] us Kadi Watters PA-C RAD MRI-MRA Final [...]
--- OUTSIDE RECORDS SUMMARY | 2024-12-13 16:46 | External Medical Summary | Summary of Care ---
Author Name Unknown Organization [facility] Address [address] [place] [address] Phone [phone] Care Team Providers Care Materials And Processes Manager Name Role Phone Unavailable Primary Care Provider Unavailabl e Reason for Referral * Precert (Within 10 days (routine)) - Authorized Specialty Diagnoses / Procedures Referred By Rhonda t Referred To Contact Radiology Diagnoses Abnormal mammogram Genetic predisposition to breast cancer Mass of multiple sites of right breast Axillary mass, right Procedures MRI BREAST BILATERAL W WO CONTRAST Kadi Watters PA-C [address] [place] [address] Phone: tel: fax: Referral ID Status Reason Start Date Expiration Date V isits Requested Visits Authorized [id number] Authorized 11/08/2024 999 999 Reason for Visit * Reason Onset Date Comments Information 11/05/2024 FYI 11/05/2024 Encounter Details Date Type Department Care Team (Late st Contact Info) Description 11/05/2024 Telephone Radiology [facility] [address] [place] [address] Kadi Watters PA-C [address] [place] [address] Information; Allergies Active Allergy Reactions Criticality Noted Date Comments Naloxone Edema face/lips/tongue High 01/15/2017 documented as of this encounter (statuses as of 11/11/2024) Medications buprenorphine HCl (SUBUTEX) 8 MG Sublingual [...] as of this encounter (statuses as of 11/11/2024) Active Problems Problem Noted Date Diagnosed Date 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 Increased risk for breast cancer and pancreatic cancer. 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 Increased risk for breast cancer, colon cancer and thyroid cancer. Attention deficit hyperactiv ity disorder (ADHD), combined type 07/10/2016 Anxiety state 12/12/2011 Depression 12/12/2011 Rosacea 04/30/2006 RHINITIS DUE TO POLLEN documented as of this encounter (statuses as of 11/11/2024) Resolved Problems Problem Noted Date Diagnosed Date Resolved Date Carrier of group B Streptococcus 07/25/2017 08/26/2017 Overview (07/25/2017): + RV culture , normal first 01/15/201701/2017 Overview (08/20/2017): Problem Action Taken Date entered Entered by Date resolved Educational classes Encouraged pt attend [employer] classes 03/20/2017 Kadi Gold RN 03/20/2017 Problem [...] by Date resolved education Enrolled in May [facility] 05/14/2017 Kadi Gold RN 05/14/2017 Problem [...] entered Entered by Date resolved education Attended [facility]. 06/21/2017 06/23/2017 Kadi Gold RN 06/23/2017 [...] Overview (01/15/2017): Taking Subutex, followed monthly in [place] [facility] 16mg daily Mental disorder in 01/15/2017 08/26/2017 Overview (02/12/2017): @ [facility] taking Klonopin - ADHD, depression, bipolar -going to counseling in [place] As of 13wks no longer taking Klonopin [...] as of this encounter (statuses as of 11/11/2024) Immunizations Name Administration Dates Next Due DTP [...] 3:00 PM EST Office Visit General Surgery, [facility] [address] [facility] [place] [address] Mulugeta To MD [address] [place] [address] Pending Results Name Type Priority Associated Diagnoses Date /Time MRI BREAST BILATERAL W WO CONTRAST Medical Imaging Routine Abnormal mammogram Genetic predisposition to breast cancer Mass of multiple sites of right breast Axillary mass, right 11/09/2024 3:25 PM EST Health Maintenance Due Date Last Done Comments Pneumococcal Vaccine: Pediatrics (0 to 5 Years) and At-Risk Patients (6 to 64 Years) (1 of 2 - PCV) 1992 Hepatitis C Screening 2004 HPV/Co-Test 2016 Depression Monitoring 01/15/2018 01/15/2017 Cervical [...] as of this encounter Visit Diagnoses Diagnosis Abnormal mammogram- Primary Abnormal mammogram, unspecified Monoallelic mutation of LEONEL gene Genetic predisposition to breast cancer Genetic susceptibility to malignant neoplasm of breast Mass of multiple sites of right breast Lump or mass in breast Axillary mass, right documented in this encounter
--- OUTSIDE RECORDS SUMMARY | 2024-12-13 16:46 | External Medical Summary | Summary of Care ---
Author Name Unknown Organization [facility] Address [address] [place] [address] Phone [phone] Care Team Providers Care Certified Prosthetist/Orthotist Name Role Phone Unavailable Primary Care Provider Unavailabl e Reason for Referral * Precert (Within 10 days (routine)) - Authorized Specialty Diagnoses / Procedures Referred By Rhonda t Referred To Contact Radiology Diagnoses Abnormal mammogram Genetic predisposition to breast cancer Mass of multiple sites of right breast Axillary mass, right Procedures MRI BREAST BILATERAL W WO CONTRAST Kadi Watters PA-C [address] [place] [address] Phone: tel: fax: Referral ID Status Reason Start Date Expiration Date V isits Requested Visits Authorized [id number] Authorized 11/08/2024 999 999 Reason for Visit * Reason Onset Date Comments Information 11/05/2024 FYI 11/05/2024 Encounter Details Date Type Department Care Team (Late st Contact Info) Description 11/05/2024 Telephone Radiology [facility] [address] [place] [address] Kadi Watters PA-C [address] [place] [address] Information; Allergies Active Allergy Reactions Criticality Noted [...] Overview (05/13/2019): pathogenic LEONEL gene variant (c.8482C>T, p.[id number]*). Increased risk for breast cancer and pancreatic cancer. 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 Increased risk for breast cancer, colon cancer [...] Date resolved Educational classes Encouraged pt attend [employer] classes 03/20/2017 Kadi Gold RN 03/20/2017 Problem [...] Overview (01/15/2017): Taking Subutex, followed monthly in [place] @ [facility] 16mg daily Mental disorder in 01/15/2017 08/26/2017 Overview (02/12/2017): @ [facility] taking Klonopin - ADHD, depression, bipolar -going to counseling in [place] As of 13wks no longer taking Klonopin [...] aware of this. * Telephone Encounter - Kdai Watetrs PA-C - 11/08/2024 9:27 AM EST Patient [...] 3:00 PM EST Office Visit General Surgery, [facility] [address] [facility] [place] [address] Mulugeta To MD [address] [place] [address] Pending Results Name Type Priority Associated Diagnoses [...]
--- OUTSIDE RECORDS SUMMARY | 2024-12-13 16:46 | External Medical Summary | Summary of Care ---
Author Name Unknown Organization [facility] Address [address] [facility] [place] [address] Phone [phone] Care Team Providers Care New Car Get Ready Mechanic Name Role Phone Unavailable Primary Care Provider Unavailabl e Reason for Visit * Reason Onset Date Comments Appointment 11/05/2024 Encounter Details Date Type Department Care Team ([facility] st Contact Info) Description 11/05/2024 Telephone OR [facility], Operating Room [facility] [address] [place] [phone] eMhreen Watters PA-C [address] [place] [address] Appointment Allergies Active Allergy Reactions Criticality Noted Date Comments Naloxone Edema face/lips/tongue High 01/15/2017 documented as of this encounter (statuses as of 11/05/2024) Medications buprenorphine HCl (SUBUTEX) 8 MG Sublingual [...] as of this encounter (statuses as of 11/05/2024) Active Problems Problem Noted Date Diagnosed Date 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 Increased risk for breast cancer and pancreatic cancer. 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 Increased risk for breast cancer, colon cancer and thyroid cancer. Attention deficit hyperactiv ity disorder (ADHD), combined type 07/10/2016 Anxiety state 12/12/2011 Depression 12/12/2011 Rosacea 04/30/2006 RHINITIS DUE TO POLLEN documented as of this encounter (statuses as of 11/05/2024) Resolved Problems Problem Noted Date Diagnosed Date Resolved Date Carrier of group B Streptococcus 07/25/2017 08/26/2017 Overview (07/25/2017): + RV culture , normal first 01/15/2017 100 01/2017 Overview (08/20/2017): Problem Action Taken Date entered Entered by Date resolved Educational classes Encouraged pt attend [employer] classes 03/20/2017 Mehreen Gold RN 03/20/2017 Problem Action Taken Date entered Entered by Date resolved Home nursing Lorene had been attempting to reach pt but no active phone #. Spoke with pt. Pt aware and tried to call her today. States that the number is now active again. 03/20/2017 Mehreen Gold RN 03/20/2017 Problem Action Taken Date entered Entered by Date resolved First Seeing Home Nurse, enjoying the education. 04/16/2017 Shoshana Sharpe RN 04/16/17 Problem Action Taken Date entered Entered by Date resolved Baby supplies Getting things arranged. Has crib Baby shower planned 05/14/2017 Mehreen Gold RN 05/14/2017 Problem Action Taken Date entered Entered by Date resolved education Enrolled in May [facility] 05/14/2017 Mehreen Gold RN 05/14/2017 Problem Action Taken Date entered Entered by Date resolved Breast pump Form completed. 05/14/2017 Mehreen Gold RN 05/14/2017 Problem Action Taken Date entered Entered by Date resolved Current needs or questions Patient denies having any current needs or questions 05/28/2017 Mehreen Gold RN 05/28/2017 Problem Action Taken Date entered Entered by Date resolved Current needs or questions Patient denies having any current needs or questions 06/12/2017 Iona Cuevas RN 06/12/17 Problem Action Taken Date entered Entered by Date resolved education Attended [facility]. 06/21/2017 06/23/2017 Mehreen Gold RN 06/23/2017 Problem Action Taken Date [...] Date resolved gbs + Rationale discussed 07/30/2017 Mehreen Gold RN 07/30/2017 06/25/2017 Tdap Vaccine administered [...] Overview (01/15/2017): Taking Subutex, followed monthly in [place] @ [facility] 16mg daily Mental disorder in 01/15/2017 08/26/2017 Overview (02/12/2017): @ [facility] taking Klonopin - ADHD, depression, bipolar -going to counseling in [place] As of 13wks no longer taking Klonopin [...] as of this encounter (statuses as of 11/05/2024) Immunizations Name Administration Dates Next Due DTP [...] encounter Miscellaneous Notes * Addendum Note - Mehreen Watters PA-C - 11/05/2024 9:44 AM ESTAddended by: MEHREEN WATTERS on: 11/05/2024 09:44 AM Modules accepted: Orders * Addendum Note - Mehreen Watters PA-C - 11/05/2024 9:05 AM ESTAddended by: MEHREEN WATTERS on: 11/05/2024 09:05 AM Modules accepted: Orders * Addendum Note - Mehreen Watters PA-C - 11/05/2024 9:04 AM ESTAddended by: MEHREEN WATTERS on: 11/05/2024 09:04 AM Modules accepted: Orders * Telephone Encounter - Jenna Browning OSA - 11/05/2024 8:59 AM EST 2 hour time frame from start to finish so she should be fine to pickle pumper her kids on time. * Telephone Encounter - Mehreen Watters PA-C - 11/05/2024 8:45 AM EST Called patient to discuss possible biopsy today pending on diagnostic imaging results. Given examination, highly likely needs biopsy and Dr. Verma will attempt today. Given her severe phobia of needles, called patient to review potential biopsy today after obtaining the breast imaging and if she would want me to send rx for Ativan to her pharmacy that she can take 30 minutes prior to her appointment today. She will have her Mom take her to appointment today and I will send Ativan to pharmacy. Mehreen Watters PA-C 11/05/2024 8:47 AM documented in this encounter Plan of Treatment Upcoming Encounters Date Type Department Care Team (Late st Contact Info) Description 11/05/2024 11:00 AM EST Imaging Radiology [facility] 1st Floor, [place] [address] [facility] [place] [address] 11/05/2024 11:30 AM EST Imaging Radiology [facility] [address] [facility] [place] [address] 11/05/2024 12:30 PM EST Imaging Radiology [facility] [address] [facility] [place] [address] Scheduled Orders Name Type Priority Associated Diagnoses Orde r Schedule US GUIDED BREAST BIOPSY RIGHT Medical Imaging Routine Large mass of right breast Axillary mass, right Ordered: 11/05/2024 Health Maintenance Due Date Last Done Comments [...] as of this encounter Visit Diagnoses Diagnosis Needle phobia- Primary Other isolated or specific phobias Large mass of right breast Axillary mass, right documented in this encounter
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
--- OUTSIDE RECORDS SUMMARY | 2024-12-13 16:46 | External Medical Summary | Summary of Care ---
Author Name Unknown Organization [facility] Address [address] [place] [address] Phone [phone] Care Team Providers Care Engine Hostler Name Role Phone Unavailable Primary Care Provider Unavailabl e Reason for Referral * Precert (Within 10 days (routine)) - Authorized Specialty Diagnoses / Procedures Referred By Rhonda t Referred To Contact Radiology Diagnoses Abnormal mammogram Genetic predisposition to breast cancer Mass of multiple sites of right breast Axillary mass, right Procedures MRI BREAST BILATERAL W WO CONTRAST Kadi Watters PA-C [address] [place] [address] Phone: tel: fax: Referral ID Status Reason Start Date Expiration Date V isits Requested Visits Authorized [id number] Authorized 11/08/2024 999 999 Reason for Visit * Reason Onset Date Comments Information 11/05/2024 Encounter Details Date Type Department Care Team (Late st Contact Info) Description 11/05/2024 Telephone Radiology [facility] [address] [place] [address] Kadi Watters PA-C [address] [place] [address] Information Allergies Active Allergy Reactions Criticality Noted Date Comments Naloxone Edema face/lips/tongue High 01/15/2017 documented as of this encounter (statuses as of 11/08/2024) Medications buprenorphine HCl (SUBUTEX) 8 MG Sublingual [...] as of this encounter (statuses as of 11/08/2024) Active Problems Problem Noted Date Diagnosed Date 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 Increased risk for breast cancer and pancreatic cancer. Monoallelic mutation of CHEK2 gene in female pat ient 05/13/2019 Overview (05/13/2019): pathogenic CHEK2 gene variant (c.1100del, p.[id number]*15). Increased risk for breast cancer, colon cancer and thyroid cancer. Attention deficit hyperactiv ity disorder (ADHD), combined type 07/10/2016 Anxiety state 12/12/2011 Depression 12/12/2011 Rosacea 04/30/2006 RHINITIS DUE TO POLLEN documented as of this encounter (statuses as of 11/08/2024) Resolved Problems Problem Noted Date Diagnosed Date [...] Enrolled in May [facility] 05/14/2017 Kadi Gold RN 05/14/2017 [...] resolved education Attended [facility]. 06/21/2017 06/23/2017 Kadi Gold RN [...] Overview (01/15/2017): Taking Subutex, followed monthly in [place] [facility] 16mg daily Mental disorder in 01/15/2017 08/26/2017 Overview (02/12/2017): @ [facility] taking Klonopin - ADHD, depression, bipolar -going to counseling in [place] As of 13wks no longer taking Klonopin [...] as of this encounter (statuses as of 11/08/2024) Immunizations Name Administration Dates Next Due Seasonal [...] encounter Miscellaneous Notes * Telephone Encounter - Kadi Watters PA-C [...] 3:00 PM EST Office Visit General Surgery, [facility] [address] [facility] [place] [address] Mulugeta To MD [address] [place] [address] Scheduled Orders Name Type Priority Associated Diagnoses Orde r Schedule MRI BREAST BILATERAL W WO CONTRAST Medical Imaging Routine Abnormal mammogram Genetic predisposition to breast cancer Mass of multiple sites of right breast Axillary mass, right Ordered: 11/08/2024 Health Maintenance Due Date Last Done Comments [...]
--- OUTSIDE RECORDS SUMMARY | 2024-12-13 16:46 | External Medical Summary | Summary of Care ---
Author Name Unknown Organization [facility] Address [address] [place] [address] Phone [phone] Care Team Providers Care Anime Designer Name Role Phone Unavailable Primary Care Provider Unavailabl e Reason for Referral * Precert (Within 10 days (routine)) - Authorized Specialty Diagnoses / Procedures Referred By Rhonda t Referred To Contact Radiology Diagnoses Abnormal mammogram Genetic predisposition to breast cancer Mass of multiple sites of right breast Axillary mass, right Procedures MRI BREAST BILATERAL W WO CONTRAST Kadi Watters PA-C [address] [place] [address] Phone: tel: fax: Referral ID Status Reason Start Date Expiration Date V isits Requested Visits Authorized [id number] Authorized 11/08/2024 999 999 Reason for Visit * Reason Onset Date Comments Information 11/05/2024 FYI 11/05/2024 Encounter Details Date Type Department Care Team (Late st Contact Info) Description 11/05/2024 Telephone Radiology [facility] [address] [place] [address] Kadi Watters PA-C [address] [place] [address] Information; Allergies Active Allergy Reactions Criticality Noted [...] Overview (05/13/2019): pathogenic LEONEL gene variant (c.8482C>T, p.[id number]*). Increased risk for breast cancer and pancreatic cancer. Monoallelic mutation of CHEK2 gene in female pat ient 05/13/2019 Overview (05/13/2019): pathogenic CHEK2 gene variant (c.1100del, p.[id number]*15). Increased risk for breast cancer, colon cancer [...] Date resolved Educational classes Encouraged pt attend [employer] classes 03/20/2017 Kadi Gold RN 03/20/2017 Problem [...] education Attended [facility]. 06/21/2017 06/23/2017 Kdai Gold RN 06/23/2017 Problem Action Taken Date [...] Overview (01/15/2017): Taking Subutex, followed monthly in [place] @ [facility] 16mg daily Mental disorder in 01/15/2017 08/26/2017 Overview (02/12/2017): @ [facility] taking Klonopin - ADHD, depression, bipolar -going to counseling in [place] As of 13wks no longer taking [...] encounter Miscellaneous Notes * Telephone Encounter - Peter Boland OSA [...] 3:00 PM EST Office Visit General Surgery, [facility] [address] [place] [address] Mulugeta To MD [address] [place] [address] Pending Results Name Type Priority Associated Diagnoses [...]
--- OUTSIDE RECORDS SUMMARY | 2024-12-13 16:46 | External Medical Summary | Summary of Care ---
Author Name Unknown Organization [facility] Address [address] [facility] [place] [address] Phone [phone] Care Team Providers Care Video Game Engineer Name Role Phone Unavailable Primary Care Provider Unavailabl e Reason for Visit * Reason Onset Date Comments Appointment 11/05/2024 Encounter Details Date Type Department Care Team ([facility] st Contact Info) Description 11/05/2024 Telephone OR [facility], Operating Room [facility] [address] [place] [phone] Kadi Watters PA-C [address] [place] [address] Appointment Allergies Active Allergy Reactions Criticality Noted [...] phobia of needles. 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 Increased risk for breast cancer and pancreatic cancer. 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 * Telephone Encounter - Kadi Watters PA-C - 11/05/2024 8:45 AM EST [...] and I will send Ativan to pharmacy. Kadi Watters PA-C 11/05/2024 8:47 AM documented in this encounter Plan of Treatment Upcoming Encounters Date Type Department Care Team (Late st Contact Info) Description 11/05/2024 11:00 AM EST Imaging Radiology [facility] 1st Floor, [address] [place] [address] 11/05/2024 11:30 AM EST Imaging Radiology [address] [place] [address] 11/05/2024 12:30 PM EST Imaging Radiology [address] [place] [address] Health Maintenance Due Date Last Done Comments [...] phobia- Primary Other isolated or specific phobias documented in this encounter
--- OUTSIDE RECORDS SUMMARY | 2024-12-13 16:46 | External Medical Summary | Summary of Care ---
Author Name Unknown Organization [facility] Address [address] [place] [address] Phone [phone] Care Team Providers Care Electronic Operator Name Role Phone Unavailable Primary Care Provider Unavailabl e Reason for Referral * Precert (Within 10 days (routine)) - Authorized Specialty Diagnoses / Procedures Referred By Rhonda t Referred To Contact Radiology Diagnoses Abnormal mammogram Genetic predisposition to breast cancer Mass of multiple sites of right breast Axillary mass, right Procedures MRI BREAST BILATERAL W WO CONTRAST Kadi Watters PA-C [address] [place] [address] Phone: tel: fax: Referral ID Status Reason Start Date Expiration Date V isits Requested Visits Authorized [id number] Authorized 11/08/2024 999 999 Reason for Visit * Reason Onset Date Comments Information 11/05/2024 FYI 11/05/2024 Encounter Details Date Type Department Care Team (Late st Contact Info) Description 11/05/2024 Telephone Radiology [facility] [address] [place] [address] Kadi Watters PA-C [address] [place] [address] Information; Allergies Active Allergy Reactions Criticality Noted [...] Overview (05/13/2019): pathogenic LEONEL gene variant (c.8482C>T, p.[id number]*). Increased risk for breast cancer and pancreatic cancer. Monoallelic mutation of CHEK2 gene in female pat ient 05/13/2019 Overview (05/13/2019): pathogenic CHEK2 gene variant (c.1100del, p.[id number]*15). Increased risk for breast cancer, colon cancer [...] Date resolved Educational classes Encouraged pt attend [employer] classes 03/20/2017 Kadi Gold RN 03/20/2017 Problem [...] Date resolved education Enrolled in May [facility] 05/14/2017 Kadi Gold RN 05/14/2017 [...] Entered by Date resolved education Attended [facility]. 06/21/2017 06/23/2017 Kadi Gold RN 06/23/2017 [...] Overview (01/15/2017): Taking Subutex, followed monthly in [place] [facility] 16mg daily Mental disorder in 01/15/2017 08/26/2017 Overview (02/12/2017): [facility] taking Klonopin - ADHD, depression, bipolar -going to counseling in [place] As of 13wks no longer taking Klonopin [...] 11/08/2024) Immunizations Name Administration Dates Next Due DTP [...] Description 11/09/2024 2:30 PM EST Imaging Radiology [facility]st [facility] [place] [address] 11/12/2024 3:00 PM EST Office Visit General Surgery, [facility] [address] [facility] [place] [address] Mulugeta To MD [address] [place] [address] Scheduled Orders Name Type Priority Associated Diagnoses [...]
--- OUTSIDE RECORDS SUMMARY | 2024-12-13 16:46 | External Medical Summary | Summary of Care ---
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 Mass of multiple sites of right breast Axillary mass, right Procedures MRI BREAST BILATERAL W WO CONTRAST Kadi Watters PA-C [address] [place] [address] Phone: tel: fax: Referral ID Status Reason Start Date Expiration Date V isits Requested Visits Authorized [id number] Authorized 11/08/2024 999 999 Reason for Visit * Reason Onset Date Comments Information 11/05/2024 FYI 11/05/2024 Encounter Details Date Type Department Care Team (Late st Contact Info) Description 11/05/2024 Telephone Radiology [facility] [address] [place] [address] Kadi Watters PA-C [address] [place] [address] Information; Allergies Active Allergy Reactions Criticality Noted [...] Overview (05/13/2019): 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 Increased risk for breast cancer and pancreatic cancer. 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 Increased risk for breast cancer, colon cancer [...] Date resolved Educational classes Encouraged pt attend [employer] classes 03/20/2017 Kadi Gold RN 03/20/2017 Problem [...] by Date resolved education Enrolled in May [facility] 05/14/2017 Kadi Gold RN 05/14/2017 [...] entered Entered by Date resolved education Attended [facility]. 06/21/2017 06/23/2017 Kadi Gold RN [...] Overview (01/15/2017): Taking Subutex, followed monthly in [place] [facility] 16mg daily Mental disorder in 01/15/2017 08/26/2017 Overview (02/12/2017): @ [facility] taking Klonopin - ADHD, depression, bipolar -going to counseling in [place] As of 13wks no longer taking Klonopin [...] Quadriva lent, No Preserve, IM 08/13/2017 TB Mayr Test 01/09/1988 TD - Tetanus/Diptheria (ADULT) 07/01/2003 [...] aware of this. * Telephone Encounter - Kaid Watters PA-C - 11/08/2024 9:27 AM EST [...] 3:00 PM EST Office Visit General Surgery, [facility] [address] [place] [address] Mulugeta To MD [address] [place] [address] Pending Results Name Type Priority Associated Diagnoses [...]
--- OUTSIDE RECORDS SUMMARY | 2024-12-13 16:46 | External Medical Summary | Summary of Care ---
Author Name Unknown Organization [facility] Address [address] [facility] [place] [address] Phone [phone] Care Team Providers Care Management Professor Name Role Phone Unavailable Primary Care Provider Unavailabl e Reason for Visit * Reason Onset Date Comments Appointment 11/05/2024 Encounter Details Date Type Department Care Team ([facility] st Contact Info) Description 11/05/2024 Telephone OR [facility], Operating Room [facility] [address] [place] [address] Mehreen Watters PA-C [address] [place] [address] Appointment Allergies Active Allergy Reactions Criticality Noted [...] Overview (05/13/2019): 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 Increased risk for breast cancer and pancreatic cancer. 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 Increased risk for breast cancer, colon cancer [...] by Date resolved education Enrolled in May [facility] 05/14/2017 Mehreen Gold RN 05/14/2017 Problem Action [...] entered Entered by Date resolved education Attended [facility]. 06/21/2017 06/23/2017 Mehreen Gold RN 06/23/2017 Problem [...] Overview (01/15/2017): Taking Subutex, followed monthly in [place] @ [facility] 16mg daily Mental disorder in 01/15/2017 08/26/2017 Overview (02/12/2017): @ [facility] taking Klonopin - ADHD, depression, bipolar -going to counseling in [place] As of 13wks no longer taking Klonopin [...] PA-C - 11/05/2024 9:05 AM ESTAddended by: MEHRENE WATTERS on: 11/05/2024 09:05 AM Modules accepted: Orders * Addendum Note - Mehreen Watters PA-C - 11/05/2024 9:04 AM ESTAddended by: MEHREEN WATTERS on: 11/05/2024 09:04 AM Modules accepted: Orders * Telephone Encounter - Jenna Browning OSA - 11/05/2024 8:59 AM EST 2 hour time frame from start to finish so 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 * Telephone [...] Description 11/05/2024 11:00 AM EST Imaging Radiology [facility] 1st Floor, [address] [place] [address] 11/05/2024 11:30 AM EST Imaging Radiology [address] [place] [address] 11/05/2024 12:30 PM EST Imaging Radiology [address] [place] [address] Scheduled Orders Name Type Priority Associated Diagnoses [...] 01/15/2020 01/15/2017, 04/24 (Done elsewhere) COVID-19 Vaccine (2023- season) 2024 Influenza Vaccine (FLU shot) (#1) [...]
--- OUTSIDE RECORDS SUMMARY | 2024-12-13 16:46 | External Medical Summary | Summary of Care ---
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 Mass of multiple sites of right breast Axillary mass, right Procedures MRI BREAST BILATERAL W WO CONTRAST Kadi Watters PA-C [address] [employer] [address] [employer] [place] [address] Phone: tel: fax: Referral ID Status Reason Start Date Expiration Date V isits Requested Visits Authorized [id number] Authorized 11/08/2024 999 999 Reason for Visit * Reason Onset Date Comments Information 11/05/2024 FYI 11/05/2024 Encounter Details Date Type Department Care Team (Late st Contact Info) Description 11/05/2024 Telephone Radiology [facility] [address] [place] [address] Kadi Watters PA-C [address] [place] [address] Information; Allergies Active Allergy Reactions Criticality Noted [...] Overview (05/13/2019): 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 Increased risk for breast cancer and pancreatic cancer. 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 Increased risk for breast cancer, colon cancer [...] Date resolved Educational classes Encouraged pt attend [employer] classes 03/20/2017 Kadi Gold RN 03/20/2017 [...] by Date resolved education Enrolled in May [facility] 05/14/2017 Kadi Gold RN 05/14/2017 Problem [...] entered Entered by Date resolved education Attended [facility]. 06/21/2017 06/23/2017 Kadi Gold RN 06/23/2017 [...] Overview (01/15/2017): Taking Subutex, followed monthly in [place] @ [facility] 16mg daily Mental disorder in 01/15/2017 08/26/2017 Overview (02/12/2017): @ [facility] taking Klonopin - ADHD, depression, bipolar -going to counseling in [place] As of 13wks no longer taking Klonopin [...] encounter Miscellaneous Notes * Telephone Encounter - Ade Rodriguez OSA [...] 3:00 PM EST Office Visit General Surgery, [address] [place] [address] Mulugeta To MD [address] [place] [address] Scheduled Orders Name Type Priority Associated Diagnoses [...]
--- OUTSIDE RECORDS SUMMARY | 2024-12-13 16:46 | External Medical Summary | Summary of Care ---
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 cancer Mass of multiple sites of right breast Axillary mass, right Procedures MRI BREAST BILATERAL W WO CONTRAST Kadi Watters PA-C [address] [employer] [place] [address] Phone: tel: fax: Referral ID Status Reason Start Date Expiration Date V isits Requested Visits Authorized [id number] Authorized 11/08/2024 999 999 Reason for Visit * Reason Onset Date Comments Information 11/05/2024 FYI 11/05/2024 Encounter Details Date Type Department Care Team (Late st Contact Info) Description 11/05/[address] [facility] [address] [place] [address] Kadi Watters PA-C [address] [place] [address] Information; Allergies Active Allergy Reactions Criticality Noted [...] Overview (05/13/2019): 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 Increased risk for breast cancer and pancreatic cancer. 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 Increased risk for breast cancer, colon cancer [...] Date resolved Educational classes Encouraged pt attend [employer] classes 03/20/2017 Kadi Gold RN 03/20/2017 Problem [...] by Date resolved education Enrolled in May [facility] 05/14/2017 Kadi Gold RN 05/14/2017 [...] entered Entered by Date resolved education Attended [facility]. 06/21/2017 06/23/2017 Kadi Gold RN [...] Overview (01/15/2017): Taking Subutex, followed monthly in [place] @ [facility] 16mg daily Mental disorder in 01/15/2017 08/26/2017 Overview (02/12/2017): @ [facility] taking Klonopin - ADHD, depression, bipolar -going to counseling in [place] As of 13wks no longer taking Klonopin [...] 3:00 PM EST Office Visit General Surgery, [facility] [address] [place] [address] Mulugeta To MD [address] [place] [address] Scheduled Orders Name Type Priority Associated Diagnoses [...]
--- OUTSIDE RECORDS SUMMARY | 2024-12-13 16:46 | External Medical Summary | Summary of Care ---
Author Name Unknown Organization [facility] Address [address] [place] [address] Phone [phone] Care Team Providers Care Metal Alloy Scientist Name Role Phone Unavailable Primary Care Provider Unavailabl e Reason for Visit * Reason Comments Follow Up Encounter Details Date Type Department Care Team (Late st Contact Info) Description 11/04/2024 11:15 AM EST Office Visit General Surgery, 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 Increased risk for breast cancer and pancreatic cancer. 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 Increased risk for breast cancer, colon cancer [...] by Date resolved education Enrolled in May [facility] 05/14/2017 Kadi Gold RN [...] entered Entered by Date resolved education Attended [facility]. 06/21/2017 06/23/2017 Kadi Gold [...] Overview (01/15/2017): Taking Subutex, followed monthly in [place] @ [facility] 16mg daily Mental disorder in 01/15/2017 08/26/2017 Overview (02/12/2017): [facility] taking Klonopin - ADHD, depression, bipolar -going to counseling in [place] As of 13wks no longer taking Klonopin [...] from the original note were not included. [facility] GENERAL SURGERY HIGH RISK BREAST EXAM CLINIC [...] results below) Previous suspicious breast biopsies: No Property Administrator factors: No Other: Unknown density status Genetic Testing Completed 05/12/2019: Test Results: POSITIVE. 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 Unsure if this is one large mass vs smaller mass within dense tissue. Post XRT edema: No Post [...] 2-3 cm FN with palpable axillary mass. ALTERNATIVE MEDICINE PRACTITIONER risk assessment completed (see results below). NCCN [...] documented in this encounter Plan of Treatment Pending Results Name Type Priority Associated Diagnoses Date /Time MAMMOGRAM DIAGNOSTIC NISA BILATERAL Medical Imaging STAT Lump in upper outer quadrant of right breast Axillary mass, right 11/05/2024 11:15 AM EST US BREAST LIMITED RIGHT Medical Imaging STAT Lump in upper outer quadrant of right breast Axillary mass, right 11/05/2024 12:28 PM EST Scheduled Orders Name Type Priority Associated Diagnoses Orde r Schedule US BREAST AXILLA RIGHT Medical Imaging STAT [...]
--- OUTSIDE RECORDS SUMMARY | 2024-12-13 16:46 | External Medical Summary | Summary of Care ---
Author Name Unknown Organization [facility] Address [address] [facility] [place] [address] Phone [phone] Care Team Providers Care Peoplesoft Programmer Name Role Phone Unavailable Primary Care Provider Unavailabl e Reason for Visit * Reason Onset Date Comments Appointment 11/05/2024 Encounter Details Date Type Department Care Team ([facility] st Contact Info) Description 11/05/2024 Telephone OR [facility], Operating Room [facility] [address] [place] [phone] Mehreen Watters PA-C [address] [place] [address] Appointment Allergies Active Allergy Reactions Criticality Noted [...] Overview (05/13/2019): 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 Increased risk for breast cancer and pancreatic cancer. 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 Increased risk for breast cancer, colon cancer [...] in May [facility] 05/14/2017 Mehreen Gold RN 05/14/2017 Problem Action [...] Attended [facility]. 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 * Telephone Encounter [...] Description 11/05/2024 11:00 AM EST Imaging Radiology [facility] 1st Floor, [address] [place] [address] 11/05/2024 11:30 AM EST Imaging Radiology [address] [place] [address] 11/05/2024 12:30 PM EST Imaging Radiology [address] [place] [address] Scheduled Orders Name Type Priority Associated Diagnoses [...]
--- OUTSIDE RECORDS SUMMARY | 2024-12-13 16:46 | External Medical Summary | Summary of Care ---
Author Name Unknown Organization [facility] Address [address] [facility] [place] [address] Phone [phone] Care Team Providers Care Advanced Practice Psychiatric Nurse Name Role Phone Unavailable Primary Care Provider Unavailabl e Reason for Visit * Reason Onset Date Comments Appointment 11/05/2024 Encounter Details Date Type Department Care Team ([facility] st Contact Info) Description 11/05/2024 Telephone OR [facility], Operating Room [facility] [address] [place] [phone] Mehreen Watters PA-C [address] [place] [address] Appointment Allergies Active Allergy Reactions Criticality Noted [...] Overview (05/13/2019): 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 Increased risk for breast cancer and pancreatic cancer. 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 Increased risk for breast cancer, colon cancer [...] Date resolved education Enrolled in May [facility] 05/14/2017 Mehreen Gold RN 05/14/2017 Problem Action [...] Entered by Date resolved education Attended [facility]. 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 * Telephone Encounter [...] Description 11/05/2024 11:00 AM EST Imaging Radiology [facility] 1st Floor, [address] [place] [address] 11/05/2024 11:30 AM EST Imaging Radiology [address] [place] [address] 11/05/2024 12:30 PM EST Imaging Radiology [facility] [address] [facility] [place] [address] Health Maintenance Due Date Last Done Comments [...]
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
--- OUTSIDE RECORDS SUMMARY | 2024-12-13 16:47 | External Medical Summary | Summary of Care ---
Author Name Unknown Organization [facility] Address [address] [place] [address] Phone [phone] Care Team Providers Care Fish Icer Name Role Phone Unavailable Primary Care Provider Unavailabl e Reason for Visit * Reason Onset Date Comments Order Request 10/30/2024 Breast pain/lump Encounter Details Date Type Department Care Team (Late st Contact Info) Description 10/30/2024 Telephone General Surgery, [facility] [address] [place] [address] Kadi Watters PA-C [address] [place] [address] Order Request (Breast pain/lump) Allergies Active Allergy Reactions Criticality Noted Date Comments Naloxone Edema face/lips/tongue High 01/15/2017 documented as of this encounter (statuses as of 11/01/2024) Medications buprenorphine HCl (SUBUTEX) [address] 8 mg under the tongue daily. Active 28-0.8 MG TABS Take by mouth. Acti ve Acetaminophen (TYLENOL) 325 MG CAPS Take by mouth. Acti ve ondansetron (ZOFRAN) 4 MG TabletIndicatio ns:Nausea/vomit ing in Use as needed for nausea 30 Tab 1 7 Active Additional Information Patient not taking.Reported on 02/05/2022 folic acid 1 MG TabletIndicatio ns:Family history of spina bifida Take one tablet by mouth daily 90 Tab 1 7 Active Additional Information Patient not taking.Reported on 02/05/2022 ibuprofen (MOTRIN) 600 MG Tablet Take 1 Tab by mouth every 6 hours as needed for Pain. With food. 30 Tab 7 Active Additional Information Patient not taking.Reported on 02/05/2022 documented as of this encounter (statuses as of 11/01/2024) Active Problems Problem Noted Date Diagnosed Date Monoallelic mutation of LEONEL gene 05/13/2019 Overview (05/13/2019): pathogenic LEONEL gene variant (c.8482C>T, p.[id number]*). Increased risk for breast cancer and pancreatic cancer. 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 Increased risk for breast cancer, colon cancer and thyroid cancer. Attention deficit hyperactiv ity disorder (ADHD), combined type 07/10/2016 Anxiety state 12/12/2011 Depression 12/12/2011 Rosacea 04/30/2006 RHINITIS DUE TO POLLEN documented as of this encounter (statuses as of 11/01/2024) Resolved Problems Problem Noted Date Diagnosed Date [...] (01/15/2017): Taking Subutex, followed monthly in [place] @ [facility] 16mg daily Mental disorder in 01/15/2017 08/26/2017 Overview (02/12/2017): @ [facility] taking Klonopin - ADHD, depression, bipolar -going to counseling in [place] As of 13wks no longer taking Klonopin [...] as of this encounter (statuses as of 11/01/2024) Immunizations Name Administration Dates Next Due Seasonal [...] Telephone Encounter - Jenna Browning OSA - 11/01/2024 9:48 AM EST Scheduled on 11/04/24. * Telephone Encounter - Donna Arnold LPN - 11/01/2024 7:46 AM EST She usually see Kadi, can you set up an appt. With her. * Telephone Encounter - Neha Groves OSA - 10/30/2024 2:01 PM EST Pt called to state she is having breast pain and found a lump on right breast. She does not have a PCP. She thought maybe your clinic would be able to assist her on this medical issue. Please reach out to pt and advise her. Thank you, Radiology scheduling documented in this encounter Plan of Treatment Upcoming Encounters Date Type Department Care Team (Late st Contact Info) Description 11/04/2024 10:15 AM EST Office Visit General Surgery, [facility] [address] [place] [address] Kadi Watters PA-C [address] [place] [address] Health Maintenance Due Date Last Done Comments [...]
[2024-12-13] MEDS: PROMETHAZINE 12.5 MG/50.5 ML BAG IV STA (16:50)
[2024-12-13 17:33] LABS: Adenovirus PCR Not Detected (NotDetected); Bordetella parapertussis PCR Not Detected (NotDetected); Bordetella pertussis PCR Not Detected (NotDetected); Chlamydia pneumoniae PCR Not Detected (NotDetected); Coronavirus 229E PCR Not Detected (NotDetected); Coronavirus CoV-2 (COVID19)PCR Not Detected (NotDetected); Coronavirus HKU1 PCR Not Detected (NotDetected); Coronavirus NL63 PCR Not Detected (NotDetected); Coronavirus OC43PCR Not Detected (NotDetected); Human Metapneumovirus PCR Not Detected (NotDetected); Influenza A PCR Not Detected (NotDetected); Influenza B PCR Not Detected (NotDetected); Mycoplasma pneumoniae PCR Not Detected (NotDetected); Parainfluenza Virus 1 PCR Not Detected (NotDetected); Parainfluenza Virus 2 PCR Not Detected (NotDetected); Parainfluenza Virus 3 PCR Not Detected (NotDetected); Parainfluenza Virus 4 PCR Not Detected (NotDetected); Respiratory Syncytial VirusPCR Not Detected (NotDetected); Rhinovirus/Enterovirus PCR Not Detected (NotDetected)
[2024-12-13] MEDS ORDERED: ACETAMINOPHEN 325 MG TAB PO PRN (17:50)
[2024-12-13 18:05] LABS: BUN Creatinine Ratio 13.1 (10-20); Calcium 15.1 mg/dl (8.6-10.3); Creatinine Clr Calc Pharmacy 31.2 ml/min; Potassium 3.9 mmol/L (3.5-5.1)
[2024-12-13] MEDS: FUROSEMIDE 40 MG/4 ML VIAL IV ONE (20:53)
[2024-12-13] MEDS: GABAPENTIN 300 MG CAP PO SCH (20:54)
[2024-12-13 21:16] LABS: BUN Creatinine Ratio 12.7 (10-20); Calcium 14.3 mg/dl (8.6-10.3); Creatinine Clr Calc Pharmacy 31.2 ml/min; Potassium 3.8 mmol/L (3.5-5.1)
--- OUTSIDE RECORDS SUMMARY | 2024-12-13 21:25 | External Medical Summary | Summary of Care ---
Author Name Unknown Organization [facility] Address [address] [place] [address] Phone [phone] Care Team Providers Care Certified Court/Medical Interpreter Name Role Phone Unavailable Primary Care Provider Unavailabl e Reason for Visit * Reason Comments Outpatient Testing Encounter Details Date Type Department Care Team (Late st Contact Info) Description 12/13/2024 10:40 AM EST Laboratory Laboratory Scenery [facility] [address] [place] [phone] 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 Increased risk for breast cancer and pancreatic cancer. Monoallelic mutation of CHEK2 gene in female pat ient 05/13/2019 Overview (05/13/2019): pathogenic CHEK2 gene variant (c.1100del, p.[id number]*15). Increased risk for breast cancer, colon cancer [...] Entered by Date resolved education Attended [facility]. 06/21/2017 06/23/2017 Kadi Gold RN 06/23/2017 [...] any current needs or questions 08/20/2017 Iona Cuevsa RN 08/20/17 Patient received flu vaccine. 08/13/2017 Inge Ortega RN Drug use affecting 01/15/2017 08/26/2017 Overview (01/15/2017): Taking Subutex, followed monthly in [place] @ [facility] 16mg daily Mental disorder in 01/15/2017 08/26/2017 Overview (02/12/2017): @ [facility] taking Klonopin - ADHD, depression, bipolar -going to counseling in [place] As of 13wks no longer taking Klonopin [...] Team (Late st Contact Info) Description 12/13/2024 11:15 AM EST Hem/Onc Treatment Hematology/[address] [phone] Alla, Chair [address] Hem On[address] [place] [address] Arrived 12/15/2024 8:30 AM EST Telemedicine Palliative Medicine [address] [phone] Amie Kong MD [address] [place] [address] [place] [address] 12/16/2024 9:45 AM EST Pharmacy Pharmacy Hematology Oncology [address] [address] [facility] Hem/Onc [address] [place] [address] 12/20/2024 3:15 PM EST Imaging Radiology [address] [place] [address] 12/30/2024 9:30 AM EST Telemedicine Psychology, [facility] BARBER [address] [facility] [place] [address] Irving Aguila MA [address] [facility] [place] [address] 01/03/2025 11:00 AM EST Office Visit Hematology/Oncology [address] [place] [phone] Deepa Roberts, KANDICE [address] [place] [address] 01/03/2025 11:45 AM EST Immunization/Injection Hematology/Oncology Treatment, [place] [address] [place] [phone] Alla, Chair 2 Hem Onc Sc[address]ery [address] [place] [address] Pending Results Name Type Priority Associated Diagnoses Date /Time CBC WITH WBC DIFFERENTIAL Lab STAT Malignant neoplasm of upper-outer quadrant of right breast in female, estrogen receptor positive (HCC) 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) Nausea and vomiting, unspecified vomiting type Dehydration Nonintractable headache, unspecified chronicity pattern, unspecified headache type 12/13/2024 10:37 AM EST COMPREHENSIVE METABOLIC PANEL Lab STAT Malignant neoplasm of upper-outer quadrant of right breast in female, estrogen receptor positive (HCC) 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) Nausea and vomiting, unspecified vomiting type Dehydration Nonintractable headache, unspecified chronicity pattern, unspecified headache type 12/13/2024 10:37 AM EST MAGNESIUM Lab STAT Malignant neoplasm of upper-outer quadrant of right breast in female, estrogen receptor positive (HCC) 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) Nausea and vomiting, unspecified vomiting type Dehydration Nonintractable headache, unspecified chronicity pattern, unspecified headache type 12/13/2024 10:37 AM EST CBC Lab STAT Malignant neoplasm of upper-outer quadrant of right breast in female, estrogen receptor positive (HCC) 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) Nausea and vomiting, unspecified vomiting type Dehydration Nonintractable headache, unspecified chronicity pattern, unspecified headache type 12/13/2024 10:37 AM EST DIFFERENTIAL, AUTOMATED Lab STAT Malignant neoplasm of upper-outer quadrant of right breast in female, estrogen receptor positive (HCC) 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) Nausea and vomiting, unspecified vomiting type Dehydration Nonintractable headache, unspecified chronicity pattern, unspecified headache type 12/13/2024 10:37 AM EST Health Maintenance Due Date Last [...]
[2024-12-13] MEDS: buprenorphine HCL 8 MG SUBL SL SCH (21:41)
[2024-12-13] MEDS: ONDANSETRON INJ 2 MG/ML 2 ML VIAL IV PRN (22:11)
[2024-12-13] MEDS: ALPRAZolam 0.25 MG TABLET PO PRN (22:25)
[2024-12-13] MEDS: HEPARIN SOD 5,000 UNIT/0.5 ML VIAL SQ SCH (22:26)
[2024-12-13] MEDS: HYDROmorphone INJ 0.5 MG/0.5 ML SYR IV PRN (22:26)
[2024-12-14] MEDS: PROMETHAZINE 12.5 MG/50.5 ML BAG IV PRN (00:25)
[2024-12-14] MEDS: buprenorphine HCL 8 MG SUBL SL SCH ×2 (00:58→14:31)
[2024-12-14 06:19] LABS: Basophils # (auto) 0.07 K/uL (0.00-0.20); Basophils % (auto) 0.5 %; Eosinophils # (auto) 0.08 K/uL (0.00-0.50); Eosinophils % (auto) 0.6 %; Hematocrit (blood only) 35.9 % (37.0-47.0); Hemoglobin 11.8 g/dl (12.0-16.0); Immature Granulocytes # (auto) 0.23 K/uL (0.01-0.20); Immature Granulocytes % (auto) 1.7 %; Lymphocytes # (auto) 1.98 K/uL (1.20-3.40); Lymphocytes % (auto) 14.3 %; Mean Corpuscular Hemoglobin 28.4 pg (25.0-34.0); Mean Corpuscular Hgb Conc 32.9 g/dL (32.0-36.0); Mean Corpuscular Volume 86.3 fL (80.0-100.0); Mean Platelet Volume 10.7 fL (9.4-12.4); Monocytes # (auto) 1.03 K/uL (0.11-0.59); Monocytes % (auto) 7.4 %; Neutrophils # (auto) 10.48 K/uL (1.40-6.50); Neutrophils % (auto) 75.5 %; Platelet Count 326 K/uL (130-400); RDW Standard Deviation 38.2 fL (36.4-46.3); Red Blood Count 4.16 M/uL (4.20-5.40); White Blood Count 13.87 K/ul (4.8-10.8)
[2024-12-14 06:29] LABS: Albumin Globulin Ratio 1.5 (0.9-2); Albumin Level 4.2 gm/dl (3.4-5.0); BUN Creatinine Ratio 11.5 (10-20); Bilirubin,Total 0.4 mg/dl (0.2-1.0); Creatinine Clr Calc Pharmacy 29.4 ml/min; Globulin 2.8 gm/dl (2.5-4.0); Magnesium 1.5 mg/dl (1.7-2.4); Potassium 3.7 mmol/L (3.5-5.1)
[2024-12-14] MEDS: MAGNESIUM SULFATE / D5W 1 GM/100 ML BAG IV SCH (06:42)
[2024-12-14] MEDS: ZOLEDRONIC ACID 3 MG in SODIUM CHLORIDE 0.9% 100 ML IV ONE (08:16)
[2024-12-14] MEDS: buPROPion XL 300 MG TABCR PO SCH (08:17)
[2024-12-14] MEDS: CALCITONIN SALMON 400 UNITS/2 ML SQ SCH (09:08)
[2024-12-14] MEDS: LETROZOLE 2.5 MG TAB PO SCH (09:09)
[2024-12-14] MEDS ORDERED: HYDROmorphone HCL 4 MG TAB PO PRN (09:23)
--- NOTE | 2024-12-14 09:53 | Nephrology Consultation ---
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 at this point Hypercalcemia is caused by breast Cancer with mets. She came in with very high level and was enough to cause Symptoms. She has received NS, One dose lasix, Calcitonin and one dose of Iv Zometa. Since she got the Zometa Just now will see 24-48 hrs to reassess the efficacy of Zometa. I called Dr faulkner--her oncologist---She recently got steroids so will not give that. With Zometa being given NO need of Denosumab. Continue NS at 150/hr. Check Ionized Ca and renal panel every 12 hrs. If none of these Treatment able to bring it down may even need hemodialysis. However I will discuss with Oncology every day. (2) MELISSA (acute kidney injury): MELISSA most likely related with super high Ca++--both By creating pre renal State But also nephrocalcinosis like picture. Creat has not changed and is around 2.4. Conitnue IVF. Zometa dse adjusted for lower GFR Plan Case complexity high. A and P discussed with her oncologist as wellas primary service. total time spent 85 mins. 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 She reports feeling ill over the last 3 days. She has severe pain of shoulder, hip and back. She hasn't been able to tolerate any of her meds and also has vomiting, headache and nausea. She denies any diarrhea or sick contacts. She denies chest pain. Patient follows with Dr. Contreras Faulkner for oncology. Pt underwent Breast Mammogram in October that revealed a large R breast mass. She underwent biopsy which confirmed high grade her2/ER positive adenocarcinoma. She established with Dr. Faulkner. Plan was for Letrozole, Abemacilcib and lupron and starting zometa pending dental clearance and insurance approval. She underwent a PET scan on 11/30 which revealed Diffuse FDG avid osteolytic disease is present. She established with Palliative care through [facility] to assist with pain management and she is on chronic subutex due to prior addiction. She recently completed a steroid course for 1 week and was started on oral hydromorphone at the recommendation of [facility] Addiction medicine. Pt was seen at Heme/Onc today for IVF. She was found to have an MELISSA and a calcium > 20 and was referred to the ED. In ED pt remained hemodynamically stable. She had bun 30, cr 2.38, Ca > 18. She was started on 2L of IV and still getting NS at 150/hr. Creat still about same at 2.4. Ca dropped a bit to around 15 but not since then. has got Calcitonin x 2 dose and getting Zometa 3 mg iv now. has received IVF and Also 1 dose of iv lasix. making lot of urine--no vee and not measured. ROS--Unable to obtain as she is crying very hard. Did report briefly about n,v, Poor po, pain all over. 12 Systems otherwise negative Physical Exam Physical Exam: Constitutional: acute ill, sitting up in bed, No resp Distress but is very tearful and crying hard Head: Normocephalic, Atraumatic Neck: Supple. NO JVD Respiratory: normal respiratory effort, lungs clear to auscultation, no wheeze, rales, rhonchi. Normal insp/exp effort, no accessory muscle use Cardiovascular: RRR, no murmur, no edema Vessels: no JVD or carotid bruit Abdomen: soft, nontender, no hepatosplenomegaly Skin: no rashes, warm and dry normal turgor Neurologic: no face palsy, no dysarthria CN's II-XI intact bilaterally and moves all extremities Allergies Allergy/AdvReac Type Severity Reaction Status Date / Time naloxone Allergy Severe ANAPHYLAXIS Verified 08/25/17 10:11 Home Medications Medication Instructions Recorded Confirmed Type abemaciclib 150 mg tablet 150 mg PO AMHS 12/13/24 12/13/24 History (Verzenio) alprazolam 0.25 mg tablet 0.25 mg PO TID PRN Anxiety 12/13/24 12/13/24 History buprenorphine HCl 8 mg sublingual 1 mg sublingual TID 12/13/24 12/13/24 History tablet bupropion HCl 300 mg 24 hr tablet, 300 mg PO DAILY 12/13/24 12/13/24 History extended release gabapentin 300 mg capsule 300 mg PO TID 12/13/24 12/13/24 History hydromorphone 4 mg tablet 4 mg PO Q4H PRN Severe Pain (Scale 12/13/24 12/13/24 History Score 7-10) letrozole 2.5 mg tablet 2.5 mg PO DAILY 12/13/24 12/13/24 History ondansetron HCl 8 mg tablet 8 mg PO Q8H PRN Nausea 12/13/24 12/13/24 History prochlorperazine maleate 10 mg 10 mg PO Q6H PRN Nausea 12/13/24 12/13/24 History tablet Patient History Medical History ADHD Hx of drug abuse Depression with anxiety Malignant neoplasm of right breast, stage 4 Surgical History Hx of breast biopsy Family History Mother Breast cancer Father Cancer Social History Smoking Status: Former smoker Tobacco Type: E-cigarettes / Vaping Cigarettes Per Day: used to smoke tobacco cigarettes, was vaping until the last few days; Second Hand Exposure: No; Do You Dip or Chew Tobacco: No; Hx Alcohol Use: No Hx Substance Use: Yes Last Used Substance Other:: 12 years Substance Use Type Other:: heroin Preferred Language: [place] Communication Ability: Effective Maint Mechanic Required: No Beliefs That Will Affect Care: None Current Living Situation: Family Current Living Situation Comment: lives at home with boyfriend and children Feels Safe at Home: Yes Assistive Devices: None Results & Data Vital Signs (Past 12 Hours) Vital Signs Temp Pulse Pulse Resp BP Pulse Ox O2 Del Method 12/14/24 07:46 37.2 C 80 17 107/66 96 Room Air 12/14/24 05:52 85 18 119/74 12/14/24 02:38 36.5 C 88 18 101/60 94 Room Air 12/13/24 22:15 Room Air 12/13/24 22:04 36.7 C 73 16 109/73 95 Room Air 12/13/24 22:02 73 Laboratory Results reviewed Outp and In pt labs
--- NOTE | 2024-12-14 12:06 | Hospitalist Progress Note ---
Date of Service December 14, 2024 Assessment & Plan (1) MELISSA (acute kidney injury): (2) Malignant neoplasm of right breast, stage 4: (3) Hypercalcemia of malignancy: (4) Nephrocalcinosis: (5) Dehydration: (6) Depression with anxiety: Plan Patient with metastatic breast cancer and subsequent hypercalcemia of malignancy acute kidney injury due to hypercalcemia and dehydration. Patient has had some improvement but seems to have plateaued with treatment of her hypercalcemia fluids and calcitonin. 1 dose of Zometa today, monitor kidney function and calcium levels Communication with nephrology. Will see how she responds to the Zometa over the next 24 to 48 hours. If still remains hypercalcemic may need to entertain hemodialysis Radiation oncology note reviewed. MRIs requested pending Suspect leukocytosis may be reactive. Will continue to monitor off antibiotics at this time Buprenorphine dose increased for her chronic pain, utilization of oral and IV hydromorphone Trial of Compazine for her nausea Replace magnesium Extensive conversation with patient and her aunts at bedside. Discussed treatments with her palliative in nature. Admission and Anticipated Discharge Date Admission Date: December 13, 2024 Subjective Patient extremely nauseated. Unable to even really take her Subutex. States Zofran did not help. Phenergan seem to help a little bit. Physical Exam Physical Exam: Constitutional: Alert, thin, mild distress HEENT: Mucous membranes moist. Lungs: Clear to auscultation, decreased, no wheezes rales or rhonchi CV: S1-S2, regular Abdomen: Soft, mild tenderness, nondistended, no guarding, no rigidity Extremities: No significant edema Neuro: No focal deficits Psych: Tearful, anxious, depressed Results & Data Results & Data Vital Signs (Past 12 Hours) Vital Signs Temp Pulse Pulse Resp BP Pulse Ox O2 Del Method 12/14/24 11:47 37.2 C 113 H 17 120/73 113 H Room Air 12/14/24 08:00 74 12/14/24 07:46 37.2 C 80 17 107/66 96 Room Air 12/14/24 05:52 85 18 119/74 12/14/24 02:38 36.5 C 88 18 101/60 94 Room Air Diagnostic Findings Reviewed imaging, laboratory and diagnostic studies. Pertinent findings as below. Magnesium 1.5 Ionized calcium 2.2 Calcium 15.0 Creatinine 2.43 WBCs 13.8 Hemoglobin 11.8
[2024-12-14] MEDS: HYDROmorphone INJ 1 MG/ML SYRINGE IV PRN (13:54)
[2024-12-14] MEDS: PROCHLORPERAZINE 10 MG in SYRINGE 8 ML IV PRN (14:26)
[2024-12-14] MEDS ORDERED: ACETAMINOPHEN 1,000 MG/100 ML VIAL IV PRN (15:00)
[2024-12-14 18:08] LABS: BUN Creatinine Ratio 11.6 (10-20); Calcium 16.4 mg/dl (8.6-10.3); Creatinine Clr Calc Pharmacy 28.6 ml/min; Potassium 3.5 mmol/L (3.5-5.1)
--- NOTE | 2024-12-14 18:51 | Magnetic Resonance Report ---
Clinical History: Metastatic breast cancer Technique: Multiple T1 and T2-weighted magnetic resonance images were obtained of the brain without gadolinium contrast Findings: There is no sign of acute or old infarction with normal-appearing diffusion weighted images. No definite focus of demyelination is seen. No definite mass lesion is seen on this noncontrast study. There is no intracranial hemorrhage or other fluid collection. No midline shift or other form of herniation is seen. There is no hydrocephalus. Normal flow-voids are seen within the arteries of the [id number]. The orbits appear unremarkable. There is near complete opacification of the right maxillary sinus. The mastoid air cells appear clear. Impression: 1. Normal-appearing brain 2. Right maxillary sinusitis Electronically signed by Seferino Jones 12-14-2024 6:51 PM
[2024-12-14] MEDS: FUROSEMIDE 40 MG/4 ML VIAL IV SCH (20:24)
[2024-12-14] MEDS: POTASSIUM CHLORIDE / WTR 10 MEQ/100 ML PLCT IV SCH (20:25)
[2024-12-14] MEDS: POTASSIUM CHLORIDE CRTAB 20 MEQ TABCR PO SCH (20:25)
--- NOTE | 2024-12-14 20:29 | Magnetic Resonance Report ---
Exam(s): MRI T SPINE Without Contrast EXAM: MR Thoracic Spine Without Intravenous Contrast CLINICAL HISTORY: cancer. TECHNIQUE: Magnetic resonance images of the thoracic spine without intravenous contrast in multiple planes. COMPARISON: No relevant prior studies available. FINDINGS: Vertebrae: Abnormal signal noted in the T9 vertebral body, predominantly involving the posterior right body, extending into the right pedicle and facet with a suggestion of minimal extension beyond the right posterior cortex with minimal convexity into the central canal. This effaces the right anterolateral CSF collar without significant mass- effect on the thoracic cord. There is questionable minimal loss of height involving the endplates with approximately 10% loss of height centrally. Subtle abnormal signal involving the anterior T11 vertebral body adjacent to the superior endplate. No pathologic fracture. Incidental hemangioma noted involving the posterior right vertebral body at T6 level. The thoracic vertebral bodies are intact. Discs/spinal canal/neural foramina: No acute findings. No significant disc disease. No spinal canal stenosis. Spinal cord: The thoracic cord demonstrates normal contours and signal characteristics. Evaluation is limited without contrast. Soft tissues: Unremarkable. IMPRESSION: 1. Evaluation for metastatic disease is somewhat compromised without contrast. No significant central canal stenosis. 2. Focal area of abnormal signal noted in the T9 vertebral body, predominantly involving the posterior right body, extending into the right pedicle and facet with a suggestion of minimal extension beyond the right posterior cortex with minimal convexity into the central canal. The appearance is most consistent with osseous metastatic disease with minimal extraosseous expansion. There is effacement of the right anterolateral CSF collar without significant mass-effect on the thoracic cord. Minimal loss of height involving the endplates with approximately 10% loss of height centrally. 3. Subtle abnormal signal involving the anterior T11 vertebral body adjacent to the superior endplate is most consistent with an additional area of osseous metastatic disease. No pathologic fracture. Electronically signed by: Tip Warner MD 12/14/24 20:28 PM
[2024-12-15 06:29] LABS: Hematocrit (blood only) 37.5 % (37.0-47.0); Mean Corpuscular Hemoglobin 29.7 pg (25.0-34.0); Mean Corpuscular Hgb Conc 34.7 g/dL (32.0-36.0); Mean Corpuscular Volume 85.8 fL (80.0-100.0); Mean Platelet Volume 10.9 fL (9.4-12.4); Platelet Count 323 K/uL (130-400); RDW Coefficient of Variation 11.8 % (11.5-14.5); Red Blood Count 4.37 M/uL (4.20-5.40); White Blood Count 17.03 K/ul (4.8-10.8)
[2024-12-15 06:59] LABS: BUN Creatinine Ratio 10.8 (10-20); Calcium 15.6 mg/dl (8.6-10.3); Creatinine Clr Calc Pharmacy 22.7 ml/min; Magnesium 1.5 mg/dl (1.7-2.4); Potassium 3.6 mmol/L (3.5-5.1)
--- NOTE | 2024-12-15 08:10 | Hospitalist Progress Note ---
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 She reports feeling ill over the last 3 days. She has severe pain of shoulder, hip and back. She hasn't been able to tolerate any of her meds starting Friday. Patient follows with Dr. Contreras Munoz for oncology. Pt underwent Breast Mammogram in October that revealed a large R breast mass. She underwent biopsy which confirmed high grade her2/ER positive adenocarcinoma. She underwent a PET scan on 11/30 which revealed Diffuse FDG avid osteolytic disease is present. She established with Palliative care through [facility] to assist with pain management and she is on chronic subutex due to prior addiction. She recently completed a steroid course for 1 week and was started on oral hydromorphone at [facility]. Pt was seen at Heme/Onc fpr IV fluids. She was found to have an MELISSA and a calcium > 20 and was referred to the ED. In ED pt remained hemodynamically stable. She had a leukcocytosis of 20k, bun 30, cr 2.38, Ca > 18. She was started on 2L of IVF. Malignant Neoplasm of the R Breast, Stage IV: -Pt with metastatic breast cancer and subsequent hypercalcemia in the setting of malignancy -Thoracic Spine MRI: 12/14: Focal area of abnormal signal noted in the T9 vertebral body, predominantly involving the posterior right body, extending into the right pedicle and facet with a suggestion of minimal extension beyond the right posterior cortex with minimal convexity into the central canal. The appearance is most consistent with osseous metastatic disease with minimal extraosseous expansion. There is effacement of the right anterolateral CSF collar without significant mass-effect on the thoracic cord. Minimal loss of height involving the endplates with approximately 10% loss of height centrally. Subtle abnormal signal involving the anterior T11 vertebral body adjacent to the superior endplate is most consistent with an additional area of osseous metastatic disease. No pathologic fracture -Brain MRI 12/14: negative for mid line shift, SDH, ICH, or brain lesions. -CTAP without contrast 12/15: No evidence of hydronephrosis. Innumerable lytic lesions are seen throughout the skeleton compatible with history of metastatic breast cancer. -Spoke with Dr. Munoz; plan for radiation mapping today; goal for palliative radiation treatment to thoracic region and pelvis. Goal to start radiation fraction /5 on FridayDecember 17. -Since Zometa being given NO need of Denosumab. -Confirmed Full Code. Would be beneficial for patient to name a family member for decision making if she becomes unable. Currently, mother would be next of kin. Not currently to significant other. Hypercalcemia: Intractable Nausea: -Original serum calcium level > 18 on 12/13 -iCa: 2.10--> 2.04 -Has had some improvement with IV fluids -Received Calcitonin and Zometa on 12/14. Peak effects of Zometa is at 48 hours which would be in the AM of 12/16. -Lasix IV 40 mg Q8 started with KCL replacement on 12/14. -Pt has some symptoms of severe hypercalcemia including kidney insufficiency, intractable nausea, polyuria, and muscle weakness. -Nephrology following closely; if no improvement may need to consider hemodialysis; however, this will only treat hypercalcemia and MELISSA; not the metastatic disease. -Nausea likely related to hypercalcemia; phenergan seems to control symptoms well. Zofran and Compazine -Check BMP and iCa Q12 per nephro. MELISSA: -Likely secondary to bone metastasis. -Serum Creatinine on admission 2.43--> 2.50; today 3.14 -Avoid nephrotoxic agents -Receiving IV fluids @ 150mL/hour per Nephro -BMP Q12 -Nephrology consulted; appreciate recommendations Hyponatremia: Serum sodium 133; started on 0.9 NS @ 150ml/hour per Nephro trend BMP Q12h Goals of care; counseling/discussion: Patient follows with [facility]; who is aware of her admission. Lengthy conversation held today, originally with patient on her own. She was understandably very tearful. She said a few times that she feels like she is dying. She has two young daughters; Grace (4) and Calixto (7) who are currently with her significant other and they know that their mom is ill, but they do not know the extent due to their young age. Pt mother, Candace, was at the beside as well for which we discussed the above for a current plan of care. Confirmed patient to remain a full code at this time. Patient would benefit from identifying a legal decision maker; currently, patient next of kin would be her mother, who is aware of this. Family and patient aware that goal is to lower the serum calcium level; if unable dialysis may be recommended; however, not a curing treatment, rather a way to lower the calcium levels and improve creatinine short term. Appreciate Caleb White with spiritual care providing support to the family today as well. Formally involve palliative medicine over next 48 hours pending progression in care. Anticipate patient with life-limiting illness. Maxillary Sinusitis: Brain MRI: negative for mid line shift, SDH, ICH, or brain lesions. Report does indicate right maxillary sinusitis; given leukocytsis without infectious origin, will treat empirically with broad spectrum abx; Zosyn and reassess Blood Cultures negative. Hypomagnesemia: Serum Mg+ 1.5; replace with Mg+ 2G IV; trend in AM no ectopy on monitor H/O IVDA: Buprenorphine dose increased for her chronic pain Disposition: PCP: Dr. Lange Code Status: Full Code (confirmed with patient and family today) VTE Prophylaxis: Heparin SQ I spent a total of 58 minutes coordinating, documenting, and providing care for this patient excluding time spent in the performance of separately billed services. All of the aforementioned completed while collaborating with the assigned attending physician for a full treatment plan. Please see their addendum for further details. Admission and Anticipated Discharge Date Admission Date: December 13, 2024 Supervising Physician Co-Signing Physician Notes delayed entry date of service noted above Attending Addendum: Case reviewed with the advanced practitioner. I have personally performed a history and physical examination on the patient. I have reviewed the advanced practitioner's documentation on the date of service referenced in note, and I agree with, and take responsibility for the plan of care. please refer to her notes for full details patient seen and examined, records reviewed by myself as well diagnoses and plan of care as per advanced practitioner's notes I spent a total of 35 minutes coordinating, documenting, and providing care for this patient excluding time spent in the performance of separately billed services or time spent by another provider/QHP. Clarence Ruiz MD Subjective Patient appears visibly ill; continues to have nausea. She extremely nauseated; reports Phenergan works well. Reports double vision, weakness in hands when holding items like a water container. She did get up to use the commode and felt 'wobbly'. She has not vomited since yesterday. Denies chest pain, SOB, vomiting (last emesis 12/14), reports having a difficult time holding up a water bottle. She was tearful throughout our visit; she talked about her two kids and fearing leaving them. They are currently with their father, her Jeb Sevilla. Discussed what family members are involved in her care; aunts x2, her Mom (Candace) and Dad, and best friend Dori Moreno RN and also Osmani Dunlap PA-C (friend and cousin) She continues to have polyuria; using bedside commode See below for plan of care. Review of Systems Review of Systems: Neuro: (-) Falls, trauma, slurred speech (+) lethargic HEENT: (-) WILLETT, dizziness, dysphagia, (+) double vision CV: (-) CP, palpitations, swelling Resp: (-) SOB GI: (+) appetite changes, (+) nausea (-)V/D, bowel changes : (-) urinary changes Skin: (-) rashes Psych: (-) anxiety, depression (+) tearful Physical Exam Physical Exam: Neuro: AAOx4, PERRLA, no aphagia, memory changes, CNII-XII grossly intact HEENT: head normocephalic, moist mucus membranes CV: S1/S2, (-) M/G/R, (-) edema, cap refill < 3 seconds Resp: Lungs CTA in all espino. On RA GI: Abdomen S/NT/ND, Ax4 bowel sounds, (+)R CVA tenderness Musculoskeletal: 5/5 B/L UE strength, 5/5 B/L LE strength. point tenderness thoracic and lumbar spine. Left hip pain. Skin: (-) rashes , (-) erythema. Psych: euthymic mood Results & Data Results & Data Vital Signs (Past 12 Hours) Vital Signs Temp Pulse Pulse Resp BP Pulse Ox O2 Del Method 12/15/24 07:47 37 C 113 H 17 101/56 L 93 Room Air 12/15/24 02:58 36.7 C 110 H 16 117/76 93 Room Air 12/15/24 01:23 103 H 12/14/24 22:40 36.9 C 98 H 18 120/76 93 Room Air Laboratory Results Short CBC 12/15/24 Range/Units 05:48 WBC 17.03 H (4.8-10.8) K/ul Hgb 13.0 (12.0-16.0) g/dl Hct 37.5 (37.0-47.0) % Plt Count 323 (130-400) K/uL BMP 12/14/24 12/15/24 17:18 05:48 Sodium 139 133 L Potassium 3.5 3.6 Chloride 102 95 L Carbon Dioxide 30 27 BUN 29 H 34 H Creatinine 2.50 H 3.14 H D Glucose 99 111 H Calcium 16.4 H* 15.6 H* Diagnostic Findings Abdomen CT 12/15/24 09:13 CT abdomen wo con CLINICAL HISTORY: ARF, r/o obstruction TECHNIQUE: Helical axial images of the abdomen and pelvis were obtained. Automated dose lowering techniques and/or adjustment according to patient size were utilized for this exam. This exam was performed without intravenous contrast. CT DOSE: 327.37 mGy.cm COMPARISON: None available at the time of this dictation. FINDINGS: Lower chest: No acute abnormality. Liver: Unremarkable. No focal lesions are seen. Gallbladder and biliary tree: No calcified gallstones. Normal caliber wall. No intra- or extrahepatic biliary ductal dilation. Pancreas: Unremarkable, no focal lesions. Spleen: Splenule is incidentally noted. Adrenals: Unremarkable. Kidneys and ureters: Unremarkable. Bowel: Unremarkable. Lymph nodes Retroperitoneal: Unremarkable. Mesenteric: Unremarkable. Peritoneum: Normal. Vessels: Unremarkable. Abdominal wall: Unremarkable. Bones: Numerous lytic lesions are seen throughout the skeleton, including an 11 9 lesion that extends to the posterior elements from the vertebral wall. IMPRESSION: No evidence of hydronephrosis. Innumerable lytic lesions are seen throughout the skeleton compatible with history of metastatic breast cancer. ACT 112: Negative or not required by law. Electronically signed by: Pacheco Ferro M.D. 12/15/2024 11:07 AM
[2024-12-15] MEDS: MAGNESIUM SULFATE / D5W 1 GM/100 ML BAG IV SCH (10:03)
[2024-12-15] MEDS: PIPERACILLIN/TAZOBACTAM 4.5 GM/100 ML BAG IV STA (10:03)
--- NOTE | 2024-12-15 11:03 | Nephrology Progress Note ---
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 at this point Hypercalcemia is caused by breast Cancer with mets. She came in with very high level and was enough to cause Symptoms. She has received NS, lasix, Calcitonin and one dose of Iv Zometa. Since she got the Zometa 12/14----will see 24-48 hrs to reassess the efficacy of Zometa. I called Dr faulkner--her oncologist---She recently got steroids so will not give that. With Zometa being given NO need of Denosumab. Continue NS at 150/hr + lasix 40 iv q8h+ kcl 20 tid. Check Ionized Ca and renal panel every 12 hrs. If none of these Treatment able to bring it down may even need hemodialysis. However I will discuss with Oncology tomorrow in AM as it will be 48 hrs at that point of Iv Zometa. briefed a bit today to both patient and Mother about this option. Did make them clear though that dialysis Does not change anything regarding Cancer--this only address the High Ca++ and MELISSA. (2) MELISSA (acute kidney injury): MELISSA most likely related with super high Ca++--both By creating pre renal State But also nephrocalcinosis like picture. Creat has not changed and is around 2.4. Continue IVF NS at 150 ml/hr with Iv lasix 40 Iv q8hr Zometa given AM 12/14/24. S--C/o Diffuse Body pain. Dry mouth. tearful and mom at bedside. Lots of urine with IVF + lasix. Physical Exam Physical Exam: Constitutional: acute ill, sitting up in bed, No resp Distress but is very tearful and crying hard Head: Normocephalic, Atraumatic Neck: Supple. NO JVD Respiratory: normal respiratory effort, lungs clear to auscultation, no wheeze, rales, rhonchi. Normal insp/exp effort, no accessory muscle use Cardiovascular: RRR, no murmur, no edema Vessels: no JVD or carotid bruit Abdomen: soft, nontender, no hepatosplenomegaly Skin: no rashes, warm and dry normal turgor Neurologic: no face palsy, no dysarthria CN's II-XI intact bilaterally and moves all extremities Results & Data Vital Signs (Past 12 Hours) Vital Signs Temp Pulse Pulse Resp BP Pulse Ox O2 Del Method 12/15/24 08:00 117 H 12/15/24 07:47 37 C 113 H 17 101/56 L 93 Room Air 12/15/24 02:58 36.7 C 110 H 16 117/76 93 Room Air 12/15/24 01:23 103 H
--- NOTE | 2024-12-15 11:08 | CT Scan Report ---
CT abdomen wo con CLINICAL HISTORY: ARF, r/o obstruction TECHNIQUE: Helical axial images of the abdomen and pelvis were obtained. Automated dose lowering tech niques and/or adjustment according to patient size were utilized for this exam. This exam was perfor med without intravenous contrast. CT DOSE: 327.37 mGy.cm COMPARISON: None available at the time of this dictation. FINDINGS: Lower chest: No acute abnormality. Liver: Unremarkable. No focal lesions are seen. Gallbladder and biliary tree: No calcified gallstones. Normal caliber wall. No intra- or extrahepatic biliary ductal dilation. Pancreas: Unremarkable, no focal lesions. Spleen: Splenule is incidentally noted. Adrenals: Unremarkable. Kidneys and ureters: Unremarkable. Bowel: Unremarkable. Lymph nodes Retroperitoneal: Unremarkable. Mesenteric: Unremarkable. Peritoneum: Normal. Vessels: Unremarkable. Abdominal wall: Unremarkable. Bones: Numerous lytic lesions are seen throughout the skeleton, including an 11 9 lesion that extends to the posterior elements from the vertebral wall. IMPRESSION: No evidence of hydronephrosis. Innumerable lytic lesions are seen throughout the skeleton compatible with history of metastatic breast cancer. ACT 112: Negative or not required by law. Electronically signed by: Pacheco Ferro M.D. 12/15/2024 11:07 AM
[2024-12-15] MEDS: SODIUM CHLORIDE 0.9% 1,000 ML IV SCH (11:26)
--- NOTE | 2024-12-15 15:36 | Radiation Oncology Progress Nt ---
Date of Service December 15, 2024 Assessment & Plan (1) Malignant neoplasm of right breast, stage 4: Plan Assessment: Ms. Carr is a 39-year-old female who presents with metastatic breast cancer. The patient has been admitted to the hospital due to multiple medical issues. The patient does have metastatic disease involving multiple bones including the thoracic spine, pelvis and left shoulder. We have previously seen the patient in consultation and now seeing her again to discuss the role of palliative radiation therapy. Currently, she is using the pain medication to help with pain control. The patient's mother was present at the time of the evaluation and discussion. Recommendation: Palliative radiation therapy to left shoulder, thoracic spine and pelvis. 5 fractions. Plan: 1. CT simulation for treatment planning for radiation therapy. Plan to start radiation therapy within next several days. 2. Continue pain management as per primary medical team. 3. Continue all other management as per primary medical team. Rationale/Explanation of Treatment: I explained the indications, alternatives, benefits, risks and side effects of external beam radiation therapy. I then discussed radiation therapy side effects for treatment which include, but are not limited to, skin erythema, dry/moist desquamation of the skin, hyperpigmentation, telangiectasias, damage to the heart and development of cardiovascular disease, damage to the lungs including radiation pneumonitis, pulmonary fibrosis, decrease in pulmonary function, cough, fistula formation, tracheal stenosis, esophageal stenosis, esophageal perforation, dysphagia, nausea, vomiting, ulcers in stomach/bowel, gastritis, gastric perforation, bowel perforation, bowel obstruction, weight loss, dehydration, decreased appetite, liver damage including hepatitis and liver failure, damage to the kidneys including decreased renal function and renal failure, spinal cord damage including myelopathy, fatigue and secondary malignancy. I did explain the indications, alternatives, benefits, risks and side effects of external beam radiation therapy. I did explain the most common side effects including, but not limited to, skin erythema, skin breakdown, hyperpigmentation, telangiectasia, wound complications, perianal fistula development, fistula formation, bowel obstruction, kidney damage, spinal cord damage, bowel perforation, vaginal dryness, vaginal stenosis, dyspareunia, dysuria, increased urinary frequency, urgency, diarrhea, constipation, melena, hematochezia, hematuria, radiation cystitis, radiation proctitis, fatigue, decreased blood counts, wound complications from surgery, urinary incontinence, rectal incontinence, secondary malignancy development. I did explain the procedures and daily process of radiation therapy. Admission and Anticipated Discharge Date Admission Date: December 13, 2024 Subjective 05/12/2019. 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 02/05/2022. Surgical consultation (Dr. Scruggs). Positive family history of breast cancer. Mother with history of breast cancer x 3. Patient has LEONEL and CHEK2 mutations. Patient will start breast cancer screening now with mammography. Consider chemo preventative once completed with childbearing. 02/22/2022. Bilateral screening mammogram. No mammographic evidence of malignancy. BI-RADS Category 1. 04/01/2023. Surgical follow-up. Continue screening mammography. Supplemental breast MRI will be ordered. Continue yearly follow-up. 04/11/2023. Bilateral screening mammogram. No mammographic evidence of malignancy. BI-RADS Category 1. 12/08/2023. Genetic counseling follow-up. No additional orders at this visit. 11/04/2024. Surgical follow-up. Patient has discomfort of the right upper outer breast. She noticed a lump. She was a unable to do the MRI due to severe phobia of needles. MRI ordered. Stat bilateral mammogram and right breast ultrasound as well as axillary ultrasound were ordered. 11/05/2024. Bilateral diagnostic mammogram and right breast ultrasound. Impression Suspicious index mass right breast 10 o'clock with multiple adjacent possible satellite nodules andan additional posterior depth 10/11 o'clock 4 x 5 mm nodule. Findings are worrisome for multifocal disease. MRI suggested to further evaluate and help exclude multicentric disease if biopsy resultsare positive. 11/05/2024. Ultrasound-guided core needle biopsy of the right breast 10:00. Upper outer quadrant. Pathology report reveals: A. 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 Lymph Node, Right Axillary, Right AXILLA US guided core biopsy, core biopsy: High grade carcinoma. Estrogen Receptor (ER) protein expression is STRONGLY POSITIVE 100% nuclear positivity 3+ average intensity score (range 0 to 3+) Progesterone Receptor (WV) protein expression is STRONGLY POSITIVE 70% nuclear positivity 2+ average intensity score (range 0 to 3+) HER2 oncoprotein expression is NEGATIVE ( 0 average membranous intensity) 11/09/2024. Bilateral breast MRI. Biopsy-proven right breast invasive carcinoma en compensating the majority of the right upper outer quadrant. This mass extends into the right upper inner quadrant, constituting multi centric disease. Biopsy-proven carcinoma within right axillary lymph node. Additional right axillary lymphadenopathy noted, suspicious for additional sites of malignancy. BI-RADS Category: 6 - Known Biopsy-Proven Malignancy. Recommendation Resume annual screening mammography is recommended for the left breast. Screening breast MRI in 1 year is recommended for the left breast. Biopsy-proven right breast carcinoma with biopsy-proven carcinoma within a right axillary lymph node. Appropriate action is recommended. The patient is under the care of the [facility] breast surgical team with follow-up appointment scheduled for November 12, 2024. 11/12/2024. Surgical consultation (Dr. Mulugeta To). Stage IIIa locally advanced carcinoma of the right breast. Options of treatment were discussed. MRI demonstrated an 8 x 6 x 4 cm mass in the upper outer quadrant. Multiple enlarged lymph nodes on the MRI. Multiple options of treatment were discussed. Patient will meet with medical oncology to discuss possible neoadjuvant treatment. 11/23/2024. Medical oncology consultation (Dr. Lamar Munoz). Neoadjuvant chemotherapy was discussed. Hormonal therapy was discussed. She will undergo a PET/CT. She will return afterward for review. 11/30/2024. PET/CT. 1. FDG avid right breast mass consistent with the history of breast carcinoma. 2. FDG avid right axillary lymph nodes consistent with neoplasm. 3. Diffuse FDG avid osteolytic disease consistent with neoplasm. 12/01/2024. Medical oncology follow-up. Review of PET/CT. Planning to start letrozole. Plan to start abemaciclib 100 mg twice daily. Plan to start Lupron every 4 weeks. She will then be on Zometa every 4 weeks after dental clearance. Was seen at the palliative clinic and started on hydromorphone, Decadron and Xanax. She is on buprenorphine. 12/03/2024. Palliative care consultation (Dr. Kong). She has a lot of pain in her back, shoulder and hip. Will consider radiation oncology referral. She is on Dilaudid. She is on Xanax for anxiety. She has a history of drug abuse. She will have to sign a record release. 12/13/2024. Patient presents to the emergency room at the request of the medical oncologist. Laboratory studies today revealed an elevated calcium level. She had been scheduled to be seen in our office this week due to shoulder, back and hip pain. She did see Dr. Kong on 12/03/2024. She was prescribed Dilaudid. She does state that this medication is helpful. She unfortunately has been very nauseated. And has been vomiting. She has been unable to keep medication down. The shoulder and back pain began approximately 2 months before the diagnosis. Pain is in the left shoulder. The pain of her back is in the mid back. The pain of the hip is on the left. Currently while lying in the bed her pain is controlled. She is particularly complaining of a headache. She has associated nausea and vomiting. 12/14/2024. MRI Brain. Impression: 1. Normal-appearing brain 2. Right maxillary sinusitis. 12/14/2024. MRI Thoracic spine. IMPRESSION: 1. Evaluation for metastatic disease is somewhat compromised without contrast. No significant central canal stenosis. 2. Focal area of abnormal signal noted in the T9 vertebral body, predominantly involving the posterior right body, extending into the right pedicle and facet with a suggestion of minimal extension beyond the right posterior cortex with minimal convexity into the central canal. The appearance is most consistent with osseous metastatic disease with minimal extraosseous expansion. There is effacement of the right anterolateral CSF collar without significant mass- effect on the thoracic cord. Minimal loss of height involving the endplates with approximately 10% loss of height centrally. 3. Subtle abnormal signal involving the anterior T11 vertebral body adjacent to the superior endplate is most consistent with an additional area of osseous metastatic disease. No pathologic fracture. Radiation History Diagnosis: Metastatic breast cancer. Treatment: None so far. Review of Systems Review of Systems: Patient continues to have pain involving left shoulder back and left hip. Physical Exam Musculoskeletal: Tenderness to palpation involving left shoulder. Psychiatric: A+Ox3, euthymic affect Results & Data Vital Signs (Past 12 Hours) Vital Signs Temp Pulse Pulse Resp BP Pulse Ox O2 Del Method 12/15/24 11:03 37.1 C 97 H 20 116/76 93 Room Air 12/15/24 08:00 117 H 12/15/24 07:47 37 C 113 H 17 101/56 L 93 Room Air PG Care Time/CCT Total # of Minutes Spent Total Time Spent with Patient: Total time spent is greater than 50% in coordination of care (as documented) at patient's floor/unit and/or counseling patient: 40 minutes. Coding [place] [address] SUB INP/OBS CARE 2/35MIN Patient Type Established History Expanded Problem Focused Exam Expanded Problem Focused Medical Decision Making Moderate Complexity Diagnoses Malignant neoplasm of right breast, stage 4 C50.911
[2024-12-15] MEDS: PIPERACILLIN/TAZOBACTAM 4.5 GM/100 ML BAG IV SCH (16:32)
[2024-12-15] MEDS: PROMETHAZINE 12.5 MG/50.5 ML BAG IV SCH (17:36)
[2024-12-15 19:50] LABS: Basophils # (auto) 0.06 K/uL (0.00-0.20); Basophils % (auto) 0.5 %; Eosinophils # (auto) 0.03 K/uL (0.00-0.50); Eosinophils % (auto) 0.3 %; Hematocrit (blood only) 35.2 % (37.0-47.0); Hemoglobin 12.1 g/dl (12.0-16.0); Immature Granulocytes # (auto) 0.13 K/uL (0.01-0.20); Immature Granulocytes % (auto) 1.1 %; Lymphocytes # (auto) 0.69 K/uL (1.20-3.40); Lymphocytes % (auto) 5.9 %; Mean Corpuscular Hemoglobin 28.8 pg (25.0-34.0); Mean Corpuscular Hgb Conc 34.4 g/dL (32.0-36.0); Mean Corpuscular Volume 83.8 fL (80.0-100.0); Mean Platelet Volume 10.6 fL (9.4-12.4); Monocytes # (auto) 0.45 K/uL (0.11-0.59); Monocytes % (auto) 3.8 %; Neutrophils % (auto) 88.4 %; Platelet Count 270 K/uL (130-400); RDW Coefficient of Variation 11.7 % (11.5-14.5); RDW Standard Deviation 35.4 fL (36.4-46.3); White Blood Count 11.76 K/ul (4.8-10.8)
[2024-12-15 20:16] LABS: BUN Creatinine Ratio 11.5 (10-20); Calcium 13.5 mg/dl (8.6-10.3); Potassium 3.7 mmol/L (3.5-5.1)
[2024-12-16 00:47] LABS: Appearance Urine Clear (Clear); Bacteria Urine Automated None Seen (None Seen); Bilirubin Urine Negative (Negative); Blood Urine Trace (Negative); Cast Urine Automated 0-2 /lpf (0-2); Color Urine Yellow; Epithelial Cell Urine Auto 0-2 /hpf (0-2); Glucose Urine UA Negative (Negative); Ketones Urine Negative (Negative); Leukocyte Esterase Urine Negative (Negative); Nitrite Urine Negative (Negative); Protein Urine 1+ (Negative); RBC Urine Automated 0-2 /hpf (0-2); Specific Gravity Urine 1.009 (1.000-1.030); Urobilinogen Urine Negative (Negative); WBC Urine Automated 0-5 /hpf (0-5)
[2024-12-16 04:39] LABS: BUN Creatinine Ratio 12.4 (10-20); Calcium 11.4 mg/dl (8.6-10.3); Creatinine Clr Calc Pharmacy 23.9 ml/min; Potassium 3.7 mmol/L (3.5-5.1)
--- NOTE | 2024-12-16 07:15 | Hospitalist Progress Note ---
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 She reports feeling ill over the last 3 days. She has severe pain of shoulder, hip and back. She hasn't been able to tolerate any of her meds starting Friday. Patient follows with Dr. Contreras Munoz for oncology. Pt underwent Breast Mammogram in October that revealed a large R breast mass. She underwent biopsy which confirmed high grade her2/ER positive adenocarcinoma. She underwent a PET scan on 11/30 which revealed Diffuse FDG avid osteolytic disease is present. She established with Palliative care through [facility] to assist with pain management and she is on chronic subutex due to prior addiction. She recently completed a steroid course for 1 week and was [facility] Pt was seen at [facility]e/Onc fpr IV fluids. She was found to have an MELISSA and a calcium > 20 and was referred to the ED. In ED pt remained hemodynamically stable. She had a leukcocytosis of 20k, bun 30, cr 2.38, Ca > 18. She was started on 2L of IVF. Malignant Neoplasm of the R Breast, Stage IV: -Pt with metastatic breast cancer and subsequent hypercalcemia in the setting of malignancy -Thoracic Spine MRI: 12/14: Focal area of abnormal signal noted in the T9 vertebral body, predominantly involving the posterior right body, extending into the right pedicle and facet with a suggestion of minimal extension beyond the right posterior cortex with minimal convexity into the central canal. The appearance is most consistent with osseous metastatic disease with minimal extraosseous expansion. There is effacement of the right anterolateral CSF collar without significant mass-effect on the thoracic cord. Minimal loss of height involving the endplates with approximately 10% loss of height centrally. Subtle abnormal signal involving the anterior T11 vertebral body adjacent to the superior endplate is most consistent with an additional area of osseous metastatic disease. No pathologic fracture -Brain MRI 12/14: negative for mid line shift, SDH, ICH, or brain lesions. -CTAP without contrast 12/15: No evidence of hydronephrosis. Innumerable lytic lesions are seen throughout the skeleton compatible with history of metastatic breast cancer. -Spoke with Dr. Munoz; radiation mapping occured 12/15; Goal to start palliative radiation fraction 11/28 on FridayDecember 17. -Since Zometa being given NO need of Denosumab. -Confirmed Full Code. Would be beneficial for patient to name a family member for decision making if she becomes unable. Currently, mother would be next of kin. Not currently to significant other. Hypercalcemia: Intractable Nausea: -Original serum calcium level > 18 on 12/13 -iCa: 2.10--> 2.04-->1.58 -Received Calcitonin and Zometa on 12/14. -Lasix IV 40 mg BID started with KCL replacement ordered. -Pt has some symptoms of severe hypercalcemia including kidney insufficiency, intractable nausea, polyuria, and muscle weakness; all of these are resolving. She can hold a water pitcher today. -Nephrology following closely; labs moving in the right direction; no indication for hemodialysis at this time. HD will only treat hypercalcemia and MELISSA; not the metastatic disease per Nephrology. -Nausea improved. Will make Phenergan PRN -Check BMP and iCa Q12 per nephro. MELISSA: -Likely secondary to bone metastasis. 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 Lengthy conversation held today, originally with patient on her own. She was understandably very tearful. She said a few times that she feels like she is dying. She has two young daughters; Grace (4) and Calixto (7) who are currently with her significant other and they know that their mom is ill, but they do not know the extent due to their young age. Confirmed patient to remain a full code at this time. Patient would benefit from identifying a legal decision maker; currently, patient next of kin would be her mother, who is aware of this. Appreciate Caleb White with spiritual care providing support to the family today as well. Formally involve palliative medicine over next 48 hours pending progression in care. Anticipate patient with life-limiting illness. Maxillary Sinusitis: Brain MRI: negative for mid line shift, SDH, ICH, or brain lesions. Report does indicate right maxillary sinusitis; given leukocytosis (improving 17.03--> 11.76) without infectious origin, will treat empirically with broad spectrum abx; Zosyn and reassess Blood Cultures negative. Hypomagnesemia: Serum Mg+ 1.6; replace with Mg+ 2G IV; trend in AM no ectopy on monitor H/O IVDA: Buprenorphine dose increased for her chronic pain Disposition: PCP: Dr. Lange Code Status: Full Code (confirmed with patient and family today) VTE Prophylaxis: Heparin SQ I spent a total of 51 minutes coordinating, documenting, and providing care for this patient excluding time spent inthe performance of separately billed services or time spent by another provider/QHP. Admission and Anticipated Discharge Date Admission Date: December 13, 2024 Supervising Physician Co-Signing Physician Notes delayed entry date of service noted above Attending Addendum: Case reviewed with the advanced practitioner. I have reviewed the advanced practitioner's documentation on the date of service referenced in note, and I agree with, and take responsibility for the plan of care. please refer to her notes for full details patient seen and examined, records reviewed by myself as well diagnoses and plan of care as per advanced practitioner's notes Clarence Ruiz MD Subjective Patient sitting in her hospital apparent distress. Patient appears to have significantly improved over the last 12 hours And is less lethargic. Her mother and father are at bedside. Discussed overall plan of care; answered questions and he is ambulating her to the bathroom however she was relatively in dependent. Patient currently denies chest pain, shortness of breath, N/V/D. Reports that her pain in her skills and muscle weakness has improved. Her nausea has improved overnight. R CVA tenderness not appreciated on exam today. She is able to tolerate eating [employer] this morning. Her serum calcium and creatinine have improved overnight as outlined below. Patient remains slightly hyponatremic likely secondary to dehydration. She has more energy today and is laughing with her parents at bedside. Her two daughters will visit her this afternoon. Plan of care as outlined below. Review of Systems Review of Systems: Neuro: (-) Falls, trauma, slurred speech lethargy improving HEENT: (-) WILLETT, dizziness, dysphagia, (+) double vision CV: (-) CP, palpitations, swelling Resp: (-) SOB GI: (-) appetite changes (-) nausea (-)V/D, bowel changes : (-) urinary changes Skin: (-) rashes Psych: (-) anxiety, depression (+) tearful Physical Exam Physical Exam: Neuro: AAOx4, PERRLA, no aphagia, memory changes, CNII-XII grossly intact HEENT: head normocephalic, moist mucus membranes CV: S1/S2, (-) M/G/R, (-) edema, cap refill < 3 seconds Resp: Lungs CTA in all espino. On RA GI: Abdomen S/NT/ND, Ax4 bowel sounds, (-) CVA tenderness Musculoskeletal: 5/5 B/L UE strength, 5/5 B/L LE strength. point tenderness thoracic and lumbar spine. Left hip pain. Skin: (-) rashes , (-) erythema. Psych: euthymic mood Results & Data Results & Data Vital Signs (Past 12 Hours) Vital Signs Temp Pulse Pulse Resp BP Pulse Ox O2 Del Method 12/16/24 03:34 36.6 C 80 18 110/70 95 Room Air 12/15/24 23:58 87 12/15/24 20:44 36.6 C 83 17 112/72 92 Room Air Laboratory Results Short CBC 12/15/24 Range/Units 19:32 WBC 11.76 H (4.8-10.8) K/ul Hgb 12.1 (12.0-16.0) g/dl Hct 35.2 L (37.0-47.0) % Plt Count 270 (130-400) K/uL BMP 12/15/24 12/16/24 19:32 03:56 Sodium 130 L 132 L Potassium 3.7 3.7 Chloride 95 L 100 Carbon Dioxide 25 24 BUN 39 H 37 H Creatinine 3.40 H 2.99 H D Glucose 109 H 89 Calcium 13.5 H* D 11.4 H D Urine 12/16/24 Range/Units 00:18 Urine Color Yellow Urine Appearance Clear (Clear) Urine pH 6.0 (4.5-7.5) Ur Specific Hill[place] 1.009 (1.000-1.030) Urine Protein 1+ H (Negative) Urine Glucose (UA) Negative (Negative)
[2024-12-16 08:17] LABS: Magnesium 1.6 mg/dl (1.7-2.4); Phosphorus 3.6 mg/dl (2.5-4.9)
[2024-12-16] MEDS: MAGNESIUM SULFATE / D5W 1 GM/100 ML BAG IV SCH (09:40)
--- NOTE | 2024-12-16 10:15 | Nephrology Progress Note ---
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 at this point Hypercalcemia is caused by breast Cancer with mets. She came in with very high level and was enough to cause Symptoms. She has received NS, lasix, Calcitonin and one dose of Iv Zometa. Since she got the Zometa 12/14----will see 24-48 hrs to reassess the efficacy of Zometa. I called Dr faulkner--her oncologist---She recently got steroids so will not give that. With Zometa being given NO need of Denosumab. Continue NS at 150/hr + lasix 40 iv q12h+ kcl 20 tid. Renal panel and Ca++ in AM Ca dropped a lot and is now 11.6. Zometa given AM 12/14/24. Likely will drop further. (2) MELISSA (acute kidney injury): MELISSA most likely related with super high Ca++--both By creating pre renal State But also nephrocalcinosis like picture. Creat dropped a bit to 2.99 from 3.4 Continue IVF NS at 150 ml/hr with Iv lasix 40 Iv q12hr S--C/o Diffuse Body pain. Lots of urine with IVF + lasix. better mood today Physical Exam Physical Exam: Constitutional: acute ill, sitting up in bed, No resp Distress Head: Normocephalic, Atraumatic Neck: Supple. NO JVD Respiratory: normal respiratory effort, lungs clear to auscultation, no wheeze, rales, rhonchi. Normal insp/exp effort, no accessory muscle use Cardiovascular: RRR, no murmur, no edema Vessels: no JVD or carotid bruit Abdomen: soft, nontender, no hepatosplenomegaly Skin: no rashes, warm and dry normal turgor Neurologic: no face palsy, no dysarthria CN's II-XI intact bilaterally and moves all extremities Results & Data Vital Signs (Past 12 Hours) Vital Signs Temp Pulse Pulse Resp BP Pulse Ox O2 Del Method 12/16/24 08:00 86 12/16/24 07:49 36.9 C 78 16 108/64 95 Room Air 12/16/24 07:48 Room Air 12/16/24 03:34 36.6 C 80 18 110/70 95 Room Air 12/15/24 23:58 87
[2024-12-16] MEDS: FUROSEMIDE 40 MG/4 ML VIAL IV SCH (10:17)
[2024-12-16] MEDS: buprenorphine HCL 2 MG SUBL SL SCH (14:52)
[2024-12-16 21:21] LABS: BUN Creatinine Ratio 13.1 (10-20); Calcium 10.6 mg/dl (8.6-10.3); Creatinine Clr Calc Pharmacy 28.4 ml/min; Potassium 3.6 mmol/L (3.5-5.1)
[2024-12-17 04:18] LABS: Hematocrit (blood only) 33.8 % (37.0-47.0); Hemoglobin 11.7 g/dl (12.0-16.0); Mean Corpuscular Hemoglobin 28.7 pg (25.0-34.0); Mean Corpuscular Hgb Conc 34.6 g/dL (32.0-36.0); Mean Corpuscular Volume 82.8 fL (80.0-100.0); Mean Platelet Volume 10.6 fL (9.4-12.4); Platelet Count 258 K/uL (130-400); RDW Coefficient of Variation 11.5 % (11.5-14.5); RDW Standard Deviation 34.5 fL (36.4-46.3); Red Blood Count 4.08 M/uL (4.20-5.40); White Blood Count 9.56 K/ul (4.8-10.8)
[2024-12-17 04:30] LABS: BUN Creatinine Ratio 13.1 (10-20); Calcium 11.1 mg/dl (8.6-10.3); Creatinine Clr Calc Pharmacy 28.3 ml/min; Potassium 3.4 mmol/L (3.5-5.1)
--- NOTE | 2024-12-17 09:48 | Nephrology Progress Note ---
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 at this point Hypercalcemia is caused by breast Cancer with mets. She came in with very high level and was enough to cause Symptoms. She has received NS, lasix, Calcitonin and one dose of Iv Zometa. Since she got the Zometa 12/14----will see 24-48 hrs to reassess the efficacy of Zometa. I called Dr faulkner--her oncologist---She recently got steroids so will not give that. With Zometa being given NO need of Denosumab. Stop Lasix and Stop KCL. Renal panel and Ca++ in AM Ca dropped a lot and is now 11.1. as low as 10.6 last night Zometa given AM 12/14/24. Will give Just NS 1500 ml today. (2) MELISSA (acute kidney injury): MELISSA most likely related with super high Ca++--both By creating pre renal State But also nephrocalcinosis like picture. Creat dropped a bit further and is now 2.5 S--C/o Diffuse Body pain. Lots of urine with IVF + lasix. better mood today. getting XRT Physical Exam Physical Exam: Constitutional: acute ill, sitting up in bed, No resp Distress Head: Normocephalic, Atraumatic Neck: Supple. NO JVD Respiratory: normal respiratory effort, lungs clear to auscultation, no wheeze, rales, rhonchi. Normal insp/exp effort, no accessory muscle use Cardiovascular: RRR, no murmur, no edema Vessels: no JVD or carotid bruit Abdomen: soft, nontender, no hepatosplenomegaly Skin: no rashes, warm and dry normal turgor Neurologic: no face palsy, no dysarthria CN's II-XI intact bilaterally and moves all extremities Results & Data Vital Signs (Past 12 Hours) Vital Signs Temp Pulse Pulse Resp BP Pulse Ox O2 Del Method 12/17/24 07:59 36.6 C 84 20 115/77 96 Room Air 12/17/24 03:36 36.5 C 90 16 108/68 96 Room Air 12/17/24 02:35 85 12/16/24 23:13 36.8 C 78 17 111/66 98 Room Air
[2024-12-17] MEDS: DOCUSATE SODIUM/SENNA 50/8.6MG TAB PO SCH (09:59)
[2024-12-17] MEDS: POTASSIUM CHLORIDE CRTAB 20 MEQ TABCR PO STA ×2 (10:48→10:51)
[2024-12-17] MEDS: SODIUM CHLORIDE 0.9% 1,000 ML IV SCH (11:19)
[2024-12-17] MEDS: HYDROmorphone HCL 4 MG TAB PO PRN (13:15)
--- NOTE | 2024-12-17 14:18 | Hospitalist Progress Note ---
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 She reports feeling ill over the last 3 days. She has severe pain of shoulder, hip and back. She hasn't been able to tolerate any of her meds starting Friday. Patient follows with Dr. Contreras Munoz for oncology. Pt underwent Breast Mammogram in October that revealed a large R breast mass. She underwent biopsy which confirmed high grade her2/ER positive adenocarcinoma. She underwent a PET scan on 11/30 which revealed Diffuse FDG avid osteolytic disease is present. She established with Palliative care through [employer] to assist with pain management and she is on chronic subutex due to prior addiction. She recently completed a steroid course for 1 week and was started on oral hydromorphone [facility] Pt was seen at Heme/Onc fpr IV fluids. She was found to have an MELISSA and a calcium > 20 and was referred to the ED. In ED pt remained hemodynamically stable. She had a leukcocytosis of 20k, bun 30, cr 2.38, Ca > 18. She was started on 2L of IVF. Malignant Neoplasm of the R Breast, Stage IV: Bone Mets: -Thoracic Spine MRI: 12/14: Focal area of abnormal signal noted in the T9 vertebral body, predominantly involving the posterior right body, extending into the right pedicle and facet with a suggestion of minimal extension beyond the right posterior cortex with minimal convexity into the central canal. The appearance is most consistent with osseous metastatic disease with minimal extraosseous expansion. There is effacement of the right anterolateral CSF collar without significant mass-effect on the thoracic cord. Minimal loss of height involving the endplates with approximately 10% loss of height centrally. Subtle abnormal signal involving the anterior T11 vertebral body adjacent to the superior endplate is most consistent with an additional area of osseous metastatic disease. No pathologic fracture -Brain MRI 12/14: negative for mid line shift, SDH, ICH, or brain lesions. -CTAP without contrast 12/15: No evidence of hydronephrosis. Innumerable lytic lesions are seen throughout the skeleton compatible with history of metastatic breast cancer. -Spoke with Dr. Munoz; radiation mapping occurred 12/15;palliative radiation fraction 11/28 today FridayDecember 17. -Confirmed Full Code. Would be beneficial for patient to name a family member for decision making if she becomes unable. Currently, mother would be next of kin. Not currently to significant other. -Receiving IV Dilaudid for bone mets (Took THREE doses over past 24 hours); goal to discontinue IV tomorrow Friday, today decreased frequency to Q6 PRN. Goal to encourage PO Dilaudid use. Hypercalcemia: Resolving Intractable Nausea: Resolving -Original serum calcium level > 18 on 12/13 -iCa: 2.10--> 2.04-->1.58-->1.40 -Received Calcitonin and Zometa on 12/14. -Lasix and KCL discontinued today 12/17 -Symptoms of hyperca+ improving: kidney insufficiency, intractable nausea, polyuria, and muscle weakness; all of these are resolving. -Nephrology following closely;no indication for HD -Nausea improving, likely due to more reasonable Ca+ levels. Will make Phenergan PRN -Check BMP and iCa daily MELISSA: -Likely secondary to bone metastasis. -Serum Creatinine: 2.43--> 2.50-->3.14--> 3.40--> 2.99--> 2.52 (12/17) -Receiving IV fluids @ 100mL/hour x 1.5L -PO intake improving -BMP Q12 -Avoid nephrotoxic agents -Nephrology involved; appreciate recommendations Hyponatremia: Serum sodium 131; receiving NS @ 100ml/hour per Nephro suspect 2/2 dehydration trend BMP daily Pt saw [employer] today; recommended Boost which contains 350 mg Ca+ (25% of daily value); will initiate tomorrow 12/18 Maxillary Sinusitis: Brain MRI: negative for mid line shift, SDH, ICH, or brain lesions. Report does indicate right maxillary sinusitis; given leukocytosis (improving 17.03--> 11.76-->9.56) Started on Zosyn; will transition to oral Augmentin for a total of 7 day course today. (EOT Thursday 12/21) Blood Cultures negative. Goals of care; counseling/discussion: Patient follows with [facility]; who is aware of her admission. Lengthy conversation held today, originally with patient on her own. She was understandably very tearful. She said a few times that she feels like she is dying. She has two young daughters; Grace (4) and Calixto (7) who are currently with her significant other and they know that their mom is ill, but they do not know the extent due to their young age. Patient would benefit from identifying a legal decision maker; currently, patient next of kin would be her mother, who is aware of this. Appreciate Caleb White with spiritual care providing support to the family today as well. Plan to continue to follow with palliative care as outpatient. Hypomagnesemia: Resolved Serum Mg+ 1.8 after replaced past few days no ectopy on monitor H/O IVDA: Subutrex dose decreased per patient request Disposition: PCP: Dr. Lange Code Status: Full Code VTE Prophylaxis: Heparin SQ I spent a total of 54 minutes coordinating, documenting, and providing care for this patient excluding time spent inthe performance of separately billed services or time spent by another provider/QHP. Admission and Anticipated Discharge Date Admission Date: December 13, 2024 Supervising Physician Co-Signing Physician Notes Attending Addendum: Case reviewed with the advanced practitioner. I have personally performed a history and physical examination on the patient. I have reviewed the advanced practitioner's documentation on the date of service referenced in note, and I agree with, and take responsibility for the plan of care. please refer to her notes for full details patient seen and examined, records reviewed by myself as well diagnoses and plan of care as per advanced practitioner's notes Clarence Ruiz MD Subjective Pt in the bathroom when I went to visit her initially. She is starting to feel a lot better. Her fine motor function has returned; she can hold a water pitcher now. She is tolerating a diet well and has an appetite. She complains of some double vision, feels generally well otherwise. Nausea has improved significantly; suspect due to lower calcium levels. [employer] Executive stopped by to see patient this AM. Her friend brought her chick ross a for lunch today and she tolerated well. Review of Systems Review of Systems: Neuro: (-) Falls, trauma, slurred speech lethargy improving HEENT: (-) WILLETT, dizziness, dysphagia, (+) double vision CV: (-) CP, palpitations, swelling Resp: (-) SOB GI: (-) appetite changes (-) nausea (-)V/D, bowel changes : (-) urinary changes Skin: (-) rashes Psych: (-) anxiety, depression (+) euthemic mood Physical Exam Physical Exam: Neuro: AAOx4, PERRLA, no aphagia, memory changes, CNII-XII grossly intact HEENT: head normocephalic, moist mucus membranes CV: S1/S2, (-) M/G/R, (-) edema, cap refill < 3 seconds Resp: Lungs CTA in all espino. On RA GI: Abdomen S/NT/ND, Ax4 bowel sounds, (-) CVA tenderness Musculoskeletal: 5/5 B/L UE strength, 5/5 B/L LE strength. point tenderness thoracic and lumbar spine. Left hip pain. Skin: (-) rashes , (-) erythema. Psych: euthymic mood Results & Data Results & Data Vital Signs (Past 12 Hours) Vital Signs Temp Pulse Pulse Resp BP Pulse Ox O2 Del Method 12/17/24 12:09 36.5 C 62 20 130/82 99 Room Air 12/17/24 09:00 Room Air 12/17/24 07:59 36.6 C 84 20 115/77 96 Room Air 12/17/24 03:36 36.5 C 90 16 108/68 96 Room Air 12/17/24 02:35 85 Laboratory Results Short CBC 12/17/24 Range/Units 03:55 WBC 9.56 (4.8-10.8) K/ul Hgb 11.7 L (12.0-16.0) g/dl Hct 33.8 L (37.0-47.0) % Plt Count 258 (130-400) K/uL BMP 12/16/24 12/17/24 20:22 03:55 Sodium 131 L 131 L Potassium 3.6 3.4 L Chloride 98 97 L Carbon Dioxide 24 24 BUN 33 H 33 H Creatinine 2.51 H D 2.52 H Glucose 89 96 Calcium 10.6 H 11.1 H
[2024-12-17] MEDS: HYDROmorphone INJ 1 MG/ML SYRINGE IV PRN (15:56)
[2024-12-17] MEDS: AMOXICILLIN/CLAVULANATE 500 MG TAB PO SCH (17:56)
[2024-12-17] MEDS: PROMETHAZINE 12.5 MG/50.5 ML BAG IV PRN (17:56)
[2024-12-17 20:25] LABS: BUN Creatinine Ratio 16.2 (10-20); Calcium 9.8 mg/dl (8.6-10.3); Creatinine Clr Calc Pharmacy 36.1 ml/min; Potassium 3.1 mmol/L (3.5-5.1)
[2024-12-18 06:29] LABS: Hematocrit (blood only) 27.5 % (37.0-47.0); Hemoglobin 9.4 g/dl (12.0-16.0); Mean Corpuscular Hemoglobin 28.8 pg (25.0-34.0); Mean Corpuscular Hgb Conc 34.2 g/dL (32.0-36.0); Mean Corpuscular Volume 84.4 fL (80.0-100.0); Mean Platelet Volume 10.8 fL (9.4-12.4); Platelet Count 206 K/uL (130-400); RDW Coefficient of Variation 11.5 % (11.5-14.5); RDW Standard Deviation 35.4 fL (36.4-46.3); Red Blood Count 3.26 M/uL (4.20-5.40); White Blood Count 6.88 K/ul (4.8-10.8)
[2024-12-18 07:33] VITALS: RESP 16
--- NOTE | 2024-12-18 07:39 | Hospitalist Progress Note ---
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 She reports feeling ill over the last 3 days. She has severe pain of shoulder, hip and back. She hasn't been able to tolerate any of her meds starting Friday. Patient follows with Dr. Contreras Munoz for oncology. Pt underwent Breast Mammogram in October that revealed a large R breast mass. She underwent biopsy which confirmed high grade her2/ER positive adenocarcinoma. She underwent a PET scan on 11/30 which revealed Diffuse FDG avid osteolytic disease is present. She established with Palliative care through [facility] to assist with pain management and she is on chronic subutex due to prior addiction. She recently completed a steroid course for 1 week and was started on oral hydromorphone [facility]. Pt was seen at Heme/Onc fpr IV fluids. She was found to have an MELISSA and a calcium > 20 and was referred to the ED. In ED pt remained hemodynamically stable. She had a leukcocytosis of 20k, bun 30, cr 2.38, Ca > 18. She was started on 2L of IVF. Malignant Neoplasm of the R Breast, Stage IV: Bone Mets: -Thoracic Spine MRI: 12/14: Focal area of abnormal signal noted in the T9 vertebral body, predominantly involving the posterior right body, extending into the right pedicle and facet with a suggestion of minimal extension beyond the right posterior cortex with minimal convexity into the central canal. The appearance is most consistent with osseous metastatic disease with minimal extraosseous expansion. There is effacement of the right anterolateral CSF collar without significant mass-effect on the thoracic cord. Minimal loss of height involving the endplates with approximately 10% loss of height centrally. Subtle abnormal signal involving the anterior T11 vertebral body adjacent to the superior endplate is most consistent with an additional area of osseous metastatic disease. No pathologic fracture -Brain MRI 12/14: negative for mid line shift, SDH, ICH, or brain lesions. -CTAP without contrast 12/15: No evidence of hydronephrosis. Innumerable lytic lesions are seen throughout the skeleton compatible with history of metastatic breast cancer. -Spoke with Dr. Munoz; radiation mapping occurred 12/15;tolerated palliative radiation 11/28 fraction 12/17; fraction #2/ today -Receiving IV Dilaudid for bone mets (Took TWO doses over past 24 hours); discontinue IV today (12/18) Took THREE doses PO Dilaudid over past 24 hours. Hypercalcemia: Resolving Intractable Nausea: Resolving -Original serum calcium level > 18 on 12/13; been trending down nicely; Ca+ 9.8 today -iCa: 2.10--> 2.04-->1.58-->1.40-->1.34 -Received Calcitonin and Zometa on 12/14. Per Nephro- effects likely to last 3-4 weeks; anticipate another Zometa dose in one month f/u. -Lasix and KCL discontinued 12/17 -Symptoms of hyperca+: kidney insufficiency, intractable nausea, polyuria, and muscle weakness; all of these are resolving. -Nephrology following closely;no indication for HD -Nausea improving, likely due to more reasonable Ca+ levels. Will make Phenergan PRN and transition from IV to PO today -Check BMP and iCa daily Hypokalemia: serum K+3.4; replace wit 40 KCL PO Trend in AM Consider a low dose Kcl 10 mEq daily No ectopy on monitor MELISSA: Resolving -Likely secondary to bone metastasis. -Serum Creatinine: 2.43--> 2.50-->3.14--> 3.40--> 2.99--> 2.52-->1.98--> 1.70 (12/18) -Receiving IV fluids @ 100mL/hour x 1.5L; completed -PO intake improved -BMP daily -Avoid nephrotoxic agents -Nephrology involved; appreciate recommendations Hyponatremia: Resolving Serum sodium 134; suspect 2/2 dehydration; resolving trend BMP daily Pt saw [employer] today; recommended Boost which contains 350 mg Ca+ (25% of daily value); ordered for today; discussed with Nephro Maxillary Sinusitis: Brain MRI: negative for mid line shift, SDH, ICH, or brain lesions. Report does indicate right maxillary sinusitis; given leukocytosis (improving 17.03--> 11.76-->9.56-->6.88) Started on Zosyn; will transition to oral Augmentin for a total of 7 day course today. (EOT Thursday 12/21) Blood Cultures negative. Hypomagnesemia: Resolved Serum Mg+ 1.8 after replaced past few days no ectopy on monitor H/O IVDA: Subutrex dose decreased per patient request; currently on 4mg PO TID Goals of care; counseling/discussion: Patient follows with [facility]; who is aware of her admission. Lengthy conversation held today, originally with patient on her own. She was understandably very tearful. She said a few times that she feels like she is dying. She has two young daughters; Grace (4) and Calixto (7) who are currently with her significant other and they know that their mom is ill, but they do not know the extent due to their young age. Patient would benefit from identifying a legal decision maker; currently, patient next of kin would be her mother, who is aware of this. Appreciate Caleb White with spiritual care providing support to the family today as well. Plan to continue to follow with palliative care as outpatient. Confirmed Full Code. Would be beneficial for patient to name a family member for decision making if she becomes unable. Currently, mother would be next of kin. Not currently to significant other. Disposition: PCP: Dr. Lange Code Status: Full Code VTE Prophylaxis: Heparin SQ I spent a total of 54 minutes coordinating, documenting, and providing care for this patient excluding time spent inthe performance of separately billed services or time spent by another provider/QHP. Admission and Anticipated Discharge Date Admission Date: December 13, 2024 Subjective Pt in the bathroom when I went to visit her initially. She is starting to feel a lot better. Her fine motor function has returned; she can hold a water pitcher now. She is tolerating a diet well and has an appetite. She complains of some double vision, feels generally well otherwise. Nausea has improved significantly; suspect due to lower calcium levels. [employer] Executive stopped by to see patient this AM. Her friend brought her chick ross a for lunch today and she tolerated well. Review of Systems Review of Systems: Neuro: (-) Falls, trauma, slurred speech lethargy improving HEENT: (-) WILLETT, dizziness, dysphagia, (+) double vision CV: (-) CP, palpitations, swelling Resp: (-) SOB GI: (-) appetite changes (-) nausea (-)V/D, bowel changes : (-) urinary changes Skin: (-) rashes Psych: (-) anxiety, depression (+) euthemic mood Physical Exam Physical Exam: Neuro: AAOx4, PERRLA, no aphagia, memory changes, CNII-XII grossly intact HEENT: head normocephalic, moist mucus membranes CV: S1/S2, (-) M/G/R, (-) edema, cap refill < 3 seconds Resp: Lungs CTA in all espino. On RA GI: Abdomen S/NT/ND, Ax4 bowel sounds, (-) CVA tenderness Musculoskeletal: 5/5 B/L UE strength, 5/5 B/L LE strength. point tenderness thoracic and lumbar spine. Left hip pain. Skin: (-) rashes , (-) erythema. Psych: euthymic mood Results & Data Results & Data Vital Signs (Past 12 Hours) Vital Signs Temp Pulse Pulse Resp BP Pulse Ox O2 Del Method 12/18/24 07:00 37.4 C 90 16 118/70 95 Room Air 12/18/24 03:03 36.8 C 93 H 18 125/73 97 Room Air 12/17/24 23:40 36.7 C 97 H 17 110/64 96 Room Air 12/17/24 22:46 103 H 12/17/24 19:57 36.8 C 100 H 18 121/75 98 Room Air Laboratory Results Short CBC 12/18/24 Range/Units 06:00 WBC 6.88 (4.8-10.8) K/ul Hgb 9.4 L (12.0-16.0) g/dl Hct 27.5 L (37.0-47.0) % Plt Count 206 (130-400) K/uL BMP 12/17/24 12/18/24 19:52 06:00 Sodium 132 L 134 L Potassium 3.1 L 3.3 L Chloride 100 105 Carbon Dioxide 22 23 BUN 32 H 25 H Creatinine 1.98 H D 1.70 H Glucose 100 H 87 Calcium 9.8 9.7
[2024-12-18 07:47] LABS: BUN Creatinine Ratio 14.7 (10-20); Calcium 9.7 mg/dl (8.6-10.3); Potassium 3.3 mmol/L (3.5-5.1)
[2024-12-18] MEDS: POTASSIUM CHLORIDE CRTAB 20 MEQ TABCR PO STA (08:56)
[2024-12-18] MEDS: buprenorphine HCL 8 MG SUBL SL ONE (10:39)
[2024-12-18 10:55] VITALS: BP 105/69; PULSE 83; TEMP 98.2; O2SAT 96
--- NOTE | 2024-12-18 11:17 | Nephrology Progress Note ---
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 at this point Hypercalcemia is caused by breast Cancer with mets. She came in with very high level and was enough to cause Symptoms. She has received NS, lasix, Calcitonin and one dose of Iv Zometa. Since she got the Zometa 12/14----will see 24-48 hrs to reassess the efficacy of Zometa. I called Dr faulkner--her oncologist---She recently got steroids so will not give that. With Zometa being given NO need of Denosumab. Ca normal. Renal function better now Stable for Discharge. She will need renal panel, CBC, Ca++ on Friday or friday at Oncology office Zometa given AM 12/14/24. she will get q 4 weeks Zometa in Oncology office (2) MELISSA (acute kidney injury): MELISSA most likely related with super high Ca++--both By creating pre renal State But also nephrocalcinosis like picture. Creat dropped a bit further and is now 1.7. S--C/o Diffuse Body pain. Ca Normal now. Physical Exam Physical Exam: Constitutional: acute ill, sitting up in bed, No resp Distress Head: Normocephalic, Atraumatic Neck: Supple. NO JVD Respiratory: normal respiratory effort, lungs clear to auscultation, no wheeze, rales, rhonchi. Normal insp/exp effort, no accessory muscle use Cardiovascular: RRR, no murmur, no edema Vessels: no JVD or carotid bruit Abdomen: soft, nontender, no hepatosplenomegaly Skin: no rashes, warm and dry normal turgor Neurologic: no face palsy, no dysarthria CN's II-XI intact bilaterally and moves all extremities Results & Data Vital Signs (Past 12 Hours) Vital Signs Temp Pulse Pulse Resp BP Pulse Ox O2 Del Method 12/18/24 10:55 36.8 C 83 16 105/69 96 Room Air 12/18/24 07:37 84 12/18/24 07:00 37.4 C 90 16 118/70 95 Room Air 12/18/24 03:03 36.8 C 93 H 18 125/73 97 Room Air 12/17/24 23:40 36.7 C 97 H 17 110/64 96 Room Air
[2024-12-18] MEDS: HYDROmorphone HCL 4 MG TAB PO PRN (12:06)
--- NOTE | 2024-12-18 12:14 | Discharge Summary ---
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 She reports feeling ill over the last 3 days. She has severe pain of shoulder, hip and back. She hasn't been able to tolerate any of her meds starting friday. She started with vomiting, headache and nausea. She denies any diarrhea or sick contacts. She denies chest pain. Patient follows with Dr. Contreras Munoz for oncology. Pt underwent Breast Mammogram in October that revealed a large R breast mass. She underwent biopsy which confirmed high grade her2/ER positive adenocarcinoma. She established with Dr. Munoz. Plan was for Letrozole, Abemacilcib and lupron and starting zometa pending dental clearance and insurance approval. She underwent a PET scan on 11/30 which revealed Diffuse FDG avid osteolytic disease is present. A airport representative lesion in the right ilium has a max SUV of 12.02. Small lesion in the intertrochanteric region of the right femur has a max SUV of 5.28. Areas of cortical breakthrough are present within several of the lesions. This is most prominent along the T9 vertebral body 4 there is probable encroachment/invasion into the right neural foramen. She established with Palliative care through [facility] to assist with pain management and she is on chronic subutex due to prior addiction. She recently completed a steroid course for 1 week and was started on oral hydromorphone at the recommendation of [facility] Addiction medicine. Pt was seen at Heme/Onc today for IVF. She was found to have an MELISSA and a calcium > 20 and was referred to the ED. In ED pt remained hemodynamically stable. She had a leukcocytosis of 20k, bun 30, cr 2.38, Ca > 18. She was started on 2L of IVF. Pt reports she had 2 daughters ages 7 and 4. Her Mom was first diagnosed with breast Ca at 43 and thus far has beat it 3 times. She has several aunts with it as well. She reports none as advanced as hers. She was genetically tested. She reports vaping daily, but hasn't in several days due to ill feeling. She denies any alcohol use. Admission Exam Per Admitting Provider Constitutional: acute ill, vitals as above, NAD, sitting up in bed, pleasant, conversing easily Head: Normocephalic, Atraumatic Eyes: PERRL, conjunctivae normal, anicteric sclerae ENMT: external ear and nose normal, oropharynx normal Neck: trachea midline, no thyromegaly normal visual inspection Respiratory: normal respiratory effort, lungs clear to auscultation, no wheeze, rales, rhonchi. Normal insp/exp effort, no accessory muscle use Cardiovascular: RRR, no murmur, no edema Vessels: no JVD or carotid bruit Chest: Large R breast mass, normal inspection of chest Abdomen: normal bowel sounds, soft, nontender, no hepatosplenomegaly Musculoskeletal: no cyanosis or clubbing, arom x 4 Skin: no rashes, warm and dry normal turgor Neurologic: no face palsy, no dysarthria CN's II-XI intact bilaterally and moves all extremities Psychiatric: A+Ox3, euthymic affect Principal Diagnosis metastatic breast cancer / hypercalcemia Discharge Exam Neuro: AAOx4, PERRLA, no aphagia, memory changes, CNII-XII grossly intact thin/cachectic HEENT: head normocephalic, moist mucus membranes CV: S1/S2, (-) M/G/R, (-) edema, cap refill < 3 seconds Resp: Lungs CTA in all espino. On RA GI: Abdomen S/NT/ND, Ax4 bowel sounds, (-) CVA tenderness Musculoskeletal: 5/5 B/L UE strength, 5/5 B/L LE strength. No gait disturbance Skin: (-) rashes , (-) erythema. Psych: flat mood Discharge Data Allergies Allergy/AdvReac Type Severity Reaction Status Date / Time naloxone Allergy Severe ANAPHYLAXIS Verified 08/25/17 10:11 Consultations 12/13/24 13:54 ED Decision to Admit Stat 12/13/24 14:19 Consult Nephrology Routine 12/13/24 15:10 Consult Radiation Oncology Routine Ordered Studies 1. Chest X-ray 12/13/24: FINDINGS: Lung volumes are normal. Lungs are clear. There is no pneumothorax or pleural effusion. Cardiac size is normal. Mediastinal contours are normal. There is no evidence for pulmonary edema. Lytic skeletal lesions within the thoracic spine and ribs on PET/CT of November 30, 2024 are not well-visualized by radiography. IMPRESSION: 1. No acute cardiopulmonary findings. 2. Lytic skeletal lesions on PET/CT of November 30, 2024 not well-visualized by radiography. 2. Brain MRI 12/14/24: Impression: 1. Normal-appearing brain 2. Right maxillary sinusitis 3. Thoracic spine MRI: 12/14/24: IMPRESSION: 1. Evaluation for metastatic disease is somewhat compromised without contrast. No significant central canal stenosis.2. Focal area of abnormal signal noted in the T9 vertebral body, predominantly involving the posterior right body, extending into the right pedicle and facet with a suggestion of minimal extension beyond the right posterior cortex with minimal convexity into the central canal. The appearance is most consistent with osseous metastatic disease with minimal extraosseous expansion. There is effacement of the right anterolateral CSF collar without significant mass-effect on the thoracic cord. Minimal loss of height involving the endplates with approximately 10% loss of height centrally.3. Subtle abnormal signal involving the anterior T11 vertebral body adjacent to the superior endplate is most consistent with an additional area of osseous metastatic disease. No pathologic fracture. 4. Abdomen CT: 12/15/24: IMPRESSION: No evidence of hydronephrosis. Innumerable lytic lesions are seen throughout the skeleton compatible with history of metastatic breast cancer. 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 She reports feeling ill over the last 3 days. She has severe pain of shoulder, hip and back. She hasn't been able to tolerate any of her meds starting Friday. Patient follows with Dr. Contreras Munoz for oncology. Pt underwent Breast Mammogram in October that revealed a large R breast mass. She underwent biopsy which confirmed high grade her2/ER positive adenocarcinoma. She underwent a PET scan on 11/30 which revealed Diffuse FDG avid osteolytic disease is present. She established with Palliative care through [facility] to assist with pain management and she is on chronic subutex due to prior addiction. She recently completed a steroid course for 1 week and was started on oral hydromorphone at the recommendation of [facility] Addiction medicine. Pt was seen at Heme/Onc fpr IV fluids. She was found to have an MELISSA and a calcium > 20 and was referred to the ED. In ED pt remained hemodynamically stable. She had a leucocytosis of 20k, bun 30, cr 2.38, Ca > 18. She was started on 2L of IVF. Her original serum calcium level was > 18 on 12/13 and at discharge her Calcium was 9.8. Her ionized calcium was originally 2.10 and improved to 1.40. She received Calcitonin and Zometa on 12/14 and started to see peak effects within 48-72 hours. She was subsequently given Lasix and KCl as well which was discontinued the day prior to her being discharged. During her hospitalization she experienced symptoms of hypercalcemia including kidney insufficiency, intractable nausea, polyuria, and muscle weakness; all of these have generally resolved at time of discharge. Phenergan seemed to help her nausea the most. Nephrology was quite helpful during this hospital stay. Incidentally she was found to have a maxillary sinusitis that was identified on brain MRI; she was treated with IV Zosyn and transitioned to oral Augmentin at discharge with her last planned treatment day of 12/21. She also met with a refined syrup operator during her hospital stay as well to make recommendations for increased protein while taking into consideration calcium intake. Patient met with radiation oncology during this admission who performed radiation mapping and she started fraction #1/5 of palliative radiation. This will continue at discharge. Throughout her hospital stay her pain was well controlled with Dilaudid IV 1 mg Q4 PRN and Dilaudid 4 mg PO Q4 PRN. Through her hospital stay we did decrease the frequency of IV Dilaudid to establish a good home regimen. She follows with [facility] Care with [facility]; who is aware of her admission. Patient would benefit from identifying a legal decision maker; currently, patient next of kin would be her mother, who is aware of this. Appreciate Caleb White with spiritual care providing support to the family throughout this hospital stay. At the time of discharge, the patient felt that the oral Dilaudid was not helping her pain. Outpatient notes reviewed regarding recommendation for combined Sobutex and Dilaudid. Patient indicated this was not working at this time. Agreed for a short few days of Oxycodone until follow up with palliative medicine. Patient aware of risks regarding overdose also. At time of discharge, patient was in stable condition. She was ambulating independently and had stable vital signs and labs. Discussed follow up plan with patient regarding continuing palliative radiation, attending follow up appointment with PCP for continued blood work to monitor electrolytes and with palliative medicine for continued pain control and goals of care discussion. Pt stable for Discharge. Total Time Total Time Spent Total Time Spent (In Minutes): I spent a total of 42 minutes coordinating, documenting, and providing care for this patient excluding time spent inthe performance of separately billed services or time spent by another provider/QHP. Discharge Plan Discharge Items Patient Disposition: Home - Self-Care Reason For Visit: MELISSA,HYPERCALCEMIA Discharge Diagnosis: metastatic breast cancer with bone mets, hypercalcemia Condition on Discharge: Good Activity: Resume your previous activity Lifting: Wait until after follow-up appointment Non-emergency contact: Primary Care Provider and Oncologist Call non-emergency contact if: you have any medication questions, your symptoms worsen and your pain is not controlled Follow-up/Referrals: Ruth Dunlap DO [Physician] - 12/21/24 9:20 am Diet: Regular Addtl Attending Provider Instructions: Velma James were admitted to the [facility] on December 13 as per recommended by the cancer clinic based on your blood work. Your calcium level was abnormally very elevated and was causing you symptoms like alteration of your kidney function, muscle weakness, nausea, and frequent urination. You were seen by a Fur Weigher (kidney doctor) while here who prescribed Calcitonin and Zometa which are two medications that help lower your blood calcium levels. It is anticipated that you will receive a repeat dose of Zometa within a month which will be determined by the Nephrology at follow up. You were also complaining of bone pain related to the cancer in your bones. You were seen by radiation oncology who recommended you undergo five fraction treatment of palliative radiation to assist with some of your cancer related pain. You will complete these fractions on December 23. Your kidney function also worsened while you were here, likely secondary to your cancer and high calcium levels. Both your Calcium and Kidney function has returned to a more normal range since treatment. MEDICATION CHANGES: 1. Continue taking your oral antibiotic Augmentin by mouth twice daily until completed which will be after your second dose on Thursday 12/21. 2. Take a probiotic daily for up to one week after completion of your oral antibiotics to help protect the lining of your stomach 3. Phenergan 12.5 mg by mouth every 6 hours as needed for nausea. 4. Continue to take your Subutex 8 mg three times daily as recommended by your school library media specialist 5. You will be prescribed Oxycodone 5 mg by mouth every six hours as needed until your follow up with Palliative Medicine. Note to stress that you should NOT take Dilaudid and Oxycodone simultaneously as this can cause you to stop breathing and could lead to 6. Continue to take your gabapentin 300 mg by mouth three times daily. SUMMARY OF TEST RESULTS: Original serum calcium level > 18 on 12/13 and on discharge your calcium level is 9.8 Ionized Calcium 2.10--> 2.04-->1.58-->1.40 --> 1.34 on discharge day Serum Creatinine: 2.43--> 2.50-->3.14--> 3.40--> 2.99--> 1.98-->1.70 (12/18) Serum Sodium level was level which was likely secondary to your dehydration; this has resolved. 1. Chest X-ray 12/13/24: FINDINGS: Lung volumes are normal. Lungs are clear. There is no pneumothorax or pleural effusion. Cardiac size is normal. Mediastinal contours are normal. There is no evidence for pulmonary edema. Lytic skeletal lesions within the thoracic spine and ribs on PET/CT of November 30, 2024 are not well-visualized by radiography. IMPRESSION: 1. No acute cardiopulmonary findings. 2. Lytic skeletal lesions on PET/CT of November 30, 2024 not well-visualized by radiography. 2. Brain MRI 12/14/24: Impression: 1. Normal-appearing brain 2. Right maxillary sinusitis 3. Thoracic spine MRI: 12/14/24: IMPRESSION: 1. Evaluation for metastatic disease is somewhat compromised without contrast. No significant central canal stenosis.2. Focal area of abnormal signal noted in the T9 vertebral body, predominantly involving the posterior right body, extending into the right pedicle and facet with a suggestion of minimal extension beyond the right posterior cortex with minimal convexity into the central canal. The appearance is most consistent with osseous metastatic disease with minimal extraosseous expansion. There is effacement of the right anterolateral CSF collar without significant mass-effect on the thoracic cord. Minimal loss of height involving the endplates with approximately 10% loss of height centrally.3. Subtle abnormal signal involving the anterior T11 vertebral body adjacent to the superior endplate is most consistent with an additional area of osseous metastatic disease. No pathologic fracture. 4. Abdomen CT: 12/15/24: IMPRESSION: No evidence of hydronephrosis. Innumerable lytic lesions are seen throughout the skeleton compatible with history of metastatic breast cancer. RECOMMENDATIONS FOR FOLLOW-UP: 1. PCP: Dr. Ruth Dunlap: FridayDecember 21 @ 9:20 AM. It is recommended that you receive blood work 2. Palliative Care: Dr. Amie Kong will be arranged for either Friday or Friday this coming week (12/20 vs 12/22) You will receive a call on Friday to confirm to discuss your symptom management. 3. Radiation Oncology for palliative radiation Wednesday 12/20 at 8:55 AM, Thursday 12/21 at 1:55 PM, and Friday 12/22 at 1:55 PM and 12/23 at 1:55 PM. 4. Oncology with [place], Dr. Carlton via [employer] at 4:30 PM 5. Arrange an appointment with your Biotech Production Specialist to assist with managing your Subutex 6. The Nephrology office will contact you for a follow up appointment in a few weeks. OTHER INSTRUCTIONS: Seek medical attention if you have: * temperature above 101 * chest pain or trouble breathing * abdominal pain, nausea, vomiting * diarrhea, dark stools or bloody stools * any unanswered questions or concerns Call 911 if symptoms are severe. Please take care of yourself and I am grateful to have had the chance to get to know you. I wish you comfort and peace as you spend time with your family. If you have any questions regarding your recent hospitalization please contact [facility] and request Joss Yingist @ [phone]. Pending Studies at Discharge: No Stand-Alone Forms: My [facility], Smoking Cessation Medications and DC Order Prescriptions: New amoxicillin-pot clavulanate [Augmentin] 500-125 mg tablet 1 tab PO BID Qty: 5 0RF Rx Instructions: Take twice daily with food with the last dose being on Friday12/21/24. Probiotic 10 billion cell capsule 100 mmu cells PO DAILY Qty: 10 0RF Rx Instructions: Take for one week after completion of oral antibiotics; this will help protect your gut lining promethazine 12.5 mg tablet 12.5 mg PO Q6H PRN (Reason: nausea ) Qty: 14 0RF Rx Instructions: 3 doses during day; last dose no later than 4 hr before bedtime oxycodone 5 mg tablet 5 mg PO Q4H PRN (Reason: moderate to severe pain) Qty: 12 0RF Continued alprazolam 0.25 mg tablet 0.25 mg PO TID PRN (Reason: Anxiety) gabapentin 300 mg capsule 300 mg PO TID letrozole 2.5 mg Tablet 2.5 mg PO DAILY Rx Instructions: begin between days 2 and 5 of mentrual cycle buprenorphine HCl 8 mg tablet, sublingual 1 mg SUBLINGUAL TID bupropion HCl 300 mg tablet extended release 24 hr 300 mg PO DAILY Held Verzenio 150 mg tablet 150 mg PO AMHS Hold Instructions: Resume on 12/22/24. discuss with your oncologist for when this should be restarted Discontinued prochlorperazine maleate 10 mg tablet 10 mg PO Q6H PRN (Reason: Nausea) hydromorphone 4 mg tablet 4 mg PO Q4H PRN (Reason: Severe Pain (Scale Score 7-10)) ondansetron HCl 8 mg tablet 8 mg PO Q8H PRN (Reason: Nausea) Discharge Orders: Discharge Order (Routine); Ordered 12/18/24 Ordered By: Angela Ramírez Admission Data Admit Date/Time: 12/13/24 15:08 Attending Provider: Clarence Ruiz Admit Provider: Lacho Campos Primary Care Provider: Abelardo Lange Other Providers: Lacho Campos; Talia Daniels Veeral B. Other Interventions: Discharge Summary Assessment (RN) Last Done: 12/18/24 13:35 Supervising Physician Co-Signing Physician Notes Attending Addendum: Case reviewed with the advanced practitioner. I have personally performed a history and physical examination on the patient. I have reviewed the advanced practitioner's documentation on the date of service referenced in note, and I agree with, and take responsibility for the plan of care. please refer to her notes for full details patient seen and examined, records reviewed by myself as well discussed pain management with patient her mother and friends were at the bedside patient report Dilaudid PO is not sufficient to address her pain, requesting if we can try another pain medication, suggested trial of Oxycodone patient and family agreeable strongly emphasized to only take as directed to avoid dire consequences including respiratory depression/arrest, etc, patient verbalized understanding and agreement diagnoses and plan of care as per advanced practitioner's notes Clarence Ruiz MD
[2024-12-18] MEDS ORDERED: buprenorphine HCL 8 MG SUBL SL SCH (14:00)
== END 2024-12-18 14:36 | disposition home or self-care (01) | DRG 598 ==
LOC: ED 12:40 → EDINP 15:08 → SUATTDRO 15:08 → 4W 21:50

== ENCOUNTER 2024-12-28 19:00 | Inpatient (IN) ==
[2024-12-28 20:04] LABS: Basophils # (auto) 0.01 K/uL (0.00-0.20); Basophils % (auto) 0.3 %; Eosinophils # (auto) 0.11 K/uL (0.00-0.50); Eosinophils % (auto) 3.3 %; Hematocrit (blood only) 24.5 % (37.0-47.0); Hemoglobin 8.3 g/dl (12.0-16.0); Immature Granulocytes # (auto) 0.03 K/uL (0.01-0.20); Immature Granulocytes % (auto) 0.9 %; Lymphocytes # (auto) 0.34 K/uL (1.20-3.40); Lymphocytes % (auto) 10.2 %; Mean Corpuscular Hemoglobin 29.4 pg (25.0-34.0); Mean Corpuscular Hgb Conc 33.9 g/dL (32.0-36.0); Mean Corpuscular Volume 86.9 fL (80.0-100.0); Mean Platelet Volume 9.2 fL (9.4-12.4); Monocytes # (auto) 0.11 K/uL (0.11-0.59); Monocytes % (auto) 3.3 %; Neutrophils # (auto) 2.73 K/uL (1.40-6.50); Platelet Count 220 K/uL (130-400); RDW Coefficient of Variation 11.7 % (11.5-14.5); RDW Standard Deviation 37.3 fL (36.4-46.3); Red Blood Count 2.82 M/uL (4.20-5.40); White Blood Count 3.33 K/ul (4.8-10.8)
[2024-12-28 20:18] LABS: Albumin Globulin Ratio 1.3 (0.9-2); Albumin Level 3.5 gm/dl (3.4-5.0); BUN Creatinine Ratio 8.8 (10-20); Bilirubin,Total 0.2 mg/dl (0.2-1.0); Calcium 7.4 mg/dl (8.6-10.3); Creatinine Clr Calc Pharmacy 78.5 ml/min; Globulin 2.8 gm/dl (2.5-4.0); Total Protein 6.3 gm/dl (6.0-8.3)
[2024-12-28] MEDS: HYDROmorphone INJ 1 MG/ML SYRINGE IV STA ×2 (20:48→21:35)
--- NOTE | 2024-12-28 20:58 | Emergency Department Note ---
Impression & Plan Cancer associated pain ED Provider Note Provider: Cipriano Darden MD CHIEF COMPLAINT: Been back pain, breast cancer HISTORY OF PRESENT ILLNESS: Patient is a 39-year-old female with stage IV metastatic breast cancer history of drug abuse in the past presenting here today with parents. Patient is on oral Dilaudid currently. Has tried fentanyl patch and gabapentin in the past. Has had some chronic back pain. Was hospitalized last week with nausea vomiting and hypercalcemia. Has been eating and drinking. No abdominal pain. Pain in the bilateral upper and lower back with some radiation to the lower ribs. No again chest pain or trouble breathing. Did walk a bit today and pain has been worse. No falls. Oral medications at home but ineffective so came here for further evaluation. No new neurological deficits reported. PAST MEDICAL HISTORY: As noted above MEDICATIONS: Reviewed home medication. SOCIAL HISTORY: Lives at home. PHYSICAL EXAM: GENERAL: alert and oriented in no acute distress on stretcher parents at bedside Head: normocephalic and atraumatic EYES: No injection, discharge or icterus. EOMI. NECK: Trachea midline. ENT: Mucous membranes pink and moist. LUNGS: Airway patent. No retractions or tachypnea HEART: Regular rate and rhythm. ABDOMEN: Soft and non-tender, without guarding or rebound. SKIN: Acyanotic, warm, dry, without rashes EXTREMITIES: Without swelling, tenderness or deformity NEUROLOGICAL: No focal deficits moving all extremities. No aphasia. No facial droop or slurred speech. Ambulatory. Patient's laboratory studies and imaging reviewed. Differential includes Musculoskeletal, disc herniation, fracture, metastatic disease, cord compression, discitis, sciatica, cauda equina, infection, aortic disease, renal colic, gastrointestinal, cancer related pain as well as other pathologies. IMPRESSION/MEDICAL DECISION MAKING: Eating and drinking. Increased pain today. Blood work here some slight leukopenia and slightly worsened anemia but no hypercalcemia. No signs of acute renal dysfunction today. Denies urinary symptoms but sample was sent. No trauma history. Has been ambulatory more today than normal. May could contribute to her increased pain. History of diffuse mets with prior CT imaging on December 15 showing innumerable skeletal lytic mass. Given some IV Dilaudid which she states has helped before. Has tried adjuncts before including fentanyl patch and currently on gabapentin. No significant chest or abdominal pain otherwise reported. Doubt this is cardiac or gastrointestinal in nature. No significant acute neurological deficits and doubt acute cauda equina. Discussed with her and her parents options. Offered additional imaging but also discussed going home after pain medicine here and following up closely with her outpatient doctors and palliative care versus staying for further pain optimization here at the hospital. Did require 2 doses of hydromorphone. States there is have helped in the past we will give a single dose of dexamethasone to see if this helps things. In shared decision making given concerns for significant rebound of her cancer related pain, did opt for further observation here. Has followed with palliative care. DIAGNOSIS: Metastatic breast cancer, back pain DISPOSITION: Hospitalist will evaluate Patient was agreeable with this plan. 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) Hx of drug abuse Depression with anxiety Malignant neoplasm of right breast, stage 4 Cancer associated pain (Acute) Hypercalcemia of malignancy Medical History (Updated 12/29/24 @ 00:03 by Lo Lozano MD) Nephrocalcinosis MELISSA (acute kidney injury) ADHD Surgical History Hx of breast biopsy Family History (Updated 12/24/24 @ 05:26 by Ruth Dunlap DO) Mother Breast cancer Father Prostate cancer Aunt Breast cancer Colorectal cancer Grandmother Stroke Uncle Prostate cancer Denies family history of Ovarian cancer Myocardial infarction Pulmonary embolism Social History (Updated 12/24/24 @ 05:27 by Ruth Dunlap DO) Smoking Status: Former smoker Tobacco Type: E-cigarettes / Vaping Age Started Using Tobacco: 19; Age Quit Using Tobacco: 38; packs per day: 0.25; Cigarettes Per Day: used to smoke tobacco cigarettes, was vaping until the last few days; Second Hand Exposure: No; Do You Dip or Chew Tobacco: No; Hx Alcohol Use: No Hx Substance Use: No Preferred Language: Venezuelan Communication Ability: Effective Visual Impairment: No Limitations Hearing Ability: Normal Support Services Specialist Required: No Beliefs That Will Affect Care: None marital status: Single Current Living Situation: Family Current Living Situation Comment: lives at home with boyfriend and 2 children (daughters Calixto and Grace) current occupational status: unemployed How many Children do You have: 2 Feels Safe at Home: Yes Diet: regular Diet Comment: regular caffeine: Yes during the past year weight has: remained stable Dental Care, Regularly: Yes Physical Activity Frequency: Other Seatbelt Use: always Sunscreen Use: Yes Do you think of yourself as: straight/heterosexual Assistive Devices: None Allergies Allergies Allergy/AdvReac Type Severity Reaction Status Date / Time naloxone Allergy Severe ANAPHYLAXIS Verified 12/23/24 11:55 Home Meds Home Medications Medication Instructions Recorded Confirmed abemaciclib 150 mg tablet 150 mg PO AMHS 12/13/24 12/23/24 (Verzenio) alprazolam 0.25 mg tablet 0.25 mg PO TID PRN Anxiety 12/13/24 12/23/24 bupropion HCl 300 mg 24 hr tablet, 300 mg PO DAILY 12/13/24 12/23/24 extended release letrozole 2.5 mg tablet 2.5 mg PO DAILY 12/13/24 12/23/24 fentanyl 25 mcg/hr transdermal 1 patch transdermal Q72H 12/21/24 12/23/24 patch gabapentin 300 mg capsule 300 mg PO TID PRN 12/21/24 12/23/24 hydromorphone 4 mg tablet 4 mg PO Q3H PRN 12/21/24 12/23/24 (Dilaudid) leuprolide [Lupron Depot] IM 12/21/24 12/23/24 Previous Rx's Medication Instructions Recorded amoxicillin 500 mg-potassium 1 tab PO BID sinusitis #5 tabs 12/18/24 clavulanate 125 mg tablet (Augmentin) promethazine 12.5 mg tablet 12.5 mg PO Q6H PRN nausea #14 tabs 12/18/24 Results & Data (ED) Vital Signs Vital Signs - 24 hr 12/28/24 19:16 12/28/24 19:59 12/28/24 20:04 Temperature 37.1 C Temperature Source Temporal Artery Scan Pulse Rate 93 H 83 Pulse Rate [Apical] 85 Pulse Rhythm [Apical] Pulse Strength [Apical] Respiratory Rate 18 18 Respiratory Effort / Characteristics Non-Labored Spontaneous Respiratory Depth Respiratory Pattern Blood Pressure 119/69 Blood Pressure [Right Arm] 125/72 Blood Pressure Mean 85 Blood Pressure Mean [Right Arm] 89 Blood Pressure Position [Right Arm] Lying Pulse Oximetry 98 98 Oxygen Delivery Method Room Air Room Air Sepsis Recent Fever Within 48 Hours No Sepsis New/Unexplained Change in Mental Status No Sepsis Action Taken by Nursing No Action Required 12/28/24 21:01 12/28/24 23:00 12/29/24 00:15 Temperature Temperature Source Pulse Rate Pulse Rate [Apical] 94 H 90 88 Pulse Rhythm [Apical] Regular Pulse Strength [Apical] Normal Respiratory Rate 18 18 16 Respiratory Effort / Characteristics Non-Labored Spontaneous Non-Labored Spontaneous Non-Labored Spontaneous Respiratory Depth Normal Respiratory Pattern Regular Blood Pressure Blood Pressure [Right Arm] 96/54 L 93/42 L 93/56 L Blood Pressure Mean Blood Pressure Mean [Right Arm] 68 59 68 Blood Pressure Position [Right Arm] Lying Lying Lying Pulse Oximetry 98 98 98 Oxygen Delivery Method Room Air Room Air Room Air Sepsis Recent Fever Within 48 Hours Sepsis New/Unexplained Change in Mental Status Sepsis Action Taken by Nursing 12/29/24 00:17 Temperature Temperature Source Pulse Rate Pulse Rate [Apical] Pulse Rhythm [Apical] Pulse Strength [Apical] Respiratory Rate Respiratory Effort / Characteristics Respiratory Depth Respiratory Pattern Blood Pressure Blood Pressure [Right Arm] Blood Pressure Mean Blood Pressure Mean [Right Arm] Blood Pressure Position [Right Arm] Pulse Oximetry Oxygen Delivery Method Room Air Sepsis Recent Fever Within 48 Hours Sepsis New/Unexplained Change in Mental Status Sepsis Action Taken by Nursing Laboratory Data 12/28/24 19:43 12/28/24 19:43 Lab Results 12/28/24 12/28/24 Range/Units 19:43 20:47 WBC 3.33 L (4.8-10.8) K/ul RBC 2.82 L (4.20-5.40) M/uL Hgb 8.3 L (12.0-16.0) g/dl Hct 24.5 L (37.0-47.0) % MCV 86.9 (80.0-100.0) fL MCH 29.4 (25.0-34.0) pg MCHC 33.9 (32.0-36.0) g/dL RDW Std Deviation 37.3 (36.4-46.3) fL RDW Coeff of Real 11.7 (11.5-14.5) % Plt Count 220 (130-400) K/uL MPV 9.2 L (9.4-12.4) fL Immature Gran % (Auto) 0.9 % Neut % (Auto) 82.0 % Lymph % (Auto) 10.2 % [place] % (Auto) 3.3 % Eos % (Auto) 3.3 % Baso % (Auto) 0.3 % Neut # (Auto) 2.73 (1.40-6.50) K/uL Lymph # (Auto) 0.34 L (1.20-3.40) K/uL [place] # (Auto) 0.11 (0.11-0.59) K/uL Eos # (Auto) 0.11 (0.00-0.50) K/uL Baso # (Auto) 0.01 (0.00-0.20) K/uL Immature Gran # (Auto) 0.03 (0.01-0.20) K/uL Sodium 140 (136-145) mmol/L Potassium 3.0 L (3.5-5.1) mmol/L Chloride 108 H (98-107) mmol/L Carbon Dioxide 26 (21-32) mmol/L Anion Gap 6 (3-11) BUN 8 (6-23) mg/dl Creatinine 0.91 (0.6-1.2) mg/dl Est Cr Clr Drug Dosing 78.5 ml/min eGFR 82.81 BUN/Creatinine Ratio 8.8 L (10-20) Glucose 89 (70-99(Fasting)) mg/dl Calcium 7.4 L (8.6-10.3) mg/dl Total Bilirubin 0.2 (0.2-1.0) mg/dl AST 13 (13-39) U/L ALT 6 L (7-52) U/L Alkaline Phosphatase 66 (34-104) U/L Total Protein 6.3 (6.0-8.3) gm/dl Albumin 3.5 (3.4-5.0) gm/dl Globulin 2.8 (2.5-4.0) gm/dl Albumin/Globulin Ratio 1.3 (0.9-2) Urine Color Yellow Urine Appearance Clear (Clear) Urine pH 6.5 (4.5-7.5) Ur Specific [place] 1.008 (1.000-1.030) Urine Protein Negative (Negative) Urine Glucose (UA) Negative (Negative) Urine Ketones Negative (Negative) Urine Blood Negative (Negative) Urine Nitrite Negative (Negative) Urine Bilirubin Negative (Negative) Urine Urobilinogen Negative (Negative) Ur Leukocyte Esterase 1+ H (Negative) Urine WBC (Auto) 6-10 H (0-5) /hpf Urine RBC (Auto) 0-2 (0-2) /hpf U Hyaline Cast (Auto) 0-2 (0-2) /lpf U Epithel Cells (Auto) 0-2 (0-2) /hpf Urine Bacteria (Auto) None Seen (None Seen) Administered Medications Discontinued Medications Dexamethasone Sodium Phosphate (DexamethasonePf 10 Mg/Ml Vial) 5 mg IV NOW ONE Stop: 12/28/24 22:23 Last Admin: 12/28/24 22:37 Dose: 5 mg Documented By: AMANDA Hydromorphone HCl (Hydromorphone Inj 1 Mg/Ml Syringe) 1 mg IV NOW STA Stop: 12/28/24 20:46 Last Admin: 12/28/24 20:48 Dose: 1 mg Documented By: AMANDA Hydromorphone HCl (Hydromorphone Inj 1 Mg/Ml Syringe) 1 mg IV NOW STA Stop: 12/28/24 21:19 Last Admin: 12/28/24 21:35 Dose: 1 mg Documented By: AMANDA Discharge Plan Visit Data Chief Complaint: Back Injury/Pain Stated Complaint: BACK PAIN ED Provider: Cipriano Darden Discharge Problem: Cancer associated pain Patient Disposition: Being Evaluated by Hospitalist Discharge Instructions Interventions: ED Discharge Assessment Last Done: 12/29/24 00:17 Forms Stand Alone Forms: My [facility] Prescriptions Prescriptions: No Action hydromorphone [Dilaudid] 4 mg tablet 4 mg PO Q3H PRN leuprolide [Lupron Depot] IM fentanyl 25 mcg/hr patch 72 hour 1 patch transdermal Q72H alprazolam 0.25 mg tablet 0.25 mg PO TID PRN (Reason: Anxiety) letrozole 2.5 mg Tablet 2.5 mg PO DAILY Rx Instructions: begin between days 2 and 5 of mentrual cycle bupropion HCl 300 mg tablet extended release 24 hr 300 mg PO DAILY Verzenio 150 mg tablet 150 mg PO AMHS Hold Instructions: Resume on 12/22/24. discuss with your oncologist for when this should be restarted amoxicillin-pot clavulanate [Augmentin] 500-125 mg tablet 1 tab PO BID Qty: 5 0RF Rx Instructions: Take twice daily with food with the last dose being on Friday12/21/24. promethazine 12.5 mg tablet 12.5 mg PO Q6H PRN (Reason: nausea ) Qty: 14 0RF Rx Instructions: 3 doses during day; last dose no later than 4 hr before bedtime gabapentin 300 mg capsule 300 mg PO TID PRN Referrals Referrals: Ruth Dunlap DO [Primary Care Provider] -
[2024-12-28 21:10] LABS: Appearance Urine Clear (Clear); Bacteria Urine Automated None Seen (None Seen); Bilirubin Urine Negative (Negative); Blood Urine Negative (Negative); Cast Urine Automated 0-2 /lpf (0-2); Color Urine Yellow; Epithelial Cell Urine Auto 0-2 /hpf (0-2); Glucose Urine UA Negative (Negative); Ketones Urine Negative (Negative); Leukocyte Esterase Urine 1+ (Negative); Nitrite Urine Negative (Negative); Protein Urine Negative (Negative); RBC Urine Automated 0-2 /hpf (0-2); Specific Gravity Urine 1.008 (1.000-1.030); Urobilinogen Urine Negative (Negative); pH Urine 6.5 (4.5-7.5)
[2024-12-28] MEDS: dexAMETHasone**PF** 10 MG/ML VIAL IV ONE (22:37)
--- NOTE | 2024-12-28 22:47 | History & Physical Report ---
Date of Service December 28, 2024 Assessment & Plan (1) Malignant neoplasm of right breast, stage 4: (2) Cancer associated pain: (3) Breast cancer metastasized to bone: (4) Hypercalcemia of malignancy: Toyin Carreon is a 39-year-old with severe bone pain 2/2 Stage IV metastatic breast cancer and h/o IVDA who presented on 12/28 with severe back pain she rates as 12/10. She follows with [facility] for pain management and Dr. Contreras Munoz for oncology. Her chronic pain is never better than a 4, but acutely worsened today due to increased activity. She reports only feeling benefit with IV Dilaudid; she has also tried fentanyl patches, gabapentin, and po dilaudid. In the ED she was given 2mg IV Dilaudid, after which her pain improved to a 6/10. She is being admitted for management of chronic cancer-related pain. Stage IV breast cancer, mets to bone - 11/30 PET scan showed FDG avid right breast mass, right axillary lymph nodes, and diffuse osteolytic disease - pain improved 12/10 to 6/10 s/p 2 x 1mg IV Dilaudid - overnight: 4mg po Dilaudid q4h PRN for mild-mod pain + 0.5mg IV available as second-line + 1mg IV Dilaudid q3h PRN Past discharge summary indicated pain was controlled with 1mg IV Dilaudid q4h prn + 4mg po Dilaudid q4h prn Chart shows anaphylactic reaction to narcan; not ordered at this time but should consider in case of severe respiratory depression - Continuous ETCO2 - Constipation regimen w scheduled miralax & senna, prn dulcolax - Consult placed for pain management, appreciate assistance H/o hypercalcemia of malignancy - Ca level was > 18 on 12/13 admission - Currently asymptomatic, calcium level 7.4 - Continue to monitor Diet: regular Dispo: admit to PCU tele Code: full History of Present Illness Chief Complaint: back pain Primary Care Provider: Ruth Dunlap DO Velma is a 39-year-old with severe bone pain 2/2 Stage IV metastatic breast cancer. She underwent a PET scan on 11/30 which revealed diffuse osteolytic lesions. She was hospitalized last week with nausea/vomiting and hypercalcemia, and she has previous hospitalizations requiring pain management. She follows with [facility] for pain management and Dr. Contreras Munoz for oncology. She has chronic pain that occasionally radiates to her shoulders or hips, but is always present throughout her back. She reports that any action that moves her trunk is incredibly painful, but the pain became unbearable today, rating it as a 12/10. She notes walking today more than usual, which may have contributed to the acute worsening. She has tried po Dilaudid, Fentanyl patches, and gabapentin for her pain and reports that none of them help; she has only had relief with IV Dilaudid. Her mother adds that she had a 1-week course of steroids that seemed to help. She denies any complaints other than back pain - no pain in other areas, no abnormal sensation, no weakness, no GI or distress. In the ED she was given 2 x 1mg IV Dilaudid. She reports improvement in the pain, rating it as a 6/10. Allergies Allergy/AdvReac Type Severity Reaction Status Date / Time naloxone Allergy Severe ANAPHYLAXIS Verified 12/23/24 11:55 Home Medications Medication Instructions Recorded Confirmed Type abemaciclib 150 mg tablet 150 mg PO AMHS 12/13/24 12/23/24 History (Verzenio) alprazolam 0.25 mg tablet 0.25 mg PO TID PRN Anxiety 12/13/24 12/23/24 History bupropion HCl 300 mg 24 hr tablet, 300 mg PO DAILY 12/13/24 12/23/24 History extended release letrozole 2.5 mg tablet 2.5 mg PO DAILY 12/13/24 12/23/24 History amoxicillin 500 mg-potassium 1 tab PO BID sinusitis #5 tabs 12/18/24 12/23/24 Rx clavulanate 125 mg tablet (Augmentin) promethazine 12.5 mg tablet 12.5 mg PO Q6H PRN nausea #14 tabs 12/18/24 12/23/24 Rx fentanyl 25 mcg/hr transdermal 1 patch transdermal Q72H 12/21/24 12/23/24 History patch gabapentin 300 mg capsule 300 mg PO TID PRN 12/21/24 12/23/24 History hydromorphone 4 mg tablet 4 mg PO Q3H PRN 12/21/24 12/23/24 History (Dilaudid) leuprolide [Lupron Depot] IM 12/21/24 12/23/24 History Past Med/Surg History Problem List Breast cancer metastasized to bone 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) Hx of drug abuse Depression with anxiety Malignant neoplasm of right breast, stage 4 Cancer associated pain (Acute) Hypercalcemia of malignancy Medical History Nephrocalcinosis MELISSA (acute kidney injury) ADHD Surgical History Hx of breast biopsy Family History Mother Breast cancer Father Prostate cancer Aunt Breast cancer Colorectal cancer Grandmother Stroke Uncle Prostate cancer Denies family history of Ovarian cancer Myocardial infarction Pulmonary embolism Social History Smoking Status: Never smoker Tobacco Type: E-cigarettes / Vaping Age Started Using Tobacco: 19; Age Quit Using Tobacco: 38; packs per day: 0.25; Cigarettes Per Day: used to smoke tobacco cigarettes, was vaping until the last few days; Second Hand Exposure: No; Do You Dip or Chew Tobacco: No; Hx Alcohol Use: No Hx Substance Use: No Preferred Language: Venezuelan Communication Ability: Effective Visual Impairment: No Limitations Hearing Ability: Normal Pick Up Worker Required: No Beliefs That Will Affect Care: None marital status: Single Current Living Situation: Family and Significant Other Current Living Situation Comment: lives at home with boyfriend and 2 children (daughters Calixto and Grace) current occupational status: unemployed How many Children do You have: 2 Feels Safe at Home: Yes Safety Concerns: Feels Safe At This Time Diet: regular Diet Comment: regular caffeine: Yes during the past year weight has: remained stable Dental Care, Regularly: Yes Physical Activity Frequency: Other Seatbelt Use: always Sunscreen Use: Yes Do you think of yourself as: straight/heterosexual Assistive Devices: None Review of Systems 2 Constitutional: no fatigue and no weakness Eyes: no worsening vision Ear, Nose, Mouth, Throat: no dizziness Respiratory: no dyspnea Cardiovascular: no chest pain Gastrointestinal: no abdominal pain, no nausea, no vomiting, no constipation and no diarrhea/loose stools Genitourinary: no dysuria and no urinary frequency Musculoskeletal: + back pain, + joint pain and + limited range of motion; no myalgia and no muscle weakness Integumentary: no rash, no lesions and no unusual bruising Neurologic: no localized weakness, no loss of sensation, no tingling, no numbness, no lack of coordination, no tremor(s) and no headache(s) Hematologic / Lymphatic: no easy bleeding and no easy bruising Physical Exam 2 Physical Exam: Gen: Appears fail, tired, ill but non-toxic HEENT: NCAT, MMM, trachea midline, normal conjunctiva CV: RRR, no m/r/g, S1/S2 normal Resp: CTAB, breathing non-labored Abd: Soft, NT/ND, +BS MSK: No gross deformities on inspection, ROM restricted 2/2 pain Skin: Warm, dry, pink, no rashes, +brusing on lower abd at injection sites Neuro: AOx3, PERRL, EOMI, no facial asymmetry, SILT, moves extremities spontaneously Psych: Affect somewhat flat, mood-congruent. Speech pace and content normal. Good insight. Results & Data Results & Data Vital Signs (Past 12 Hours) Vital Signs Temp Pulse Pulse Resp BP BP Pulse Ox 12/28/24 21:01 94 H 18 96/54 L 98 12/28/24 20:04 83 12/28/24 19:59 85 18 125/72 98 12/28/24 19:16 37.1 C 93 H 18 119/69 98 O2 Del Method 12/28/24 21:01 Room Air 12/28/24 20:04 12/28/24 19:59 Room Air 12/28/24 19:16 Room Air Laboratory Results 12/28/24 19:43 12/28/24 19:43 Supervising Physician Co-Signing Physician Notes Patient seen and examined, chart reviewed, case discussed with Dr. Lozano and I agree with the assessment and plan as above. In brief, patient is an unfortunate 39yo female with metastatic breast cancer - diffuse bony lesions with severe cancer related pain. Acute worsening due to increase in activity. On exam patient is afebrile, HD stable, non-toxic in appearance MMM, Neck supple +S1/S2, regular CTA Abd soft, NT/ND Labs and images reviewed Assessment/Plan - worsening cancer related pain unimproved with PO agents at home Admit for pain control PO Dilaudid IV Dilaudid PRN Bowel regimen PRN Pain Management consultation appreciated - patient reports baseline pain is 6/10 Remainder as above Resident Activity Tracking Resident Involvement: Resident Care Provided Care Provided: Adult [facility]
[2024-12-28] MEDS ORDERED: HYDROmorphone INJ 0.5 MG/0.5 ML SYR IV PRN (23:07)
[2024-12-28] MEDS ORDERED: HYDROmorphone HCL 2 MG TAB PO PRN (23:07)
[2024-12-28] MEDS ORDERED: bisacodyL 10 MG SUPP PR PRN (23:12)
[2024-12-29] MEDS: HYDROmorphone INJ 0.5 MG/0.5 ML SYR IV PRN (01:02)
[2024-12-29] MEDS: PLASMA-LYTE A 1,000 ML IV SCH (01:40)
--- NOTE | 2024-12-29 02:55 | Billing Data ---
Date of Service December 28, 2024 Coding Level of Care Code 95717 INT INP/OBS CARE
[2024-12-29] MEDS ORDERED: HYDROmorphone HCL 4 MG TAB PO PRN (03:08)
[2024-12-29] MEDS: POTASSIUM CHLORIDE CRTAB 20 MEQ TABCR PO STA (03:14)
[2024-12-29 05:08] LABS: Hematocrit (blood only) 25.3 % (37.0-47.0); Hemoglobin 8.5 g/dl (12.0-16.0); Mean Corpuscular Hemoglobin 28.8 pg (25.0-34.0); Mean Corpuscular Hgb Conc 33.6 g/dL (32.0-36.0); Mean Corpuscular Volume 85.8 fL (80.0-100.0); Mean Platelet Volume 9.2 fL (9.4-12.4); Platelet Count 204 K/uL (130-400); RDW Coefficient of Variation 11.8 % (11.5-14.5); RDW Standard Deviation 36.2 fL (36.4-46.3); Red Blood Count 2.95 M/uL (4.20-5.40); White Blood Count 2.72 K/ul (4.8-10.8)
[2024-12-29 05:28] LABS: BUN Creatinine Ratio 10.3 (10-20); Calcium 7.6 mg/dl (8.6-10.3); Creatinine Clr Calc Pharmacy 91.5 ml/min; Magnesium 1.9 mg/dl (1.7-2.4); Potassium 4.1 mmol/L (3.5-5.1)
[2024-12-29] MEDS: HYDROmorphone INJ 1 MG/ML SYRINGE IV PRN ×2 (05:34→13:05)
--- OUTSIDE RECORDS SUMMARY | 2024-12-29 05:54 | External Medical Summary | Summary of Care ---
Author Name Unknown Organization [facility] Address [address] [place] [address] Phone [phone] Care Team Providers Care Account Manager Sales Representative Name Role Phone Ruth Dunlap DO Primary Care Provider [phone]- [phone] Reason for Visit * Reason Onset Date Comments Test Results Lab 12/28/2024 Encounter Details Date Type Department Care Team (Late st Contact Info) Description 12/28/2024 Telephone Hematology/Oncology [facility] [place] [address] [facility] [place] [id number] Contreras Munoz MD [address] [facility] [place] [address] Test Results Lab Allergies Active Allergy Reactions Criticality Noted Date Comments Naloxone Edema face/lips/tongue High 01/15/2017 documented as of this encounter (statuses as of 12/28/2024) Medications Acetaminophen (TYLENOL) 325 MG CAPS Take by mouth. Activ e folic acid 1 MG TabletIndication s:Family history of spina bifida Take one tablet [...] 4 Active Letrozole 2.5 MG Oral Tablet (Femara)Indicati ons:Malignant neoplasm of upper-outer quadrant of right breast in female, estrogen receptor positive (HCC),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) Take 1 Tablet by mouth in the morning. 30 Tablet 11 5 Active Ondansetron HCl 4 MG Oral TabletIndication s:Nausea Use as needed for nausea 30 Tablet 1 5 Active Lidocaine-Priloc rhonda 2.5-2.5 % External Cream (Emla)Indication s:Malignant neoplasm of upper-outer quadrant of right breast in female, estrogen receptor positive (HCC) APPLY TO SKIN 1HR PRIOR TO INJECTION. 30 g 5 Active Abemaciclib 150 MG Oral Tablet (Verzenio)Indica tions:Malignant neoplasm of upper-outer quadrant of right breast in female, estrogen receptor positive (HCC) Take 1 tablet by mouth in the morning and 1 tablet by mouth before bedtime. 60 Tablet 5 12/07/2024 1:47 PM EST 5 Active Ondansetron HCl 8 MG Oral Tablet (Zofran)Indicati ons:Malignant neoplasm of upper-outer quadrant of right breast in female, estrogen receptor positive (HCC),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) Take 1 Tablet by mouth every 8 hours as needed for Nausea. 30 Tablet 2 5 Active Prochlorperazine Maleate 10 MG Oral Tablet (Compazine)Indic ations:Malignant neoplasm of upper-outer quadrant of right breast in female, estrogen receptor positive (HCC),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) Take 1 Tablet by mouth every 6 hours as needed for Nausea. 30 Tablet 2 5 Active fentaNYL 50 MCG/HR Transdermal Patch 72 Hour (Duragesic)Indic ations:Cancer related pain Place 1 Patch over 72 hours topically on the skin every 3 days. 5 Patch 5 Active HYDROmorphone HCl 8 MG Oral TabletIndication s:Cancer related pain Take 1 Tablet by mouth every 3 hours as needed for Pain, Severe. 60 Tablet 5 Active fentaNYL 100 MCG/HR Transdermal Patch 72 Hour (Duragesic)Indic ations:Cancer related pain Place 1 Patch over 72 hours topically on the skin every 3 days. 5 Patch 5 Active ALPRAZolam 0.25 MG Oral Tablet (Xanax)Indicatio ns:Cancer related pain,Anxiety state Take 1 Tablet by mouth 3 times a day as needed for Anxiety. 30 Tablet 5 Active Gabapentin 300 MG Oral Capsule (Neurontin)Indic ations:Cancer related pain Take 1 Capsule by mouth daily AND 2 Capsules at bedtime. 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 Increased risk for breast cancer and pancreatic cancer. 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 Increased risk for breast cancer, colon cancer and thyroid cancer. Attention deficit hyperactiv ity disorder (ADHD), combined type 07/10/2016 Anxiety state 12/12/2011 Depression 12/12/2011 Rosacea 04/30/2006 RHINITIS DUE TO POLLEN documented as of this encounter (statuses as of 12/28/2024) Resolved Problems Problem Noted Date Diagnosed Date [...] entered Entered by Date resolved education Attended [facility]. 06/21/2017 06/23/2017 Kadi Gold RN [...] Overview (01/15/2017): Taking Subutex, followed monthly in [place] [facility] 16mg daily Mental disorder in 01/15/2017 08/26/2017 Overview (02/12/2017): @ [facility] taking Kl[facility]opin - ADHD, depression, bipolar -going to counseling in [place] As of 13wks no longer taking Klonopin [...] as of this encounter (statuses as of 12/28/2024) Immunizations Name Administration Dates Next Due Seasonal [...] encounter Miscellaneous Notes * Telephone Encounter - Annetta Cool LPN - 12/28/2024 9:14 AM EST My G sent. * Telephone Encounter - Annetta Cool LPN - 12/28/2024 9:08 AM EST ----- Message from Contreras Munoz MD sent at 12/28/2024 8:25 AM EST ----- Blood workup done on 12/27/2024: -WBC 3500, Hemoglobin and hematocrit -9.5/29.2, Platelet count of 250,000 -ANC 2700 -BUN/Creat: 10/1.1, Calcium 8.0, albumin 3.5. Overall mild leukopenia, no neutropenia, stable kidney function, now Calcium level is normal. Will repeat another comprehensive metabolic panel in about 1 week time. She is seeing Deepa on 01/03/2025, we can do blood workup on the same day or previous day. documented in this encounter Plan of Treatment Upcoming Encounters Date Type Department Care Team (Late st Contact Info) Description 12/29/2024 9:45 AM EST Pharmacy Pharmacy Hematology Oncology [facility] [address] [place] [address] [facility] [place] [facility] Hem/Onc [address] [place] [address] 12/31/2024 11:00 AM EST Telemedicine Palliative Medicine, [address] 5th [place] [address] Amie Kong MD [address] [place] [address] 01/03/2025 11:00 AM EST Office Visit Hematology/Oncology [address] [place], [place] [address] Deepa Roberts CRNP [address] [place] [address] 01/03/2025 11:45 AM EST Immunization/Injection Hematology/Oncology Treatment, [address], [place] [phone] Alla, Chair 2 Hem Onc [address] [place], [place] [address] 01/20/2025 9:30 AM EST Laboratory Laboratory [address] [place], [place] [phone] [place], Lab [address] [place], [place] [address] 01/20/2025 10:30 AM EST Immunization/Injection Hematology/Oncology Treatment, [address], [place] [phone] Health Maintenance Due Date Last Done Comments [...] Not on filedocumented as of this encounter Care Teams Account Manager Sales Representative Relationship Specialty Start Date End Date Ruth Dunlap DO [address] [facility] [address] [place] [address] PCP - General Family Medicine 12/22/24 documented as of this encounter
--- OUTSIDE RECORDS SUMMARY | 2024-12-29 05:55 | External Medical Summary | Summary of Care ---
Author Name Unknown Organization [facility] Address [address] [place] [address] Phone [phone] Care Team Providers Care Family Law Specialist Name Role Phone Ruth Dunlap Primary Care Provider [phone]- [phone] Reason for Visit * Reason Onset Date Comments Appointment 12/27/2024 Encounter Details Date Type Department Care Team (Late st Contact Info) Description 12/27/2024 Telephone Hematology/Oncology Treatment, [place] [address] [place] [address] Services, Scheduling [address] [place] [address] Appointment Allergies Active Allergy Reactions Criticality Noted [...] Overview (05/13/2019): pathogenic LEONEL gene variant (c.8482C>T, p.[id number]*). Increased risk for breast cancer and pancreatic cancer. 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 Increased risk for breast cancer, colon cancer [...] entered Entered by Date resolved education Attended [facility]. 06/21/2017 06/23/2017 Kadi Gold RN [...] Overview (01/15/2017): Taking Subutex, followed monthly in [place] @ [facility] 16mg daily Mental disorder in 01/15/2017 08/26/2017 Overview (02/12/2017): @ [facility] taking Klonopin - ADHD, depression, bipolar -going to counseling in [place] As of 13wks no longer taking Klonopin [...] 12/28/2024) Immunizations Name Administration Dates Next Due DTP [...] Telephone Encounter - Velma Interiano OSA - 12/27/2024 3:20 PM EST Apt is canceled * Addendum Note - Popeye Schaffer RN - 12/27/2024 3:19 PM ESTAddended by: POPEYE SCHAFFER on: 12/27/2024 03:19 PM Modules accepted: Orders * Telephone Encounter - Popeye Schaffer RN - 12/27/2024 3:14 PM EST Patient had hypercalcemia last week, received hydration/ xgeva. Appt tomorrow was in case further hydration was needed. Per labs, Ca 8.0. No further hydration indicated. Called patient. She states that she is feeling well, no nausea, no dizziness/ lightheadness. She does not feel she needs hydration. Scheduling: please cancel hydration appt tomorrow. Patient is aware. Thanks! * Telephone Encounter - Nabila Marrero OSA - 12/27/2024 2:11 PM EST Please call pt back - she was unaware of tomorrow's tx appointment. She also has questions about the treatment itself as well TEAMs msg sent in both PARs and nurses channels. documented in this encounter Plan of Treatment Upcoming Encounters Date Type Department Care Team (Late st Contact Info) Description 12/29/2024 9:45 AM EST Pharmacy Pharmacy Hematology Oncology [place] [address] [place] [address] [facility] [place] Hem[facility]Onc [facility] [address] 12/31/2024 11:00 AM EST Telemedicine Palliative Medicine, [facility] [address] [facility] 5th Floor [place], [place] [phone] Amie Kong MD 400 [place] [address] 01/03/2025 11:00 AM EST Office Visit Hematology/Oncology [address] [place] [address] Deepa Roberts CRNP [address] [place] [address] 01/03/2025 11:45 AM EST Immunization/Injection Hematology/Oncology Treatment, [place] [address] [place] [address] Alla, Chair 2 Hem Onc [facility] [address] [facility] [place] [address] 01/20/2025 9:30 AM EST Laboratory Laboratory [place] [address] [place] [phone] [place], Lab Scenery [address] [place], [place] [address] 01/20/2025 10:30 AM EST Immunization/Injection Hematology/Oncology Treatment, [place] [address] [place] [phone] Health Maintenance Due Date Last Done Comments [...] filedocumented as of this encounter Care Teams Family Law Specialist Relationship Specialty Start Date End Date Ruth Dunlap DO [address] [facility] 2 [place] [address] PCP - General Family Medicine 12/22/24 documented as of this encounter
--- OUTSIDE RECORDS SUMMARY | 2024-12-29 05:55 | External Medical Summary | Summary of Care ---
Author Name Unknown Organization [facility] Address [address] [place] [address] Phone [phone] Care Team Providers Care Heart Doctor Name Role Phone Germán Ruthdat Gaming Primary Care Provider +1- [phone] Reason for Visit * Reason Comments Medication Management Encounter Details Date Type Department Care Team (Late st Contact Info) Description 12/23/2024 9:45 AM [facility] Pharmacy Pharmacy Hematology Oncology [facility] [address] [place], [place] [id number] [facility] [place] Hem/Onc [address] [place], [place] [phone] Malignant neoplasm of upper-outer quadrant of right breast in female, estrogen receptor positive (HCC)* Allergies Active Allergy Reactions Criticality Noted Date Comments Naloxone Edema face/lips/tongue High 01/15/2017 documented as of this encounter (statuses as of 12/23/2024) Medications Acetaminophen (TYLENOL) 325 MG CAPS Take [...] Capsule before bedtime. 90 Capsule 5 Active ALPRAZolam 0.25 MG Oral Tablet (Xanax)Indicatio ns:Cancer related pain Take 1 Tablet by mouth 3 times a day as needed for Anxiety. 30 Tablet 5 Active fentaNYL 50 MCG/HR Transdermal Patch 72 Hour (Duragesic)Indic ations:Cancer related pain Place 1 Patch over 72 hours topically on the skin every 3 days. 5 Patch 5 Active HYDROmorphone HCl 8 MG Oral TabletIndication s:Cancer related pain Take 1 Tablet by mouth every 3 hours as needed for Pain, Severe. 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 Increased risk for breast cancer and pancreatic cancer. 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 Increased risk for breast cancer, colon cancer and thyroid cancer. Attention deficit hyperactiv ity disorder (ADHD), combined type 07/10/2016 Anxiety state 12/12/2011 Depression 12/12/2011 Rosacea 04/30/2006 RHINITIS DUE TO POLLEN documented as of this encounter (statuses as of 12/23/2024) Resolved Problems Problem Noted Date Diagnosed Date [...] entered Entered by Date resolved education Attended [facility]. 06/21/2017 06/23/2017 Kadi Gold RN [...] Overview (01/15/2017): Taking Subutex, followed monthly in [place] @ [facility] 16mg daily Mental disorder in 01/15/2017 08/26/2017 Overview (02/12/2017): @ [facility] taking Klonopin - ADHD, depression, bipolar -going to counseling in [place] As of 13wks no longer taking Klonopin [...] as of this encounter (statuses as of 12/23/2024) Immunizations Name Administration Dates Next Due Seasonal [...] this encounter Progress Notes * Genny Whitley, [facility] - 12/23/2024 2:47 PM EST MEDICATION THERAPY MANAGEMENT ABEMACICLIB TREATMENT PROGRESS NOTE Velma Carr [phone] Patient Phone Numbers Preferred Lab: [facility] Specialty Pharmacy: [facility] Communication: Spoke to RN and Spoke to MD/PA/EMT BASIC Treatment: Medication: Abemaciclib (Verzenio) Indication/Staging/Diagnosis Code: ER+/WY+/HER2- breast cancer / C50.411 Dose: 150mg BID Administration: +/- food Start Date: 12/24/24 Primary Animal Ride Attendant/Oncologist: Dr. Deion Munoz Supportive Care Meds: Xgeva Fulvestrant Letrozole 2.5mg daily Ondansetron Prophylactic Meds: None Treatment History: none Treatment Dose Adjustment/Hold History: N/A Interval History: Per OV 12/01/24, pt has h/o IV substance misuse and currently taking buprenorphine Admitted to [facility] 12/13/24-12/18/24 for hypercalcemia Pt has not started abemaciclib due to hospital admission Changes to medication list since last visit? No Drug interaction assessment: Treatment plan and current medication list evaluated for drug-drug interactions. No clinically significant drug interaction identified Assessment and Plan: Ca2+ elevated but declining Per discussion with ZACHARIAH Yao, pt to start Xgeva and receive IV hydration Will continue to monitor All other labs within parameters to initiate therapy Per discussion with ZACHARIAH Yao, and Dr. Munoz, pt to start abemaciclib MTM to follow up in 1 week to confirm start date and assess tolerability Assessment of compliance: compliant Assessment of adverse effects attributed to drug therapy: N/A Dose adjustment needed based on lab or adverse drug reaction? Yes, start Follow up: 1 week Genny Whitley, PharmD, BCOP Clinical Pharmacist, [facility] Oral Chemotherapy [facility] 12/23/2024, 2:58 PM Monitoring Parameters: Estimated CrCl Serum creatinine: 1 mg/dL 12/23/24 1316 Estimated creatinine clearance: 71.4 mL/min Hepatitis panel Latest Reference Range & [...] Pertinent labs: Latest Reference Range & Units 12/23/24 13:16 WBC 4.00 - 10.80 K/uL 4.62 RBC 3.85 - 5.15 M/uL 3.20 HGB 12.0 - 15.3 g/dL 9.4 (L) HCT 36.0 - 45.2 % 28.2 (L) MCV 81.5 - 97.5 fL 88.1 MCH 27.0 - 34.0 pg 29.4 MCHC 32.0 - 36.0 g/dL 33.3 RDW 11.5 - 15.5 % 11.6 PLT 140 - 400 K/uL 241 MPV 6.6 - 11.1 fL 9.5 CBC WITH WBC DIFFERENTIAL Rpt ! Absolute Neutrophils 1.80 - 7.70 K/uL 3.53 Latest Reference Range & Units 12/13/24 11:30 12/23/24 13:16 CALCIUM 8.4 - 10.2 mg/dL >20.1 (HH) 11.1 (H) Latest Reference Range & Units 12/23/24 13:16 Albumin 3.8 - 5.0 g/dL 3.5 (L) AST 10 - 35 U/L 25 ALT 10 - 35 U/L 10 Alkaline Phosphatase 35 - 130 U/L 100 Bilirubin, Total <=1.2 mg/dL <0.2 Time Spent on Encounter: 6 - 10 minutes documented in this encounter Plan of Treatment Upcoming Encounters Date Type Department Care Team (Late st Contact Info) Description 12/27/2024 9:30 AM EST Laboratory Laboratory [address] [place] [phone] [place] [address] 12/27/2024 2:00 PM EST Telemedicine Palliative Medicine, [facility] [address] [facility] 5th [place] [address] Amie Kong MD [address] [place] [address] 12/28/2024 11:30 AM EST Hem/Onc Treatment Hematology/Oncology [address], [address] [address] Alla, Chair 5 Hem Onc [address] [place] [address] 12/29/2024 9:45 AM EST Pharmacy Pharmacy Hematology Oncology [place] [address] [place] [address] [facility] [place] Hem/Onc [address] [place] [address] 01/03/2025 11:00 AM EST Office Visit Hematology/Oncology [facility] [address] [address] Deepa Roberts CRNP [address] [place] [address] 01/03/2025 11:45 AM EST Immunization/Injection Hematology/Oncology [address], [address] [address] Alla, Chair 2 Hem Onc [address] [place], [place] [address] 01/20/2025 9:30 AM EST Laboratory Laboratory [facility] [place] [address] [place] [phone] All[place], Lab Scenery [address] [place] [address] 01/20/2025 10:30 AM EST Immunization/Injection Hematology/Oncology Treatment, [place] [address] [place], [place] [address] Health Maintenance Due Date Last Done Comments [...] positive (HCC)- Primary documented in this encounter Care Teams Heart Doctor Relationship Specialty Start Date End Date Ruth Dunlap DO [address] [address] PCP - General Family Medicine 12/22/24 documented as of this encounter
--- OUTSIDE RECORDS SUMMARY | 2024-12-29 05:55 | External Medical Summary | Summary of Care ---
Author Name Unknown Organization [facility] Address [address] [place] [address] Phone [phone] Care Team Providers Care Cable Television Program Director Name Role Phone Ruth Dunlap DO Primary Care Provider +1- [phone] Reason for Visit * Reason Onset Date Comments Advice 12/24/2024 Dr. Munoz Encounter Details Date Type Department Care Team (Late st Contact Info) Description 12/24/2024 Telephone Hematology/Oncology [facility] [place] [address] [place] [address] Contreras Munoz MD [address] [place] [address] Advice (Dr. 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 Increased risk for breast cancer and pancreatic cancer. 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 Increased risk for breast cancer, colon cancer and thyroid cancer. Attention deficit hyperactiv ity disorder (ADHD), combined type 07/10/2016 Anxiety state 12/12/2011 Depression 12/12/2011 Rosacea 04/30/2006 RHINITIS DUE TO POLLEN documented as of this encounter (statuses as of 12/24/2024) Resolved Problems Problem Noted Date Diagnosed Date [...] entered Entered by Date resolved education Attended [facility]. 06/21/2017 06/23/2017 Kadi Gold RN 06/23/2017 [...] Overview (01/15/2017): Taking Subutex, followed monthly in [place] [facility] 16mg daily Mental disorder in 01/15/2017 08/26/2017 Overview (02/12/2017): [facility] taking Klon[facility] - ADHD, depression, bipolar -going to counseling in [place] As of 13wks no longer taking Klonopin [...] as of this encounter (statuses as of 12/24/2024) Immunizations Name Administration Dates Next Due DTP [...] Telephone Encounter - Najma Schaffer RN - 12/24/2024 10:04 AM EST Called patient. She states that she has not been vomiting all morning. She took her verzenio and vomited 5 min later, vomited x1 after that. She has not taken anything for it. Advised her to take zofran with small sip of water, then wait at least 45 min before having anything to eat or drink. If vomiting continues, advised patient to let us know. She verbalized understanding. * Telephone Encounter - Jennie Cohn OSA - 12/24/2024 9:50 AM EST What is the reason for call? Patient called because she has been vomiting all morning. What Clinic is the patient trying to reach? [facility]- Is the clinic open? Yes- Other: transfer to specialty Please contact Velma at [phone]. Thank you. documented in this encounter Plan of Treatment Upcoming Encounters Date Type Department Care Team (Late st Contact Info) Description 12/27/2024 9:30 AM EST Laboratory Laboratory [address] [place] [phone] [place] [address] 12/27/2024 2:00 PM EST Telemedicine Palliative Medicine, [facility] [address] [facility] 5th [place] [address] Amie Kong MD 400 [place], [place] [id number] 12/28/2024 11:30 AM EST Hem/Onc Treatment [facility]ematology[facility]cology Treatment, [place] [address] [facility] [address] Alla, Chair 5 Hem Onc [facility] [place] [address] [place] [address] [place] [address] 12/29/2024 9:45 AM EST Pharmacy Pharmacy Hematology Oncology [facility] [address] [place] [address] [facility] [place] Hem/Onc [address] [place] [address] 01/03/2025 11:00 AM EST Office Visit Hematology/Oncology [facility] 200 [facility] [place] [address] Deepa Roberts CRNP [address] [place] [address] 01/03/2025 11:45 AM EST Immunization/Injection Hematology/Oncology Treatment, [place] [address] [facility] [place] [address] Alla, Chair 2 Hem Onc [facility] [address] [facility] [place] [address] 01/20/2025 9:30 AM EST Laboratory Laboratory [facility] [place] [address] [place] [phone] Alla Lab Scenery [address] [place] [address] 01/20/2025 10:30 AM EST Immunization/Injection Hematology/Oncology Treatment, [place] [address] [facility] [address] Health Maintenance Due Date Last Done Comments [...] filedocumented as of this encounter Care Teams Cable Television Program Director Relationship Specialty Start Date End Date Ruth Dunlap DO [address] [facility] [address] [place] [address] PCP - General Family Medicine 12/22/24 documented as of this encounter
--- OUTSIDE RECORDS SUMMARY | 2024-12-29 05:55 | External Medical Summary | Summary of Care ---
Author Name Unknown Organization [facility] Address [address] [place] [address] Phone [phone] Care Team Providers Care Seat Scooper Machine Name Role Phone Ruth Dunlap DO Primary Care Provider +1- [phone] Reason for Visit * Reason Onset Date Comments Advice 12/24/2024 Dr. Munoz Encounter Details Date Type Department Care Team (Late st Contact Info) Description 12/24/2024 Telephone Hematology/Oncology [facility] [place] [address] [place] [phone] Contreras Munoz MD [address] [place] [address] Advice (Dr. 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 Increased risk for breast cancer and pancreatic cancer. 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 Increased risk for breast cancer, colon cancer [...] entered Entered by Date resolved education Attended [facility]. 06/21/2017 06/23/2017 Kadi Gold RN [...] Overview (01/15/2017): Taking Subutex, followed monthly in [place] [facility] 16mg daily Mental disorder in 01/15/2017 08/26/2017 Overview (02/12/2017): @ [facility] taking Klonopin - ADHD, depression, bipolar -going to counseling in [place] As of 13wks no longer taking Klonopin [...] Encounter - Najma Schaffer RN - 12/24/2024 12:22 PM EST Called patient- she is feeling better since taking zofran. Advised her to see how it goes tonight with evening dose, if she has N/V after that then can try taking zofran or compazine 30 min prior to taking verzenio. MTM: FYI * Telephone Encounter - Najma Schaffer RN [...] transfer to specialty Please contact Velma at [phone]. Thank you. documented in this encounter Plan of Treatment Upcoming Encounters Date Type Department Care Team (Late st Contact Info) Description 12/27/2024 9:30 AM EST Laboratory Laboratory [address] [place] [phone] [place] [address] 12/27/2024 2:00 PM EST Telemedicine Palliative Medicine, [facility] [address] [facility] 5th [place] [address] Amie Kong MD [address] [place], [place] [id number] 12/28/2024 11:30 AM EST Hem/Onc Treatment Hematology/Oncology Treatment, [address] [place] [phone] Alla, Chair 5 Hem Onc [facility] [address] [facility] [place] [address] 12/29/2024 9:45 AM EST Pharmacy Pharmacy Hematology Oncology [place] [address] [place] [address] [facility], [facility] Hem/Onc [address] [place] [address] 01/03/2025 11:00 AM EST Office Visit Hematology/Oncology [facility] [address] [facility] [place] [phone] Deepa Roberts CRNP [address] [place] [address] 01/03/2025 11:45 AM EST Immunization/Injection Hematology/Oncology Treatment, [address], [place] [phone] Alla, Chair 2 Hem Onc [address] [place] [address] 01/20/2025 9:30 AM EST Laboratory Laboratory [facility] [address] [place] [address] Alla, Lab [address] [place], [place] [address] 01/20/2025 10:30 AM EST Immunization/Injection Hematology/Oncology Treatment, [address], [place] [address] Health Maintenance Due Date Last [...] filedocumented as of this encounter Care Teams Seat Scooper Machine Relationship Specialty Start Date End Date Ruth Dunlap DO [address] [address] PCP - General Family Medicine 12/22/24 documented as of this encounter
--- OUTSIDE RECORDS SUMMARY | 2024-12-29 05:55 | External Medical Summary | Summary of Care ---
Author Name Unknown Organization [facility] Address [address] [place] [address] Phone [phone] Care Team Providers Care Plate Developer Name Role Phone Bridgettdat Ruthdat Gaming Primary Care Provider [phone]- [phone] Reason for Visit * Reason Comments Outpatient Testing Encounter Details Date Type Department Care Team (Late st Contact Info) Description 12/27/2024 9:30 AM EST Laboratory Laboratory [address] [place] [phone] [address] [place] [address] Malignant neoplasm of upper-outer quadrant of right breast in female, estrogen receptor positive (HCC); 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); Hypercalcemia Allergies Active Allergy Reactions Criticality Noted Date Comments Naloxone Edema face/lips/tongue High 01/15/2017 documented as of this encounter (statuses as of 12/27/2024) Medications Acetaminophen (TYLENOL) 325 MG CAPS Take [...] fentaNYL 50 MCG/HR Transdermal Patch 72 Hour (Duragesic)Susan cations:Cancer related pain Place 1 Patch over 72 hours topically on the skin every 3 days. 5 Patch 5 Active HYDROmorphone HCl 8 MG Oral TabletIndicatio ns:Cancer related pain Take 1 Tablet by mouth every 3 hours as needed for Pain, Severe. 60 Tablet 5 Active Gabapentin 300 MG Oral Capsule (Neurontin)Susan cations:Cancer related pain Take 1 Capsule by mouth in the morning and 1 Capsule at noon and 1 Capsule before bedtime. 90 Capsule 5 025 Discontin ued(Refil l) ALPRAZolam 0.25 MG Oral Tablet (Xanax)Indicati ons:Cancer related pain Take 1 Tablet by mouth 3 times a day as needed for Anxiety. 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 Increased risk for breast cancer and pancreatic cancer. 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 Increased risk for breast cancer, colon cancer and thyroid cancer. Attention deficit hyperactiv ity disorder (ADHD), combined type 07/10/2016 Anxiety state 12/12/2011 Depression 12/12/2011 Rosacea 04/30/2006 RHINITIS DUE TO POLLEN documented as of this encounter (statuses as of 12/27/2024) Resolved Problems Problem Noted Date Diagnosed Date [...] by Date resolved education Enrolled in May [facility] 05/14/2017 Kadi Gold RN 05/14/2017 [...] entered Entered by Date resolved education Attended [facility]. 06/21/2017 06/23/2017 Kadi Gold RN [...] Overview (01/15/2017): Taking Subutex, followed monthly in [place] [facility] 16mg daily Mental disorder in 01/15/2017 08/26/2017 Overview (02/12/2017): @ [facility] taking Klonopin - ADHD, depression, bipolar -going to counseling in [place] As of 13wks no longer taking Klonopin [...] as of this encounter (statuses as of 12/27/2024) Immunizations Name Administration Dates Next Due Seasonal [...] 9:45 AM EST Pharmacy Pharmacy Hematology Oncology [facility] [address] [place] [address] [facility] Hem/Onc [address] [place] [address] 12/31/2024 11:00 AM EST Telemedicine Palliative Medicine, [facility] [address] [facility] 5th [place] [address] Amie Kong MD [address] [place] [address] 01/03/2025 11:00 AM EST Office Visit Hematology/Oncology [facility] [place] [address] [place] [phone] Deepa Roberts CRNP [address] [place] [address] 01/03/2025 11:45 AM EST Immunization/Injection Hematology/Oncology Treatment, [place] [address] [place] [address] Alla, Chair 2 Hem Onc [address] [place] [address] 01/20/2025 9:30 AM EST Laboratory Laboratory [facility] Alla [place] [address] [place] [address] Corrie Gold [address]en[address] [place], [place] [address] 01/20/2025 10:30 AM EST Immunization/Injection Hematology/Oncology Treatment, [place] [address] [place] [address] Health Maintenance Due Date Last Done [...] Date/Time Associated Diagnosis Comments DIFFERENTIAL, AUTOMATED STAT 12/27/2024 8:33 AM EST Malignant neoplasm of upper-outer quadrant of right breast in female, estrogen receptor positive (HCC) COMPREHENSIVE METABOLIC PANEL STAT 12/27/2024 8:33 AM EST Malignant neoplasm of upper-outer quadrant of right breast in female, estrogen receptor positive (HCC) CBC STAT 12/27/2024 8:33 AM EST Malignant neoplasm of upper-outer quadrant of right breast in female, estrogen receptor positive (HCC) CBC STAT 12/27/2024 8:33 AM EST Malignant neoplasm of upper-outer quadrant of right breast in female, estrogen receptor positive (HCC) DIFFERENTIAL, TECHNOLOGIST REVIEW Routine 12/27/2024 8:33 AM EST Malignant neoplasm of upper-outer quadrant of right breast in female, estrogen receptor positive (HCC) documented in this encounter Results * (ABNORMAL) DIFFERENTIAL, TECHNOLOGIST REVIEW (12/27/2024 8:33 AM EST) WBC 3.52(L) 4.00 - 10.80 K/uL 12/27/2024 4:11 PM EST [facility] Neutrophils % 78.0(H) 40.0 - 75.0 % 12/27/2024 4:11 PM EST [facility] Lymphocytes % 16.0(L) 18.0 - 42.0 % 12/27/2024 4:11 PM EST [facility] Monocytes % 3.0 1.0 - 11.0 % 12/27/2024 4:11 PM EST [facility] Eosinophils % 1.0 0.0 - 6.0 % 12/27/2024 4:11 PM EST [facility] Basophils % 1.0 0.0 - 2.0 % 12/27/2024 4:11 PM EST [facility] Metamyelocytes % 1.0(H) <=0.0 % 12/27/19 4:11 PM EST [facility] Absolute Neutrophils 2.75 1.80 - 7.70 K/uL 12/27/2024 4:11 PM EST [facility] Absolute Lymphocytes 0.56(L) 1.00 - 4.80 K/uL 12/27/2024 4:11 PM EST [facility] Absolute Monocytes 0.11 0.00 - 1.10 K/uL 12/27/2024 4:11 PM EST [facility] Absolute Eosinophils 0.04 0.00 - 0.70 K/uL 12/27/2024 4:11 PM EST [facility] Absolute Basophils 0.04 0.00 - 0.20 K/uL 12/27/2024 4:11 PM EST [facility] Absolute Metamyelocytes 0.04(H) <=0.00 K/uL 12/27/2024 4:11 PM EST [facility] Blood Venous blood specimen / Unknown Venipuncture / Unknown 12/27/2024 8:33 AM EST 12/27/2024 8:33 AM EST Contreras Munoz MD LAB BLOOD ORDERABLES Final Res ult Performing Organization Address City/[facility]/ZIP Co de Phone Number [facility] [address] [place] [address] * DIFFERENTIAL, AUTOMATED (12/27/2024 8:33 AM EST) Blood Venous blood specimen / Unknown Venipuncture / Unknown 12/27/2024 8:33 AM EST 12/27/2024 8:33 AM EST us Contreras Munoz MD LAB BLOOD ORDERABLES Final Res ult Performing Organization Address City/[facility]/ZIP Co de Phone Number [facility] [address] [place] [address] * (ABNORMAL) CBC (12/27/2024 8:33 AM EST) WBC 3.52(L) 4.00 - 10.80 K/uL 12/27/2024 3:13 PM EST [facility] RBC 3.21 3.85 - 5.15 M/uL 12/27/2024 3:13 PM EST [facility] HGB 9.5(L) 12.0 - 15.3 g/dL 12/27/2024 3:13 PM EST [facility] HCT 29.2(L) 36.0 - 45.2 % 12/27/2024 3:13 PM EST [facility] MCV 91.0 81.5 - 97.5 fL 12/27/2024 3:13 PM EST [facility] MCH 29.6 27.0 - 34.0 pg 12/27/2024 3:13 PM EST [facility] MCHC 32.5 32.0 - 36.0 g/dL 12/27/2024 3:13 PM EST [facility] RDW 11.9 11.5 - 15.5 % 12/27/2024 3:13 PM EST [facility] PLT 253 140 - 400 K/uL 12/27/2024 3:13 PM EST [facility] MPV 9.9 6.6 - 11.1 fL 12/27/2024 3:13 PM EST [facility] nRBCs 0 <=0 /100 WBCs 12/27/2024 3:13 PM EST LABORATORY GM Blood Venous blood specimen / Unknown Venipuncture / Unknown 12/27/2024 8:33 AM EST 12/27/2024 8:33 AM EST Contreras Munoz MD LAB BLOOD ORDERABLES Final Res ult [facility] [address] [place] [address] * (ABNORMAL) COMPREHENSIVE METABOLIC PANEL (12/27/2024 8:33 AM EST) BUN 10 6 - 20 mg/dL 12/27/2024 2:45 PM EST [facility] CREATININE 1.1(H) 0.5 - 1.0 mg/dL 12/27/2024 2:45 PM EST [facility] EGFR 68 >=60 mL/min 12/27/2024 2:45 PM EST [facility] Comment:eGFR is calculated b ased on the CKD-EPI 2020 equation. SODIUM 143 135 - 146 mmol/L 12/27/2024 2:45 PM EST [facility] POTASSIUM 3.8 3.5 - 5.1 mmol/L 12/27/2024 2:45 PM EST [facility] CHLORIDE 107 98 - 107 mmol/L 12/27/2024 2:45 PM EST [facility] CO2 27 22 - 32 mmol/L 12/27/2024 2:45 PM EST [facility] ANION GAP 9 7 - 15 mmol/L 12/27/2024 2:45 PM EST [facility] GLUCOSE 105 70 - 120 mg/dL 12/27/2024 2:45 PM EST [facility] Albumin 3.5(L) 3.8 - 5.0 g/dL 12/27/2024 2:45 PM EST [facility] AST 16 10 - 35 U/L 12/27/2024 2:45 PM EST [facility] Alkaline Phosphatase 82 35 - 130 U/L 12/27/2024 2:45 PM EST [facility] Bilirubin, Total <0.2 <=1.2 mg/dL 12/27/2024 2:45 PM EST [facility] CALCIUM 8.0(L) 8.4 - 10.2 mg/dL 12/27/2024 2:45 PM EST [facility] Protein 5.9(L) 6.0 - 8.3 g/dL 12/27/2024 2:45 PM EST [facility] ALT 10 10 - 35 U/L 12/27/2024 2:45 PM EST [facility] Blood Venous blood specimen / Unknown Venipuncture / Unknown 12/27/2024 8:33 AM EST 12/27/2024 8:33 AM EST us Contreras Munoz MD LAB BLOOD ORDERABLES Final Res ult [facility] [address] [place] [address] documented in this encounter Visit Diagnoses Diagnosis Malignant neoplasm of upper-outer quadrant of right breast in female, estrogen receptor positive (HCC) 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) Secondary malignant neoplasm of bone and bone marrow Hypercalcemia documented in this encounter Care Teams Plate Developer Relationship Specialty Start Date End Date Ruth Dunlap DO [address] [facility] 2 [place] [address] PCP - General Family Medicine 12/22/24 documented as of this encounter
--- OUTSIDE RECORDS SUMMARY | 2024-12-29 05:55 | External Medical Summary ---
Author Name Unknown Address Unknown Organization K01:[facility]ORY [facility] [address] [facility] [address] [place] [address] Laboratory Report Ordering Provider Test Date Status STAN MCCORD 12/27/2024 08:33:06 Final Every 2 weeks x 2 months, th en monthly Observation Date Value Abnormality Reference (Units ) Status BUN 12/27/2024 08:33:06 10 6-20 (mg/dL) Final Creatinine 12/27/2024 08:33:06 1.1 Above high normal 0.5-1.0 (mg/dL) Final Glomerular filtration rate/1.73 sq M.predicted [Volume Rate/Area] in Serum, Plasma or Blood by Creatinine-based formula (CKD-EPI) 12/27/2024 08:33:06 68 >=60 (mL/min) Final eGFR is calculated based on the CKD-EPI 2020 equation. Sodium 12/27/2024 08:33:06 143 135-146 (m mol/L) Final Potassium 12/27/2024 08:33:06 3.8 3.5-5.1 (m mol/L) Final Cl 12/27/2024 08:33:06 107 98-107 (mm ol/L) Final CO2 12/27/2024 08:33:06 27 22-32 (mmo l/L) Final Anion gap 12/27/2024 08:33:06 9 7-15 (mmol /L) Final Glucose 12/27/2024 08:33:06 105 70-120 (mg /dL) Final Albumin 12/27/2024 08:33:06 3.5 Below low normal 3.8 -5.0 (g/dL) Final AST (Aspartate aminotransferase) 12/27/2024 08:33:06 16 10-35 (U/L) Fin al Alk Phos 12/27/2024 08:33:06 82 35-130 (U/ L) Final Bilirubin, Total 12/27/2024 08:33:06 <0.2 <=1 .2 (mg/dL) Final Calcium 12/27/2024 08:33:06 8.0 Below low normal 8.4 -10.2 (mg/dL) Final Protein 12/27/2024 08:33:06 5.9 Below low normal 6.0 -8.3 (g/dL) Final ALT (Alanine aminotransferase) 12/27/2024 08:33:06 10 10-35 (U/L) Kory cooley Performing Location [facility] [place] [address] [facility] [address]
--- OUTSIDE RECORDS SUMMARY | 2024-12-29 05:55 | External Medical Summary | Summary of Care ---
Author Name Unknown Organization [facility] Address [address] [place] [address] Phone [phone] Care Team Providers Care Cafeteria Director Name Role Phone Ruth Dunlap DO Primary Care Provider [phone]- [phone] Reason for Visit * Reason Onset Date Comments Advice 12/24/2024 Dr. Munoz Encounter Details Date Type Department Care Team (Late st Contact Info) Description 12/24/2024 Telephone Hematology/Oncology [facility] [place] [address] [place] [phone] Contreras Munoz MD [address] [place] [address] Advice (Dr. 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 Increased risk for breast cancer and pancreatic cancer. 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 Increased risk for breast cancer, colon cancer [...] entered Entered by Date resolved education Attended [facility]. 06/21/2017 06/23/2017 Kadi Gold [...] RN 08/20/17 Patient received flu vaccine. 08/13/2017 Igne Ortega RN Drug use affecting 01/15/2017 08/26/2017 Overview (01/15/2017): Taking Subutex, followed monthly in [place] [facility] 16mg daily Mental disorder in 01/15/2017 08/26/2017 Overview (02/12/2017): @ [facility] taking Klonopin - ADHD, depression, bipolar -going to counseling in [place] As of 13wks no longer taking Klonopin [...] transfer to specialty Please contact Velma at [phone]. Thank you. documented in this encounter Plan of Treatment Upcoming Encounters Date Type Department Care Team (Late st Contact Info) Description 12/27/2024 9:30 AM EST Laboratory Laboratory [address] [place] [phone] [place] [address] 12/27/2024 2:00 PM EST Telemedicine Palliative Medicine, [facility] [address] [facility] 5th [place] [address] Amie Kong MD [address] [place], [place] [phone] 12/28/2024 11:30 AM EST Hem/Onc Treatment [facility] [place] [facility] [address] Alla, Chair 5 Hem Onc [facility] [address] [place] [address] [place] [address] 12/29/2024 9:45 AM EST Pharmacy Pharmacy Hematology Oncology [facility] [address] [place] [address] [facility] Hem/Onc [address] [place] [address] 01/03/2025 11:00 AM EST Office Visit Hematology/Oncology [facility] [address] [place] [phone] Deepa Roberts CRNP [address] [place] [address] 01/03/2025 11:45 AM EST Immunization/Injection Hematology/Oncology Treatment, [place] [address] [facility] [place] [phone] Alla, Chair 2 Hem Onc [facility] [address] [facility] [place] [address] 01/20/2025 9:30 AM EST Laboratory Laboratory [facility] [place] [address] [place] [phone] Alla Lab Scenery [address] [place] [place] [address] 01/20/2025 10:30 AM EST Immunization/Injection [facility]ematology[facility]Oncology Treatment, [place] [facility] [phone] Health Maintenance Due Date Last Done Comments [...] filedocumented as of this encounter Care Teams Cafeteria Director Relationship Specialty Start Date End Date Ruth Dunlap DO [address] [facility] 2 [place] [address] PCP - General Family Medicine 12/22/24 documented as of this encounter
--- OUTSIDE RECORDS SUMMARY | 2024-12-29 05:55 | External Medical Summary ---
Author Name Unknown Address Unknown Organization K01:[facility] - [address] [facility] [address] Laboratory Report Ordering Provider Test Date Status STAN MCCORD 12/27/2024 08:33:34 Final Every 2 weeks x 2 months, th en monthly Observation Date Value Abnormality Reference (Units ) Status SYNC LEUKOCYTES IN BLOOD BY AUTOMATED COUNT 12/27/2024 08:33:34 3.52 Below low normal 4.00-10.80 (K/uL) Final Neutrophils/100 leukocytes in Blood by Manual count 12/27/2024 08:33:34 78.0 Above high normal 40.0-75.0 (%) Final Lymphocytes/100 leukocytes in Blood by Manual count 12/27/2024 08:33:34 16.0 Below low normal 18.0-42.0 (%) Final Monocytes/100 leukocytes in Blood by Manual count 12/27/2024 08:33:34 3.0 1.0-11.0 (%) Final Eosinophils/100 leukocytes in Blood by Manual count 12/27/2024 08:33:34 1.0 0.0-6.0 (%) Final Basophils/100 leukocytes in Blood by Manual count 12/27/2024 08:33:34 1.0 0.0-2.0 (%) Final Metamyelocytes/100 leukocytes in Blood by Manual count 12/27/2024 08:33:34 1.0 Above high normal <=0.0 (%) Final Neutrophils [#/volume] in Blood by Manual count 12/27/2024 08:33:34 2.75 1.80-7.70 (K/uL) Final Lymphocytes [#/volume] in Blood by Manual count 12/27/2024 08:33:34 0.56 Below low normal 1.00-4.80 (K/uL) Final Monocytes [#/volume] in Blood by Manual count 12/27/2024 08:33:34 0.11 0.00-1.10 (K/uL) Final Eosinophils [#/volume] in Blood by Manual count 12/27/2024 08:33:34 0.04 0.00-0.70 (K/uL) Final Basophils [#/volume] in Blood by Manual count 12/27/2024 08:33:34 0.04 0.00-0.20 (K/uL) Final Metamyelocytes [#/volume] in Blood by Manual count 12/27/2024 08:33:34 0.04 Above high normal <=0.00 (K/uL) Final Performing Location LABORATORY [facility] [place] - [address] [place] [facility] [address]
--- OUTSIDE RECORDS SUMMARY | 2024-12-29 05:55 | External Medical Summary | Summary of Care ---
Author Name Unknown Organization [facility] Address [address] [place] [address] Phone [phone] Care Team Providers Care Meal Attendant Name Role Phone NaeemcurtisdatRuth Amberly Primary Care Provider +1- [phone] Reason for Visit * Reason Comments IV Therapy Hydration Medication Administration Xgeva * Episode Based Medications (Routine) - Authorized Specialty Diagnoses / Procedures Referred By Contac t Referred To Contact Diagnoses Malignant neoplasm of upper-outer quadrant of right breast in female, estrogen receptor positive (HCC) 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) Procedures MO DENOSUMAB INJECTION Contreras Munoz MD [address] [place] [address], [place] [address] Phone: tel: fax: Hematology/Oncology Treatment, [address] [address] Phone: tel: fax: Referral ID Status Reason Start Date Expiration Date V isits Requested Visits Authorized [id number] Authorized 12/23/2024 12/23/2025 [id number] Encounter Details Date Type Department Care Team (Late st Contact Info) Description 12/23/2024 1:30 PM EST Immunization/I njection Hematology/Oncology Treatment, [address] [address] Alla, Chair 2 Hem On[address] [place] [address] Malignant neoplasm of upper-outer quadrant of right [...] Overview (05/13/2019): 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 Increased risk for breast cancer and pancreatic cancer. 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 Increased risk for breast cancer, colon cancer [...] Date resolved Educational classes Encouraged pt attend [employer] classes 03/20/2017 Kadi Gold RN 03/20/2017 Problem [...] by Date resolved education Enrolled in May [facility] 05/14/2017 Kadi Gold RN 05/14/2017 Problem [...] entered Entered by Date resolved education Attended [facility]. 06/21/2017 06/23/2017 Kadi Gold RN 06/23/2017 [...] Overview (01/15/2017): Taking Subutex, followed monthly in [place] [facility] 16mg daily Mental disorder in 01/15/2017 08/26/2017 Overview (02/12/2017): @ [facility] taking Klonopin - ADHD, depression, bipolar -going to counseling in [place] As of 13wks no longer taking Klonopin [...] 12/24/2024) Immunizations Name Administration Dates Next Due Seasonal [...] Sign Reading Time Taken Comments Blood Pressure 131/78 12/23/2024 2:06 PM EST Pulse 91 12/23/2024 2:06 PM EST Temperature 37 C (98.6 F) 12/23/2024 2:06 PM EST Respiratory Rate 16 12/23/2024 2:06 PM EST Oxygen Saturation 97% 12/23/2024 2:06 PM EST Inhaled Oxygen Concentration - - Weight - - Height - - Body Mass Index - - documented in this encounter Nursing Notes * Rachel Carr RN - 12/23/2024 4:36 PM EST Goals: Patient will remain free from injury. Possible barriers to meeting goals: ambulating with IV pole Stability of the patient: Moderately stable - low risk of patient condition declining or worsening Summary regarding today's goals: Met: pt remained free of harm today Patient tolerated treatment well without any acute issues or problems. Patient left facility in stable condition and denied any further needs. * Rachel Carr RN - 12/23/2024 3:03 PM EST Chair 10. IV inserted. Patient had labs done, starting Xgeva monthly today- Calcium is 11.2 - per Dr. Munoz, will give 1L NSS over 2 hours in addition to Xgeva today. Will also recheck labs at [facility] Friday and possibly come in for IVF on Friday is Calcium is still elevated. Pt accompanied by friend today. Comfortable and denies further needs at this time. Patient instructed on use of heat and massage functions where applicable. Patient shown how to operate the heat function of the chair and to alert nursing staff if the chair feels too warm. Patient instructed on the risk of potential cuevas while using the heat function. Safety and Risk for Injury Patient will remain free from injury. Ensure appropriate safety devices are available. Provide and maintain safe environment. documented in this encounter Plan of Treatment Upcoming Encounters Date Type Department Care Team (Late st Contact Info) Description 12/27/2024 9:30 AM EST Laboratory Laboratory [address] [place] [phone] [place] [address] 12/27/2024 2:00 PM EST Telemedicine Palliative Medicine, [address] 5th [place] [address] Amie Kong MD [address] [place] [address] 12/28/2024 11:30 AM EST Hem/Onc Treatment Hematology/Oncology Treatment, [place] [address] [place] [phone] Alla, Chair 5 Hem Onc [address] [address] [place] [address] 12/29/2024 9:45 AM EST Pharmacy Pharmacy Hematology Oncology [facility] [place] [address] [place] [address] [facility] [place] [facility] Hem/Onc [address] [place] [address] 01/03/2025 11:00 AM EST Office Visit Hematology/Oncology [facility] [place] [address] [facility] [place] [phone] Deepa Roberts CRNP [address] [place] [address] 01/03/2025 11:45 AM EST Immunization/Injection Hematology/Oncology Treatment, [address], [place] [phone] Alla, Chair 2 Hem Onc [address] [place] [address] 01/20/2025 9:30 AM EST Laboratory Laboratory [facility] [address] [place] [phone] Alla, Lab [address] [place], [place] [address] 01/20/2025 10:30 AM EST Immunization/Injection Hematology/Oncology Treatment, [address], [place] [phone] Health Maintenance Due Date Last Done Comments [...] and bone marrow documented in this encounter Administered Medications Inactive Administered Medications - up to 3 most recent administrations Medication Order MAR Action Action Date Dose Rate Site Denosumab (Xgeva) subcut inj 120 mg 120 mg, Subcutaneous, ONCE, On Daysi 12/23/24 at 1545, For 1 doseIndications:Antionette gnant neoplasm of upper-outer quadrant of right breast in female, estrogen receptor positive (HCC),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) Given 12/23/2024 2:43 PM EST 120 mg Abdomen Right Lower NSS infusion FOR HYDRATION Intravenous, at 500 mL/hr Administer over 2 Hours, ONCE, 1 dose, On Daysi 12/23/24 at 1515Indications:Antionette gnant neoplasm of upper-outer quadrant of right breast in female, estrogen receptor positive (HCC),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) Start Infusion 12/23/2024 2:22 PM EST 1,000 mL 500 mL/hr documented in this encounter Care Teams Meal Attendant Relationship Specialty Start Date End Date Ruth Dunlap DO [address] [facility] 2 [place] [address] PCP - General Family Medicine 12/22/24 documented as of this encounter
--- OUTSIDE RECORDS SUMMARY | 2024-12-29 05:55 | External Medical Summary | Summary of Care ---
Author Name Unknown Organization [facility] Address [address] [place] [address] Phone [phone] Care Team Providers Care Sorter Laundry Articles Name Role Phone Ruth Dunlap Primary Care Provider +1- [phone] Reason for Visit * Reason Onset Date Comments Appointment 12/27/2024 Encounter Details Date Type Department Care Team (Late st Contact Info) Description 12/27/2024 Telephone Hematology/Oncology Treatment, [place] [address] [place] [address] Services, Scheduling [address] [place] [address] Appointment Allergies Active Allergy Reactions Criticality Noted [...] Overview (05/13/2019): 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 Increased risk for breast cancer and pancreatic cancer. 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 Increased risk for breast cancer, colon cancer [...] entered Entered by Date resolved education Attended [facility]. 06/21/2017 06/23/2017 Kadi Gold RN [...] having any current needs or questions 08/13/2017 Inoa Cuevas RN 08/13/17 Problem Action Taken Date entered Entered by Date resolved Current needs or questions Patient denies having any current needs or questions 08/20/2017 Iona Cuevas RN 08/20/17 Patient received flu vaccine. 08/13/2017 Inge Ortega RN Drug use affecting 01/15/2017 08/26/2017 Overview (01/15/2017): Taking Subutex, followed monthly in [place] [facility] 16mg daily Mental disorder in 01/15/2017 08/26/2017 Overview (02/12/2017): @ [facility] taking Klonopin - ADHD, depression, bipolar -going to counseling in [place] As of 13wks no longer taking Klonopin [...] 9:45 AM EST Pharmacy Pharmacy Hematology Oncology [place] [address] [place] [address] [facility] [place] [facility] [place]c [facility] [place] [address] 12/31/2024 11:00 AM EST Telemedicine Palliative Medicine, [facility] [address] [facility] 5th Floor [place], [place] [phone] Amie Kong MD [address] [place] [address] 01/03/2025 11:00 AM EST Office Visit Hematology/Oncology [address] [place] [address] Deepa Roberts CRNP [address] [place] [address] 01/03/2025 11:45 AM EST Immunization/Injection Hematology/Oncology Treatment, [place] [address] [place] [address] Alla, Chair 2 Hem Onc [facility] [address] [facility] [place] [address] 01/20/2025 9:30 AM EST Laboratory Laboratory [facility] [place] [address] [place] [phone] [place], Lab Scenery [address] [place], [place] [address] 01/20/2025 10:30 AM EST Immunization/Injection Hematology/Oncology Treatment, [place] [address] [place] [phone] Health Maintenance Due Date Last Done Comments [...] filedocumented as of this encounter Care Teams Sorter Laundry Articles Relationship Specialty Start Date End Date Ruth Dunlap DO [address] [facility] 2 [place] [address] PCP - General Family Medicine 12/22/24 documented as of this encounter
--- OUTSIDE RECORDS SUMMARY | 2024-12-29 05:55 | External Medical Summary ---
Author Name Unknown Address Unknown Organization K01:[facility] [place] [address] [place] [address] [place] [address] Laboratory Report Ordering Provider Test Date Status STAN MCCORD 12/27/2024 08:33:34 Final Every 2 weeks x 2 months, th en monthly Observation Date Value Abnormality Reference (Units ) Status WBC, Total 12/27/2024 08:33:34 3.52 Below low normal 4.00-10.80 (K/uL) Final RBC 12/27/2024 08:33:34 3.21 3.85-5.15 (M/uL) Final Hemoglobin 12/27/2024 08:33:34 9.5 Below low normal 12.0-15.3 (g/dL) Final HCT 12/27/2024 08:33:34 29.2 Below low normal 36.0-45.2 (%) Final MCV 12/27/2024 08:33:34 91.0 81.5-97.5 (fL) Final MCH 12/27/2024 08:33:34 29.6 27.0-34.0 (pg) Final MCHC 12/27/2024 08:33:34 32.5 32.0-36.0 (g/dL) Final RDW 12/27/2024 08:33:34 11.9 11.5-15.5 (%) Final Platelets 12/27/2024 08:33:34 253 140-400 (K/uL) Final MPV 12/27/2024 08:33:34 9.9 6.6-11.1 (fL) Final Nucleated erythrocytes/100 leukocytes [Ratio] in Blood by Automated count 12/27/2024 08:33:34 0 <=0 (/100 WBCs) Final Performing Location [facility] [place] [address] [place] [address]
--- OUTSIDE RECORDS SUMMARY | 2024-12-29 05:55 | External Medical Summary | Summary of Care ---
Author Name Unknown Organization [facility] Address [address] [place] [address] Phone [phone] Care Team Providers Care And Rescue Fire Fighter Crash Fire Name Role Phone Ruth Dunlap Primary Care Provider +1- [phone] Reason for Visit * Reason Onset Date Comments Appointment 12/27/2024 Encounter Details Date Type Department Care Team (Late st Contact Info) Description 12/27/2024 Telephone Hematology/Oncology Treatment, [place] [address] [place] [address] Services, Scheduling [address] [place] [address] Appointment Allergies Active Allergy Reactions Criticality Noted [...] Overview (05/13/2019): 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 Increased risk for breast cancer and pancreatic cancer. 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 Increased risk for breast cancer, colon cancer [...] Overview (01/15/2017): Taking Subutex, followed monthly in [place] [facility] 16mg daily Mental disorder in 01/15/2017 08/26/2017 Overview (02/12/2017): @ [facility] taking Klonopin - ADHD, depression, bipolar -going to counseling in [place] As of 13wks no longer taking [...] 9:45 AM EST Pharmacy Pharmacy Hematology Oncology [place] [address] [place] [address] [facility] Hem/Onc [facility] [place] [address] 12/31/2024 11:00 AM EST Telemedicine Palliative Medicine, [facility] [address] [facility] 5th Floor [place], [place] [phone] Amie Kong MD [address] [place] [address] 01/03/2025 11:00 AM EST Office Visit Hematology/Oncology [address] [place] [address] Deepa Roberts CRNP [address] [place] [address] 01/03/2025 11:45 AM EST Immunization/Injection Hematology/Oncology Treatment, [place] [address] [place] [address] Alla, Chair 2 Hem Onc [facility] [address] [facility] [place] [address] 01/20/2025 9:30 AM EST Laboratory Laboratory [place]ery [place] [address] [place] [phone] [place], Lab Scenery [address] [place], [place] [address] 01/20/2025 10:30 AM EST Immunization/Injection Hematology/Oncology Treatment, [place] [address] [place] [phone] Health Maintenance Due Date Last Done Comments [...] filedocumented as of this encounter Care Teams And Rescue Fire Fighter Crash Fire Relationship Specialty Start Date End Date Ruth Dunlap DO [address] [facility] 2 [place] [address] PCP - General Family Medicine 12/22/24 documented as of this encounter
--- OUTSIDE RECORDS SUMMARY | 2024-12-29 05:55 | External Medical Summary | Summary of Care ---
Author Name Unknown Organization [facility] Address [address] [place] [address] Phone [phone] Care Team Providers Care Functional Tester Typewriters Name Role Phone Ruth Dunlap Primary Care Provider +1- [phone] Encounter Details Date Type Department Care Team (Late st Contact Info) Description 12/27/2024 12:00 PM EST Telemedicine Palliative Medicine, [facility] [address] [facility] 5th [place] [address] Amie Kong MD [address] [place], [place] [phone] Cancer related pain*; Anxiety state; Palliative care encounter; 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) Allergies Active Allergy [...] fentaNYL 100 MCG/HR Transdermal Patch 72 Hour (Duragesic)Susan cations:Cancer related pain Place 1 Patch over 72 hours topically on the skin every 3 days. 5 Patch 5 Active ALPRAZolam 0.25 MG Oral Tablet (Xanax)Indicati ons:Cancer related pain,Anxiety state Take 1 Tablet by mouth 3 times a day as needed for Anxiety. 30 Tablet 5 Active Gabapentin 300 MG Oral Capsule (Neurontin)Susan cations:Cancer related pain Take 1 Capsule by mouth daily AND 2 Capsules at bedtime. 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 Increased risk for breast cancer and pancreatic cancer. 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 Increased risk for breast cancer, colon cancer [...] Date resolved Educational classes Encouraged pt attend [employer] classes 03/20/2017 Kadi Gold RN 03/20/2017 Problem [...] by Date resolved education Enrolled in May [facility] 05/14/2017 Kadi Gold RN 05/14/2017 Problem [...] (01/15/2017): Taking Subutex, followed monthly in [place] [facility] 16mg daily Mental disorder in 01/15/2017 08/26/2017 Overview (02/12/2017): [facility] taking Klonopin - ADHD, depression, bipolar -going to counseling in [place] As of 13wks no longer taking Klonopin [...] Progress Notes * Amie Kong MD - 12/27/2024 11:58 AM EST Palliative Medicine Outpatient Progress Note IN HOME TELEMEDICINE VISIT [facility], [facility] [address] [place] [address] Name: Velma Carr Date: 12/27/2024 I was in a hospital or clinic location. After connecting through televideo, patient was verified with two unique identifiers. Patient (or authorized legal automobile sales representative) was then informed that this was a Telemedicine visit and being conducted confidentially over secure lines. Methods to assure confidentiality were taken. Patient acknowledged consent and understanding of privacy and security of the Telemedicine visit. The patient agreed to participate. HPI: Velma Carr is a 39 year old female with stage IV breast CA, mets to bone seen in follow-upfor goals of care and symptom management. At last visit, we increased her fentanyl patch to 50mcg/hr dose. She has still been taking Dilaudid 8mg every 3 hours during the day, sometimes 1 tablet at night. Palliative symptoms: Pain: Still has persistent pain Nausea/Vomiting: no Appetite: OK Constipation: no Confusion: no Sleep issues: has pain Dyspnea: no Mood issues: anxious still Falls: no Other: no Examination: No vital signs as this is a telemedicine encounter Constitutional: no acute distress, chronically ill HENT: normocephalic, atraumatic. Eyes: anicteric, sclera and conjunctiva normal. Neck: no stridor Chest: normal respiratory effort Abdominal: nondistended Extremities: no edema Data Review: External notes reviewed: - [facility] - plan to continue current management - Reviewed notes from Dr Munoz, plan to continue Verzenio, on 11/23 Lab / Imaging Results: Cr 1.0 on 12/23/24 Discussion with other team members: I discussed patient with Onc team Decision-making Capacity: Does Patient have Decisional Capacity? y Does Patient have a Healthcare Agent? Y, mother Advanced Care Planning (see ACP Tab): Deferred ASSESSMENT/PLAN: Velma Carr is a 39 year old female seen in follow-up for goals of care and pain and symptom management. Stage IV breast CA, mets to bone Started her Verzenio Recent admission for hypercalcemia Resolved now, which is a positive sign Cancer related pain Will increase patch to fentanyl 100mcg/hr patch q72h - given her current OME of PRN is about 144 ontop of her fentanyl 50mcg/hr patch Will increase breakthrough pain regimen to dilaudid 8mg q3h PRN pain. She has Narcan available at home Controlled agreement signed at prior visit Finished XRT Change gabapentin to 300mg in AM and 600mg at night Reviewed red flag sx - does not have any now - but advised if she does develop them, needs to go tot ER Goals of care Wants curative tx - [facility] Code status if admitted: Full Follow up in 5 days. They are able to do video visits. Next visit with me. I spent a total of 31 minutes on the date of service in preparation, delivery, and documentation ofthe care provided to Velma Carr excluding any time spent in the performance of separately billed services. Amie Kong MD [facility] Palliative Medicine [phone] documented in this encounter Plan of Treatment Upcoming Encounters Date Type Department Care Team (Late st Contact Info) Description 12/29/2024 9:45 AM EST Pharmacy Pharmacy Hematology Oncology [facility] [place] [address] [place] [address] [facility] [place] [place]c [address] [place] [address] 12/31/2024 11:00 AM EST Telemedicine Palliative Medicine, [address] 5th [place] [address] Amie Kong MD [address] [place] [address] 01/03/2025 11:00 AM EST Office Visit Hematology/Oncology [facility] [address] [place], [place] [address] Deepa Roberts CRNP 400 [place], [place] [phone] 01/03/2025 11:45 AM EST Immunization/Injection Hematology/Oncology Treatment, [address], [place] [phone] Alla, Chair 2 Hem Onc [address] [place], [place] [address] 01/20/2025 9:30 AM EST Laboratory Laboratory [facility] [address] [place], [place] [phone] [place], Lab [address] [place], [place] [address] 01/20/2025 10:30 AM EST Immunization/Injection Hematology/Oncology Treatment, [address], [place] [phone] Health Maintenance Due Date Last Done Comments [...] pain- Primary Neoplasm related pain (acute) (chronic) Anxiety state Anxiety state, unspecified Palliative care encounter Encounter for palliative care 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) Secondary malignant neoplasm of bone and bone marrow documented in this encounter Care Teams Functional Tester Typewriters Relationship Specialty Start Date End Date Ruth Dunlap DO [address] [facility] 2 [place] [address] PCP - General Family Medicine 12/22/24 documented as of this encounter
--- OUTSIDE RECORDS SUMMARY | 2024-12-29 05:56 | External Medical Summary | Summary of Care ---
Author Name Unknown Organization [facility] Address [address] [place] [address] Phone [phone] Care Team Providers Care Military Cook Name Role Phone BridgettRuth daugherty Primary Care Provider +1- [phone] Reason for Visit * Reason Comments Outpatient Testing Encounter Details Date Type Department Care Team (Late st Contact Info) Description 12/23/2024 12:40 PM EST Laboratory Laboratory [address] [place] [address] [place] [address] [facility] Lab Scenery [address] [place] [address] Malignant neoplasm of upper-outer quadrant of right [...] Overview (05/13/2019): 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 Increased risk for breast cancer and pancreatic cancer. 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 Increased risk for breast cancer, colon cancer [...] Overview (01/15/2017): Taking Subutex, followed monthly in [place] [facility] 16mg daily Mental disorder in 01/15/2017 08/26/2017 Overview (02/12/2017): @ [facility] taking Klonopin - ADHD, depression, bipolar -going to counseling in [place] As of 13wks no longer taking Klonopin [...] Description 12/27/2024 9:30 AM EST Laboratory Laboratory [address] [place] [phone] [place] [address] 12/27/2024 2:00 PM EST Telemedicine Palliative Medicine, [facility] 400 [facility] 5th [place] [address] Amie Kong MD [address] [place] [address] 12/28/2024 11:30 AM EST Hem/Onc Treatment Hematology/Oncology Treatment, [place] [address] [facility] [address] Alla, Chair 5 Hem Onc [facility] 200 [facility] [address] 12/29/2024 9:45 AM EST Pharmacy Pharmacy Hematology Oncology [address] [address] [facility], [facility] Hem/Onc [facility] [place] [address] 01/03/2025 11:00 AM EST Office [facility] [place] [address] [facility] [address] Deepa Roberts CRNP [address] [place] [address] 01/03/2025 11:45 AM EST Immunization/Injection Hematology/Oncology Treatment, [place] 200 [facility] [place] [address] Alla, Chair 2 Hem Onc [address] [place], [place] [address] 01/20/2025 9:30 AM EST Laboratory Laboratory [facility] [place] 200 [facility] [place] [phone] Alla Lab [address] [place], [place] [address] 01/20/2025 10:30 AM EST Immunization/Injection Hematology/Oncology Treatment, [address], [place] [address] Pending Results Name Type Priority Associated Diagnoses Date /Time FERRITIN Lab STAT Malignant neoplasm of upper-outer quadrant of right breast in female, estrogen receptor positive (HCC) 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) 12/23/2024 1:16 PM EST IRON SCREEN, INCLUDING TIBC Lab STAT Malignant neoplasm of upper-outer quadrant of right breast in female, estrogen receptor positive (HCC) 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) 12/23/2024 1:16 PM EST VITAMIN B12 Lab STAT Malignant neoplasm of upper-outer quadrant of right breast in female, estrogen receptor positive (HCC) 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) 12/23/2024 1:16 PM EST FOLIC ACID Lab STAT Malignant neoplasm of upper-outer quadrant of right breast in female, estrogen receptor positive (HCC) 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) 12/23/2024 1:16 PM EST Health Maintenance Due Date Last [...] Priority Date/Time Associated Diagnosis Comments DIFFERENTIAL, AUTOMATED Routine 12/23/2024 1:16 PM EST Malignant neoplasm of upper-outer quadrant of right breast in female, estrogen receptor positive (HCC) Hypercalcemia COMPREHENSIVE METABOLIC PANEL Routine 12/23/2024 1:16 PM EST Malignant neoplasm of upper-outer quadrant of right breast in female, estrogen receptor positive (HCC) Hypercalcemia CBC Routine 12/23/2024 1:16 PM EST Malignant neoplasm of upper-outer quadrant of right breast in female, estrogen receptor positive (HCC) Hypercalcemia PHOSPHORUS STAT 12/23/2024 1:16 PM EST Malignant neoplasm of upper-outer quadrant of right breast in female, estrogen receptor positive (HCC) 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) CBC Routine 12/23/2024 1:16 PM EST Malignant neoplasm of upper-outer quadrant of right breast in female, estrogen receptor positive (HCC) Hypercalcemia DIFFERENTIAL, TECHNOLOGIST REVIEW Routine 12/23/2024 1:16 PM EST Malignant neoplasm of upper-outer quadrant of right breast in female, estrogen receptor positive (HCC) Hypercalcemia documented in this encounter Results * DIFFERENTIAL, TECHNOLOGIST REVIEW (12/23/2024 1:16 PM EST) [facility] 12/23/2024 1:32 PM EST LABORATORY [place] 56-02 Blood Venous blood specimen / Unknown Venipuncture / Unknown 12/23/2024 1:16 PM EST 12/23/2024 1:16 PM EST us Amie Kong MD LAB BLOOD ORDERABLES F inal Result [facility] 56-[address] [place] [address] * (ABNORMAL) DIFFERENTIAL, AUTOMATED (12/23/2024 1:16 PM EST) WBC 4.62 4.00 - 10.80 K/uL 12/23/2024 1:32 PM EST [facility] 56- Neutrophils % 76.4(H) 40.0 - 75.0 % 12/23/2024 1:32 PM EST [facility] 56- Lymphocytes % 15.6(L) 18.0 - 42.0 % 12/23/2024 1:32 PM EST [facility] 56- Monocytes % 4.1 1.0 - 11.0 % 12/23/2024 1:32 PM EST [facility] 56-02 Eosinophils % 3.5 0.0 - 6.0 % 12/23/2024 1:32 PM EST [facility] 56-02 Basophils % 0.4 0.0 - 2.0 % 12/23/2024 1:32 PM EST [facility] 56-02 Absolute Neutrophils 3.53 1.80 - 7.70 K/uL 12/23/2024 1:32 PM EST [facility] 56-02 Absolute Lymphocytes 0.72(L) 1.00 - 4.80 K/ul 12/23/2024 1:32 PM EST [facility] 56-02 Absolute Monocytes 0.19 0.00 - 1.10 K/uL 12/23/2024 1:32 PM EST [facility] 56-02 Absolute Eosinophils 0.16 0.00 - 0.70 K/uL 12/23/2024 1:32 PM [facility] 56-02 Absolute Basophils 0.02 0.00 - 0.20 K/uL 12/23/2024 1:32 PM [facility] 56-02 Blood Venous blood specimen / Unknown Venipuncture / Unknown 12/23/2024 1:16 PM EST 12/23/2024 1:16 PM EST us Amie Kong MD LAB BLOOD ORDERABLES F inal Result [facility] 56-[address] [place] [address] * (ABNORMAL) CBC (12/23/2024 1:16 PM EST) [facility] WBC 4.62 4.00 - 10.80 K/uL 12/23/2024 1:32 PM EST [address] RBC 3.20 3.85 - 5.15 M/uL 12/23/2024 1:32 PM EST [address] HGB 9.4(L) 12.0 - 15.3 g/dL 12/23/2024 1:32 PM EST [facility] 56 HCT 28.2(L) 36.0 - 45.2 % 12/23/2024 1:32 PM EST [facility] 56 MCV 88.1 81.5 - 97.5 fL 12/23/2024 1:32 PM EST [facility] 56 MCH 29.4 27.0 - 34.0 pg 12/23/2024 1:32 PM EST [facility] 56 MCHC 33.3 32.0 - 36.0 g/dL 12/23/2024 1:32 PM EST [facility] 56 RDW 11.6 11.5 - 15.5 % 12/23/2024 1:32 PM EST [facility] 5602 PLT 241 140 - 400 K/uL 12/23/2024 1:32 PM EST [facility] 56 MPV 9.5 6.6 - 11.1 fL 12/23/2024 1:32 PM EST [facility] 56-02 Blood Venous blood specimen / Unknown Venipuncture / Unknown 12/23/2024 1:16 PM EST 12/23/2024 1:16 PM EST Amie Kong MD LAB BLOOD ORDERABLES F inal Result [address] [place] [address] * (ABNORMAL) COMPREHENSIVE METABOLIC PANEL (12/23/2024 1:16 PM EST) BUN 17 6 - 20 mg/dL 12/23/2024 1:[address] CREATININE 1.0 0.5 - 1.0 mg/dL 12/23/2024 1:[address] EGFR 73 >=60 mL/min 12/23/2024 1:41 PM [facility] 56 Comment:eGFR is calculated b ased on the CKD-EPI 2020 equation. SODIUM 140 135 - 146 mmol/L 12/23/2024 1:41 PM [facility] 56 POTASSIUM 3.6 3.5 - 5.1 mmol/L 12/23/2024 1:41 PM [facility] 56 CHLORIDE 104 98 - 107 mmol/L 12/23/2024 1:[address] CO2 23 22 - 32 mmol/L 12/23/2024 1:[address] ANION GAP 13 7 - 15 mmol/L 12/23/2024 1:[address] GLUCOSE 93 70 - 120 mg/dL 12/23/2024 1:41 PM [facility] 56 Albumin 3.5(L) 3.8 - 5.0 g/dL 12/23/2024 1:41 PM [facility] 56 AST 25 10 - 35 U/L 12/23/2024 1:[address] Alkaline Phosphatase 100 35 - 130 U/L 12/23/2024 1:41 PM [facility] 56 Bilirubin, Total <0.2 <=1.2 mg/dL 12/23/2024 1:41 PM [facility] 56 CALCIUM 11.1(H) 8.4 - 10.2 mg/dL 12/23/2024 1:41 PM [facility] 56 Protein 6.8 6.0 - 8.3 g/dL 12/23/2024 1:41 PM [facility] ALT 10 10 - 35 U/L 12/23/2024 1:41 PM EST [facility] 56 Blood Venous blood specimen / Unknown Venipuncture / Unknown 12/23/2024 1:16 PM EST 12/23/2024 1:16 PM EST us Amie Kong MD LAB BLOOD ORDERABLES F inal Result Performing Organization Address City/[facility]/ZIP Co de Phone Number [facility] [address] [place] [address] * PHOSPHORUS (12/23/2024 1:16 PM EST) Phosphorus 3.6 2.5 - 4.8 mg/dL 12/23/2024 1:41 PM EST [facility] Blood Venous blood specimen / Unknown Venipuncture / Unknown 12/23/2024 1:16 PM EST 12/23/2024 1:16 PM EST us Contreras Munoz MD LAB BLOOD ORDERABLES Final Res ult Performing Organization Address City/[facility]/ZIP Co de Phone Number [facility] 56 [address] [place] [address] documented in this encounter Visit Diagnoses Diagnosis Malignant neoplasm of upper-outer quadrant of right breast in female, estrogen receptor positive (HCC) 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) Secondary malignant neoplasm of bone and bone marrow Hypercalcemia documented in this encounter Care Teams Military Cook Relationship Specialty Start Date End Date Ruth Dunlap DO [address] [facility] 2 [place] [address] PCP - General Family Medicine 12/22/24 documented as of this encounter
--- OUTSIDE RECORDS SUMMARY | 2024-12-29 05:56 | External Medical Summary | Summary of Care ---
Author Name Unknown Organization [facility] Address [address] [place] [address] Phone [phone] Care Team Providers Care Cotton Inspector Name Role Phone Ruth Dunlap DO Primary Care Provider +1- [phone] Reason for Visit * Reason Onset Date Comments Test Results Lab 12/23/2024 Encounter Details Date Type Department Care Team (Late st Contact Info) Description 12/23/2024 Telephone Hematology/Oncology Treatment, [place] [address] [address] Suri Munoz MD 200 [place] [address] Test Results Lab Allergies Active Allergy Reactions [...] Overview (05/13/2019): 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 Increased risk for breast cancer and pancreatic cancer. 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 Increased risk for breast cancer, colon cancer [...] by Date resolved education Enrolled in May [facility] 05/14/2017 Kadi Gold RN 05/14/2017 [...] entered Entered by Date resolved education Attended [facility]. 06/21/2017 06/23/2017 Kadi Gold RN [...] Overview (01/15/2017): Taking Subutex, followed monthly in [place] [facility] 16mg daily Mental disorder in 01/15/2017 08/26/2017 Overview (02/12/2017): @ [facility] taking Klonopin - ADHD, depression, bipolar -going to counseling in [place] As of 13wks no longer taking Klonopin [...] 12/23/2024) Immunizations Name Administration Dates Next Due DTP [...] encounter Miscellaneous Notes * Telephone Encounter - Popeye Schaffer RN - 12/23/2024 2:31 PM EST [place] updated. * Addendum Note - Suri Munoz MD - 12/23/2024 2:25 PM ESTAddended by: SURI MUNOZ on: 12/23/2024 02:25 PM Modules accepted: Orders * Telephone Encounter - Suri Munoz MD - 12/23/2024 2:25 PM EST Ordered IV hydration for today for hypercalcemia -she will receive Xgeva today Planning for another blood workup on Friday and if she has Calcium level about 10.5, she should receive IV hydration. * Addendum Note - Popeye Schaffer RN - 12/23/2024 2:15 PM ESTAddended by: POPEYE SCHAFFER on: 12/23/2024 02:15 PM Modules accepted: Orders * Telephone Encounter - Popeye Schaffer RN - 12/23/2024 1:54 PM EST Ca 11.1. Per Dr Munoz, patient to receive 1L NSS over 2 hours today. Should return Friday for labs and possible hydration. [place] adjusted/ routed for signature. Dr Munoz: please place order " Give 1L NSS over 2 hours today. Patient to return Friday for labs and receive additional 1L NSS over 2 hours if Ca 10.5 or higher" documented in this encounter Plan of Treatment Upcoming Encounters Date Type Department Care Team (Late st Contact Info) Description 12/27/2024 9:30 AM EST Laboratory Laboratory [address] [place] [phone] [place] [address] 12/27/2024 2:00 PM EST Telemedicine Palliative Medicine, [facility] 400 [facility] 5th [place] [address] Amie Kong MD 400 [place] [address] 12/28/2024 11:30 AM EST Hem/Onc Treatment Hematology/Oncology Treatment, [place] [address] [place] [address] Alla, Chair 5 Hem Onc [address] [place] [address] 12/29/2024 9:45 AM EST Pharmacy Pharmacy Hematology Oncology [address] [address] [facility], [facility] Hem/Onc [address] [place] [address] 01/03/2025 11:00 AM EST Office Visit Hematology/Oncology [facility] 200 [facility] [place], [place] [phone] Deepa Roberts CRNP 400 [facility] [address] 01/03/2025 11:45 AM EST Immunization/Injection Hematology/Oncology Treatment, [place] 200 [facility], [place] [phone] Alla, Chair 2 Hem Onc [address] [place], [place] [address] 01/20/2025 9:30 AM EST Laboratory Laboratory [facility] [place] [address] [facility] [place], [place] [phone] Alla, Lab [address] [place], [place] [address] 01/20/2025 10:30 AM EST Immunization/Injection Hematology/Oncology Treatment, [address], [place] [phone] Pending Results Name Type Priority Associated Diagnoses [...] to bone (HCC) 12/23/2024 1:16 PM EST Scheduled Orders Name Type Priority Associated Diagnoses Orde r Schedule FERRITIN Lab STAT Malignant neoplasm of upper-outer quadrant of right breast in female, estrogen receptor positive (HCC) 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) Expected: 12/23/2024 (Approximate), Expires: 12/23/2025 IRON SCREEN, INCLUDING TIBC Lab STAT Malignant neoplasm of upper-outer quadrant of right breast in female, estrogen receptor positive (HCC) 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) Expected: 12/23/2024, Expires: 12/23/2025 VITAMIN B12 Lab STAT Malignant neoplasm of upper-outer quadrant of right breast in female, estrogen receptor positive (HCC) 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) Expected: 12/23/2024, Expires: 12/23/2025 FOLIC ACID Lab STAT Malignant neoplasm of upper-outer quadrant of right breast in female, estrogen receptor positive (HCC) 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) Expected: 12/23/2024, Expires: 12/23/2025 Health Maintenance Due Date Last Done Comments [...] Hypercalcemia documented in this encounter Care Teams Cotton Inspector Relationship Specialty Start Date End Date Ruth Dunlap DO [address] [address] PCP - General Family Medicine 12/22/24 documented as of this encounter
--- OUTSIDE RECORDS SUMMARY | 2024-12-29 05:56 | External Medical Summary | Summary of Care ---
Author Name Unknown Organization [facility] Address [address] [place] [address] Phone [phone] Care Team Providers Care Marina Sales And Service Supervisor Name Role Phone Ruth Dunlap DO Primary Care Provider +1- [phone] Reason for Visit * Reason Onset Date Comments Test Results Lab 12/23/2024 Encounter Details Date Type Department Care Team (Late st Contact Info) Description 12/23/2024 Telephone Hematology/Oncology Treatment, [place] [address] [facility] [place] [address] Suri Munoz MD 200 [place] [address] Test Results Lab Allergies Active Allergy Reactions [...] Overview (05/13/2019): 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 Increased risk for breast cancer and pancreatic cancer. 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 Increased risk for breast cancer, colon cancer [...] Overview (01/15/2017): Taking Subutex, followed monthly in [place] [facility] 16mg daily Mental disorder in 01/15/2017 08/26/2017 Overview (02/12/2017): @ [facility] taking Klonopin - ADHD, depression, bipolar -going to counseling in [place] As of 13wks no longer taking Klonopin [...] Schaffer RN - 12/23/2024 2:31 PM EST [place] updated. * Addendum Note - Suri Munoz [...] return Friday for labs and possible hydration. [place] adjusted/ routed for signature. Dr Munoz: please place order " Give 1L NSS over 2 hours today. Patient to return Friday for labs and receive additional 1L NSS over 2 hours if Ca 10.5 or higher" documented in this encounter Plan of Treatment Upcoming Encounters Date Type Department Care Team (Late st Contact Info) Description 12/27/2024 9:30 AM EST Laboratory Laboratory [address] [place] [phone] [place] [address] 12/27/2024 2:00 PM EST Telemedicine Palliative Medicine, [facility] 400 [facility] 5th [place] [address] Amie Kong MD 400 [place] [address] 12/28/2024 11:30 AM EST Hem/Onc Treatment Hematology/Oncology Treatment, [place] [address] [place] [address] Alla, Chair 5 Hem Onc Scenery [address] [place] [address] 12/29/2024 9:45 AM EST Pharmacy Pharmacy Hematology Oncology [address] [address] [facility], [facility] Hem/Onc [address] [place] [address] 01/03/2025 11:00 AM EST Office Visit Hematology/Oncology [facility] 200 [facility] [place], [place] [phone] Deepa Roberts CRNP 400 [facility] [address] 01/03/2025 11:45 AM EST Immunization/Injection Hematology/Oncology Treatment, [place] 200 [facility], [place] [phone] Alla, Chair 2 Hem On[address] [place], [place] [address] 01/20/2025 9:30 AM EST Laboratory Laboratory [facility] [place] 200 [facility] [place], [place] [phone] Alla, Lab [address] [place], [place] [address] 01/20/2025 10:30 AM EST Immunization/Injection Hematology/Oncology Treatment, [address], [place] [phone] Pending Results Name Type Priority Associated Diagnoses [...] Hypercalcemia documented in this encounter Care Teams Marina Sales And Service Supervisor Relationship Specialty Start Date End Date Ruth Dunlap DO [address] [address] PCP - General Family Medicine 12/22/24 documented as of this encounter
--- OUTSIDE RECORDS SUMMARY | 2024-12-29 05:56 | External Medical Summary | Summary of Care ---
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 Increased risk for breast cancer and pancreatic cancer. 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 Increased risk for breast cancer, colon cancer [...] by Date resolved education Enrolled in May [facility] 05/14/2017 Kadi Gold RN 05/14/2017 Problem Action [...] entered Entered by Date resolved education Attended [facility]. 06/21/2017 06/23/2017 Kadi Gold RN 06/23/2017 Problem [...] ADHD, depression, bipolar -going to counseling in [place] As of 13wks no longer taking Klonopin [...] Schaffer RN - 12/23/2024 2:31 PM EST [place] updated. * Addendum Note - Suri Munoz [...] return Friday for labs and possible hydration. [place] adjusted/ routed for signature. Dr Munoz: please place order " Give 1L NSS over 2 hours today. Patient to return Friday for labs and receive additional 1L NSS over 2 hours if Ca 10.5 or higher" documented in this encounter Plan of Treatment Upcoming Encounters Date Type Department Care Team (Late st Contact Info) Description 12/27/2024 9:30 AM EST Laboratory Laboratory [address] [place] [phone] [place] [address] 12/27/2024 2:00 PM EST Telemedicine Palliative Medicine, [facility] 400 [facility] 5th [place] [address] Amie Kong MD 400 [place] [address] 12/28/2024 11:30 AM EST Hem/Onc Treatment Hematology/Oncology Treatment, [place] [address] [place] [address] Alla, Chair 5 Hem Onc Scenery [address] [place] [address] 12/29/2024 9:45 AM EST Pharmacy Pharmacy Hematology Oncology [address] [address] [facility], [facility] Hem/Onc [address] [place] [address] 01/03/2025 11:00 AM EST Office Visit Hematology/Oncology [facility] 200 [facility] [place], [place] [phone] Deepa Roberts CRNP 400 [facility] [address] 01/03/2025 11:45 AM EST Immunization/Injection Hematology/Oncology Treatment, [place] 200 [facility], [place] [phone] Alla, Chair [address] Hem On[address] [place], [place] [address] 01/20/2025 9:30 AM EST Laboratory Laboratory [facility] [place] [address] [facility] [place], [place] [phone] Alla, Lab [address] [place], [place] [address] 01/20/2025 10:30 AM EST Immunization/Injection Hematology/Oncology Treatment, [address], [place] [phone] Pending Results Name Type Priority Associated Diagnoses [...] Hypercalcemia documented in this encounter Care Teams Proof Tester Relationship Specialty Start Date End Date Ruth Dunlap DO [address] [address] PCP - General Family Medicine 12/22/24 documented as of this encounter
--- OUTSIDE RECORDS SUMMARY | 2024-12-29 05:56 | External Medical Summary | Summary of Care ---
Author Name Unknown Organization [facility] Address [address] [place] [address] Phone [phone] Care Team Providers Care Dovetailer Name Role Phone Ruth Dunlap DO Primary Care Provider +1- [phone] Reason for Visit * Reason Onset Date Comments Appointment 12/20/2024 Encounter Details Date Type Department Care Team (Late st Contact Info) Description 12/20/2024 Telephone Hematology/Oncology Shelley Gold [place] 200 [facility] [place] [phone] [facility]i [facility]oz MD [facility] [address] Appointment Allergies Active Allergy Reactions Criticality Noted [...] morning. 30 Tablet 11 12/01/19 25 Active Ondansetron HCl 4 MG [...] before bedtime. 90 Capsule 12/08/19 25 Active ALPRAZolam 0.25 MG Oral Tablet (Xanax)Indica tions:Cancer related pain Take 1 Tablet by mouth 3 times a day as needed for Anxiety. 30 Tablet 12/10/19 25 Active Buprenorphine HCl 8 MG Sublingual Tablet Sublingual (Subutex)Susan cations:Cance r related pain Place 1 Tablet under the tongue in the morning and 1 Tablet at noon and 1 Tablet in the evening. 12/08/19 25 025 Discontinued HYDROmorphone HCl 4 MG Oral Tablet (Dilaudid)Ind ications:Canc er related pain Take 1 Tablet by mouth every 4 hours as needed for Pain, Severe. 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 Increased risk for breast cancer and pancreatic cancer. 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 Increased risk for breast cancer, colon cancer [...] entered Entered by Date resolved education Attended [facility]. 06/21/2017 06/23/2017 Kadi Gold RN 06/23/2017 [...] Overview (01/15/2017): Taking Subutex, followed monthly in [place] [facility] 16mg daily Mental disorder in 01/15/2017 08/26/2017 Overview (02/12/2017): @ [facility] taking Kl[facility]opin - ADHD, depression, bipolar -going to counseling in [place] As of 13wks no longer taking Klonopin [...] Encounter - Popeye Schaffer RN - 12/23/2024 9:20 AM EST Called patient- she is agreeable to coming for injection. States that she has radiation at 11:55, would like to come after that. Spoke to scheduling to add labs/ xgeva. She states that her [facility] appt went well- they had no further recommendations, agreed with Dr Munoz's plan. * Addendum Note - Popeye Schaffer RN - 12/23/2024 7:17 AM ESTAddended by: POPEYE SCHAFFER on: 12/23/2024 07:17 AM Modules accepted: Orders * Addendum Note - Suri Munoz MD - 12/22/2024 4:54 PM ESTAddended by: SURI MUNOZ on: 12/22/2024 04:54 PM Modules accepted: Orders * Telephone Encounter - Suri Munoz MD - 12/22/2024 4:54 PM EST I put Xgeva plan in her case * Addendum Note - Darryl Rogers RN - 12/22/2024 4:48 PM ESTAddended by: DARRYL ROGERS on: 12/22/2024 04:48 PM Modules accepted: Orders * Addendum Note - Darryl Rogers RN - 12/22/2024 4:45 PM ESTAddended by: DARRYL ROGERS on: 12/22/2024 04:45 PM Modules accepted: Orders * Telephone Encounter - Darryl Rogers RN - 12/22/2024 4:[address] Munoz - We will wait on starting Verzenio until after the [facility] note is available to see recommendations. Tried calling patient regarding repeat lab work and Xgeva injection. No answer, LMOM with return #. MTM- FYI Pre-cert: Would like to give Xgeva injection tomorrow or Friday, please submit stat auth. Dr. Munoz - Please place Xgeva plan. Thank you. * Telephone Encounter - Suri Munoz MD - 12/22/2024 3:59 PM EST Now with the improvement of kidney function test and normal Calcium level, we can start Abemacilcibas we planned. I would also like to start Xgeva 120 mg every 4 weekly. Should have a dental checkup but I would not wait for dental clearance as she had significant hypercalcemia and so would like to proceed with the Xgeva. I would like to repeat comprehensive metabolic panel, phosphorus level in next few days and would like to give her 1 dose of Xgeva and then every 4 weekly. Also let us wait for 2nd opinion from [facility] and see what they suggest. * Telephone Encounter - Darryl Rogers, AGUSTÍN - 12/22/2024 9:[address] Munoz- labs from yesterday scanned into chart: Cr- 1.08 BUN - 17 EGFR - 67.43 Calcium - 10.7 * Telephone Encounter - Velma Interiano OSA - 12/22/2024 8:21 AM EST Labs were received and werre given to nursing to scan into chart FYI * Telephone Encounter - Velma Interiano OSA - 12/22/2024 8:13 AM EST Requested the results They said that they are sending them over * Telephone Encounter - Popeye Schaffer RN - 12/21/2024 4:07 PM EST Called patient. Offered to move up appt to since she is doing video 2nd opinion appt tomorrow. She declined, states that she wants to see what [facility] recommends first. She states that she had lab work drawn today with Dr Dunlap's office. Patient asked when she can start verzenio. Advised patient that Dr Munoz wanted to see her kidney function improve more- will need to follow up after labs are reviewed. Scheduling: can you please ask [facility] to fax lab results/ give to Cinthya and Ritu to scan in? Dr Munoz: NAJMA- patient had lab work today at [facility], 2nd opinion appt at [facility] tomorrow * Telephone Encounter - Popeye Schaffer RN - 12/21/2024 11:51 AM EST Attempted to call patient again. No answer, did not leave additional voicemail. * Telephone Encounter - Popeye Schaffer RN - 12/21/2024 9:29 AM EST Left message for return call. * Telephone Encounter - Popeye Schaffer RN - 12/20/2024 2:34 PM EST MyG sent to patient. * Telephone Encounter - Suri Munoz MD - 12/20/2024 10:40 AM EST She was discharged from [facility] on 12/18/2024, Calcium level was normal upon discharge, creatinine level improved to around 1.7 mg/dL. At some time we will need brain MRI with contrast but we can order once the kidney function test improves. I see that she is seeing Deepa on 01/03/2025, we can order the MRI at that time. * Telephone Encounter - Velma Interiano OSA - 12/20/2024 7:58 AM EST Canceled per note below * Telephone Encounter - Darryl Rogers RN - 12/20/2024 7:53 AM EST Scheduling- please cancel patients MRI of the Brain today as she had this inpatient. Will follow upwith Dr. Munoz to see if he wants this repeated. Dr. Munoz- [facility], patient had MRI of the Brain while inpatient at [facility]. Results were normal. This wasdone without contrast, would you like this repeated? Also, when would you like to see patient for follow up? She is meeting with [facility] on Friday. documented in this encounter Plan of Treatment Upcoming Encounters Date Type Department Care Team (Late st Contact Info) Description 12/27/2024 9:30 AM EST Laboratory Laboratory [address] [place] [phone] [place] [address] 12/27/2024 2:00 PM EST Telemedicine Palliative Medicine, [facility] [address] [facility] 5th [place] [address] Amie Kong MD 400 [place] [address] 12/28/2024 11:30 AM EST Hem/Onc Treatment Hematology/Oncology Treatment, [place] [address] [place] [phone] Alla, Chair 5 Hem Onc Scenery [address] [place] [address] 12/29/2024 9:45 AM EST Pharmacy Pharmacy Hematology Oncology [facility] [address] [place] [address] [facility] Hem/Onc [address] [place] [address] 01/03/2025 11:00 AM EST Office Visit Hematology/Oncology [facility] 200 [facility] [place], [place] [address] Deepa Roberts, KANDICE [address] [facility] [place] [address] 01/03/2025 11:45 AM EST Immunization/Injection Hematology/Oncology Treatment, [place] 200 [facility], [place] [phone] Alla, Chair 2 Hem Onc [address] [place] [address] 01/20/2025 9:30 AM EST Laboratory Laboratory [address] [place] [phone] Alla, Lab [address] [place], [place] [address] 01/20/2025 10:30 AM EST Immunization/Injection Hematology/Oncology Treatment, [address], [place] [address] Health Maintenance Due Date [...] in female, estrogen receptor positive (HCC)- Primary Hypercalcemia 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) Secondary malignant neoplasm of bone and bone marrow documented in this encounter Care Teams Dovetailer Relationship Specialty Start Date End Date Ruth Dunlap DO [address] [place] [address] PCP - General Family Medicine 12/22/24 documented as of this encounter
--- OUTSIDE RECORDS SUMMARY | 2024-12-29 05:56 | External Medical Summary | Summary of Care ---
Author Name Unknown Organization [facility] Address [address] [place] [address] Phone [phone] Care Team Providers Care Clock Assembler Name Role Phone Ruth Dunlap DO Primary Care Provider +1- [phone] Reason for Visit * Reason Onset Date Comments Test Results Lab 12/23/2024 Encounter Details Date Type Department Care Team (Late st Contact Info) Description 12/23/2024 Telephone Hematology/Oncology Treatment, [place] 200 [facility] [place] [address] Suri Munoz MD 200 [place] [address] Test Results Lab Allergies Active Allergy Reactions [...] Overview (05/13/2019): pathogenic LEONEL gene variant (c.8482C>T, p.[id number]*). Increased risk for breast cancer and pancreatic cancer. 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 Increased risk for breast cancer, colon cancer [...] by Date resolved education Enrolled in May [facility] 05/14/2017 Kadi Gold RN 05/14/2017 [...] entered Entered by Date resolved education Attended [facility]. 06/21/2017 06/23/2017 Kadi Gold RN [...] Overview (01/15/2017): Taking Subutex, followed monthly in [place] [facility] 16mg daily Mental disorder in 01/15/2017 08/26/2017 Overview (02/12/2017): @ [facility] taking Klonopin - ADHD, depression, bipolar -going to counseling in [place] As of 13wks no longer taking Klonopin [...] Schaffer RN - 12/23/2024 2:31 PM EST [place] updated. * Addendum Note - Suri Munoz [...] return Friday for labs and possible hydration. [place] adjusted/ routed for signature. Dr Munoz: please place order " Give 1L NSS over 2 hours today. Patient to return Friday for labs and receive additional 1L NSS over 2 hours if Ca 10.5 or higher" documented in this encounter Plan of Treatment Upcoming Encounters Date Type Department Care Team (Late st Contact Info) Description 12/27/2024 9:30 AM EST Laboratory Laboratory [address] [place] [phone] [place] [address] 12/27/2024 2:00 PM EST Telemedicine Palliative Medicine, [facility] 400 [facility] 5th [place] [address] Amie Kong MD 400 [place] [address] 12/28/2024 11:30 AM EST Hem/Onc Treatment Hematology/Oncology Treatment, [place] [address] [place] [address] Alla, Chair 5 Hem Onc Scenery [address] [place] [address] 12/29/2024 9:45 AM EST Pharmacy Pharmacy Hematology Oncology [address] [address] [place], [facility] Hem/Onc [address] [place] [address] 01/03/2025 11:00 AM EST Office Visit Hematology/Oncology [facility] 200 [facility] [place], [place] [phone] Deepa Roberts CRNP 400 [facility] [address] 01/03/2025 11:45 AM EST Immunization/Injection Hematology/Oncology Treatment, [place] 200 [facility], [place] [phone] Alla, Chair [address] Hem On[address] [place], [place] [address] 01/20/2025 9:30 AM EST Laboratory Laboratory [facility] [place] 200 [facility] [place], [place] [phone] Alla, Lab [address] [place], [place] [address] 01/20/2025 10:30 AM EST Immunization/Injection Hematology/Oncology Treatment, [address], [place] [phone] Pending Results Name Type Priority Associated Diagnoses [...] Hypercalcemia documented in this encounter Care Teams Clock Assembler Relationship Specialty Start Date End Date Ruth Dunlap DO [address] [address] PCP - General Family Medicine 12/22/24 documented as of this encounter
--- OUTSIDE RECORDS SUMMARY | 2024-12-29 05:56 | External Medical Summary | Summary of Care ---
Author Name Unknown Organization [facility] Address [address] [place] [address] Phone [phone] Care Team Providers Care Daylight Driller Name Role Phone Ruth Dunlap DO Primary Care Provider +1- [phone] Encounter Details Date Type Department Care Team (Late st Contact Info) Description 12/23/2024 Orders Only Hematology/Oncology Shelley Gold [place] 200 [facility] [place] [phone] Contreras Munoz MD [address] [place] [address] Allergies Active Allergy Reactions Criticality Noted Date [...] Active Problems Problem Noted Date Diagnosed Date Controlled substance agreement signed 12/20/2024 Dehydration 12/13/2024 Malignant neoplasm of upper- outer quadrant of right breast in female, estrogen receptor positive 12/01/2024 Metastasis to bone 12/01/2024 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 Increased risk for breast cancer and pancreatic cancer. 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 Increased risk for breast cancer, colon cancer [...] Entered by Date resolved education Attended [facility]. 06/21/2017 06/23/2017 Kadi Gold RN 06/23/2017 [...] Overview (01/15/2017): Taking Subutex, followed monthly in [place] [facility] 16mg daily Mental disorder in 01/15/2017 08/26/2017 Overview (02/12/2017): @ [facility] taking Klonopin - ADHD, depression, bipolar -going to counseling in [place] As of 13wks no longer taking Klonopin [...] Team (Late st Contact Info) Description 12/24/2024 10:00 AM EST Telemedicine Palliative Medicine, [facility] 400 [facility] 5th [place] [address] Amie Kong MD 400 [place] [address] 01/03/2025 11:00 AM EST Office Visit Hematology/Oncology [facility] [place] [address] [place] [address] Deepa Roberts CRNP 400 [place] [address] 01/03/2025 11:45 AM EST Immunization/Injection Hematology/Oncology Treatment, [place] [address] [place] [phone] Alla, Chair 2 Hem Onc [facility] [address] [facility] [place] [address] Health Maintenance Due Date Last Done Comments [...] Procedure Name Priority Date/Time Associated Diagnosis Comments CHEMISTRY-OUTSIDE Routine 12/21/2024 documented in this encounter Results * (ABNORMAL) CHEMISTRY-OUTSIDE (12/21/2024) Not all results display below - see scan for full detail OUTSIDE LAB (SEE SCANNED REPORT) Comment:SCAN INCLUDES - CBCD , CMP CREATININE 1.08 0.6 - 1.3 MG/DL OUTSIDE LAB (SEE SCANNED REPORT) EGFR 67.43 OUTSIDE LA B (SEE SCANNED REPORT) POTASSIUM 3.8 3.5 - 5.1 MMOL/L OUTSIDE LAB (SEE SCANNED REPORT) GLUCOSE 85 70 - 99 MG/DL OUTSIDE LAB (SEE SCANNED REPORT) HOURS FASTING OUTSID E LAB (SEE SCANNED REPORT) TRIGLYCERIDES-OUT SIDE LAB OUTSIDE LAB (SEE SCANNED REPORT) CHOLESTEROL-OUTSI DE LAB OUTSIDE LAB (SEE SCANNED REPORT) HDL-OUTSIDE LAB OUTS MIMI LAB (SEE SCANNED REPORT) CHOL/HDL RATIO-OUTSIDE LAB OUTSIDE LA B (SEE SCANNED REPORT) LDL (CALCULATED)-OUTS MIMI LAB OUTSIDE LAB (SEE SCANNED REPORT) LDL (DIRECT MEASURE)-OUTSIDE LAB OUTSIDE LAB (SEE SCANNED REPORT) HEMOGLOBIN, Y0H-JJAWDUS LAB OUTSIDE LAB (SEE SCANNED REPORT) PHOSPHORUS-OUTSID E LAB OUTSIDE LAB (SEE SCANNED REPORT) PTH-OUTSIDE LAB OUTS MIMI LAB (SEE SCANNED REPORT) MICROALBUMIN RATIO-OUTSIDE LAB OUTSIDE LA B (SEE SCANNED REPORT) PROTEIN, UA-OUTSIDE LAB OUTSIDE LAB (SEE SCANNED REPORT) HGB 9.4(A) 12.0 - 16.0 G/DL OUTSIDE LAB (SEE SCANNED REPORT) 12/21/2024 us History Per Patient LABORATORY Final Result OUTSIDE LAB (SEE SCANNED REPORT) documented in this encounter Care Teams Daylight Driller Relationship Specialty Start Date End Date Ruth Dunlap DO [address] [facility] 2 [place] [address] PCP - General Family Medicine 12/22/24 documented as of this encounter
--- OUTSIDE RECORDS SUMMARY | 2024-12-29 05:56 | External Medical Summary | Summary of Care ---
Author Name Unknown Organization [facility] Address [address] [place] [address] Phone [phone] Care Team Providers Care Medical Records Director Name Role Phone Ruth Dunlap DO Primary Care Provider +1- [phone] Reason for Visit * Reason Onset Date Comments Test Results Lab 12/23/2024 Encounter Details Date Type Department Care Team (Late st Contact Info) Description 12/23/2024 Telephone Hematology/Oncology Treatment, [place] [address] [place] [address] Suri Munoz MD 200 [place] [address] Test Results Lab Allergies Active Allergy Reactions [...] Overview (05/13/2019): pathogenic LEONEL gene variant (c.8482C>T, p.[id number]*). Increased risk for breast cancer and pancreatic cancer. 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 Increased risk for breast cancer, colon cancer [...] Overview (01/15/2017): Taking Subutex, followed monthly in [place] @ [facility] 16mg daily Mental disorder in 01/15/2017 08/26/2017 Overview (02/12/2017): @ [facility] taking Klonopin - ADHD, depression, bipolar -going to counseling in [place] As of 13wks no longer taking Klonopin [...] Schaffer RN - 12/23/2024 2:31 PM EST [place] updated. * Addendum Note - Suri Munoz [...] return Friday for labs and possible hydration. [place] adjusted/ routed for signature. Dr Munoz: please place order " Give 1L NSS over 2 hours today. Patient to return Friday for labs and receive additional 1L NSS over 2 hours if Ca 10.5 or higher" documented in this encounter Plan of Treatment Upcoming Encounters Date Type Department Care Team (Late st Contact Info) Description 12/27/2024 9:30 AM EST Laboratory Laboratory [address] [place] [phone] [place] [address] 12/27/2024 2:00 PM EST Telemedicine Palliative Medicine, [facility] 400 [facility] 5th [place] [address] Amie Kong MD 400 [place] [address] 12/28/2024 11:30 AM EST Hem/Onc Treatment Hematology/Oncology Treatment, [place] [address] [place] [address] Alla, Chair 5 Hem Onc Scenery [address] [place] [address] 12/29/2024 9:45 AM EST Pharmacy Pharmacy Hematology Oncology [address] [address] [facility], [facility] Hem/Onc [address] [place] [address] 01/03/2025 11:00 AM EST Office Visit Hematology/Oncology [facility] [address] [facility] [place], [place] [phone] Deepa Roberts CRNP 400 [facility] [address] 01/03/2025 11:45 AM EST Immunization/Injection Hematology/Oncology Treatment, [place] 200 [facility], [place] [phone] Alla, Chair 2 Hem On[address] [place], [place] [address] 01/20/2025 9:30 AM EST Laboratory Laboratory [facility] [place] [address] [facility] [place], [place] [phone] Alla, Lab [address] [place], [place] [address] 01/20/2025 10:30 AM EST Immunization/Injection Hematology/Oncology Treatment, [address], [place] [phone] Pending Results Name Type Priority Associated Diagnoses [...] Hypercalcemia documented in this encounter Care Teams Medical Records Director Relationship Specialty Start Date End Date Ruth Dunlap DO [address] [address] PCP - General Family Medicine 12/22/24 documented as of this encounter
--- OUTSIDE RECORDS SUMMARY | 2024-12-29 05:56 | External Medical Summary | Summary of Care ---
Author Name Unknown Organization [facility] Address [address] [place] [address] Phone [phone] Care Team Providers Care Cdc Associate Name Role Phone Ruth Dunlap DO Primary Care Provider +1- [phone] Encounter Details Date Type Department Care Team (Late st Contact Info) Description 12/18/2024 Result Scan Unspecified Department <No scans attached> Allergies Active Allergy Reactions Criticality Noted Date [...] Overview (05/13/2019): pathogenic LEONEL gene variant (c.8482C>T, p.[id number]*). Increased risk for breast cancer and pancreatic cancer. 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 Increased risk for breast cancer, colon cancer [...] by Date resolved education Enrolled in May [facility] 05/14/2017 Kadi Gold RN 05/14/2017 [...] entered Entered by Date resolved education Attended [facility]. 06/21/2017 06/23/2017 Kadi Gold RN [...] Overview (01/15/2017): Taking Subutex, followed monthly in [place] [facility] 16[facility] daily Mental disorder in 01/15/2017 08/26/2017 Overview (02/12/2017): [facility] taking Kl[facility] - ADHD, depression, bipolar -going to counseling in [place] As of 13wks no longer taking Klonopin [...] 12/24/2024 10:00 AM EST Telemedicine Palliative Medicine, [address] 5th Floor [place] [address] Amie Kong MD 400 [facility] [place], [place] [address] 01/03/2025 11:00 AM EST Office Visit Hematology/Oncology [facility] [place] [address] [place], [place] [address] Deepa Roberts CRNP [address] [place] [address] 01/03/2025 11:45 AM EST Immunization/Injection Hematology/Oncology Treatment, [place] [address] [place], [place] [phone] Alla, Chair 2 Hem Onc [facility] 200 [facility] [place], [place] [address] Health Maintenance Due Date Last Done Comments [...] Procedure Name Priority Date/Time Associated Diagnosis Comments OUTSIDE LAB RESULTS 12/18/2024 documented in this encounter Results * OUTSIDE LAB RESULTS (12/18/2024) 12/18/2024 us No Physician Data Unknown LABORATORY Final Result documented in this encounter Care Teams Cdc Associate Relationship Specialty Start Date End Date Ruth Dunlap DO [address] [facility] 2 [place] [address] PCP - General Family Medicine 12/22/24 documented as of this encounter
--- OUTSIDE RECORDS SUMMARY | 2024-12-29 05:57 | External Medical Summary | Summary of Care ---
Author Name Unknown Organization [facility] Address [address] [place] [address] Phone [phone] Care Team Providers Care Geodetic Technician Name Role Phone Ruth Dunlap DO Primary Care Provider [phone]- [phone] Encounter Details Date Type Department Care Team (Late st Contact Info) Description 12/23/2024 Orders Only PATIENT PORTAL DO NOT DELETE THIS DEPT USED BY NAOMY GOLDSMITH [id number] Allergies Active Allergy Reactions Criticality Noted Date [...] as needed for Pain, Severe. 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 Increased risk for breast cancer and pancreatic cancer. 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 Increased risk for breast cancer, colon cancer [...] by Date resolved education Enrolled in May [facility] 05/14/2017 Kadi Gold RN 05/14/2017 [...] entered Entered by Date resolved education Attended [facility]. 06/21/2017 06/23/2017 Kadi Gold RN [...] Overview (01/15/2017): Taking Subutex, followed monthly in [place] [facility] 16mg daily Mental disorder in 01/15/2017 08/26/2017 Overview (02/12/2017): @ [facility] taking Klonopin - ADHD, depression, bipolar -going to counseling in [place] As of 13wks no longer taking Klonopin [...] st Contact Info) Description 12/23/2024 9:45 AM EST Pharmacy Pharmacy Hematology Oncology [facility] [place] [address] [place] [address] [facility], [facility] Hem/Onc [address] [place] [address] 12/24/2024 10:00 AM EST Telemedicine Palliative Medicine, [facility] [address] [facility] 5th [place] [address] Amie Kong MD [address] [place] [address] 01/03/2025 11:00 AM EST Office Visit Hematology/Oncology [address] [place] [address] Deepa Roberts CRNP [address] [place] [address] 01/03/2025 11:45 AM EST Immunization/Injection Hematology/Oncology Treatment, [place] [address] [place] [phone] Alla, Chair 2 Hem Onc [address] [place] [address] Health Maintenance Due Date Last Done Comments [...] filedocumented as of this encounter Care Teams Geodetic Technician Relationship Specialty Start Date End Date Ruth Dunlap DO [address] [facility] 2 [place] [address] PCP - General Family Medicine 12/22/24 documented as of this encounter
--- OUTSIDE RECORDS SUMMARY | 2024-12-29 05:57 | External Medical Summary ---
Author Name Unknown Address Unknown Organization K01:LABORATORY [facility] [place] - [address] [place] [address] Laboratory Report Ordering Provider Test Date Status STAN MCCORD 12/23/2024 13:16:42 Final Observation Date Value Abnormality Reference (Units ) Status Vitamin B12 12/23/2024 13:16:42 [phone] (pg/mL) Final Performing Location LABORATORY [facility] - [address] [place] [address]
--- OUTSIDE RECORDS SUMMARY | 2024-12-29 05:57 | External Medical Summary | Summary of Care ---
Author Name Unknown Organization [facility] Address [address] [place] [address] Phone [phone] Care Team Providers Care Customer Acquisition Manager Name Role Phone Israel Rangel MD Primary Care Provider Reason for Visit * Reason Onset Date Comments Appointment 12/20/2024 Encounter Details Date Type Department Care Team (Late st Contact Info) Description 12/20/2024 Telephone Hematology/Oncology Shelley Gold [place] [address] [place] [address] Contreras Mun[facility] [address] Appointment Allergies Active Allergy Reactions Criticality Noted Date Comments Naloxone Edema face/lips/tongue High 01/15/2017 documented as of this encounter (statuses as of 12/20/2024) Medications Acetaminophen (TYLENOL) 325 MG CAPS Take [...] as of this encounter (statuses as of 12/20/2024) Active Problems Problem Noted Date Diagnosed Date Dehydration 12/13/2024 Malignant neoplasm of upper- outer quadrant of right breast in female, estrogen receptor positive 12/01/2024 Metastasis to bone 12/01/2024 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 Increased risk for breast cancer and pancreatic cancer. Monoallelic mutation of CHEK2 gene in female pat ient 05/13/2019 Overview (05/13/2019): pathogenic CHEK2 gene variant (c.1100del, p.[id number]*15). Increased risk for breast cancer, colon cancer and thyroid cancer. Attention deficit hyperactiv ity disorder (ADHD), combined type 07/10/2016 Anxiety state 12/12/2011 Depression 12/12/2011 Rosacea 04/30/2006 RHINITIS DUE TO POLLEN documented as of this encounter (statuses as of 12/20/2024) Resolved Problems Problem Noted Date Diagnosed Date [...] entered Entered by Date resolved education Attended [facility]. 06/21/2017 06/23/2017 Kadi Gold RN 06/23/2017 [...] Overview (01/15/2017): Taking Subutex, followed monthly in [place] @ [facility] 16mg daily Mental disorder in 01/15/2017 08/26/2017 Overview (02/12/2017): @ [facility] taking Klonopin - ADHD, depression, bipolar -going to counseling in [place] As of 13wks no longer taking Klonopin [...] as of this encounter (statuses as of 12/20/2024) Immunizations Name Administration Dates Next Due DTP [...] Telephone Encounter - Najma Schaffer RN - 12/20/2024 2:34 PM EST MyG sent to patient. * Telephone Encounter - Contreras Munoz MD - 12/20/2024 10:40 AM EST She was discharged from [facility] on 12/18/2024, Calcium level was normal upon [...] if he wants this repeated. Dr. Munoz- [facility], patient had MRI of the Brain while inpatient at [facility]. Results were normal. This wasdone without contrast, would you like this repeated? Also, when would you like to see patient for follow up? She is meeting with [facility] on Friday. documented in this encounter Plan of Treatment Upcoming Encounters Date Type Department Care Team (Late st Contact Info) Description 12/22/2024 9:00 AM EST Telemedicine Palliative Medicine, [facility] [address] [facility] 5th [place] [address] Amie Kong MD 400 [place] [address] 12/23/2024 9:45 AM EST Pharmacy Pharmacy Hematology Oncology [address] [address] [facility], [facility] Hem/Onc [facility] [place] [address] 01/03/2025 11:00 AM EST Office Visit Hematology/Oncology [facility] [place] [address] [facility] [place] [address] Deepa Roberts CRNP [address] [place] [address] 01/03/2025 11:45 AM EST Immunization/Injection Hematology/Oncology Treatment, [place] [address] [place] [address] Alla, Chair 2 Hem Onc [address] [place] [address] Health Maintenance Due Date Last Done Comments [...] filedocumented as of this encounter Care Teams Customer Acquisition Manager Relationship Specialty Start Date End Date Israel Rangel MD [address] [place] [address] PCP - General Anesthesiology 12/20/24 documented as of this encounter
--- OUTSIDE RECORDS SUMMARY | 2024-12-29 05:57 | External Medical Summary | Summary of Care ---
Author Name Unknown Organization [facility] Address [address] [place] [address] Phone [phone] Care Team Providers Care Dock Loader Name Role Phone Ruth Dunlap DO Primary Care Provider +1- [phone] Reason for Visit * Reason Onset Date Comments Appointment 12/20/2024 Encounter Details Date Type Department Care Team (Late st Contact Info) Description 12/20/2024 Telephone Hematology/Oncology Shelley Gold [place] [address] [facility] [place] [phone] Suri Munoz MD 200 [facility] [address] Appointment Allergies Active Allergy Reactions Criticality Noted [...] needed for Pain, Severe. 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 Increased risk for breast cancer and pancreatic cancer. 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 Increased risk for breast cancer, colon cancer [...] entered Entered by Date resolved education Attended [facility]. 06/21/2017 06/23/2017 Kadi Gold RN [...] Overview (01/15/2017): Taking Subutex, followed monthly in [place] [facility] 16mg daily Mental disorder in 01/15/2017 08/26/2017 Overview (02/12/2017): @ [facility] taking Klonopin - ADHD, depression, bipolar -going to counseling in [place] As of 13wks no longer taking Klonopin [...] let us wait for 2nd opinion from [facility] and see what they suggest. * Telephone Encounter - Darryl Rogers RN - 12/22/2024 9:[address] Munoz- [...] states that she wants to see what [facility] recommends first. She states that she had lab work drawn today with Dr Dunlap's office. Patient asked when she can start verzenio. Advised patient that Dr Munoz wanted to see her kidney function improve more- will need to follow up after labs are reviewed. Scheduling: can you please ask [facility] to fax lab results/ give to Cinthya and Ritu to scan in? Dr Munoz: FYI- patient had lab work today at [facility], 2nd opinion appt at [facility] tomorrow * Telephone Encounter [...] 10:40 AM EST She was discharged from [facility] on 12/18/2024, Calcium level was normal upon [...] if he wants this repeated. Dr. Munoz- mita, patient had MRI of the Brain while inpatient at [facility]. Results were normal. This wasdone without contrast, would you like this repeated? Also, when would you like to see patient for follow up? She is meeting with [facility] on Friday. documented in this encounter Plan of Treatment Upcoming Encounters Date Type Department Care Team (Late st Contact Info) Description 12/23/2024 12:40 PM EST Laboratory Laboratory [facility] [place] [address] [facility] [place] [phone] Alla, Lab [address] [place] [address] 12/23/2024 1:30 PM EST Immunization/Injection Hematology/Oncology Treatment, [place] 200 [facility] [place] [phone] Alla, Chair 2 Hem Onc [facility] [address] [facility] [place] [address] 12/24/2024 10:00 AM EST Telemedicine Palliative Medicine, [address] 5th Floor [place] [address] Amie Kong MD [address] [place] [address] 01/03/2025 11:00 AM EST Office Visit Hematology/Oncology [facility] [place] [address] [facility] [place] [phone] Deepa Roberts CRNP [address] [place] [address] 01/03/2025 11:45 AM EST Immunization/Injection Hematology/Oncology Treatment, [place] [address] [place] [address] Alla, Chair 2 Hem Onc [address] [place] [address] Health Maintenance Due Date Last Done Comments [...] marrow documented in this encounter Care Teams Dock Loader Relationship Specialty Start Date End Date Ruth Dunlap DO [address] [facility] 2 [place] [address] PCP - General Family Medicine 12/22/24 documented as of this encounter
--- OUTSIDE RECORDS SUMMARY | 2024-12-29 05:57 | External Medical Summary | Summary of Care ---
Author Name Unknown Organization [facility] Address [address] [place] [address] Phone [phone] Care Team Providers Care Cofferdam Construction Supervisor Name Role Phone Israel Rangel MD Primary Care Provider [phone] Encounter Details Date Type Department Care Team (Late st Contact Info) Description 12/20/2024 2:00 PM EST Telemedicine Palliative Medicine, [facility] [address] [facility] 5th Floor [place], [place] [phone] Amie Kong MD [address] [place], [place] [phone] Cancer related pain*; Malignant neoplasm of upper-outer quadrant of right breast in female, estrogen receptor positive (HCC); Hypercalcemia Allergies Active Allergy Reactions Criticality [...] 24 Active Letrozole 2.5 MG Oral Tablet (Femara)Indica tions:Malignan t neoplasm of upper-outer quadrant of right breast in female, estrogen receptor positive (HCC),Metastas is to bone (HCC) Take 1 Tablet by mouth in the morning. 30 Tablet 11 12/01/19 25 Active Ondansetron HCl 4 MG Oral TabletIndicati ons:Nausea Use as needed for nausea 30 Tablet 1 12/01/19 25 Active Lidocaine-Pril ocaine 2.5-2.5 % External Cream (Emla)Indicati ons:Malignant neoplasm of upper-outer quadrant of right breast in female, estrogen receptor positive (HCC) APPLY TO SKIN 1HR PRIOR TO INJECTION. 30 g 12/01/19 25 Active Abemaciclib 150 MG Oral Tablet (Verzenio)Susan cations:Malign ant neoplasm of upper-outer quadrant of right breast in female, estrogen receptor positive (HCC) Take 1 tablet by mouth in the morning and 1 tablet by mouth before bedtime. 60 Tablet 5 5 1:47 PM EST 12/06/19 25 Active Ondansetron HCl 8 MG Oral Tablet (Zofran)Indica tions:Malignan t neoplasm of upper-outer quadrant of right breast in female, estrogen receptor positive (HCC),Metastas is to bone (HCC) Take 1 Tablet by mouth every 8 hours as needed for Nausea. 30 Tablet 2 12/06/19 25 Active Prochlorperazi ne Maleate 10 MG Oral Tablet (Compazine)Ind ications:Malig nant neoplasm of upper-outer quadrant of right breast in female, estrogen receptor positive (HCC),Metastas is to bone (HCC) Take 1 Tablet by mouth every 6 hours as needed for Nausea. 30 Tablet 2 12/06/19 25 Active Gabapentin 300 MG Oral Capsule (Neurontin)Ind ications:Cance r related pain Take 1 Capsule by mouth in the morning and 1 Capsule at noon and 1 Capsule before bedtime. 90 Capsule 12/08/19 25 Active ALPRAZolam 0.25 MG Oral Tablet (Xanax)Indicat ions:Cancer related pain Take 1 Tablet by mouth 3 times a day as needed for Anxiety. 30 Tablet 12/10/19 25 Active HYDROmorphone HCl 4 MG Oral Tablet (Dilaudid)Susan cations:Cancer related pain Take 1 Tablet by mouth every 4 hours as needed for Pain, Severe. 56 Tablet 12/20/19 25 Active fentaNYL 25 MCG/HR Transdermal Patch 72 Hour (Duragesic)Ind ications:Cance r related pain Place 1 Patch over 72 hours topically on the skin every 3 days. 5 Patch 12/20/19 25 Active Buprenorphine HCl 8 MG Sublingual Tablet Sublingual (Subutex)Indic ations:Cancer related pain Place 1 Tablet under the tongue in the morning and 1 Tablet at noon and 1 Tablet in the evening. 12/08/19 25 025 Discontinued HYDROmorphone HCl 4 MG Oral Tablet (Dilaudid)Susan cations:Cancer related pain Take 1 Tablet by mouth every 4 hours as needed for Pain, Severe. 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 Increased risk for breast cancer and pancreatic cancer. 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 Increased risk for breast cancer, colon cancer [...] entered Entered by Date resolved education Attended [facility]. 06/21/2017 06/23/2017 Kadi Gold RN 06/23/2017 Problem Action Taken Date entered Entered by Date resolved Current needs or questions Patient denies having any current needs or questions 06/25/2017 Iona Cuevas RN 06/25/17 Problem Action Taken Date entered Entered by Date resolved Current needs or questions Patient denies having any current needs or questions 07/11/2017 Shoshana Sharpe RN 8/18/17 Problem Action Taken Date entered Entered by [...] Overview (01/15/2017): Taking Subutex, followed monthly in [place] [facility] 16mg daily Mental disorder in 01/15/2017 08/26/2017 Overview (02/12/2017): @ [facility] taking Klonopin - ADHD, depression, bipolar -going to counseling in [place] As of 13wks no longer taking Klonopin [...] 12/20/2024) Immunizations Name Administration Dates Next Due Seasonal [...] Progress Notes * Amie Kong MD - 12/20/2024 2:04 PM EST Palliative Medicine Outpatient Progress Note IN HOME TELEMEDICINE VISIT [facility], [facility] [address] [place] [address] Name: Velma Carr Date: 12/20/2024 I was in a hospital or clinic location. After connecting through televideo, patient was verified with two unique identifiers. Patient (or authorized legal chain sales representative) was then informed that this [...] follow-upfor goals of care and symptom management. Since last visit, she was admitted for hypercalcemia to [facility]. Calcium level was over 20. She was discharged over the weekend and her dilaudid was switched tooxycodone 5mg. Received MyG today that she was having severe pain and wants to swtich pain medications. She specifically said: "Yes, when I left the hospital, they did change it because the oral Dilaudid wasnt working so they gave me Percocet 5 mg which is also not helping me. Its not just my bones now. Its also my insides. My entire body is literally hurting me and I need someone to take this serious and help me With something that is gonna ease the pain for me." And then another message said: "Im dying. I need a strong medication to help me with the time I have left with my kids. I dont wanna suffer and I want to be present with my girls with the limited time I have left." Urgent video visit was arranged. She started the visit asking about why she was not on a fentanyl patch. I asked her understanding of the patch, she said she knows it is a pain medication that is released throughout the body and is long acting and reports it is "specifically for cancer patients." Iexplained the main reason she is not on a patch is because she is on Buprenorphine, another long acting pain medication, and she cannot be on two of these. She then explained to me she has NOT been taking her Buprenorphine since she was in the hospital. She said she was vomiting so much and was horribly unwell she decided to stop taking it. She does notremember the exact day she stopped. She said with the IV Dilaudid she was feeling OK so didn't bother. She specifically said the nurses would bring it and she remembers declining it and so they would throw it away. She says her pain is horrible currently. She is getting radiation as well to the shoulder, back andpelvis and has 3 more sessions left. She says her pain is "on her insides" and was very tearful overall. Examination: No vital signs as this is a telemedicine encounter Constitutional: no acute distress, chronically ill HENT: normocephalic, atraumatic. Eyes: anicteric, sclera and conjunctiva normal. Neck: no stridor Chest: normal respiratory effort Abdominal: nondistended Extremities: no edema Data Review: External notes reviewed: - Reviewed notes from [facility] DC Summary, she was instructed to take her Subutex back at 8mg TID Lab / Imaging Results: Calcium was 20 on admission, Cr improved to 1.7 upon DC Discussion with other team members: I discussed patient with Dr Ruiz, Hospitalist at [facility] and KANDICE Burgos who cared for her inpt Per Dr Ruiz: - 12/13 and 12/14 - pt was on 4mg BID Subutex - 12/15 through 12/18: pt was on 4mg Subutex daily - last dose 12/18 at 1030am Decision-making Capacity: Does Patient have Decisional Capacity? y Does Patient have a Healthcare Agent? Y, mother Advanced Care Planning (see ACP Tab): Deferred ASSESSMENT/PLAN: Velma Carr is a 39 year old female seen in follow-up for goals of care and pain and symptom management. Stage IV breast CA, mets to bone Has Verzendelvin at home, has not started Recent admission for hypercalcemia Will order more labs for her to get tomorrow or so - advised I am not working tomorrow, if Calcium level remains elevated, should go back to ER She mentioned she had a low grade temp of 99.9, advised if it goes up, should also go back to ER Cancer related pain She requests switching from Subutex to Fentanyl patch for her long acting pain relief Reviewed safe handling and disposal of Fentanyl patch, should not apply heat to top of it, when disposing fold in half together, do not let anyone else touch the inside of it, place back in packet and dispose of in safe medication disposal box at pharmacy All narcotics and controlled meds should be locked away from anyone else in the home, she agrees I was very clear we will try this but she CANNOT be on fentanyl AND subutex - subutex will put her into opioid withdrawal, and all of this could be deadly for her. She is clear she has not been on itfor 2 days and does not want to go back on it. For breakthrough pain, can use Dilaudid 4mg q3h PRN (refill sent as well x 1 week supply) She has Narcan available at home Controlled agreement signed at prior visit Goals of care Wants curative tx - has video visit with Cj Camara on Fri Code status if admitted: Full Follow up in 2 days. They are able to do video visits. Next visit with me. I spent a total of 41 minutes on the date of service in preparation, delivery, and documentation ofthe care provided to Velma Carr excluding any time spent in the performance of separately billed services. Amie Kong MD [facility] Palliative Medicine [phone] documented in this encounter Plan of Treatment Upcoming Encounters Date Type Department Care Team (Late st Contact Info) Description 12/22/2024 9:00 AM EST Telemedicine Palliative Medicine, [facility] [address] [facility] 5th [place] [address] Amie Kong MD [address] [place] [address] 12/23/2024 9:45 AM EST Pharmacy Pharmacy Hematology Oncology [address] [address] [facility], [facility] Clinic Hem/Onc [address] [place] [address] 01/03/2025 11:00 AM EST Office Visit Hematology/Oncology [facility] [address] [facility] [place] [address] Deepa Roberts CRNP [address] [place] [address] 01/03/2025 11:45 AM EST Immunization/Injection Hematology/Oncology Treatment, [place] [address] [facility] [place] [address] Alla, Chair 2 Hem Onc [address] [place] [address] Scheduled Orders Name Type Priority Associated Diagnoses Orde r Schedule CBC WITH WBC DIFFERENTIAL Lab Routine Malignant neoplasm of upper-outer quadrant of right breast in female, estrogen receptor positive (HCC) Hypercalcemia Expected: 12/20/2024, Expires: 12/20/2025 COMPREHENSIVE METABOLIC PANEL Lab Routine Malignant neoplasm of upper-outer quadrant of right breast in female, estrogen receptor positive (HCC) Hypercalcemia Expected: 12/20/2024, Expires: 12/20/2025 Health Maintenance Due Date Last Done Comments [...] pain- Primary Neoplasm related pain (acute) (chronic) Malignant neoplasm of upper-outer quadrant of right breast in female, estrogen receptor positive (HCC) Hypercalcemia documented in this encounter Care Teams [employer] Construction Supervisor Relationship Specialty Start Date End Date Israel Rangel MD [address] [place] [address] PCP - General Anesthesiology 12/20/24 documented as of this encounter
--- OUTSIDE RECORDS SUMMARY | 2024-12-29 05:57 | External Medical Summary ---
Author Name Unknown Address Unknown Organization K09:[facility] [address] [place] [address] Laboratory Report Ordering Provider Test Date Status MARLYS DOMÍNGUEZ 12/23/2024 13:16:42 Final Observation Date Value Abnormality Reference (Units ) Status BUN 12/23/2024 13:16:42 17 6-20 (mg/dL) Final Creatinine 12/23/2024 13:16:42 1.0 0.5-1.0 (mg/dL) Final Glomerular filtration rate/1.73 sq M.predicted [Volume Rate/Area] in Serum, Plasma or Blood by Creatinine-based formula (CKD-EPI) 12/23/2024 13:16:42 73 >=60 (mL/min) Final eGFR is calculated based on the CKD-EPI 2020 equation. Sodium 12/23/2024 13:16:42 140 135-146 (m mol/L) Final Potassium 12/23/2024 13:16:42 3.6 3.5-5.1 (m mol/L) Final Cl 12/23/2024 13:16:42 104 98-107 (mm ol/L) Final CO2 12/23/2024 13:16:42 23 22-32 (mmo l/L) Final Anion gap 12/23/2024 13:16:42 13 7-15 (mmol /L) Final Glucose 12/23/2024 13:16:42 93 70-120 (mg /dL) Final Albumin 12/23/2024 13:16:42 3.5 Below low normal 3.8 -5.0 (g/dL) Final AST (Aspartate aminotransferase) 12/23/2024 13:16:42 25 10-35 (U/L) Fin al Alk Phos 12/23/2024 13:16:42 100 35-130 (U/ L) Final Bilirubin, Total 12/23/2024 13:16:42 <0.2 <=1 .2 (mg/dL) Final Calcium 12/23/2024 13:16:42 11.1 Above high normal 8. 4-10.2 (mg/dL) Final Protein 12/23/2024 13:16:42 6.8 6.0-8.3 (g /dL) Final ALT (Alanine aminotransferase) 12/23/2024 13:16:42 10 10-35 (U/L) Kory cooley Performing Location [facility] [address] [place] [address]
--- OUTSIDE RECORDS SUMMARY | 2024-12-29 05:57 | External Medical Summary ---
Author Name Unknown Address Unknown Organization [facility] [place] [address] Laboratory Report Ordering Provider Test Date Status MARLYS DOMÍNGUEZ 12/23/2024 13:16:42 Final Observation Date Value Abnormality Reference (Units ) Status Nucleated erythrocytes/100 leukocytes [Ratio] in Blood by Automated count 12/23/2024 13:16:42 Final Performing Location [facility] [address]
--- OUTSIDE RECORDS SUMMARY | 2024-12-29 05:57 | External Medical Summary ---
Author Name Unknown Address Unknown Organization [facility] [address] Laboratory Report Ordering Provider Test Date Status STAN MCCORD 12/23/2024 13:16:42 Final Observation Date Value Abnormality Reference (Units ) Status Phosphate 12/23/2024 13:16:42 3.6 2.5-4.8 (m g/dL) Final Performing Location [facility] [place] [address]
--- OUTSIDE RECORDS SUMMARY | 2024-12-29 05:57 | External Medical Summary ---
Author Name Unknown Address Unknown Organization [facility] [place] [address] Laboratory Report Ordering Provider Test Date Status MARLYS DOMÍNGUEZ 12/23/2024 13:16:42 Final Observation Date Value Abnormality Reference (Units ) Status WBC, Total 12/23/2024 13:16:42 4.62 4.00-10.8 0 (K/uL) Final RBC 12/23/2024 13:16:42 3.20 3.85-5.15 (M/uL) Final Hemoglobin 12/23/2024 13:16:42 9.4 Below low normal 12 .0-15.3 (g/dL) Final HCT 12/23/2024 13:16:42 28.2 Below low normal 36. 0-45.2 (%) Final MCV 12/23/2024 13:16:42 88.1 81.5-97.5 (fL) Final MCH 12/23/2024 13:16:42 29.4 27.0-34.0 (pg) Final MCHC 12/23/2024 13:16:42 33.3 32.0-36.0 (g/dL) Final RDW 12/23/2024 13:16:42 11.6 11.5-15.5 (%) Final Platelets 12/23/2024 13:16:42 241 140-400 (K /uL) Final MPV 12/23/2024 13:16:42 9.5 6.6-11.1 ( fL) Final Performing Location [facility] [place] [address]
--- OUTSIDE RECORDS SUMMARY | 2024-12-29 05:57 | External Medical Summary | Summary of Care ---
Author Name Unknown Organization [facility] Address [address] [place] [address] Phone [phone] Care Team Providers Care Gang Pusher Name Role Phone Ruth Dunlap DO Primary Care Provider [phone] Reason for Visit * Reason Onset Date Comments Appointment 12/20/2024 Encounter Details Date Type Department Care Team (Late st Contact Info) Description 12/20/2024 Telephone Hematology/Oncology [facility] [place] [address] [facility] [place] [phone] Sur[facility] MD [facility] [address] App[facility] Allergies Active Allergy Reactions Criticality Noted [...] Overview (05/13/2019): 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 Increased risk for breast cancer and pancreatic cancer. Monoallelic mutation of CHEK2 gene in female pat ient 05/13/2019 Overview (05/13/2019): pathogenic CHEK2 gene variant (c.1100del, p.[id number]*15). Increased risk for breast cancer, colon cancer [...] Entered by Date resolved education Attended [facility]. 06/21/2017 06/23/2017 Kadi Gold [...] Overview (01/15/2017): Taking Subutex, followed monthly in [place] [facility] 16mg daily Mental disorder in 01/15/2017 08/26/2017 Overview (02/12/2017): @ [facility] taking Klonopin - ADHD, depression, bipolar -going to counseling in [place] As of 13wks no longer taking Klonopin [...] her case * Addendum Note - Darryl Maldonado RN - 12/22/2024 4:48 PM ESTAddended by: DARRYL MALDONADO on: 12/22/2024 04:48 PM Modules accepted: Orders * Addendum Note - Darryl Maldonado RN - 12/22/2024 4:45 PM ESTAddended by: DARRYL MALDONADO on: 12/22/2024 04:45 PM Modules accepted: Orders * Telephone Encounter - Darryl Maldonado RN - 12/22/2024 4:[address] Munoz - We will wait on starting Verzenio until after the [facility] note is available to see recommendations. Tried [...] let us wait for 2nd opinion from [facility] and see what they suggest. * Telephone Encounter - Darryl Maldonado RN - 12/22/2024 9:[address] [...] states that she wants to see what [facility] recommends first. She states that she had lab work drawn today with Dr Dunlap's office. Patient asked when she can start verzenio. Advised patient that Dr Munoz wanted to see her kidney function improve more- will need to follow up after labs are reviewed. Scheduling: can you please ask [facility] to fax lab results/ give to Mirian to scan in? Dr Munoz: FYI- patient had lab work today at [facility], 2nd opinion appt at [facility] tomorrow * Telephone Encounter - Popeye Schaffer [...] 10:40 AM EST She was discharged from [facility] on 12/18/2024, Calcium level was normal [...] note below * Telephone Encounter - Darryl Maldonado RN - 12/20/2024 7:53 AM EST Scheduling- please cancel patients MRI of the Brain today as she had this inpatient. Will follow upwith Dr. Munoz to see if he wants this repeated. Dr. Munoz- paco, patient had MRI of the Brain while inpatient at [facility]. Results were normal. This wasdone without contrast, would you like this repeated? Also, when would you like to see patient for follow up? She is meeting with [facility] on Friday. documented in this encounter Plan of Treatment Upcoming Encounters Date Type Department Care Team (Late st Contact Info) Description 12/23/2024 9:45 AM EST Pharmacy Pharmacy Hematology Oncology [facility] [address] [place] [address] Gm, [facility] Hem/Onc [address] [place] [address] 12/24/2024 10:00 AM EST Telemedicine Palliative Medicine, [facility] [address] [facility] 5th [place] [address] Amie Kong MD [address] [place] [address] 01/03/2025 11:00 AM EST Office Visit Hematology/Oncology [facility] [place] [address] [phone] Deepa Roberts CRNP [address] [place] [address] 01/03/2025 11:45 AM EST Immunization/Injection [facility]ematology[facility] [place] [facility] [phone] Alla, Chair 2 Hem Onc [address] [address] Health Maintenance Due Date Last Done Comments [...] marrow documented in this encounter Care Teams Gang Pusher Relationship Specialty Start Date End Date Ruth Dunlap DO [address] [address] PCP - General Family Medicine 12/22/24 documented as of this encounter
--- OUTSIDE RECORDS SUMMARY | 2024-12-29 05:57 | External Medical Summary ---
Author Name Unknown Address Unknown Organization K01:[facility] - [address] [place] [address] Laboratory Report Ordering Provider Test Date Status STAN MCCORD 12/23/2024 13:16:42 Final Observation Date Value Abnormality Reference (Units ) Status Ferritin 12/23/2024 13:16:42 251 Above high normal 13 -150 (ng/mL) Final Performing Location [facility] - [address] [place] [address]
--- OUTSIDE RECORDS SUMMARY | 2024-12-29 05:57 | External Medical Summary | Summary of Care ---
Author Name Unknown Organization [facility] Address [address] [place] [address] Phone [phone] Care Team Providers Care Cable Repairer Name Role Phone Israel Rangel MD Primary Care Provider Reason for Visit * Reason Onset Date Comments Palliative Care Follow-up 12/20/2024 Encounter Details Date Type Department Care Team (Late st Contact Info) Description 12/20/2024 Telephone Palliative Medicine, [address] 5th Floor [place], [place] [phone] Amie Kong MD [address] [place] [address] Palliative Care Follow-up Allergies Active Allergy Reactions Criticality Noted Date [...] needed for Anxiety. 30 Tablet 5 Active HYDROmorphone HCl 4 MG Oral Tablet (Dilaudid)Indica tions:Cancer related pain Take 1 Tablet by mouth every 4 hours as needed for Pain, Severe. 56 Tablet 5 Active fentaNYL 25 MCG/HR Transdermal Patch 72 Hour (Duragesic)Indic ations:Cancer related pain Place 1 Patch over 72 hours topically on the skin every 3 days. 5 Patch 5 Active documented as of this encounter (statuses as of 12/20/2024) Active Problems Problem Noted Date Diagnosed Date Controlled substance agreement signed 12/20/2024 Dehydration 12/13/2024 Malignant neoplasm of upper- outer quadrant of right breast in female, estrogen receptor positive 12/01/2024 Metastasis to bone 12/01/2024 Monoallelic mutation of LEONEL gene 05/13/2019 Overview (05/13/2019): pathogenic LEONEL gene variant (c.8482C>T, p.[id number]*). Increased risk for breast cancer and pancreatic cancer. Monoallelic mutation of CHEK2 gene in female pat ient 05/13/2019 Overview (05/13/2019): pathogenic CHEK2 gene variant (c.1100del, p.[id number]*15). Increased risk for breast cancer, colon cancer [...] Overview (01/15/2017): Taking Subutex, followed monthly in [place] [facility] 16mg daily Mental disorder in 01/15/2017 08/26/2017 Overview (02/12/2017): @ [facility] taking Klonopin - ADHD, depression, bipolar -going to counseling in [place] As of 13wks no longer taking Klonopin [...] Telephone Encounter - Concha Pacheco LPN - 12/20/2024 2:54 PM EST Note from OV with Dr. Kong [phone] documented in this encounter Plan of Treatment Upcoming Encounters Date Type Department Care Team (Late st Contact Info) Description 12/22/2024 9:00 AM EST Telemedicine Palliative Medicine, [facility] [address] [facility] 5th [place] [address] Amie Kong MD [address] [place] [address] 12/23/2024 9:45 AM EST Pharmacy Pharmacy Hematology Oncology [place] [address] [place] [address] [facility] Hem/Onc [address] [place] [address] 01/03/2025 11:00 AM EST Office Visit Hematology/Oncology [address] [place] [address] Deepa Roberts CRNP [address] [place] [address] 01/03/2025 11:45 AM EST Immunization/Injection Hematology/Oncology Treatment, [place] [address] [place] [phone] Alla, Chair [address] Hem Onc [address] [place] [address] Health Maintenance Due Date Last Done Comments [...] as of this encounter Care Teams Cable Repairer Relationship Specialty Start Date End Date Israel Rangel MD [address] [place] [address] PCP - General Anesthesiology 12/20/24 documented as of this encounter
--- OUTSIDE RECORDS SUMMARY | 2024-12-29 05:57 | External Medical Summary ---
Author Name Unknown Address Unknown Organization [id number]:[facility] [address] [place] [address] Laboratory Report Ordering Provider Test Date Status MARLYS DOMÍNGUEZ 12/23/2024 13:16:42 Final Observation Date Value Abnormality Reference (Units ) Status SYNC LEUKOCYTES IN BLOOD BY AUTOMATED COUNT 12/23/2024 13:16:42 4.62 4.00-10.80 (K/uL) Final Segs 12/23/2024 13:16:42 76.4 Above high normal 40.0-75.0 (%) Final Lymphs % 12/23/2024 13:16:42 15.6 Below low normal 18.0-42.0 (%) Final Monos 12/23/2024 13:16:42 4.1 1.0-11.0 (%) Final Eosinophils 12/23/2024 13:16:42 3.5 0.0-6.0 (%) Final Basos 12/23/2024 13:16:42 0.4 0.0-2.0 (%) Final Absolute Segs 12/23/2024 13:16:42 3.53 1.80-7.70 (K/uL) Final Lymphs, absolute 12/23/2024 13:16:42 0.72 Below low normal 1.00-4.80 (K/ul) Final Monos, Abs 12/23/2024 13:16:42 0.19 0.00-1.10 (K/uL) Final Eos, Abs 12/23/2024 13:16:42 0.16 0.00-0.70 (K/uL) Final Basos, Abs 12/23/2024 13:16:42 0.02 0.00-0.20 (K/uL) Final Performing Location [facility] [address] [place] [address]
--- OUTSIDE RECORDS SUMMARY | 2024-12-29 05:57 | External Medical Summary ---
Author Name Unknown Address Unknown Organization K01:[facility] [place] [address] [place] [address] Laboratory Report Ordering Provider Test Date Status STAN MCCORD 12/23/2024 13:16:42 Final Observation Date Value Abnormality Reference (Units ) Status Folic Acid 12/23/2024 13:16:42 8.8 >4.5 (ng/ mL) Final Performing Location [facility] - [address] [place] [address]
--- OUTSIDE RECORDS SUMMARY | 2024-12-29 05:57 | External Medical Summary ---
Author Name Unknown Address Unknown Organization [id number]:[facility] [place] - [address] [facility] [address] Laboratory Report Ordering Provider Test Date Status STAN MCCORD 12/23/2024 13:16:42 Final Observation Date Value Abnormality Reference (Units ) Status Iron 12/23/2024 13:16:42 61 33-151 (ug/dL) Final Iron-binding capacity 12/23/2024 13:16:42 235 Below low normal 250-425 (ug/dL) Final Transferrin Sat % 12/23/2024 13:16:42 26 15-55 (%) Final Performing Location [facility] [place] - [address] [facility] [address]
--- OUTSIDE RECORDS SUMMARY | 2024-12-29 05:58 | External Medical Summary | Summary of Care ---
Author Name Unknown Organization [facility] Address [address] [place] [address] Phone [phone] Care Team Providers Care Industrial Gas Servicer Helper Name Role Phone Israel Rangel MD Primary Care Provider [phone] Reason for Visit * Reason Onset Date Comments Appointment 12/20/2024 Encounter Details Date Type Department Care Team (Late st Contact Info) Description 12/20/2024 Telephone Hematology/Oncology [facility] [address] [place] [address] [place] [address] Contreras Mun[facility] [address] [facility] [address] Appointment Allergies Active Allergy Reactions Criticality Noted [...] Overview (05/13/2019): 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 Increased risk for breast cancer and pancreatic cancer. Monoallelic mutation of CHEK2 gene in female pat ient 05/13/2019 Overview (05/13/2019): pathogenic CHEK2 gene variant (c.1100del, p.[id number]*15). Increased risk for breast cancer, colon cancer [...] any current needs or questions 06/12/2017 Iona uCevas RN 06/12/17 Problem Action Taken Date entered Entered by Date resolved education Attended [facility]. 06/21/2017 06/23/2017 Kadi Gold RN 06/23/2017 [...] Overview (01/15/2017): Taking Subutex, followed monthly in [place] @ [facility] 16mg daily Mental disorder in 01/15/2017 08/26/2017 Overview (02/12/2017): @ [facility] taking Klonopin - ADHD, depression, bipolar -going to counseling in [place] As of 13wks no longer taking Klonopin [...] 10:40 AM EST She was discharged from [facility] on 12/18/2024, Calcium level was [...] see if he wants this repeated. Dr. Chio antonio, patient had MRI of the Brain while inpatient at [facility]. Results were normal. This wasdone without contrast, would you like this repeated? Also, when would you like to see patient for follow up? She is meeting with [facility] on Friday. documented in this encounter Plan of Treatment Upcoming Encounters Date Type Department Care Team (Late st Contact Info) Description 12/22/2024 9:00 AM EST Telemedicine Palliative Medicine, [facility] [address] [facility] [address] [place] [address] Amie Kong MD [address] [place] [address] 12/23/2024 9:45 AM EST Pharmacy Pharmacy Hematology Oncology [facility] [address] [place] [address] [facility] [place], [facility] Hem/Onc [address] [place] [address] 01/03/2025 11:00 AM EST Office Visit Hematology/Oncology [address] [place] [address] Deepa Roberts CRNP [address] [place] [address] 01/03/2025 11:45 AM EST Immunization/Injection Hematology/Oncology Treatment, [place] [address] [place] [address] Alla, Chair 2 Hem Onc [facility] [address] [facility] [place] [address] Health Maintenance Due Date Last Done Comments [...] filedocumented as of this encounter Care Teams Industrial Gas Servicer Helper Relationship Specialty Start Date End Date Israel Rangel MD [address] [place] [address] PCP - General Anesthesiology 12/20/24 documented as of this encounter
--- OUTSIDE RECORDS SUMMARY | 2024-12-29 05:58 | External Medical Summary | Summary of Care ---
Author Name Unknown Organization [facility] Address [address] [place] [address] Phone [phone] Care Team Providers Care Planograph Operator Name Role Phone Unavailable Primary Care Provider Unavailabl e Reason for Visit * Reason Onset Date Comments Appointment 12/20/2024 Encounter Details Date Type Department Care Team ([facility] st Contact Info) Description 12/20/2024 Telephone Hematology/Oncology [facility] Alla [place] [address] [facility] [place] [address] Contreras Munoz MD [address] [place] [address] Appointment Allergies Active Allergy Reactions Criticality Noted [...] Overview (05/13/2019): 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 Increased risk for breast cancer and pancreatic cancer. Monoallelic mutation of CHEK2 gene in female pat ient 05/13/2019 Overview (05/13/2019): pathogenic CHEK2 gene variant (c.1100del, p.[id number]*15). Increased risk for breast cancer, colon cancer [...] Entered by Date resolved education Attended [facility]. 06/21/2017 06/23/2017 Kadi Gold RN 06/23/2017 [...] Overview (01/15/2017): Taking Subutex, followed monthly in [place] @ [facility] 16mg daily Mental disorder in 01/15/2017 08/26/2017 Overview (02/12/2017): @ [facility] taking Klonopin - ADHD, depression, bipolar -going to counseling in [place] As of 13wks no longer taking Klonopin [...] MRI of the Brain while inpatient at [facility]. Results were normal. This wasdone without contrast, would you like this repeated? Also, when would you like to see patient for follow up? She is meeting with [facility] on Friday. documented in this encounter Plan of Treatment Upcoming Encounters Date Type Department Care Team (Late st Contact Info) Description 12/23/2024 9:45 AM EST Pharmacy Pharmacy Hematology Oncology [address] [address] [facility] [place] Hem/Onc [address] [place] [address] 01/03/2025 11:00 AM EST Office Visit Hematology/Oncology [facility] [address] [facility] [address] Deepa Roberts CRNP [address] [place] [address] [place] [address] 01/03/2025 11:45 AM EST Immunization/Inject ion Hematology/Oncology Treatment, [place] [address] [place] [address] Alla, Chair 2 Hem Onc [address] [place] [address] Health Maintenance Due Date Last Done Comments [...]
[2024-12-29] MEDS ORDERED: HYDROmorphone INJ 0.5 MG/0.5 ML SYR IV PRN (06:52)
--- NOTE | 2024-12-29 07:50 | Hospitalist Progress Note ---
Date of Service December 29, 2024 Assessment & Plan (1) Malignant neoplasm of right breast, stage 4: (2) Breast cancer metastasized to bone: (3) Cancer associated pain: (4) Normocytic anemia: (5) Anxiety disorder due to medical condition: (6) Tachycardia: (7) Hx of drug abuse: (8) Hypercalcemia of malignancy: Plan Velma is a 39-year-old with severe bone pain 2/2 Stage IV metastatic breast cancer and h/o IVDA who presented on 12/28 with severe back pain she rates as 12/ 0. She follows with [facility] for pain management and Dr. Contreras Munoz for oncology. Her chronic pain is never better than a 4, but acutely worsened today due to increased activity. She reports only feeling benefit with IV Dilaudid; she has also tried fentanyl patches, gabapentin, and po dilaudid. In the ED she was given 2mg IV Dilaudid, after which her pain improved to a 6/10. She is being admitted for management of chronic cancer-related pain. Stage IV breast cancer, mets to bone - 11/30 PET scan showed FDG avid right breast mass, right axillary lymph nodes, and diffuse osteolytic disease - pain improved 12/10 to 6/10 s/p 2 x 1mg IV Dilaudid - total daily max methadone is 30mg and I anticipate she will need around 60- 80mg daily for optimal relief - Constipation regimen w scheduled miralax & senna, prn dulcolax - Gabapentin 300mg TID- pain mgmt note says 600mg TID, but since then pt has requested home 300mg TID dosing - Duloxetine 30mg PO daily - oncology consulted, appreciate recs - rad onc consulted: considering imaging of thoracic/lumbar spine vs bone scan - Pain management following, appreciate recs - ordered home letrozole 2.5mg PO daily, bf will bring it from home as not available in hospital - heat pad ordered for back Normocytic Anemia - Hgb 8.5, down from prior baseline of 10-11 - new over the past couple of weeks, has been receiving chemotherapy and recent radiation - oncology consulted Anxiety disorder due to medical condition - Continue Xanax 0.25mg TID prn - Encouraged to resume telepsych with [facility] - Provided info for [place] - Encouraged she connect with her cancer navigator at [facility] oncology Chart shows anaphylactic reaction to narcan; not ordered at this time but consider in case of severe respiratory depression Tachycardia - 80-120 today 12/29/24, asymptomatic aside from pain and anxiety - continue to monitor on tele and for additional symptoms of SOB, palpitation, chest pain - continue above pain and anxiety regimen H/o hypercalcemia of malignancy - Ca level was > 18 on 12/13 admission - Currently asymptomatic, calcium level 7.4 - Continue to monitor Diet: regular Dispo: admit to PCU tele Code: full Admission and Anticipated Discharge Date Admission Date: December 28, 2024 Supervising Physician Co-Signing Physician Notes Attending attestation Pt seen and examined in concert with Dr. Peralta. In agreement with the documented findings as noted in the resident documentation with any exceptions or additions as noted here. Resting comfortably in bed with pain well controlled on current medication reigmen. Reports no significant dark/tarry/melanotic stool. On examination, S1/S2 nl RRR no MCG. CTAB. Abd NT/ND BS+ve. VS as noted WBC 2.72, Hgb 8.5, Ca 7.6 Metastatic stage IV breast cancer with pain - oncology, pain mgmt, palliative consult - continue duloxetine, gabapentin. Convert hydromorphone to PO dose if remains pain controlled and plan for dispo w/ coord w/ care team Normocytic anemia - new onset over 2 wks in the setting of chemotherapy and radiation therapy, oncology consult Else see resident documentation as noted. Modesto Carreon was seen and evaluated at bedside this AM, appearing in mild discomfort. States her pain has been decently managed overnight, currently about a 6/10. Mainly gets generalized back pain when she is upright or going from lying down to sitting and from sitting to standing. Wonders if she is able to receive any radiation while in the hospital since she feels it has been helpful with pain relief. Has been able to get up to use the bathroom but has to take it slow. Endorses that a heating pad has previously been helpful to lie on when in bed. States that she has been advised to not be given calcium even if her levels are a bit low, given his history of severe hypercalcemia. Review of Systems Review of Systems: no fever, chills, sweats, headache, SOB, chest pain, abdominal pain, numbness/tingling of extremities Physical Exam Physical Exam: Gen: A&Ox3, appearing tired and in mild distress HEENT: NC/AT, MMM, EOM intact, anicteric sclerae, PERRL b/l CV: RRR, no m/r/g, +s1/s2 Resp: clear to auscultation b/l, breathing non-labored Abd: +BS, abdomen soft, NT/ND MSK: No gross deformities on inspection, ROM restricted 2/2 pain Skin: Warm, dry, good perfusion, no rashes, +bruising on lower abd injection sites Neuro: AOx3, PERRL, EOMI, no facial asymmetry, SILT, moves extremities spontaneously Psych: Affect-mood congruence, pace and content of speech normal. Good insight into her condition Results & Data Results & Data Vital Signs (Past 12 Hours) Vital Signs Temp Pulse Pulse Resp BP BP Pulse Ox 12/29/24 07:05 36.9 C 84 19 104/66 98 12/29/24 03:31 36.5 C 85 16 95/58 L 97 12/29/24 00:44 88 12/29/24 00:30 36.5 C 86 14 93/56 L 99 12/29/24 00:17 12/29/24 00:15 88 16 93/56 L 98 12/28/24 23:00 90 18 93/42 L 98 12/28/24 21:01 94 H 18 96/54 L 98 12/28/24 20:04 83 12/28/24 19:59 85 18 125/72 98 O2 Del Method 12/29/24 07:05 Room Air 12/29/24 03:31 Room Air 12/29/24 00:44 12/29/24 00:30 Room Air 12/29/24 00:17 Room Air 12/29/24 00:15 Room Air 12/28/24 23:00 Room Air 12/28/24 21:01 Room Air 12/28/24 20:04 12/28/24 19:59 Room Air Resident Activity Tracking Resident Involvement: Resident Care Provided Care Provided: Adult Hospital Medicine (2) Breast cancer metastasized to bone Laterality: right Qualified Code(s): C50.911 - Malignant neoplasm of unspecified site of right female breast; C79.51 - Secondary malignant neoplasm of bone
[2024-12-29] MEDS: HYDROmorphone INJ 1 MG/ML SYRINGE IV SCH (08:13)
[2024-12-29] MEDS: GABAPENTIN 300 MG CAP PO SCH ×3 (08:15→20:46)
[2024-12-29] MEDS: POLYETHYLENE (MIRALAX) 17 GM PACK PO SCH (08:16)
[2024-12-29] MEDS: buPROPion XL 300 MG TABCR PO SCH (08:16)
--- NOTE | 2024-12-29 08:33 | Pain Management Consultation ---
Date of Consultation December 29, 2024 Assessment & Plan (1) Breast cancer metastasized to bone: Laterality: right Qualified Code(s): C50.911 - Malignant neoplasm of unspecified site of right female breast; C79.51 - Secondary malignant neoplasm of bone (2) Hx of drug abuse: (3) Depression with anxiety: (4) Cancer associated pain: Plan 1. Patient with diffuse intractable back pain associated with metastatic disease from her known diagnosis of breast cancer. Pain service has nothing interventional to offer the patient at this time. 2. We spent a great deal of time discussing pain management options with patient regarding medical management. She does wish to further discuss methadone therapy which had previously been discussed by her outpatient palliative care team. Will request palliative consult during this admission to further discuss methadone therapy. 3. Will progress gabapentin to 600 mg 3 times daily 4. Will add duloxetine 30 mg daily. Consider titration pending tolerability. 5. Will initiate prednisone 40 mg x 5 days then 20 mg x 5 days 6. Consider further evaluation by radiation oncology upon this admission 7. Patient may continue with IV hydromorphone for as needed breakthrough pain. Potentially consider CARPENTER ROUGH Dilaudid with persisting difficulties with pain control-will defer further medical management recommendations to palliative care. Thank you for allowing us to participate in the care of Mrs. Carr. History of Present Illness Reason for Consultation: Intractable back pain secondary to history of metastatic breast cancer Requesting Physician: Lo Lozano MD Attending Physician: Cristofer Edmond MD History of Present Illness Mrs. Carr is a 31-year-old white female who was admitted due to intractable back pain complaints secondary to history of stage IV metastatic breast cancer with known bony metastasis with diffuse osteolytic lesions per PET scan dated 11/30/2024. Diagnosis occurred in October. Patient has received some radiation therapy with benefit regarding his improved pain control although over the past few weeks her pain has been intractable. It is currently unclear if she is a candidate for further palliative radiation at this time. She has been working with palliative care through [facility] with a recent titration of fentanyl to 100 mcg patch a few days ago. She reported after 2 days of use her pain was poorly controlled which led to this emergent evaluation and subsequent admission. The patient has prior history of illicit drug abuse in her past and had been on Suboxone chronically for many years. Her most recent use of Suboxone she indicates was a few days ago which she trial due to her intractable pain which was poorly controlled with fentanyl patch and p.o. hydromorphone. Patient indicates that her pain is an 6/10 at its best and a 10/10 at its worst. Her pain is diffuse across the entire thoracolumbar spine locations bilaterally and equal. Patient reports minimal relief with use of the IV hydromorphone lasting for approximately 1-2 hours only. She denies pain elsewhere at this time. She denies bowel/bladder incontinence or saddle anesthesia. She has no upper or lower extremity radicular pattern pain, paresthesias or weaknesses. Patient has no further constitutional complaints. Plan of care discussed with Dr. Renata Zapata. Pain Assessment Pain scale - at its best (0-10): 6 Pain scale - at its worst (0-10): 10 Allergies Allergy/AdvReac Type Severity Reaction Status Date / Time naloxone Allergy Severe ANAPHYLAXIS Verified 12/23/24 11:55 Home Medications Medication Instructions Recorded Confirmed Type abemaciclib 150 mg tablet 150 mg PO AMHS 12/13/24 12/23/24 History (Verzenio) alprazolam 0.25 mg tablet 0.25 mg PO TID PRN Anxiety 12/13/24 12/23/24 History bupropion HCl 300 mg 24 hr tablet, 300 mg PO DAILY 12/13/24 12/23/24 History extended release letrozole 2.5 mg tablet 2.5 mg PO DAILY 12/13/24 12/23/24 History amoxicillin 500 mg-potassium 1 tab PO BID sinusitis #5 tabs 12/18/24 12/23/24 Rx clavulanate 125 mg tablet (Augmentin) promethazine 12.5 mg tablet 12.5 mg PO Q6H PRN nausea #14 tabs 12/18/24 12/23/24 Rx fentanyl 25 mcg/hr transdermal 1 patch transdermal Q72H 12/21/24 12/23/24 History patch gabapentin 300 mg capsule 300 mg PO TID PRN 12/21/24 12/23/24 History hydromorphone 4 mg tablet 4 mg PO Q3H PRN 12/21/24 12/23/24 History (Dilaudid) leuprolide [Lupron Depot] IM 12/21/24 12/23/24 History Pain History Pain Intensity Pain scale - at its best (0-10): 6 Pain scale - at its worst (0-10): 10 Patient History Medical History Nephrocalcinosis MELISSA (acute kidney injury) ADHD Surgical History Hx of breast biopsy Family History Mother Breast cancer Father Prostate cancer Aunt Breast cancer Colorectal cancer Grandmother Stroke Uncle Prostate cancer Denies family history of Ovarian cancer Myocardial infarction Pulmonary embolism Social History Smoking Status: Never smoker Tobacco Type: E-cigarettes / Vaping Age Started Using Tobacco: 19; Age Quit Using Tobacco: 38; packs per day: 0.25; Cigarettes Per Day: used to smoke tobacco cigarettes, was vaping until the last few days; Second Hand Exposure: No; Do You Dip or Chew Tobacco: No; Hx Alcohol Use: No Hx Substance Use: No Preferred Language: Rwandan Communication Ability: Effective Visual Impairment: No Limitations Hearing Ability: Normal Butcher Helper Required: No Beliefs That Will Affect Care: None marital status: Single Current Living Situation: Family and Significant Other Current Living Situation Comment: lives at home with boyfriend and 2 children (daughters Calixto and Grace) current occupational status: unemployed How many Children do You have: 2 Feels Safe at Home: Yes Safety Concerns: Feels Safe At This Time Diet: regular Diet Comment: regular caffeine: Yes during the past year weight has: remained stable Dental Care, Regularly: Yes Physical Activity Frequency: Other Seatbelt Use: always Sunscreen Use: Yes Do you think of yourself as: straight/heterosexual Assistive Devices: None Physical Exam Physical Exam: General: Patient lying quietly in exam room in no acute distress. Speech and thought process appropriate. Mood and affect flat and intermittently weepy. Cognition intact. Head: Normocephalic and atraumatic. ENT: No evidence of nasal or oral mucosal lesions. Mucous membranes are moist. Eyes: Pupils equal round reactive to light. Neck: Supple without adenopathy and full range of motion. Chest: Nontender to palpation of the costosternal junction. Nontender along the rib or intercostal space posterior laterally. Nontender with AP/lateral compression of the chest wall. Abdomen: Soft and nondistended. No organomegaly. Bowel sounds active. Back/spine: Patient able to logroll towards her right side for visual inspection and examination. No visible abnormalities. Patient is nontender to palpation over the midline, facet joint or paravertebral locations. She is nontender to percussion. Lower extremities: Sensation intact distally. No appreciable edema of the lower extremity. Neurologic: Cranial nerves grossly intact. Ambulatory function not witnessed. Results (Pain Clinic) Previous Records Review Previous Records: personally reviewed by me
[2024-12-29] MEDS: HYDROmorphone INJ 1 MG/ML SYRINGE IV STA (09:00)
[2024-12-29] MEDS: HYDROmorphone INJ 2 MG/ML SYR/VIAL IV STA (09:05)
[2024-12-29] MEDS: predniSONE 20 MG TAB PO SCH (10:43)
[2024-12-29] MEDS: DULoxetine HCL 30 MG CAP PO SCH (10:45)
[2024-12-29 12:49] LABS: Amphetamines+Metham, Urine Neg (Neg); Barbiturates, Urine Neg (Neg); Benzodiazepine, Urine Pos (Neg); Cocaine, Urine Neg (Neg); Fentanyl, Urine Pos (Neg); MDMA (Ecstacy), Urine Neg (Neg); Marijuana, Urine Pos (Neg); Methadone, Urine Neg (Neg); Opiate, Urine Pos (Neg); Phencyclidine, Urine Neg (Neg)
--- NOTE | 2024-12-29 13:27 | Palliative Care Consultation ---
Date of Consultation December 29, 2024 Assessment & Plan (1) Cancer associated pain: very severe cancer pain with hx extensive IVDA (heroin) and methamphetamine abuse (pt reports sober x approx 1 yr) No relief with TDF 100cmg and Dilaudid 64mg PO daily for BTP No resp suppression or somnolence urine tox sent She is using TDF 100mcg and Dilaudid 64mg PO daily TDF 100mcg = 240 OME Dilaudid 64mg po daily = 320mg OME total OME = 560 560 OME = 56 mg oral methadone per day. Allowing for cross tolerance, will begin Methadone 5mg PO q4h prn/Hold for somnolence or RR less than 14; please document RR with each dose administration. total daily max methadone is 30mg and I anticipate she will need around 60-80mg daily for optimal relief METHADONE SHOULD NOT BE TITRATED DAILY: Methadone is lipophilic, thus it takes time to develop tissue stores that maintain serum levels. There is enormous interindividual variation in how long this takes. After a single dose there is a short distribution phase (associated with acute pain relief) with a half-life of 2-3 hours and a slow elimination phase (half-life 15-60 hours). Dosing must account for the accumulation of drug over days. It is this accumulation that accounts for most therapeutic misadventures. Liver metabolites are inactive; therefore no dose reduction is required with renal failure. After steady-state is reached, about two-thirds of patients will get adequate pain relief with twice a day dosing.Note: a number of drugs will alter methadone metabolism, so there needs to be close follow-up to drug interactions. There are several approaches to starting methadone for the treatment of pain. All take into account the long-half life of the drug that leads to drug accumulation over days. For breakthrough pain: use an alternative short acting oral opioid with short half-life (for this pt use Dilaudid 0.5 or 1mg IV Q3h prn IF NO RELIEF FROM ORAL METHADONE FIRST breakthrough pain)and to provide pain relief during titration phase. This dose too may need to be titrated based on efficacy. Gabapentin was increased to 600mg TID earlier today Duloxetine 30mg PO daily was added earlier today (2) Anxiety disorder due to medical condition: Continue Xanax prn Encouraged to resume telepsych with [facility] provided info for NAOMY Orellana encouraged she connect with her cancer navigator at [facility] (3) Advanced care planning/counseling discussion: A 45min ACP face to face was held with Velma, her boyfriend and her sister who is a RN at [facility] Reviewed overall prognosis is years, not imminently EOL as she expressed concerns about initially She is very tearful and cries easily, she has had one telepsych appt but felt overwhelmed by the extensive history taking. Encouraged to resume. Also provided contact information (website) for NAOMY Orellana She reaffirms goal to sustain life as long as she can, she wants to be here with her children ages 4 and 7yo. The 4yo's birthday is Friday and a libertarian is planned, she would like to bc ms in time for this celebration. She has not considered much about EoL care preferences apart from anxiety that she is going to soon. reassured this was not felt to be the case now but if things changed down the line, medical team will offer that information directly and with honesty. (4) Palliative care by specialist: Introduced Palliative Medicine and explained our role in patient's care. Patient and/or family were receptive to palliative services for goals of care discussions. Reviewed we are different from hospice, a home health nurse visiting service. (5) Heroin abuse: (6) Methamphetamine abuse in remission: last use 1 yr ago per pt (7) Hx of drug abuse: former IVDA/heroin and methamphetamine Plan As Above. Thank you for allowing us to participate in the ongoing care of this patient. Please page with any additional concerns. Bartolo Fischer DNP Director, Palliative Medicine History of Present Illness Reason for Consultation: cancer pain mgt, seeking methadone transition, extensive substance abuse history Attending Physician: Cristofer Edmond MD History of Present Illness Velma Carr is a 39yo female admitted from home with very severe cancer pain. She has a hx of Stage IV breast cancer, mets to bone with 11/30/24 PET scan showed FDG avid right breast mass, right axillary lymph nodes, and diffuse osteolytic disease. +hypercalcemia S/p radiation therapy She has a lengthy hx of substance abuse including heroin IV, methamphetamine, marijuana and various opioids. She is managed for severe cancer pain by [facility], known to Dr Kong who recently initiated TDF that has been titrated to 100mcg and Dilaudid 8mg PO Q3h prn for BTP, which she states she is using doses a day She is seen at bedside with her boyfriend and her sister who is an RN at [facility] [employer] [facility]. She complains of very severe bony and back cancer related pain. She states the pain begins right below her shoulder blades and extends all the way down her spine and back to approximately above her hips. Sometimes it radiates in from the lower back around the sides towards the front as it following a track along the lower edge of her rib cage. She states that the pain is generally very sharp and intense, but it has not particularly been stabbing. She states it does feel electric at time particularly with twisting motions. She states that she recently completed some radiation for the larger lesions and was told that there may be a role for additional treatment for the remaining lesions if she felt the pain needed further management. Oncology HX: 05/12/2019. 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 02/05/2022. Surgical consultation (Dr. Scruggs). Positive family history of breast cancer. Mother with history of breast cancer x 3. Patient has LEONEL and CHEK2 mutations. Patient will start breast cancer screening now with mammography. Consider chemo preventative once completed with childbearing. 02/22/2022. Bilateral screening mammogram. No mammographic evidence of m alignancy. BI-RADS Category 1. 04/01/2023. Surgical follow-up. Continue screening mammography. Supplemental breast MRI will be ordered. Continue yearly follow-up. 04/11/2023. Bilateral screening mammogram. No mammographic evidence of malignancy. BI-RADS Category 1. 12/08/2023. Genetic counseling follow-up. No additional orders at this visit. 11/04/2024. Surgical follow-up. Patient has discomfort of the right upper outer breast. She noticed a lump. She was a unable to do the MRI due to severe phobia of needles. MRI ordered. Stat bilateral mammogram and right breast ultrasound as well as axillary ultrasound were ordered. 11/05/2024. Bilateral diagnostic mammogram and right breast ultrasound. Impression Suspicious index mass right breast 10 o'clock with multiple adjacent possible satellite nodules andan additional posterior depth 10/11 o'clock 4 x 5 mm nodule. Findings are worrisome for multifocal disease. MRI suggested to further evaluate and help exclude multicentric disease if biopsy resultsare positive. 11/05/2024. Ultrasound-guided core needle biopsy of the right breast 10:00. Upper outer quadrant. Pathology report reveals: A. 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 Lymphatic invasion is present. B. Right breast - SITE B - US guided core biopsy: Benign breast tissue with small foci of pseudoangiomatous stromal hyperplasia (PASH); No evidence of atypia or malignancy. C. Lymph Node, Right Axillary, Right AXILLA US guided core biopsy, core biopsy: High grade carcinoma.; Estrogen Receptor (ER) protein expression is STRONGLY POSITIVE. 100% nuclear positivity - 3+ average intensity score (range 0 to 3+); Progesterone Receptor (MN) protein expression is STRONGLY POSITIVE 70% nuclear positivity 2+ average intensity score (range 0 to 3+) HER2 oncoprotein expression is NEGATIVE ( 0 average membranous intensity) 11/09/2024. Bilateral breast MRI. Biopsy-proven right breast invasive carcinoma compensating the majority of the right upper outer quadrant. This mass extends into the right upper inner quadrant, constituting multi centric disease. Biopsy-proven carcinoma within right axillary lymph node. Additional right axillary lymphadenopathy noted, suspicious for additional sites of malignancy. BI-RADS Category: 6 - Known Biopsy-Proven Malignancy. Recommendation Resume annual screening mammography is recommended for the left breast. Screening breast MRI in 1 year is recommended for the left breast. Biopsy-proven right breast carcinoma with biopsy-proven carcinoma within a right axillary lymph node. Appropriate action is recommended. The patient is under the care of the [facility] breast surgical team with follow-up appointment scheduled for November 12, 2024. 11/12/2024. Surgical consultation (Dr. Mulugeta To). Stage IIIa locally advanced carcinoma of the right breast. Options of treatment were discussed. MRI demonstrated an 8 x 6 x 4 cm mass in the upper outer quadrant. Multiple enlarged lymph nodes on the MRI. Multiple options of treatment were discussed. Patient will meet with medical oncology to discuss possible neoadjuvant treatment. 11/23/2024. Medical oncology consultation (Dr. Lamar Munoz). Neoadjuvant chemotherapy was discussed. Hormonal therapy was discussed. She will undergo a PET/CT. She will return afterward for review. 11/30/2024. PET/CT. 1. FDG avid right breast mass consistent with the history of breast carcinoma. 2. FDG avid right axillary lymph nodes consistent with neoplasm. 3. Diffuse FDG avid osteolytic disease consistent with neoplasm. 12/01/2024. Medical oncology follow-up. Review of PET/CT. Planning to start letrozole. Plan to start abemaciclib 100 mg twice daily. Plan to start Lupron every 4 weeks. She will then be on Zometa every 4 weeks after dental clearance. Was seen at the palliative clinic and started on hydromorphone, Decadron and Xanax. She is on buprenorphine. 12/03/2024. Palliative care consultation (Dr. Kong). She has a lot of pain in her back, shoulder and hip. Will consider radiation oncology referral. She is on Dilaudid. She is on Xanax for anxiety. She has a history of drug abuse. She will have to sign a record release. 12/13/2024. Patient presents to the emergency room at the request of the medical oncologist. Laboratory studies today revealed an elevated calcium level. She had been scheduled to be seen in our office this week due to shoulder, back and hip pain. She did see Dr. Kong on 12/03/2024. She was prescribed Dilaudid. She does state that this medication is helpful. She unfortunately has been very nauseated. And has been vomiting. She has been unable to keep medication down. The shoulder and back pain began approximately 2 months before the diagnosis. Pain is in the left shoulder. The pain of her back is in the mid back. The pain of the hip is on the left. Currently while lying in the bed her pain is controlled. She is particularly complaining of a headache. She has associated nausea and vomiting. Allergies Allergy/AdvReac Type Severity Reaction Status Date / Time buprenorphine [From Suboxone] AdvReac Intermediate Agitated Verified 12/29/24 14:08 naloxone [From Suboxone] AdvReac Intermediate Agitated Verified 12/29/24 14:08 Home Medications Medication Instructions Recorded Confirmed Type abemaciclib 150 mg tablet 150 mg PO [facility] 12/13/24 12/23/24 History (Verzenio) alprazolam 0.25 mg tablet 0.25 mg PO TID PRN Anxiety 12/13/24 12/23/24 History bupropion HCl 300 mg 24 hr tablet, 300 mg PO DAILY 12/13/24 12/23/24 History extended release letrozole 2.5 mg tablet 2.5 mg PO DAILY 12/13/24 12/23/24 History amoxicillin 500 mg-potassium 1 tab PO BID sinusitis #5 tabs 12/18/24 12/23/24 Rx clavulanate 125 mg tablet (Augmentin) promethazine 12.5 mg tablet 12.5 mg PO Q6H PRN nausea #14 tabs 12/18/24 12/23/24 Rx fentanyl 25 mcg/hr transdermal 1 patch transdermal Q72H 12/21/24 12/23/24 Histo ry patch gabapentin 300 mg capsule 300 mg PO TID PRN 12/21/24 12/23/24 History hydromorphone 4 mg tablet 4 mg PO Q3H PRN 12/21/24 12/23/24 History (Dilaudid) leuprolide [Lupron Depot] IM 12/21/24 12/23/24 History Patient History Medical History (Updated 12/29/24 @ 14:23 by Fawn Fischer DNP) Methamphetamine abuse Heroin abuse Nephrocalcinosis MELISSA (acute kidney injury) ADHD Surgical History Hx of breast biopsy Family History Mother Breast cancer Father Prostate cancer Aunt Breast cancer Colorectal cancer Grandmother Stroke Uncle Prostate cancer Denies family history of Ovarian cancer Myocardial infarction Pulmonary embolism Social History Smoking Status: Never smoker Tobacco Type: E-cigarettes / Vaping Age Started Using Tobacco: 19; Age Quit Using Tobacco: 38; packs per day: 0.25; Cigarettes Per Day: used to smoke tobacco cigarettes, was vaping until the last few days; Second Hand Exposure: No; Do You Dip or Chew Tobacco: No; Hx Alcohol Use: No Hx Substance Use: No Preferred Language: Chadian Communication Ability: Effective Visual Impairment: No Limitations Hearing Ability: Normal Human Resources Intern Required: No Beliefs That Will Affect Care: None marital status: Single Current Living Situation: Family and Significant Other Current Living Situation Comment: lives at home with boyfriend and 2 children (daughters Whiting and Grace) current occupational status: unemployed How many Children do You have: 2 Feels Safe at Home: Yes Safety Concerns: Feels Safe At This Time Diet: regular Diet Comment: regular caffeine: Yes during the past year weight has: remained stable Dental Care, Regularly: Yes Physical Activity Frequency: Other Seatbelt Use: always Sunscreen Use: Yes Do you think of yourself as: straight/heterosexual Assistive Devices: None Review of Systems Review of Systems: All systems reviewed & are unremarkable except as noted in Subjective Physical Exam Constitutional: WD/WN, vitals as above Eyes: PERRL, conjunctivae normal, anicteric sclerae ENMT: dentition fair neck supple no thrush Neck: no stridor or thyromegaly Respiratory: normal respiratory effort, able to speak in complete sentences and symmetric chest movement Cardiovascular: no JVD Gastrointestinal (Abdomen): benign, NTP Musculoskeletal: pain from below shoulder blades down back with paraspinal muscle tenderness and discomfort, some radiation with rotation movement. gait stable, no assistance needed strength reasonably intact Skin: flushed, warm Neurologic: AAOx3 Psychiatric: Orientation: alert and oriented x 3 Eye Contact: + fair eye contact Motor Behavior: steady gait and station and no abnormal motor movements Speech: + pressured speech Affect: + anxious affect and + tearful affect Mood: + anxious mood Thought Process: + tangential thought process and + perseveration Thought Content: + preoccupation Suicidal Thoughts: denies suicidal thoughts, denies suicidal plan and denies suicidal intent Homicidal Thoughts: denies homicidal thoughts, denies homicidal plan and denies homicidal intent Estimated Intelligence: consistent with education level Insight: + fair insight Judgment: + fair judgement Results & Data Vital Signs (Past 12 Hours) Vital Signs Temp Pulse Pulse Resp BP BP Pulse Ox 12/29/24 11:20 76 12/29/24 10:40 36.9 C 83 17 95/59 L 97 12/29/24 07:05 36.9 C 84 19 104/66 98 12/29/24 03:31 36.5 C 85 16 95/58 L 97 O2 Del Method 12/29/24 11:20 12/29/24 10:40 Room Air 12/29/24 07:05 Room Air 12/29/24 03:31 Room Air Laboratory Results 12/29/24 12/29/24 12/28/24 Range/Units 12:00 04:20 20:47 WBC 2.72 L (4.8-10.8) K/ul RBC 2.95 L (4.20-5.40) M/uL Hgb 8.5 L (12.0-16.0) g/dl Hct 25.3 L (37.0-47.0) % MCV 85.8 (80.0-100.0) fL MCH 28.8 (25.0-34.0) pg MCHC 33.6 (32.0-36.0) g/dL RDW Std Deviation 36.2 L (36.4-46.3) fL RDW Coeff of Real 11.8 (11.5-14.5) % Plt Count 204 (130-400) K/uL MPV 9.2 L (9.4-12.4) fL Immature Gran % (Auto) % Neut % (Auto) % Lymph % (Auto) % Prowers % (Auto) % Eos % (Auto) % Baso % (Auto) % Neut # (Auto) (1.40-6.50) K/uL Lymph # (Auto) (1.20-3.40) K/uL Prowers # (Auto) (0.11-0.59) K/uL Eos # (Auto) (0.00-0.50) K/uL Baso # (Auto) (0.00-0.20) K/uL Immature Gran # (Auto) (0.01-0.20) K/uL Sodium 139 (136-145) mmol/L Potassium 4.1 D (3.5-5.1) mmol/L Chloride 109 H (98-107) mmol/L Carbon Dioxide 25 (21-32) mmol/L Anion Gap 5 (3-11) BUN 8 (6-23) mg/dl Creatinine 0.78 (0.6-1.2) mg/dl Est Cr Clr Drug Dosing 91.5 ml/min eGFR 99.64 BUN/Creatinine Ratio 10.3 (10-20) Glucose 138 H (70-99(Fasting)) mg/dl Calcium 7.6 L (8.6-10.3) mg/dl Magnesium 1.9 (1.7-2.4) mg/dl Total Bilirubin (0.2-1.0) mg/dl AST (13-39) U/L ALT (7-52) U/L Alkaline Phosphatase (34-104) U/L Total Protein (6.0-8.3) gm/dl Albumin (3.4-5.0) gm/dl Globulin (2.5-4.0) gm/dl Albumin/Globulin Ratio (0.9-2) Urine Color Yellow Urine Appearance Clear (Clear) Urine pH 6.5 (4.5-7.5) Ur Specific Rolette 1.008 (1.000-1.030) Urine Protein Negative (Negative) Urine Glucose (UA) Negative (Negative) Urine Ketones Negative (Negative) Urine Blood Negative (Negative) Urine Nitrite Negative (Negative) Urine Bilirubin Negative (Negative) Urine Urobilinogen Negative (Negative) Ur Leukocyte Esterase 1+ H (Negative) Urine WBC (Auto) 6-10 H (0-5) /hpf Urine RBC (Auto) 0-2 (0-2) /hpf U Hyaline Cast (Auto) 0-2 (0-2) /lpf U Epithel Cells (Auto) 0-2 (0-2) /hpf Urine Bacteria (Auto) None Seen (None Seen) Urine Opiates Screen Pos H (Neg) U Codeine Confrm GC/MS Pending Ur Morphine (GC/MS) Pending Ur Hydrocodone (GC/MS) Pending Ur Norhydrocodone Pending Ur Noroxycodone Pending Urine Oxycodone (GC/MS) Pending U Oxymorphone GC/MS Pending Ur Methadone, Qual Neg (Neg) Ur Hydromorphone (GC/MS) Pending Fentanyl Comments Pending Drug Monitor Fentanyl Pending Fentanyl Confirmation Pending Drug Monitor Norfentanyl Pending Urine Fentanyl Screen Pos H (Neg) Ur Norfentanyl Confirm Pending Urine Barbiturates Neg (Neg) Ur Phencyclidine (PCP) Neg (Neg) U Amphetamin/Meth Scrn Neg (Neg) MDMA (Ecstasy) Screen Neg (Neg) U OH-Alprazolam Confrm Pending U Benzodiazepines Scrn Pos H (Neg) 7-Amino Clonazepam Pending Ur Nordiazepam Confirm Pending U OH-ethylflurazepam Pending U Lorazepam Cnf GC/MS Pending U Oxazepam Confm GC/MS Pending Ur Temazepam Confirm Pending U OH-Triazolam Confirm Pending U OH-Midazolam Confirm Pending Ur Cocaine Metabolite Neg (Neg) U Marijuana (THC) Screen Pos H (Neg) U Marijuana THC Carboxy Pending Drug Screen Comment Pending Toxicology Comment Pending Drug Monitor Historic Res Pending 12/28/24 Range/Units 19:43 WBC 3.33 L (4.8-10.8) K/ul RBC 2.82 L (4.20-5.40) M/uL Hgb 8.3 L (12.0-16.0) g/dl Hct 24.5 L (37.0-47.0) % MCV 86.9 (80.0-100.0) fL MCH 29.4 (25.0-34.0) pg MCHC 33.9 (32.0-36.0) g/dL RDW Std Deviation 37.3 (36.4-46.3) fL RDW Coeff of Real 11.7 (11.5-14.5) % Plt Count 220 (130-400) K/uL MPV 9.2 L (9.4-12.4) fL Immature Gran % (Auto) 0.9 % Neut % (Auto) 82.0 % Lymph % (Auto) 10.2 % Prowers % (Auto) 3.3 % Eos % (Auto) 3.3 % Baso % (Auto) 0.3 % Neut # (Auto) 2.73 (1.40-6.50) K/uL Lymph # (Auto) 0.34 L (1.20-3.40) K/uL Prowers # (Auto) 0.11 (0.11-0.59) K/uL Eos # (Auto) 0.11 (0.00-0.50) K/uL Baso # (Auto) 0.01 (0.00-0.20) K/uL Immature Gran # (Auto) 0.03 (0.01-0.20) K/uL Sodium 140 (136-145) mmol/L Potassium 3.0 L (3.5-5.1) mmol/L Chloride 108 H (98-107) mmol/L Carbon Dioxide 26 (21-32) mmol/L Anion Gap 6 (3-11) BUN 8 (6-23) mg/dl Creatinine 0.91 (0.6-1.2) mg/dl Est Cr Clr Drug Dosing 78.5 ml/min eGFR 82.81 BUN/Creatinine Ratio 8.8 L (10-20) Glucose 89 (70-99(Fasting)) mg/dl Calcium 7.4 L (8.6-10.3) mg/dl Magnesium (1.7-2.4) mg/dl Total Bilirubin 0.2 (0.2-1.0) mg/dl AST 13 (13-39) U/L ALT 6 L (7-52) U/L Alkaline Phosphatase 66 (34-104) U/L Total Protein 6.3 (6.0-8.3) gm/dl Albumin 3.5 (3.4-5.0) gm/dl Globulin 2.8 (2.5-4.0) gm/dl Albumin/Globulin Ratio 1.3 (0.9-2) Urine Color Urine Appearance (Clear) Urine pH (4.5-7.5) Ur Specific Rolette (1.000-1.030) Urine Protein (Negative) Urine Glucose (UA) (Negative) Urine Ketones (Negative) Urine Blood (Negative) Urine Nitrite (Negative) Urine Bilirubin (Negative) Urine Urobilinogen (Negative) Ur Leukocyte Esterase (Negative) Urine WBC (Auto) (0-5) /hpf Urine RBC (Auto) (0-2) /hpf U Hyaline Cast (Auto) (0-2) /lpf U Epithel Cells (Auto) (0-2) /hpf Urine Bacteria (Auto) (None Seen) Urine Opiates Screen (Neg) U Codeine Confrm GC/MS Ur Morphine (GC/MS) Ur Hydrocodone (GC/MS) Ur Norhydrocodone Ur Noroxycodone Urine Oxycodone (GC/MS) U Oxymorphone GC/MS Ur Methadone, Qual (Neg) Ur Hydromorphone (GC/MS) Fentanyl Comments Drug Monitor Fentanyl Fentanyl Confirmation Drug Monitor Norfentanyl Urine Fentanyl Screen (Neg) Ur Norfentanyl Confirm Urine Barbiturates (Neg) Ur Phencyclidine (PCP) (Neg) U Amphetamin/Meth Scrn (Neg) MDMA (Ecstasy) Screen (Neg) U OH-Alprazolam Confrm U Benzodiazepines Scrn (Neg) 7-Amino Clonazepam Ur Nordiazepam Confirm U OH-ethylflurazepam U Lorazepam Cnf GC/MS U Oxazepam Confm GC/MS Ur Temazepam Confirm U OH-Triazolam Confirm U OH-Midazolam Confirm Ur Cocaine Metabolite (Neg) U Marijuana (THC) Screen (Neg) U Marijuana THC Carboxy Drug Screen Comment Toxicology Comment Drug Monitor Historic Res PG Care Time/CCT Total # of Minutes Spent Total Time Spent with Patient: Total time spent is greater than 50% in coordination of care (as documented) at patient's floor/unit and/or counseling patient: I spent 125 minutes overall addressing this case: 25 min in medical data review/discussion with referring provider(s) and/or preparation for the visit incl peer to peer d/w OSH providers 15 min in direct interaction with the patient/exam 45 min in Advance Care Planning/Goals of Care discussions as detailed above in note (must be >16min) 15 min in subsequent review and synthesis of assessment and plan 25 min communicating with other providers regarding the patient's case: primary team, nursing, [facility] Advanced Care Planning 34822 Advanced Care Planning 30 Min 48829 Advanced Care Planning Additional 30 [place] [address] IN/OBS CONSULT LVL 5,80M (25 - SIGNIFICANT, SEPARATELY IDENTIFIABLE ) Patient Type New Medical Decision Making High Complexity Diagnoses Cancer associated pain G89.3 Anxiety disorder due to medical condition F06.4 Advanced care planning/counseling discussion Z71.89 Palliative care by specialist Z51.5 Heroin abuse F11.10 Methamphetamine abuse in remission F15.11 Hx of drug abuse F19.11 Additional Codes Advanced Care Planning - 65540 Advanced Care Planning 30 Min: 46235 Advanced Care Planning 30 Min ([id number]) Advanced Care Planning - 08245 Advanced Care Planning Additional 30 Min: 23101 Advanced Care Planning Additional 30 Min ([id number]) Time Spent (min) 125 Comment high MDM + 45ming ACP
[2024-12-29] MEDS: METHADONE HCL 5 MG TAB PO PRN (14:34)
--- NOTE | 2024-12-29 14:49 | Electrocardiogram Report ---
Test Reason : Blood Pressure : */* mmHG Vent. Rate : 132 BPM Atrial Rate : 132 BPM P-R Int : 134 ms QRS Dur : 98 ms QT Int : 310 ms P-R-T Axes : 63 51 -71 degrees QTcB Int : 459 ms Sinus tachycardia Diffuse Nonspecific T wave abnormality Abnormal ECG No previous ECGs available Confirmed by Miguel Flannery ([id number]) on 12/29/2024 2:49:05 PM Referred By: REFERRED SELF Confirmed By: Miguel Flannery
--- NOTE | 2024-12-29 16:17 | Radiation OncologyConsultation ---
Date of Consultation December 29, 2024 Assessment & Plan (1) Breast cancer metastasized to bone: Laterality: right Qualified Code(s): C50.911 - Malignant neoplasm of unspecified site of right female breast; C79.51 - Secondary malignant neoplasm of bone Plan ATTENDING ADDENDUM Assessment: Ms. Carr is a 39-year-old female with a history of drug abuse and addiction who was recently diagnosed with metastatic breast cancer. The patient is currently on verenzio and endocrine therapy underneath the supervision of Dr. Contreras Munoz in the outpatient setting. The patient was previously treated with palliative radiation therapy to the left shoulder, thoracic spine (T9), and pelvis (2000 cGy, 5 fractions, 12/23/2024). The patient has been admitted to the hospital for further workup and evaluation regarding her pain management. The patient is being followed by palliative care medicine who is optimizing pain management for the patient. We have been asked to evaluate the patient regarding any further role for radiation therapy. Discussion/Recommendation: Based on the presentation of the patient's symptoms, it appears that the area where she is complaining of pain regarding her mid thoracic back most likely relates to her previous course of radiation therapy to the thoracic spine. At this point, I do not believe there is a role for further radiation therapy. Given the the fact that the patient is continuing to complain of pain, I am recommending consideration of repeating imaging studies involving the thoracic and lumbar spine. Plan: 1. No role for radiation therapy currently. 2. Recommend repeat imaging of thoracic/lumbar spine (MRI or CT scans or Bone scan would be appropriate if felt reasonable). We can review results to confirm no further role for radiation therapy. 3. Pain management as per primary team and palliative medicine. 4. Continue to follow with medical oncology the outpatient setting. 5. Patient and family encouraged to call us with any further questions or concerns. History of Present Illness Reason for Consultation: Intractable back pain from metastatic breast cancer Requesting Physician: Cristofer Edmond MD Attending Physician: Cristofer Edmond MD History of Present Illness 05/12/2019. 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 02/05/2022. Surgical consultation (Dr. Scruggs). Positive family history of breast cancer. Mother with history of breast cancer x 3. Patient has LEONEL and CHEK2 mutations. Patient will start breast cancer screening now with mammography. Consider chemo preventative once completed with childbearing. 02/22/2022. Bilateral screening mammogram. No mammographic evidence of malignancy. BI-RADS Category 1. 04/01/2023. Surgical follow-up. Continue screening mammography. Supplemental breast MRI will be ordered. Continue yearly follow-up. 04/11/2023. Bilateral screening mammogram. No mammographic evidence of malignancy. BI-RADS Category 1. 12/08/2023. Genetic counseling follow-up. No additional orders at this visit. 11/04/2024. Surgical follow-up. Patient has discomfort of the right upper outer breast. She noticed a lump. She was a unable to do the MRI due to severe phobia of needles. MRI ordered. Stat bilateral mammogram and right breast ultrasound as well as axillary ultrasound were ordered. 11/05/2024. Bilateral diagnostic mammogram and right breast ultrasound. Impression Suspicious index mass right breast 10 o'clock with multiple adjacent possible satellite nodules andan additional posterior depth 10/11 o'clock 4 x 5 mm nodule. Findings are worrisome for multifocal disease. MRI suggested to further evaluate and help exclude multicentric disease if biopsy resultsare positive. 11/05/2024. Ultrasound- guided core needle biopsy of the right breast 10:00. Upper outer quadrant. Pathology report reveals: A. 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 Lymph Node, Right Axillary, Right AXILLA US guided core biopsy, core biopsy: High grade carcinoma. Estrogen Receptor (ER) protein expression is STRONGLY POSITIVE 100% nuclear positivity 3+ average intensity score (range 0 to 3+) Progesterone Receptor (MO) protein expression is STRONGLY POSITIVE 70% nuclear positivity 2+ average intensity score (range 0 to 3+) HER2 oncoprotein expression is NEGATIVE ( 0 average membranous intensity) 11/09/2024. Bilateral breast MRI. Biopsy-proven right breast invasive carcinoma compensating the majority of the right upper outer quadrant. This mass extends into the right upper inner quadrant, constituting multi centric disease. Biopsy-proven carcinoma within right axillary lymph node. Additional right axillary lymphadenopathy noted, suspicious for additional sites of malignancy. BI-RADS Category: 6 - Known Biopsy-Proven Malignancy. Recommendation Resume annual screening mammography is recommended for the left breast. Screening breast MRI in 1 year is recommended for the left breast. Biopsy-proven right breast carcinoma with biopsy-proven carcinoma within a right axillary lymph node. Appropriate action is recommended. The patient is under the care of the [facility] breast surgical team with follow-up appointment scheduled for November 12, 2024. 11/12/2024. Surgical consultation (Dr. Mulugeta To). Stage IIIa locally advanced carcinoma of the right breast. Options of treatment were discussed. MRI demonstrated an 8 x 6 x 4 cm mass in the upper outer quadrant. Multiple enlarged lymph nodes on the MRI. Multiple options of treatment were discussed. Patient will meet with medical oncology to discuss possible neoadjuvant treatment. 11/23/2024. Medical oncology consultation (Dr. Lamar Munoz). Neoadjuvant chemotherapy was discussed. Hormonal therapy was discussed. She will undergo a PET/CT. She will return afterward for review. 11/30/2024. PET/CT. 1. FDG avid right breast mass consistent with the history of breast carcinoma. 2. FDG avid right axillary lymph nodes consistent with neoplasm. 3. Diffuse FDG avid osteolytic disease consistent with neoplasm. 12/01/2024. Medical oncology follow-up. Review of PET/CT. Planning to start letrozole. Plan to start abemaciclib 100 mg twice daily. Plan to start Lupron every 4 weeks. She will then be on Zometa every 4 weeks after dental clearance. Was seen at the palliative clinic and started on hydromorphone, Decadron and Xanax. She is on buprenorphine. 12/01/2024. Medical oncology consultation (Dr. Adriel Munoz). Patient will start treatment with letrozole 2.5 mg daily. Zoladex for ovarian suppression.Abemacilcib. Xgeva will be given after dental clearance. 12/03/2024. Palliative care consultation (Dr. Kong). She has a lot of pain in her back, shoulder and hip. Will consider radiation oncology referral. She is on Dilaudid. She is on Xanax for anxiety. She has a history of drug abuse. She will have to sign a record release. 12/13/2024. Patient presents to the emergency room at the request of the medical oncologist. Laboratory studies today revealed an elevated calcium level. She had been scheduled to be seen in our office this week due to shoulder, back and hip pain. She did see Dr. Kong on 12/03/2024. She was prescribed Dilaudid. She does state that this medication is helpful. She unfortunately has been very nauseated. And has been vomiting. She has been unable to keep medication down. The shoulder and back pain began approximately 2 months before the diagnosis. Pain is in the left shoulder. The pain of her back is in the mid back. The pain of the hip is on the left. Currently while lying in the bed her pain is controlled. She is particularly complaining of a headache. She has associated nausea and vomiting. 12/13/2024. Radiation oncology consultation (Dr. Adriel Munoz). Patient seen as an inpatient. She was evaluated. Studies were reviewed. Decision was made to treat the left shoulder, T-spine and pelvis. 12/17/2024-12/23/2024. 5 fractions of palliative radiation therapy. She received 2000 cGy. 12/27/2024. Palliative care) Dr. Kong). Fentanyl patch increased to 100 mcg/hr. Gabapentin increased to 300 mg am and 10 600 mg hs 12/28/2024. Hospital admission due to severe pain. Given a pain level of 8 out of 10. She was started on Dilaudid IV. There was consultation to palliative care. Consultation to pain management. 12/29/2024. Pain management consultation (Anton Mitchell PA-C). 1. Patient with diffuse intractable back pain associated with metastatic disease from her known diagnosis of breast cancer. Pain service has nothing interventional to offer the patient at this time. 2. We spent a great deal of time discussing pain management options with patient regarding medical management. She does wish to further discuss methadone therapy which had previously been discussed by her outpatient palliative care team. Will request palliative consult during this admission to further discuss methadone therapy. 3. Will progress gabapentin to 600 mg 3 times daily 4. Will add duloxetine 30 mg daily. Consider titration pending tolerability. 5. Will initiate prednisone 40 mg x 5 days then 20 mg x 5 days 6. Consider further evaluation by radiation oncology upon this admission 7. Patient may continue with IV hydromorphone for as needed breakthrough pain. Potentially consider LEGAL SUPPORT MANAGER Dilaudid with persisting difficulties with pain control-will defer further medical management recommendations to palliative. 12/29/2024. Palliative care consultation (Dr. Fischer). Very severe cancer pain with hx extensive IVDA (heroin) and methamphetamine abuse (pt reports sober x approx 1 yr) No relief with TDF 100cmg and Dilaudid 64mg PO daily for BTP No resp suppression or somnolence. Consultation to radiation oncology. 12/29/2024. Radiation oncology consultation (Dr. Adriel Munoz). Patient continues have complaint of pain in her mid back. She states this radiates around to the anterior chest. She has been started on methadone. She does not note improvement in pain currently. She is not exhibiting any weakness in the lower extremities. She is able to stand and sit without difficulty. Our office was consulted to evaluate for possible further radiation therapy. She had no complaints of pain in the shoulder or pelvis. Allergies Allergy/AdvReac Type Severity Reaction Status Date / Time buprenorphine [From Suboxone] AdvReac Intermediate Agitated Verified 12/29/24 14:08 naloxone [From Suboxone] AdvReac Intermediate Agitated Verified 12/29/24 14:08 Home Medications Medication Instructions Recorded Confirmed Type abemaciclib 150 mg tablet 150 mg PO AMHS 12/13/24 12/23/24 History (Verzenio) alprazolam 0.25 mg tablet 0.25 mg PO TID PRN Anxiety 12/13/24 12/23/24 History bupropion HCl 300 mg 24 hr tablet, 300 mg PO DAILY 12/13/24 12/23/24 History extended release letrozole 2.5 mg tablet 2.5 mg PO DAILY 12/13/24 12/23/24 History amoxicillin 500 mg-potassium 1 tab PO BID sinusitis #5 tabs 12/18/24 12/23/24 Rx clavulanate 125 mg tablet (Augmentin) promethazine 12.5 mg tablet 12.5 mg PO Q6H PRN nausea #14 tabs 12/18/24 12/23/24 Rx fentanyl 25 mcg/hr transdermal 1 patch transdermal Q72H 12/21/24 12/23/24 History patch gabapentin 300 mg capsule 300 mg PO TID PRN 12/21/24 12/23/24 History hydromorphone 4 mg tablet 4 mg PO Q3H PRN 12/21/24 12/23/24 History (Dilaudid) leuprolide [Lupron Depot] IM 12/21/24 12/23/24 History Patient History Medical History (Updated 12/29/24 @ 17:55 by Flako Peralta DO) Methamphetamine abuse Heroin abuse Nephrocalcinosis MELISSA (acute kidney injury) ADHD Surgical History Hx of breast biopsy Family History Mother Breast cancer Father Prostate cancer Aunt Breast cancer Colorectal cancer Grandmother Stroke Uncle Prostate cancer Denies family history of Ovarian cancer Myocardial infarction Pulmonary embolism Social History Smoking Status: Never smoker Tobacco Type: E-cigarettes / Vaping Age Started Using Tobacco: 19; Age Quit Using Tobacco: 38; packs per day: 0.25; Cigarettes Per Day: used to smoke tobacco cigarettes, was vaping until the last few days; Second Hand Exposure: No; Do You Dip or Chew Tobacco: No; Hx Alcohol Use: No Hx Substance Use: No Preferred Language: Djib[place]ian Communication Ability: Effective Visual Impairment: No Limitations Hearing Ability: Normal Federal Judge Required: No Beliefs That Will Affect Care: None marital status: Single Current Living Situation: Family and Significant Other Current Living Situation Comment: lives at home with boyfriend and 2 children (daughters Calixto and Grace) current occupational status: unemployed How many Children do You have: 2 Feels Safe at Home: Yes Safety Concerns: Feels Safe At This Time Diet: regular Diet Comment: regular caffeine: Yes during the past year weight has: remained stable Dental Care, Regularly: Yes Physical Activity Frequency: Other Seatbelt Use: always Sunscreen Use: Yes Do you think of yourself as: straight/heterosexual Assistive Devices: None Review of Systems Review of Systems: 13 point review of systems negative othe r than what is mentioned in history of present illness. Physical Exam Constitutional: WD/WN, vitals as above Eyes: PERRL, conjunctivae normal, anicteric sclerae ENMT: Ears: no hearing impairment Neck: trachea midline, no thyromegaly Respiratory: normal respiratory effort, lungs clear to auscultation Cardiovascular: RRR, no murmur, no edema Gastrointestinal (Abdomen): normal bowel sounds, soft, nontender, no hepatosplenomegaly Musculoskeletal: Mild tenderness in the central thoracic spine. Paraspinous musculature and spinal processes. No tenderness in the cervical spine region. Does not express pain in the lumbar spine region. Skin: no rashes, warm and dry Neurologic: Good strength and coordination of upper and lower extremities. Psychiatric: A+Ox3, euthymic affect Lymphatic: no cervical or axillary lymphadenopathy Time Spent Midlevel I spent [15] minutes in preparation for this follow up evaluation including reviewing all the clinical records, reviewing laboratory studies, pathology reports and imaging results. I spent [20] minutes with direct face to face interaction with the patient and/or family including performing a physical exam and answering all questions. I spent [15] minutes documenting this patient's visit. PG Care Time/CCT Total # of Minutes Spent Total Time Spent with Patient: Total time spent is greater than 50% in coordination of care (as documented) at patient's floor/unit and/or counseling patient: Coding Diagnoses Carcinoma of right breast metastatic to bone C50.911; C79.51 Laterality: right
[2024-12-29] MEDS: ALPRAZolam 0.25 MG TABLET PO PRN (17:31)
[2024-12-29] MEDS: SENNA 8.6 MG TAB PO SCH (20:46)
[2024-12-29] MEDS: MELATONIN 3 MG TAB PO PRN (21:24)
[2024-12-30 06:03] LABS: Hematocrit (blood only) 23.3 % (37.0-47.0); Hemoglobin 7.7 g/dl (12.0-16.0); Mean Corpuscular Hemoglobin 28.6 pg (25.0-34.0); Mean Corpuscular Volume 86.6 fL (80.0-100.0); Mean Platelet Volume 9.2 fL (9.4-12.4); Platelet Count 175 K/uL (130-400); RDW Coefficient of Variation 12.1 % (11.5-14.5); RDW Standard Deviation 37.2 fL (36.4-46.3); Red Blood Count 2.69 M/uL (4.20-5.40); White Blood Count 2.96 K/ul (4.8-10.8)
[2024-12-30 06:04] LABS: BUN Creatinine Ratio 10.5 (10-20); Calcium 7.6 mg/dl (8.6-10.3); Phosphorus 2.2 mg/dl (2.5-4.9); Potassium 3.9 mmol/L (3.5-5.1)
[2024-12-30 06:19] LABS: Thyroid Stimulating Hormone 0.643 uIu/ml (0.300-4.500)
--- NOTE | 2024-12-30 07:04 | Hospitalist Progress Note ---
Date of Service December 30, 2024 Assessment & Plan (1) Malignant neoplasm of right breast, stage 4: (2) Breast cancer metastasized to bone: (3) Cancer associated pain: (4) Normocytic anemia: (5) Anxiety disorder due to medical condition: (6) Tachycardia: (7) Hx of drug abuse: (8) Hypercalcemia of malignancy: Plan Velma is a 39-year-old with severe bone pain 2/2 Stage IV metastatic breast cancer and h/o IVDA who presented on 12/28 with severe back pain she rates as 12/ 0. She follows with [facility] for pain management and Dr. Contreras Munoz for oncology. Her chronic pain is never better than a 4, but acutely worsened today due to increased activity. She reports only feeling benefit with IV Dilaudid; she has also tried fentanyl patches, gabapentin, and po dilaudid. In the ED she was given 2mg IV Dilaudid, after which her pain improved to a 6/10. She is being admitted for management of chronic cancer-related pain. Stage IV breast cancer, mets to bone - 11/30 PET scan showed FDG avid right breast mass, right axillary lymph nodes, and diffuse osteolytic disease - Continue pain regimen: 1mg IV Dilaudid q2, methadone as ordered - Per palliative note: total daily max methadone is 30mg, anticipate she will need around 60-80mg daily for optimal relief - Gabapentin 300mg TID- pain mgmt note says 600mg TID, but since then pt has requested home 300mg TID dosing - Duloxetine 30mg PO daily - oncology consulted, appreciate recs. Follow up with Dr. Contreras Munoz, letrozole 2.5mg PO daily, may continue Verzenia outpatient - rad onc consulted: considering imaging of thoracic/lumbar spine vs bone scan, can be done outpatient - heat pad ordered for back for additional pain management Normocytic Anemia - Hgb 8.5 -> 7.7, down from prior baseline of 10-11, no SOB/dizziness/lightheadedness - new over the past couple of weeks, has been receiving chemotherapy and recent radiation - oncology consulted - fecal occult blood ordered - plan to transfuse for Hgb <7, transfusion consent form signed Anxiety disorder due to medical condition - Continue Xanax 0.25mg TID prn - Encouraged to resume telepsych with [place] - Provided info for [facility] - Encouraged she connect with her cancer navigator at [facility] oncology Chart shows anaphylactic reaction to narcan; not ordered at this time but consider in case of severe respiratory depression Tachycardia - generally resolved - continue to monitor on tele and for additional symptoms of SOB, palpitation, chest pain - continue above pain and anxiety regimen H/o hypercalcemia of malignancy - Ca level was > 18 on 12/13 admission - Currently asymptomatic, calcium level 7.6, stable - Continue to monitor Diet: regular Dispo: admit to PCU tele Code: full Admission and Anticipated Discharge Date Admission Date: December 28, 2024 Supervising Physician Co-Signing Physician Notes Attending attestation Pt seen and examined in concert with Dr. Peralta. In agreement with the documented findings as noted in the resident documentation with any exceptions or additions as noted here. Patient appears anxious at bedside when discussion timeframe re: illness and Friday commitment for her child's birthday democrat. Pain appears well controlled when not anxious. On examination, S1/S2 nl RRR no MCG. CTAB. Abd NT/ND BS+ve. VS as noted Hgb 7.7, Ca 7.6 Metastatic stage IV breast cancer with pain - oncology, pain mgmt, palliative consult - continue duloxetine, gabapentin. Will continue with methadone for chronic pain control w/ care coordination w/ palliative inpt and outpt service Normocytic anemia in the setting of chemotherapy - hematology consult - will continue to hold abemacilib for consideration of outpatient oncology team. Repeat CBC in AM, guaic stools. Else see resident documentation as noted. [place] Carreon was seen and evaluated at bedside this AM, appearing in no acute distress. States her pain has been well managed overnight, currently about a 5-6/10. Mainly gets generalized back pain when she is upright or going from lying down to sitting and from sitting to standing. States she was able to eat breakfast without issue, urinated but no BM, though BMs have recently been loose. Partner will be visiting today to drop off her cancer meds. Patient would like additional pain meds for uptitrating period on methadone, educated pt that the more opioids we give her IV, the higher tolerance for her PO outpatient pain regimen she will have Review of Systems Review of Systems: denies fever, chills, sweats, headache, lightheadedness, dizziness, numbness/tingling of extremities Physical Exam Physical Exam: Gen: A&Ox3, appearing tired and in mild distress HEENT: NC/AT, MMM, EOM intact, anicteric sclerae, PERRL b/l CV: RRR, no m/r/g, +s1/s2 Resp: clear to auscultation b/l, breathing non-labored Abd: +BS, abdomen soft, NT/ND MSK: No gross deformities on inspection, moves all extremities Skin: Warm, dry, good perfusion, no rashes, +bruising on lower abd injection sites Neuro: no facial droop, speech intact, CN II-XII grossly intact, no sensation deficits Psych: Affect-mood congruence, pace and content of speech normal. Good insight into her condition Results & Data Results & Data Vital Signs (Past 12 Hours) Vital Signs Temp Pulse Pulse Resp BP BP Pulse Ox 12/30/24 06:45 36.7 C 82 16 85/45 L 97 12/30/24 03:12 94 H 16 96/57 L 96 12/29/24 22:50 36.7 C 75 17 93/51 L 96 12/29/24 22:48 76 12/29/24 19:42 37.0 C 98 H 21 99/57 L 96 O2 Del Method 12/30/24 06:45 Room Air 12/30/24 03:12 Room Air 12/29/24 22:50 Room Air 12/29/24 22:48 12/29/24 19:42 Room Air Resident Activity Tracking Resident Involvement: Resident Care Provided Care Provided: Adult Hospital Medicine (2) Breast cancer metastasized to bone Laterality: right Qualified Code(s): C50.911 - Malignant neoplasm of unspecified site of right female breast; C79.51 - Secondary malignant neoplasm of bone
--- NOTE | 2024-12-30 09:09 | Oncology Consultation ---
Date of Consultation December 30, 2024 Assessment & Plan (1) Breast cancer metastasized to bone: management per our colleagues from [facility], Dr. Contreras Munoz. The patient is currently on abemaciclib and letrozole. Letrozole can be continued while the patient is admitted. She can resume abemaciclib on an outpatient basis. At some point if she progresses then she should have a discussion about institution of palliative systemic chemotherapy with her primary treating medical oncologist Dr. Contreras Munoz. I do not see a role for palliative systemic chemotherapy in the near future . The patient may benefit from palliative radiation, our radiation colleagues are already on board, appreciate their recommendation. She did notice an improvement in her cancer related pain with the prior use of palliative radiation (2) Cancer associated pain: . Continue current pain management per our palliative care colleagues. Radiation oncology is already on board for palliative radiation. If the symptoms of cancer related pain progressed while she is on abemaciclib plus letrozole then she may benefit from palliative systemic chemotherapy however I will leave that decision to her primary treating oncologist but it is Dr. Contreras Munoz. Plan Thank you for this interesting oncological consult. A total of 60 minutes spent in counseling, coronation care, review of prior records. Medical oncology will continue to follow the patient make appropriate recommendations. History of Present Illness Reason for Consultation: Metastatic breast cancer cancer related pain Attending Physician: Cristofer Edmond MD History of Present Illness Velma is a very pleasant 39-year-old woman, patient of Dr. Contreras Munoz in [facility] who was recently diagnosed with metastatic breast cancer, was started on treatment with abemaciclib and letrozole. She is admitted to [facility] with severe cancer related pain present predominantly in the spine. She is previously received palliative radiation therapy to left shoulder, thoracic spine and pelvis, now she is admitted to the hospital again with severe cancer related pain in the spine. Of note she has a history of drug abuse so she has a very high tolerance to pain medications. Our radiation oncology colleagues are already on board. As noted above she follows Dr. Contreras Munoz in [facility]. Allergies Allergy/AdvReac Type Severity Reaction Status Date / Time buprenorphine [From Suboxone] AdvReac Intermediate Agitated Verified 12/29/24 14:08 naloxone [From Suboxone] AdvReac Intermediate Agitated Verified 12/29/24 14:08 Home Medications Medication Instructions Recorded Confirmed Type abemaciclib 150 mg tablet 150 mg PO AMHS 12/13/24 12/23/24 History (Verzenio) alprazolam 0.25 mg tablet 0.25 mg PO TID PRN Anxiety 12/13/24 12/23/24 History bupropion HCl 300 mg 24 hr tablet, 300 mg PO DAILY 12/13/24 12/23/24 History extended release letrozole 2.5 mg tablet 2.5 mg PO DAILY 12/13/24 12/23/24 History amoxicillin 500 mg-potassium 1 tab PO BID sinusitis #5 tabs 12/18/24 12/23/24 Rx clavulanate 125 mg tablet (Augmentin) promethazine 12.5 mg tablet 12.5 mg PO Q6H PRN nausea #14 tabs 12/18/24 12/23/24 Rx fentanyl 25 mcg/hr transdermal 1 patch transdermal Q72H 12/21/24 12/23/24 History patch gabapentin 300 mg capsule 300 mg PO TID PRN 12/21/24 12/23/24 History hydromorphone 4 mg tablet 4 mg PO Q3H PRN 12/21/24 12/23/24 History (Dilaudid) leuprolide [Lupron Depot] IM 12/21/24 12/23/24 History Patient History Medical History (Updated 12/29/24 @ 17:55 by Flako Peralta DO) Methamphetamine abuse Heroin abuse Nephrocalcinosis MELISSA (acute kidney injury) ADHD Surgical History Hx of breast biopsy Family History Mother Breast cancer Father Prostate cancer Aunt Breast cancer Colorectal cancer Grandmother Stroke Uncle Prostate cancer Denies family history of Ovarian cancer Myocardial infarction Pulmonary embolism Social History Smoking Status: Never smoker Tobacco Type: E-cigarettes / Vaping Age Started Using Tobacco: 19; Age Quit Using Tobacco: 38; packs per day: 0.25; Cigarettes Per Day: used to smoke tobacco cigarettes, was vaping until the last few days; Second Hand Exposure: No; Do You Dip or Chew Tobacco: No; Hx Alcohol Use: No Hx Substance Use: No Preferred Language: Urdu Communication Ability: Effective Visual Impairment: No Limitations Hearing Ability: Normal Aerial Sprayer Required: No Beliefs That Will Affect Care: None marital status: Single Current Living Situation: Family and Significant Other Current Living Situation Comment: lives at home with boyfriend and 2 children (daughters Calixto and Grace) current occupational status: unemployed How many Children do You have: 2 Feels Safe at Home: Yes Safety Concerns: Feels Safe At This Time Diet: regular Diet Comment: regular caffeine: Yes during the past year weight has: remained stable Dental Care, Regularly: Yes Physical Activity Frequency: Other Seatbelt Use: always Sunscreen Use: Yes Do you think of yourself as: straight/heterosexual Assistive Devices: None Review of Systems Review of Systems: All systems reviewed & are unremarkable except as noted in HPI & below Severe cancer related pain, fatigue, weight loss Constitutional: as per Subjective / HPI Eyes: as per Subjective / HPI Ear, Nose, Mouth, Throat: as per Subjective / HPI Respiratory: as per Subjective / HPI Cardiovascular: as per Subjective / HPI Gastrointestinal: as per Subjective / HPI Genitourinary: as per Subjective / HPI Musculoskeletal: as per Subjective / HPI Integumentary: as per Subjective / HPI Neurologic: as per Subjective / HPI Psychiatric: as per Subjective / HPI Endocrine: as per Subjective / HPI Hematologic / Lymphatic: as per Subjective / HPI Allergy / Immunological: as per Subjective / HPI Physical Exam Constitutional: WD/WN, vitals as above Eyes: PERRL, conjunctivae normal, anicteric sclerae ENMT: external ear and nose normal, oropharynx normal Neck: trachea midline, no thyromegaly Respiratory: normal respiratory effort, lungs clear to auscultation Cardiovascular: RRR, no murmur, no edema Gastrointestinal (Abdomen): normal bowel sounds, soft, nontender, no hepatosplenomegaly Musculoskeletal: no cyanosis or clubbing, extremities motor strength 5/5 Skin: no rashes, warm and dry Neurologic: patellar DTR's 2+ bilat, sensation intact Psychiatric: A+Ox3, euthymic affect Genitourinary: no vaginal lesions, no adnexal mass Results & Data Vital Signs (Past 12 Hours) Vital Signs Temp Pulse Pulse Resp BP BP Pulse Ox 12/30/24 08:12 80 16 92/54 L 02/06/25 07:52 76 12/30/24 07:33 12/30/24 06:45 36.7 C 82 16 85/45 L 97 12/30/24 03:12 94 H 16 96/57 L 96 12/29/24 22:50 36.7 C 75 17 93/51 L 96 12/29/24 22:48 76 O2 Del Method 12/30/24 08:12 12/30/24 07:52 12/30/24 07:33 Room Air 12/30/24 06:45 Room Air 12/30/24 03:12 Room Air 12/29/24 22:50 Room Air 12/29/24 22:48 (1) Breast cancer metastasized to bone Laterality: right Qualified Code(s): C50.911 - Malignant neoplasm of unspecified site of right female breast; C79.51 - Secondary malignant neoplasm of bone
[2024-12-30] MEDS: LETROZOLE 2.5 MG TAB PO SCH (09:33)
[2024-12-31 06:43] LABS: Hematocrit (blood only) 25.7 % (37.0-47.0); Hemoglobin 8.4 g/dl (12.0-16.0); Mean Corpuscular Hemoglobin 28.6 pg (25.0-34.0); Mean Corpuscular Hgb Conc 32.7 g/dL (32.0-36.0); Mean Corpuscular Volume 87.4 fL (80.0-100.0); Platelet Count 188 K/uL (130-400); RDW Coefficient of Variation 12.3 % (11.5-14.5); RDW Standard Deviation 38.8 fL (36.4-46.3); Red Blood Count 2.94 M/uL (4.20-5.40)
[2024-12-31 07:07] LABS: Calcium 7.8 mg/dl (8.6-10.3); Creatinine Clr Calc Pharmacy 95.2 ml/min; Potassium 3.5 mmol/L (3.5-5.1)
--- NOTE | 2024-12-31 07:07 | Discharge Summary ---
Date of Service December 31, 2024 Admission HPI Per Admitting Provider Velma is a 39-year-old with severe bone pain 2/2 Stage IV metastatic breast cancer. She underwent a PET scan on 11/30 which revealed diffuse osteolytic lesions. She was hospitalized last week with nausea/vomiting and hypercalcemia, and she has previous hospitalizations requiring pain management. She follows with [facility] for pain management and Dr. Contreras Munoz for oncology. She has chronic pain that occasionally radiates to her shoulders or hips, but is always present throughout her back. She reports that any action that moves her trunk is incredibly painful, but the pain became unbearable today, rating it as a 12/10. She notes walking today more than usual, which may have contributed to the acute worsening. She has tried po Dilaudid, Fentanyl patches, and gabapentin for her pain and reports that none of them help; she has only had relief with IV Dilaudid. Her mother adds that she had a 1-week course of steroids that seemed to help. She denies any complaints other than back pain - no pain in other are as, no abnormal sensation, no weakness, no GI or distress. In the ED she was given 2 x 1mg IV Dilaudid. She reports improvement in the pain, rating it as a 6/10. Admission Exam Per Admitting Provider Gen: Appears fail, tired, ill but non-toxic HEENT: NCAT, MMM, trachea midline, normal conjunctiva CV: RRR, no m/r/g, S1/S2 normal Resp: CTAB, breathing non-labored Abd: Soft, NT/ND, +BS MSK: No gross deformities on inspection, ROM restricted 2/2 pain Skin: Warm, dry, pink, no rashes, +brusing on lower abd at injection sites Neuro: AOx3, PERRL, EOMI, no facial asymmetry, SILT, moves extremities spontaneously Psych: Affect somewhat flat, mood-congruent. Speech pace and content normal. Good insight. Principal Diagnosis metastatic breast cancer-related pain Discharge Exam Gen: A&Ox3, appearing tired and in no acute distress HEENT: NC/AT, MMM, EOM intact, anicteric sclerae, PERRL b/l CV: RRR, no m/r/g, +s1/s2 Resp: clear to auscultation b/l, breathing non-labored Abd: +BS, abdomen soft, NT/ND MSK: No gross deformities on inspection, moves all extremities Skin: Warm, dry, good perfusion, no rashes, +bruising on lower abd injection sites Neuro: no facial droop, speech intact, CN II-XII grossly intact, no sensation deficits Psych: Affect-mood congruence, pace and content of speech normal. Good insight into her condition Discharge Data Allergies Allergy/AdvReac Type Severity Reaction Status Date / Time buprenorphine [From Suboxone] AdvReac Intermediate Agitated Verified 12/29/24 14:08 naloxone [From Suboxone] AdvReac Intermediate Agitated Verified 12/29/24 14:08 Consultations 12/28/24 22:33 ED Decision to Admit Stat 12/28/24 23:17 Consult Pain Management Stat 12/29/24 08:34 Consult Palliative Care Routine 12/29/24 11:52 Consult Oncology Routine 12/29/24 15:00 Consult Radiation Oncology Routine Hospital Course (1) Malignant neoplasm of right breast, stage 4: (2) Breast cancer metastasized to bone: (3) Cancer associated pain: (4) Normocytic anemia: (5) Anxiety disorder due to medical condition: (6) Tachycardia: (7) Hx of drug abuse: (8) Hypercalcemia of malignancy: Toyin Carreon is a 39-year-old with severe bone pain 2/2 Stage IV metastatic breast cancer and h/o IVDA who presented on 12/28 with severe back pain she rates as 12/10. She follows with [facility] for pain management and Dr. Contreras Munoz for oncology. Her chronic pain is never better than a 4, but acutely worsened today due to increased activity. She reports only feeling benefit with IV Dilaudid; she has also tried fentanyl patches, gabapentin, and po dilaudid. In the ED she was given 2mg IV Dilaudid, after which her pain improved to a 6/10. She is being admitted for management of chronic cancer-related pain. Stage IV breast cancer, mets to bone - 11/30 PET scan showed FDG avid right breast mass, right axillary lymph nodes, and diffuse osteolytic disease - Dr. Kong, outside palliative physician for pain management plan- methadone 10mg TID, dilaudid 8mg q4h as needed for breakthrough pain - continue prednisone taper: 40mg for 3 more days, then 20mg for 5 days. May be continued by Dr. Kong at 01/03/25 @11:30am appointment depending on symptoms - continue Gabapentin 300mg TID - continue Duloxetine 30mg PO daily - oncology consulted, appreciate recs. Follow up with Dr. Contreras Munoz on Friday01/03/25 11am. Letrozole 2.5mg PO daily, NOT to resume Verzenio until cleared by Dr. Munoz - rad onc consulted: considering imaging of thoracic/lumbar spine vs bone scan, can be done outpatient - heat pad ordered for back for additional pain management Normocytic Anemia - Hgb 8.5 -> 7.7 -> 8.4, appears stable - new over the past couple of weeks, has been receiving chemotherapy and recent radiation - oncology consulted - fecal occult blood ordered - transfuse for Hgb <7, transfusion consent form signed - advised NOT to take Verzenio until cleared by Dr. Munoz, as this chemo drug is known to have negative impact on RBCs Anxiety disorder due to medical condition - Continue Xanax 0.25mg TID prn - Encouraged to resume telepsych with [facility] - Provided info for [facility] Orellana - Encouraged she connect with her cancer navigator at [facility] oncology Chart shows anaphylactic reaction to narcan; not ordered at this time but consider in case of severe respiratory depression Tachycardia - generally resolved - continue to monitor on tele and for additional symptoms of SOB, palpitations, chest pain - continue above pain and anxiety regimen H/o hypercalcemia of malignancy - Ca level was > 18 on 12/13 admission - Currently asymptomatic, calcium level 7.6, stable - Continue to monitor Diet: regular Dispo: admit to PCU tele Code: full Total Time Total Time Spent Total Time Spent (In Minutes): 45 Discharge Plan Discharge Items Patient Disposition: Home - Self-Care Reason For Visit: CHRONIC CANCER PAIN Discharge Diagnosis: acute on chronic cancer-related pain Activity: Per Instructions section Non-emergency contact: Primary Care Provider, Oncologist and Pain Management Call non-emergency contact if: your symptoms worsen and your pain is not controlled Follow-up/Referrals: Ruth Dunlap DO [Primary Care Provider] - 01/06/25 9:20 am (Hospital follow up scheduled January 06 at 9:20) Diet: Regular Addtl Attending Provider Instructions: You were evaluated and managed for acute on chronic cancer-related pain at [facility]. You were given IV hydromorphone (Dilaudid) initially, but with the help of palliative medicine you were put on Methadone to be stabilized on for pain at home. It takes a few days for the methadone to reach therapeutic blood levels, so you have been receiving IV dilaudid during the up-titrating period. You have been seen by both radiation oncology (Dr. Gino Munoz) and hematology/oncology (Dr. Sedrick Solorio), and they have, respectively, recommended outpatient followup on spine/bone imaging to determine need for additional therapeutic radiation and the need for blood transfusion if he moglobin falls below 7, and to be restarted on your verzenio upon discharge. Your pain has been relatively controlled compared to when you came in, and since your hemoglobin levels appear to have stabilized/uptrended, you are medically ready for discharge home. Please follow up closely with your outpatient oncologist Dr. Contreras Munoz, appointment on Friday01/03/25 at 11am at . Followup appointment with Dr. Kong on Friday01/03/25 at 11:30am via telehealth. Please also follow up with your PCP Dr. Dunlap at your soonest convenience. Additionally, continue have a close support system including therapy, family, and friends. You may continue taking the letrozole but hold off on taking your Verzenio as this can cause further decrease in your hemoglobin, which we would like to watch for now. Continue holding Verzenio until cleared to do so by Dr. Munoz. Additionally continue the duloxetine 30mg each morning. For clarity, your pain medications including the following will be prescribed and ordered by your primary palliative care doctor, Dr. Kong: Methadone 10mg (take two 5mg tablets) TID Dilaudid 8mg q4h as needed for breakthrough pain Pending Studies at Discharge: No Stand-Alone Forms: My [facility], Smoking Cessation Medications and DC Order Prescriptions: New duloxetine 30 mg Capsule,Delayed Release(Dr/Ec) 30 mg PO QAM 30 Days Qty: 30 0RF prednisone 20 mg Tablet 40 mg PO DAILY 8 Days Qty: 16 0RF Rx Instructions: TAPER: take 40mg (2 tablets) for 5 days total, so 3 remaining days, and then 20mg (1 tablet) for the following 5 days. Continued leuprolide [Lupron Depot] IM alprazolam 0.25 mg tablet 0.25 mg PO TID PRN (Reason: Anxiety) letrozole 2.5 mg Tablet 2.5 mg PO DAILY Rx Instructions: begin between days 2 and 5 of mentrual cycle bupropion HCl 300 mg tablet extended release 24 hr 300 mg PO DAILY Verzenio 150 mg tablet 150 mg PO AMHS Hold Instructions: Resume on 12/22/24. discuss with your oncologist for when this should be restarted amoxicillin-pot clavulanate [Augmentin] 500-125 mg tablet 1 tab PO BID Qty: 5 0RF Rx Instructions: Take twice daily with food with the last dose being on Friday12/21/24. promethazine 12.5 mg tablet 12.5 mg PO Q6H PRN (Reason: nausea ) Qty: 14 0RF Rx Instructions: 3 doses during day; last dose no later than 4 hr before bedtime gabapentin 300 mg capsule 300 mg PO TID PRN Discontinued methadone 5 mg tablet 5 mg PO Q4H PRN (Reason: pain) 10 Days Qty: 50 0RF Discharge Orders: Discharge Order (Routine); Ordered 12/31/24 Ordered By: Flako Jones/Other Patient Handouts: What Is Palliative Care, Anemia During Cancer, Chemotherapy Anemia, Radiation Therapy Treatment, Anxiety Disorders Tx, Understanding the Pain Response, Pain Medicines for Cancer, Medicine for Pain, Understanding Chronic Pain, Chronic Pain Therapies, Taking Opioid Medicine, Managing Chronic Pain, Life After Cancer: Managing Pain, ED Pain Management: Chronic Admission Data Admit Date/Time: 12/28/24 23:04 Attending Provider: Cristofer Edmond Admit Provider: Lo Lozano Primary Care Provider: Ruth Dunlap Other Providers: Kalie Ruiz; Anton Mitchell; Renata Zapata; Lucius Stevens; Easton Wiseman; Susan Agustin; Lisa Boogie; Fawn iFscher; Sedrick Solorio; Lottie Sharpe; Gino Munoz; Dimitrios Narvaez Other Interventions: Discharge Summary Assessment (RN) Last Done: 12/31/24 14:04 Supervising Physician Co-Signing Physician Notes Attending attestation Pt seen and examined in concert with Dr. Peralta. In agreement with the documented findings as noted in the resident documentation with any exceptions or additions as noted here. Patient appears anxious, though much better controlled today. Reports pain adequately controlled on present medication regimen and optimistic about new regimen. Discussion w/ Dr. Dilan Carrillo as well as primary and [facility] oncology teams with good direction following discharge. On examination, S1/S2 nl RRR no MCG. CTAB. Abd NT/ND BS+ve. VS as noted Hgb 8.4 Metastatic stage IV breast cancer with pain - oncology, pain mgmt, palliative consult - continue duloxetine, gabapentin. Discussion with primary palliative team re: pain control, methadone dosing and breakthrough set and sent by that team, so not sent on discharge. Close follow up with team established with precautions re: worsening/changing sx. Normocytic anemia in the setting of chemotherapy - hematology consult - hold abemacilib for consideration of outpatient oncology team. Recommend repeat CBC at outpatient follow up. Else see resident documentation as noted. Total attending physician time spent with this patient's care on the day of discharge: 32 minutes. Resident Activity Tracking Resident Involvement: Resident Care Provided Care Provided: Adult [facility] Medicine
[2024-12-31 11:30] VITALS: RESP 16; TEMP 97.5; O2SAT 98
[2024-12-31] MEDS: METHADONE HCL 10 MG TAB PO SCH (12:51)
[2024-12-31 14:07] VITALS: BP 92/54; PULSE 119
[2025-01-01 17:23] LABS: 7-Aminoclonaz, Confirm NEGATIVE ng/mL (<25); Codeine Urine NEGATIVE ng/mL (<50); Fentanyl, Urine 4.8 ng/mL (<0.5); Hydro-Alp Ur, GC/MS 494 ng/mL (<25); Hydrocodone Urine NEGATIVE ng/mL (<50); Hydromor Urine >10000 ng/mL (<50); Hydroxyethylflurazepam, Conf NEGATIVE ng/mL (<50); Hydroxymidazolam Ur, GC/MS NEGATIVE ng/mL (<50); Hydroxytriazolam NEGATIVE ng/mL (<50); Lorazepam, Ur GC/MS NEGATIVE ng/mL (<50); Marijuana Quant, GCMS Urine 24 ng/mL (<5); Morphine Urine NEGATIVE ng/mL (<50); Nordiazepam, Confirm NEGATIVE ng/mL (<50); Norfentanyl, Urine >250.0 ng/mL (<0.5); Norhydrocodone Conf Ur NEGATIVE ng/mL (<50); Noroxycodone Urine NEGATIVE ng/mL (<50); Oxazepam Ur, GC/MS NEGATIVE ng/mL (<50); Oxycodone Urine NEGATIVE ng/mL (<50); Oxymorph Urine NEGATIVE ng/mL (<50); Temazepam, Confirm NEGATIVE ng/mL (<50); medMATCH Fentanyl, Urine DNR; medMATCH Norfentanyl, Urine DNR
== END 2024-12-31 15:15 | disposition home or self-care (01) | DRG 948 ==
LOC: ED 19:00 → 2S 23:04 → SUATTDRO 23:04 → 2S 12-29 00:17